=== PATIENT | female | born 1955 | race Caucasian/White ===

== ENCOUNTER 2016-04-14 10:06 | Inpatient (IN) ==
--- NOTE | 2016-04-14 10:33 | Emergency Department Note ---
Disposition Clinical Impression: Acute on chronic pancreatitis, Intractable pain Disposition: Admitted As Inpatient Condition: Good Abdominal Pain HPI - General Chief Complaint: ED Abdominal Pain Stated Complaint: ABD pain Time Seen by Provider: 04/14/16 10:29 Source: patient Nursing Notes Reviewed: Yes Vital Signs Reviewed: Yes - History of Present Illness HPI Narrative: 60-year-old female with history of type 2 diabetes, hypertension and chronic pancreatitis presents to the emergency department with the chief complaint of epigastric pain. She states this pain is exactly like her previous bouts of pancreatitis. She was seen yesterday at an outside hospital and had blood work and her lipase was apparently quite elevated. Her pain has worsened despite oral narcotics at home. She had one episode of vomiting yesterday. She has been having some thinner stools and normal as described as brown without any black or blood. She has had no fevers or chills. Denies any chest pain or shortness of breath. Denies any lower abdominal pain. Pain Severity: moderate Pain Scale: 8 Radiation: LUQ, RUQ, epigastric - Related Data Allergies Allergy/AdvReac Type Severity Reaction Status Date / Time Iodinated Contrast Media - Allergy Difficulty Verified 04/14/16 12:35 Oral and Breathing hydrocodone [From [place]] AdvReac Gastrointestinal Verified 04/14/16 10:17 Upset tramadol AdvReac Gastrointestinal Verified 04/14/16 10:17 Upset All systems ED: reviewed and negative except as stated. Constitutional: Denies: fever, chills Cardiovascular: Denies: chest pain, palpitations, dyspnea on exertion Respiratory: Denies: cough, dyspnea Gastrointestinal: Reports: abdominal pain, nausea, vomiting. Denies: melena, hematochezia Neurological: Denies: headache Abdominal Pain PMH - Past Medical History Medical history: Reports: diabetes, hypertension, other Female Surgical History: Reports: cholecystectomy Psychiatric history: Reports: depression - Social History Smoking status: Current every day smoker Alcohol use: Reports: none Drug use: Reports: none Physical Exam General: She appears to be in some pain, alert and oriented x 3 Cardiovascular: Regular rate and rhythm. S1, S2. No murmurs, rubs or gallops. Respiratory: Breath sounds clear bilaterally. No wheezing, rales or rhonchi. No resp distress Abdomen: Abdomen is soft throughout without any guarding, rebound or rigidity. Normal bowel sounds throughout. She has reproducible epigastric tenderness without any palpable organomegaly. No lower abdominal tenderness. Negative Maki's. No bruising across the abdomen. No Flank tenderness Eyes: No scleral icterus, conjunctiva clear HENT: No oral mucosal lesions. Moist mucous membranes Neuro: Alert and oriented 3, no motor or sensory deficits Musculoskeletal: No joint tenderness or swelling Skin: No lesions. No diaphoresis. Normal turgor. Normal color Psych: Appropriate - General Limitations: no limitations General appearance: alert - Abdominal Exam Abdominal exam: Present: tenderness Abdominal tenderness: Present: epigastrium Course Course Narrative: 60-year-old female with a history of chronic pancreatitis presents the emergency department with worsening epigastric pain that radiates to her back. This is exactly the same as her previous pain. She reports recently being seen at an outside hospital in [place], treated in the emergency department and discharged. The pain has worsened significantly which brought her here today. On exam she has epigastric tenderness. Her labs show an elevated lipase around 250. We requested a previous CT scan from [facility] but they reported no previous CT scan recently. After speaking with the patient we decided to do a repeat CT scan to look for any evidence of pseudocyst or anything significant. Her CT scan today shows acute on chronic pancreatitis. Later we did receive a CT scan report from [place] showing calcifications in the pancreas but nothing to suggest acute pancreatitis, suggesting her pancreatitis has worsened. We tried judiciously to treat her pain in the emergency department including IV Dilaudid, Ativan and even a sub-dissociative dose of ketamine and did not have relief. The patient does not think she can go home comfortably and we agree. Plan to admit for acute on chronic pancreatitis and intractable pain. I discussed with the on-call hospitalist, Dr. Webster who accepts for admission Vital Signs Temperature 98.4 F 04/14/16 10:15 Pulse Rate 101 04/14/16 10:15 Respiratory Rate 18 04/14/16 10:15 Blood Pressure 136/85 04/14/16 10:15 O2 Sat by Pulse Oximetry 98 04/14/16 10:15 Temperature 98.3 F 04/14/16 15:52 Pulse Rate 80 04/14/16 15:52 Respiratory Rate 16 04/14/16 15:52 Blood Pressure 130/75 04/14/16 15:52 O2 Sat by Pulse Oximetry 95 04/14/16 15:52 Oxygen Delivery Oxygen Delivery Room Air Abdominal Pain - Lab Data Result diagrams: 04/14/16 10:56 04/14/16 10:56 Lab Results 04/14/16 04/14/16 04/14/16 Range/Units 10:56 10:56 10:56 WBC 6.1 (4.3-11.1) K/mcL RBC 4.01 (3.82-4.97) M/mcL Hgb 11.5 (11.5-15.4) g/dL Hct 34.6 L (35.3-44.9) % MCV 86.3 (83.0-100.0) fL MCH 28.7 (28.0-33.3) pg MCHC 33.2 (31.6-35.5) g/dL RDW 12.6 (11.5-14.5) % Plt Count 198 (140-400) K/mcL MPV 10.0 (9.4-12.4) fL Immature Gran % 0.3 (0-4) % Seg Neutrophils % 75.9 % Lymphocytes % 17.9 % Monocytes % 5.1 % Eosinophils % 0.5 % Basophils % 0.3 % Neutrophils # 4.6 (1.6-8.9) K/mcL Lymphocytes # 1.1 (0.6-4.6) K/mcL Monocytes # 0.3 (0.0-1.3) K/mcL Eosinophils # 0.0 (0.0-0.6) K/mcL Basophils # 0.0 (0.0-0.2) K/mcL Sodium 138 (136-145) mEq/L Potassium 4.5 (3.5-4.5) mEq/L Chloride 104 (98-109) mEq/L Carbon Dioxide 24 (19-29) mEq/L BUN 8 (7-20) mg/dL Creatinine 0.79 (0.57-1.11) mg/dL Est GFR ( Amer) > 60 (> 60) Est GFR (Non-Af Amer) > 60 (> 60) BUN/Creatinine Ratio 10 (6-26) Glucose 211 H (70-99) mg/dL Calculated Osmolality 291 (280-300) Calcium 9.6 (8.6-10.8) mg/dL Total Bilirubin 0.2 (0.2-1.2) mg/dL Direct Bilirubin 0.1 (0.0-0.5) mg/dL Indirect Bilirubin 0.1 (0.0-1.2) mg/dL AST 26 (5-34) Units/L ALT 22 (0-55) Units/L Alkaline Phosphatase 108 (38-126) Units/L Serum Total Protein 6.6 (6.0-8.3) g/dL Albumin 3.4 L (3.5-5.0) g/dL Globulin 3.2 (2.4-3.5) g/dL Albumin/Globulin Ratio 1.1 (1.1-2.2) Amylase 138 H (25-125) Units/L Lipase 264 H (8-78) Units/L TSH 0.305 L (0.350-4.840) mcIU/mL Attestation Statement - Attestation Attestation: I examined this patient and my medical decision-making was reviewed with the TILE BURNER/PA/Advanced Practice Nurse/Resident Physician. I agree with the documented findings, disposition and treatment plan as described except to the extent set forth below. 60-year-old female presents ED because of abdominal pain. She has history of recurring pancreatitis for the past years. Recent admission to another facility for pancreatic tenderness. Today with recurrence of the same pain that she is unable to tolerate home. Complains of nausea without persistent vomiting. No fevers. No diarrhea. No chest pain or dyspnea. No dysuria, hematuria polyuria. Patient began to fall. She is afebrile. Oropharynx clear mucous membranes dry. Neck is supple. Chest clear to auscultation bilaterally. Cardiac exam regular. Abdomen soft nondistended but moderate tenderness in the epigastrium. Lower abdomen nontender. Flanks nontender. Extremities well perfused, warm and dry. She was given analgesics with transient improvement. Lipase is slightly elevated at 264. No leukocytosis. Ultimately pain was poorly controlled and she was admitted to the hospital for pain control.
[2016-04-14] MEDS ORDERED: Ondansetron 4 MG/2 ML VIAL IV ONE (10:35)
[2016-04-14] MEDS ORDERED: 0.9 % Sodium Chloride 1,000 ML IV ONE (10:35)
[2016-04-14] MEDS ORDERED: *HR* HYDROmorphone (PF) 1 MG/ML SYRINGE IVP ONE (10:35)
[2016-04-14 11:06] LABS: Basophils % 0.3 %; Eosinophils % 0.5 %; Hematocrit 34.6 % (35.3-44.9); Hemoglobin 11.5 g/dL (11.5-15.4); Immature Granulocytes % 0.3 % (0-4); Lymphocytes # 1.1 K/mcL (0.6-4.6); Lymphocytes % 17.9 %; Mean Corpuscular HGB Conc 33.2 g/dL (31.6-35.5); Mean Corpuscular Hemoglobin 28.7 pg (28.0-33.3); Mean Corpuscular Volume 86.3 fL (83.0-100.0); Monocytes # 0.3 K/mcL (0.0-1.3); Monocytes % 5.1 %; Neutrophils # 4.6 K/mcL (1.6-8.9); Platelet Count 198 K/mcL (140-400); Red Blood Count 4.01 M/mcL (3.82-4.97); Red Cell Distribution Width 12.6 % (11.5-14.5); Segmented Neutrophils % 75.9 %
[2016-04-14 11:21] LABS: Alanine Aminotransferase 22 Units/L (0-55); Albumin 3.4 g/dL (3.5-5.0); Albumin/Globulin Ratio 1.1 (1.1-2.2); Alkaline Phosphatase 108 Units/L (38-126); Amylase 138 Units/L (25-125); Aspartate Amino Transferase 26 Units/L (5-34); BUN/Creatinine Ratio 10 (6-26); Bilirubin,Direct 0.1 mg/dL (0.0-0.5); Bilirubin,Indirect 0.1 mg/dL (0.0-1.2); Bilirubin,Total 0.2 mg/dL (0.2-1.2); Blood Urea Nitrogen 8 mg/dL (7-20); Calcium 9.6 mg/dL (8.6-10.8); Carbon Dioxide 24 mEq/L (19-29); Chloride 104 mEq/L (98-109); Globulin 3.2 g/dL (2.4-3.5); Glucose 211 mg/dL (70-99); Lipase 264 Units/L (8-78); Osmolality,Calculated 291 (280-300); Potassium 4.5 mEq/L (3.5-4.5); Sodium 138 mEq/L (136-145); Total Protein 6.6 g/dL (6.0-8.3); eGFR For African Americans > 60 (> 60); eGFR For Non-African Americans > 60 (> 60)
[2016-04-14] MEDS ORDERED: Ketamine *HR* 500 MG/10 ML MDV IVP ONE (11:53)
[2016-04-14] MEDS: *HR* LORazepam 2 MG/ML VIAL IVP ONE ×2 (12:06→13:31)
[2016-04-14] MEDS ORDERED: Naloxone 0.4 MG/ML INJ IVP PRN (13:41)
[2016-04-14] MEDS ORDERED: *HR* HYDROmorphone (PF) 1 MG/ML SYRINGE IVP PRN (13:41)
[2016-04-14] MEDS ORDERED: Acetaminophen 325 MG TABLET PO PRN (13:41)
[2016-04-14] MEDS ORDERED: *HR* LORazepam 2 MG/ML VIAL IVP PRN (13:46)
[2016-04-14] MEDS: Pantoprazole 40 MG VIAL IVP SCH (14:06)
[2016-04-14] MEDS: D5% in 0.45% NACL 1,000 ML IVC SCH (14:07)
[2016-04-14] MEDS: Nicotine 14 MG PATCH.TD24 TD SCH (16:19)
[2016-04-14] MEDS: Ondansetron 4 MG/2 ML VIAL IVP PRN (16:19)
--- NOTE | 2016-04-14 18:02 | Internal Med History&Physical ---
<Luz Rodriguez - Last Filed: 04/14/16 22:14> Date of Encounter: 04/14/16 Time of Encounter: 16:45 Assessment and Plan (1) Acute on chronic pancreatitis Current visit: Yes Status: Acute Chronic pancreatits since last August, pain worse since last night. Pt was seen [facility] ED last night for same and was sent home. Presents today for increased pain. Amylase 138, Lipase 264. Pain control- Dilaudid 1mg q 4h prn Monitor labs NPO. (2) Intractable pain Current visit: Yes Status: Acute Pt was seen by pain management, was removed from the practice for taking rx narcotics from ER. I have discussed with her that we will not be increasing the amount or frequency of her pain medication and she verbalized understanding. Dilaudid 1mg IV q4h prn (3) Abnormal TSH Current visit: Yes Status: Acute TSH 0.305 today. Pt is a Will draw Free T4. Monitor labs. 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 Wright is a 60 year old female with history of chronic pancreatitis since last August, DM, HTN. She presents today with c/o acute on chronic pancreatitis. She was at [facility] last night for same and says she was sent home because "they are sick of dealing with me." She was kicked out of pain management due to accepting pain medication from the ER. She requests higher dose of dilaudid and more frequently during exam. Pt is tender to light palpation in epigastric area. Denies diarrhea or constipation, but reports n/v. Rates pain 8/10, sharp, constant, with radiation to mid back. Past Med Surg Social Fam HX - Past Medical History Medical history: diabetes, hypertension, other Psychiatric history: depression - Past Surgical History Surgical History: cholecystectomy - Social History Smoking Status: Current every day smoker Smokeless Tobacco Status: No Alcohol use: none Drug use: none Internal Medicine - H&P: Meds Allergies Iodinated Contrast Media - Oral and Allergy (Verified 04/14/16 12:35) Difficulty Breathing hydrocodone [From [place]] Adverse Reaction (Verified 04/14/16 10:17) Gastrointestinal Upset tramadol Adverse Reaction (Verified 04/14/16 10:17) Gastrointestinal Upset All Systems PM: A 10-system review of systems was performed and is negative for pertinent findings except as documented above in the HPI. - Constitutional Constitutional: no chills, no fatigue, no fever(s), no night sweats, no weakness - Cardiovascular Cardiovascular ROS IM: no chest pain, no dyspnea, no dyspnea on exertion, no edema, no lightheadedness - Respiratory Respiratory: no cough, no dyspnea - Gastrointestinal Gastrointestinal: abdominal pain, nausea, vomiting, no diarrhea, no loose stools , no melena - Genitourinary Genitourinary: no dysuria, no urinary frequency, no urinary hesitancy, no urinary incontinence, no urinary urgency - Constitutional Vitals: Temp Pulse Resp BP Pulse Ox 98.3 F 80 16 130/75 95 04/14/16 15:52 04/14/16 15:52 04/14/16 15:52 04/14/16 15:52 04/14/16 15:52 General appearance: Present: cooperative, A&O X 3, answers questions appropriately Exam: Pt appears to be in moderate distress, eyes closed when speaking - ENT ENT exam: Present: mucous membranes moist - Neck Neck exam general surgery: Present: normal inspection. Absent: lymphadenopathy , tenderness - Respiratory Respiratory exam: Present: wheezes. Absent: accessory muscle use, chest wall tenderness, decreased breath sounds, CTAB Additional comments: expiratory wheezing in R post lung [place], clear on L. - Cardiovascular Cardiovascular exam: Present: RRR, +S1, +S2 - GI/Abdominal GI/Abdominal exam: Present: hyperactive bowel sounds, tenderness. Absent: hepatomegaly, splenomegaly - Extremities Exam Extremities exam: Present: full ROM, normal capillary refill, normal inspection , warm, radial pulses palpable and symetrical. Absent: calf tenderness, pedal edema, tenderness - Neurological Exam Neurological exam: Present: alert, oriented X3, no focal deficits, strengths equal and symetr throughout Internal Med - H&P Results - Labs CBC & Chem 7: 04/14/16 10:56 04/14/16 10:56 <Ducu,Neal - Last Filed: 04/15/16 06:33> Date of Encounter: 04/15/16 Internal Medicine - H&P: HPI History of present illness: Ms. Wright is a 60 year old female All Systems PM: A 10-system review of systems was performed and is negative for pertinent findings except as documented above in the HPI. - Constitutional Vitals: Temp Pulse Resp BP Pulse Ox 98.2 F 72 16 154/93 95 04/15/16 03:57 04/15/16 03:57 04/15/16 03:57 04/15/16 03:57 04/15/16 03:57 Internal Med - H&P Results - Labs CBC & Chem 7: 04/15/16 03:53 04/15/16 03:53 Labs: Short CBC 04/15/16 Range/Units 03:53 WBC 5.6 (4.3-11.1) K/mcL Hgb 11.4 L (11.5-15.4) g/dL Hct 34.7 L (35.3-44.9) % Plt Count 175 (140-400) K/mcL Neutrophils # 2.9 (1.6-8.9) K/mcL BMP 04/15/16 03:53 Sodium 141 Potassium 3.9 Chloride 108 Carbon Dioxide 24 BUN 6 L Creatinine 0.75 Glucose 162 H Calcium 8.9 Liver Function 04/15/16 Range/Units 03:53 Total Bilirubin 0.3 (0.2-1.2) mg/dL Direct Bilirubin 0.1 (0.0-0.5) mg/dL AST 18 (5-34) Units/L ALT 17 (0-55) Units/L Alkaline Phosphatase 89 (38-126) Units/L Albumin 3.2 L (3.5-5.0) g/dL - Attending Attestation I examined this patient and my medical decision-making was reviewed with the Advanced Practice Provider. I agree with the documented findings, disposition and treatment plan as described except to the extent set forth below. The patient presented to the hospital with epigastric abdominal pain which was severe and sharp in nature, usually improves with oral pain medication however she ran out due to her being denied access pain management clinic. Pain was associated with decreased appetite no vomiting hematemesis or melena. On exam she is in distress and tearful. Abdomen is soft but exquisitely tender with voluntary guarding, no rebound tenderness. Plan: Will add IV acetaminophen for pain control. Continue with IV Dilaudid. Check lipase in the morning. Nothing by mouth. IV fluids and PPI.. She is at high risk for morbidity mortality and complications due to treatment with frequent doses of IV opiates for pain control
[2016-04-14] MEDS: *HR* HYDROmorphone (PF) 1 MG/ML SYRINGE IVP PRN ×2 (18:08→22:14)
[2016-04-14] MEDS ORDERED: *HR* Dextrose 50 % in Water (Syg) 50 ML SYRINGE IVP PRN (19:00)
[2016-04-14] MEDS ORDERED: Dextrose Gel 15 GM PO PRN ×2 (19:00)
[2016-04-14] MEDS ORDERED: D5% in Water 1,000 ML IV PRN (19:00)
[2016-04-14 19:26] LABS: Amphetamine Screen,Urine Negative ng/mL (Cutoff=1000); Barbiturate Screen,Urine Negative ng/mL (Cutoff=200); Benzodiazepines Screen,Urine Negative ng/mL (Cutoff=200); Cannabinoid Screen,Urine Negative ng/mL (Cutoff = 50); Cocaine Screen,Urine Negative ng/mL (Cutoff= 300); Opiate Screen,Urine Negative ng/mL (Cutoff=300); Phencyclidine Screen,Urine Negative ng/mL (Cutoff=25)
[2016-04-14 19:47] LABS: Hemoglobin A1C 7.1 %
[2016-04-14] MEDS: Insulin LISPRO 300 UNITS/3 ML VIAL SQ SCH (22:21)
[2016-04-15] MEDS: Acetaminophen IV 1,000 MG/100 ML INFUS..BTL IVPB SCH ×4 (00:05→18:26)
[2016-04-15] MEDS: Ondansetron 4 MG/2 ML VIAL IVP PRN ×3 (00:20→21:10)
[2016-04-15] MEDS: *HR* HYDROmorphone (PF) 1 MG/ML SYRINGE IVP PRN ×5 (02:24→21:09)
[2016-04-15 04:15] LABS: Basophils % 0.5 %; Eosinophils # 0.1 K/mcL (0.0-0.6); Eosinophils % 1.8 %; Hematocrit 34.7 % (35.3-44.9); Hemoglobin 11.4 g/dL (11.5-15.4); Immature Granulocytes % 0.2 % (0-4); Lymphocytes # 2.2 K/mcL (0.6-4.6); Lymphocytes % 38.5 %; Mean Corpuscular HGB Conc 32.9 g/dL (31.6-35.5); Mean Corpuscular Hemoglobin 28.8 pg (28.0-33.3); Mean Corpuscular Volume 87.6 fL (83.0-100.0); Mean Platelet Volume 10.1 fL (9.4-12.4); Monocytes # 0.4 K/mcL (0.0-1.3); Monocytes % 6.3 %; Neutrophils # 2.9 K/mcL (1.6-8.9); Platelet Count 175 K/mcL (140-400); Red Blood Count 3.96 M/mcL (3.82-4.97); Red Cell Distribution Width 12.8 % (11.5-14.5); Segmented Neutrophils % 52.7 %
[2016-04-15 04:45] LABS: Albumin 3.2 g/dL (3.5-5.0); Albumin/Globulin Ratio 1.1 (1.1-2.2); BUN/Creatinine Ratio 8 (6-26); Bilirubin,Direct 0.1 mg/dL (0.0-0.5); Bilirubin,Indirect 0.2 mg/dL (0.0-1.2); Bilirubin,Total 0.3 mg/dL (0.2-1.2); Blood Urea Nitrogen 6 mg/dL (7-20); Calcium 8.9 mg/dL (8.6-10.8); Carbon Dioxide 24 mEq/L (19-29); Chloride 108 mEq/L (98-109); Globulin 2.9 g/dL (2.4-3.5); Glucose 162 mg/dL (70-99); Magnesium 1.3 mg/dL (1.6-2.6); Osmolality,Calculated 293 (280-300); Potassium 3.9 mEq/L (3.5-4.5); Sodium 141 mEq/L (136-145); Total Protein 6.1 g/dL (6.0-8.3); eGFR For African Americans > 60 (> 60); eGFR For Non-African Americans > 60 (> 60)
[2016-04-15] MEDS: D5% in 0.45% NACL 1,000 ML IVC SCH (06:24)
[2016-04-15] MEDS ORDERED: Insulin LISPRO 300 UNITS/3 ML VIAL SQ SCH (07:30)
[2016-04-15] MEDS: Pantoprazole 40 MG VIAL IVP SCH (08:20)
[2016-04-15] MEDS: Insulin LISPRO 300 UNITS/3 ML VIAL SQ SCH ×3 (08:20→16:59)
[2016-04-15] MEDS: Nicotine 14 MG PATCH.TD24 TD SCH (08:21)
[2016-04-15] MEDS ORDERED: Magnesium Sulfate 2 GM in D5% in Water 100 ML IVPB ONE (13:10)
--- NOTE | 2016-04-15 13:23 | Internal Med Progress Note ---
Date of Encounter: 04/15/16 Time of Encounter: 13:21 - Assessment and plan (1) Acute on chronic pancreatitis Current Visit: Yes Status: Acute Assessment and plan: Intractable and difficult to control abdominal pain. Suspicious history regarding outpatient f/up. Continue IV hydration, keep NPO with plan to start clear liquid diet later today if pain is better controlled. Needs pancrelipase supplements with diet; Start PO Percocet along with IV Dilaudid and explained to the patient that current Dilaudid dose cannot be changed, and she verbalized understanding. Supportive care; serum lipase is only mildly elevated; CT abdomen shows acute on chronic calcified pancreatitis; (2) Essential hypertension Current Visit: Yes Status: Chronic Assessment and plan: noted to have elevated BP; restart home meds, use PRN IV meds for better control ; (3) COPD (chronic obstructive pulmonary disease) Current Visit: Yes Status: Chronic Qualifiers: COPD type: unspecified COPD Qualified Code(s): J44.9 - Chronic obstructive pulmonary disease, unspecified (4) Tobacco abuse Current Visit: Yes Status: Chronic Assessment and plan: continue Nicotine patch; (5) Anxiety Current Visit: Yes Status: Chronic (6) Depression Current Visit: Yes Status: Chronic Qualifiers: Depression Type: unspecified Qualified Code(s): F32.9 - Major depressive disorder, single episode, unspecified (7) Diabetes mellitus Current Visit: Yes Status: Chronic Assessment and plan: Accucheck blood glucose monitoring with sliding scale insulin as needed; consistent carbohydrate diet; Qualifiers: Diabetes mellitus type: type 2 Diabetes mellitus complication status: without complication 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 use Qualified Code(s): E11.9 - Type 2 diabetes mellitus without complications - Subjective Interval history: Reports severe abdominal pain, controlled with Dilaudid but short-lasting; noted to have anxiety and tremors; no nausea, vomiting, reports having BMs; not receiving pain meds from PCP as she got some pain meds from ER and broke pain contract; follows with GI at [facility] for chronic pancreatitis; - Constitutional Vitals: Temp Pulse Resp BP Pulse Ox 98.3 F 83 16 181/93 96 04/15/16 10:31 04/15/16 11:25 04/15/16 10:31 04/15/16 11:25 04/15/16 10:31 General appearance: Present: mild distress, A&O X 3, answers questions appropriately - Respiratory Respiratory exam: Present: CTAB. Absent: accessory muscle use, rales, rhonchi, wheezes - Cardiovascular Cardiovascular exam: Present: RRR, +S1, +S2. Absent: diastolic murmur, gallop, rubs, systolic murmur - GI/Abdominal GI/Abdominal exam: Present: normal bowel sounds, soft (tenderness in epigastrium and LUQ, no guarding/rigidity), no peritoneal signs. Absent: distended, tenderness Internal Medicine: Result - Labs CBC & Chem 7: 04/15/16 03:53 04/15/16 03:53 Labs: Short CBC 04/15/16 Range/Units 03:53 WBC 5.6 (4.3-11.1) K/mcL Hgb 11.4 L (11.5-15.4) g/dL Hct 34.7 L (35.3-44.9) % Plt Count 175 (140-400) K/mcL Neutrophils # 2.9 (1.6-8.9) K/mcL BMP 04/15/16 03:53 Sodium 141 Potassium 3.9 Chloride 108 Carbon Dioxide 24 BUN 6 L Creatinine 0.75 Glucose 162 H Calcium 8.9 Liver Function 04/15/16 Range/Units 03:53 Total Bilirubin 0.3 (0.2-1.2) mg/dL Direct Bilirubin 0.1 (0.0-0.5) mg/dL AST 18 (5-34) Units/L ALT 17 (0-55) Units/L Alkaline Phosphatase 89 (38-126) Units/L Albumin 3.2 L (3.5-5.0) g/dL Consult Discharge Plan - Plan Referrals: NO,PCP [Primary Care Provider] - Nomi Guillermo MD [Non-Partnered Physician] -
[2016-04-15] MEDS: Gabapentin 300 MG CAPSULE PO SCH ×2 (14:10→21:10)
[2016-04-15] MEDS: *HR* OxyCODONE Immed Rel 5 MG TABLET PO PRN (14:10)
[2016-04-15] MEDS: traZODone 50 MG TABLET PO SCH (21:10)
[2016-04-15] MEDS: clonazePAM 0.5 MG TABLET PO SCH (21:20)
[2016-04-16] MEDS: *HR* OxyCODONE Immed Rel 5 MG TABLET PO PRN ×3 (00:19→20:53)
[2016-04-16] MEDS: D5% in 0.45% NACL 1,000 ML IVC SCH ×2 (00:21→18:07)
[2016-04-16] MEDS: Insulin LISPRO 300 UNITS/3 ML VIAL SQ SCH ×5 (00:23→20:58)
[2016-04-16] MEDS: Acetaminophen IV 1,000 MG/100 ML INFUS..BTL IVPB SCH ×2 (00:45→06:33)
[2016-04-16] MEDS: *HR* HYDROmorphone (PF) 1 MG/ML SYRINGE IVP PRN ×5 (02:28→22:23)
[2016-04-16] MEDS: *HR* Heparin 5,000 UNIT/ML VIAL SQ SCH ×2 (06:36→18:06)
[2016-04-16] MEDS: Gabapentin 300 MG CAPSULE PO SCH ×3 (08:13→20:54)
[2016-04-16] MEDS: clonazePAM 0.5 MG TABLET PO SCH ×2 (08:13→20:54)
[2016-04-16] MEDS: Pantoprazole 40 MG VIAL IVP SCH (08:13)
[2016-04-16] MEDS: Nicotine 14 MG PATCH.TD24 TD SCH (08:14)
[2016-04-16] MEDS: (Aclidinium Bromide [Tudorza Pressair] 400 MCG) IH SCH (08:24)
[2016-04-16] MEDS ORDERED: Acetaminophen 325 MG TABLET PO PRN (10:21)
[2016-04-16] MEDS ORDERED: Magnesium Sulfate 2 GM in D5% in Water 100 ML IVPB ONE (10:21)
--- NOTE | 2016-04-16 10:38 | Internal Med Progress Note ---
Date of Encounter: 04/16/16 Time of Encounter: 10:34 - Assessment and plan (1) Acute on chronic pancreatitis Current Visit: Yes Status: Acute Assessment and plan: Intractable and difficult to control abdominal pain. Improving. Continue IV hydration, start low-fat/diabetic clear liquid diet today. Advance as tolerated. Start pancrelipase supplements with diet; continue PO Percocet along with IV Dilaudid. Supportive care; (2) Essential hypertension Current Visit: Yes Status: Chronic Assessment and plan: Elevated blood pressure yesterday likely due to severe abdominal pain. Blood pressure is noted to be better controlled today. Continue lisinopril. use PRN IV meds for better control; (3) COPD (chronic obstructive pulmonary disease) Current Visit: Yes Status: Chronic Qualifiers: COPD type: unspecified COPD Qualified Code(s): J44.9 - Chronic obstructive pulmonary disease, unspecified (4) Tobacco abuse Current Visit: Yes Status: Chronic Assessment and plan: continue Nicotine patch; (5) Anxiety Current Visit: Yes Status: Chronic (6) Depression Current Visit: Yes Status: Chronic Qualifiers: Depression Type: unspecified Qualified Code(s): F32.9 - Major depressive disorder, single episode, unspecified (7) Diabetes mellitus Current Visit: Yes Status: Chronic Assessment and plan: Accucheck blood glucose monitoring with sliding scale insulin as needed; consistent carbohydrate diet; Qualifiers: Diabetes mellitus type: type 2 Diabetes mellitus complication status: without complication Diabetes mellitus jail insulin use: without extermination inspector use Qualified Code(s): E11.9 - Type 2 diabetes mellitus without complications - Subjective Interval history: Reports improving abdominal pain. No nausea, vomiting or diarrhea. Wants to have clear liquids today. Reports that she has an appointment at [facility] tomorrow for abdominal ultrasound and MRI as part of GI workup. - Constitutional Vitals: Temp Pulse Resp BP Pulse Ox 97.9 F 83 14 151/88 93 L 04/16/16 06:48 04/16/16 06:48 04/16/16 06:48 04/16/16 06:48 04/16/16 06:48 General appearance: Present: A&O X 3, answers questions appropriately - Respiratory Respiratory exam: Present: CTAB. Absent: accessory muscle use, rales, rhonchi, wheezes - Cardiovascular Cardiovascular exam: Present: RRR, +S1, +S2. Absent: diastolic murmur, gallop, rubs, systolic murmur - GI/Abdominal GI/Abdominal exam: Present: normal bowel sounds, soft (Improving tenderness in epigastrium and left upper quadrant), no peritoneal signs. Absent: distended, tenderness - Extremities Exam Extremities exam: Present: full ROM, warm, radial pulses palpable and symetrical. Absent: calf tenderness, cyanotic, pedal edema Internal Medicine: Result - Labs CBC & Chem 7: 04/15/16 03:53 04/15/16 03:53 Consult Discharge Plan - Plan Referrals: NO,PCP [Primary Care Provider] - Nomi Guillermo MD [Non-Partnered Physician] -
[2016-04-16] MEDS: Ondansetron 4 MG/2 ML VIAL IVP PRN (18:49)
[2016-04-16] MEDS: traZODone 50 MG TABLET PO SCH (20:54)
[2016-04-17] MEDS: *HR* HYDROmorphone (PF) 1 MG/ML SYRINGE IVP PRN ×2 (03:03→07:01)
[2016-04-17] MEDS: Ondansetron 4 MG/2 ML VIAL IVP PRN (03:10)
[2016-04-17 03:27] LABS: BUN/Creatinine Ratio 7 (6-26); Blood Urea Nitrogen 6 mg/dL (7-20); Calcium 8.9 mg/dL (8.6-10.8); Carbon Dioxide 27 mEq/L (19-29); Chloride 106 mEq/L (98-109); Glucose 232 mg/dL (70-99); Magnesium 1.7 mg/dL (1.6-2.6); Osmolality,Calculated 297 (280-300); Sodium 141 mEq/L (136-145); eGFR For African Americans > 60 (> 60); eGFR For Non-African Americans > 60 (> 60)
[2016-04-17] MEDS: *HR* Heparin 5,000 UNIT/ML VIAL SQ SCH (07:02)
[2016-04-17 07:11] VITALS: BP 148/89
[2016-04-17] MEDS: Insulin LISPRO 300 UNITS/3 ML VIAL SQ SCH (07:57)
[2016-04-17] MEDS: Pantoprazole 40 MG VIAL IVP SCH (08:35)
[2016-04-17] MEDS: clonazePAM 0.5 MG TABLET PO SCH (08:35)
[2016-04-17] MEDS: Nicotine 14 MG PATCH.TD24 TD SCH (08:36)
[2016-04-17] MEDS: Gabapentin 300 MG CAPSULE PO SCH (08:36)
[2016-04-17] MEDS: (Aclidinium Bromide [Tudorza Pressair] 400 MCG) IH SCH (08:38)
--- NOTE | 2016-04-17 09:00 | Discharge Summary ---
Date of Encounter: 04/17/16 Time of Encounter: 08:58 - Discharge Diagnosis (1) Acute on chronic pancreatitis Priority: Primary Status: Acute (2) Essential hypertension Priority: Secondary Status: Chronic (3) COPD (chronic obstructive pulmonary disease) Priority: Secondary Status: Chronic Qualifiers: COPD type: unspecified COPD Qualified Code(s): J44.9 - Chronic obstructive pulmonary disease, unspecified (4) Tobacco abuse Priority: Secondary Status: Chronic (5) Anxiety Priority: Secondary Status: Chronic (6) Depression Priority: Secondary Status: Chronic Qualifiers: Depression Type: unspecified Qualified Code(s): F32.9 - Major depressive disorder, single episode, unspecified (7) Diabetes mellitus Priority: Secondary Status: Chronic Qualifiers: Diabetes mellitus type: type 2 Diabetes mellitus complication status: without complication Diabetes mellitus 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 insulin use: without 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 use Qualified Code(s): E11.9 - Type 2 diabetes mellitus without complications - Discharge Medications Home Medications: Aclidinium [place] [Tudorza Pressair] 400 mcg IH DAILY 04/15/16 [History] ClonazePAM [Clonazepam] 0.5 mg PO BID 04/15/16 [History] Gabapentin 600 mg PO TID 04/15/16 [History] Lisinopril [Zestril] 10 mg PO DAILY 04/15/16 [History] Metformin [Glucophage] 1,000 mg PO BID 04/15/16 [History] Omeprazole [PriLOSEC] 20 mg PO DAILY 04/15/16 [History] Ondansetron HCl [Zofran] 4 mg PO Q6H PRN 04/15/16 [History] Sertraline [Zoloft] 100 mg PO DAILY 04/15/16 [History] TraZODone 100 mg PO HS 04/15/16 [History] Oxycodone HCl 10 mg PO Q6H PRN #20 04/17/16 [Rx] Allergies/Adverse Reactions: Allergies Iodinated Contrast Media - Oral and Allergy (Verified 04/14/16 12:35) Difficulty Breathing hydrocodone [From [place]] Adverse Reaction (Verified 04/14/16 10:17) Gastrointestinal Upset tramadol Adverse Reaction (Verified 04/14/16 10:17) Gastrointestinal Upset Date of admission: 04/15/16 18:46 Primary care physician: PCP NO Discharging clinician: Alejandra Castle Anticipated date of discharge: 04/17/16 - Patient Status Disposition: Home, Self-Care Condition: Fair Functional capacity at discharge: independent ambulation Overall status at discharge: patient is progressing back to baseline - Discharge Instructions Follow Up With: Brea Pizarro CNP [Advanced Practice Nurse] - 04/24/16 9:30 am Additional Instructions: F/up with PCP in 1-2 weeks F/up with GI in [facility], [place] as scheduled - Diet and Activity Activity: resume usual activities as tolerated Diet: advance to your usual diet (soft diet, advance slowly to regular solids), diabetic diet, low fat, low cholesterol, low salt diet Hospital course: Ms. Wright is a 60 year old female with the above medical problems who was admitted with acute on chronic abdominal pain. CT abdomen/pelvis done in the emergency room showed evidence of acute on chronic calcified pancreatitis. Patient follows with gastroenterology at [facility] in [place] and is having ongoing workup for chronic pancreatitis. She is noted to have acute on chronic pancreatitis at this time and was started on aggressive IV hydration along with pain control with when necessary IV Dilaudid and oxycodone. She was kept nothing by mouth initially. Her symptoms gradually improved and she is currently able to tolerate full liquid to soft diet although she still continues to have abdominal pain. She reported that her primary care provider has not given her any more pain medications as she was noted to have broken her pain contract by obtaining pills through emergency room. She is being discharged on a limited supply of oxycodone and she does have an appointment with her primary care provider within a week. She is otherwise medically stable for discharge. - Time Spent with Patient Total time spent providing and/or coordinating discharge services: Greater than 30 minutes (45 min) - Constitutional Vitals: Temp Pulse Resp BP Pulse Ox 98.2 F 94 16 148/89 94 L 04/17/16 07:00 04/17/16 07:00 04/17/16 07:00 04/17/16 07:00 04/17/16 07:00 General appearance: Present: A&O X 3, answers questions appropriately - Respiratory Respiratory exam: Present: CTAB. Absent: accessory muscle use, rales, rhonchi, wheezes - GI/Abdominal GI/Abdominal exam: Present: normal bowel sounds, soft (mildly tender in epigastrium and LUQ, no guarding or rigidity), no peritoneal signs. Absent: distended, tenderness
[2016-04-17] MEDS: *HR* OxyCODONE Immed Rel 5 MG TABLET PO PRN (09:38)
== END 2016-04-17 10:15 | disposition home or self-care (01) | DRG 282 ==
LOC: EMEROO 10:06 → 3ANU 10:06
PROVIDERS: ADMIT Internal Medicine; ATTEND Internal Medicine

== ENCOUNTER 2016-04-22 09:42 | Inpatient (IN) ==
[2016-04-22] MEDS ORDERED: *HR* HYDROmorphone (PF) 1 MG/ML SYRINGE IVP ONE (10:02)
[2016-04-22] MEDS ORDERED: Ondansetron 4 MG/2 ML VIAL IVP ONE (10:02)
--- NOTE | 2016-04-22 10:19 | Emergency Department Note ---
Disposition Clinical Impression: Pancreatitis Disposition: Admitted As Inpatient Condition: Good Referrals: Brea Pizarro CNP [Primary Care Provider] - Time of Disposition: 11:06 General Adult HPI - General Stated complaint: ABD Pain Time Seen by Provider: 04/22/16 09:47 Source: patient Limitations: no limitations Nursing Notes Reviewed: Yes Vital Signs Reviewed: Yes - History of Present Illness HPI Narrative: Patient complaining of a two-day history of left upper quadrant pain. She did have a procedure done at [facility] yesterday. Does have history of chronic pancreatitis. Reporting nausea associated with this. She is comes pain is sharp and constant. Sitting with her knees bent does help with the pain but does not relieve it. There are no provoking factors. Pain Scale: 10 - Related Data Home Medications Medication Instructions Recorded Confirmed Aclidinium [place] [Tudorza 400 mcg IH DAILY 04/15/16 04/15/16 Pressair] ClonazePAM [Clonazepam] 0.5 mg PO BID 04/15/16 04/15/16 Gabapentin 600 mg PO TID 04/15/16 04/15/16 Lisinopril [Zestril] 10 mg PO DAILY 04/15/16 04/15/16 Metformin [Glucophage] 1,000 mg PO BID 04/15/16 04/15/16 Omeprazole [PriLOSEC] 20 mg PO DAILY 04/15/16 04/15/16 Ondansetron HCl [Zofran] 4 mg PO Q6H PRN 04/15/16 04/15/16 Sertraline [Zoloft] 100 mg PO DAILY 04/15/16 04/15/16 TraZODone 100 mg PO HS 04/15/16 04/15/16 Previous Rx's Medication Instructions Recorded Oxycodone HCl 10 mg PO Q6H PRN #20 04/17/16 Allergies Allergy/AdvReac Type Severity Reaction Status Date / Time Iodinated Contrast Media - Allergy Difficulty Verified 04/14/16 12:35 Oral and Breathing hydrocodone [From [place]] AdvReac Gastrointestinal Verified 04/14/16 10:17 Upset tramadol AdvReac Gastrointestinal Verified 04/14/16 10:17 Upset Review of Systems: Patient denies any fever but does report chills. She denies any vomiting but does report nausea. She denies any headaches or visual disturbances. She denies any shortness of breath or chest pain. She does report a left upper quadrant pain that she states feels like when she has had pancreatitis before. Patient had a procedure at [facility] yesterday. She states she an EGD and some nerves numbed. She denies any numbness or tingling in any erection MUSE. She denies any urinary symptoms. She states she has had a couple episodes of loose stools but denies any hematochezia or melena. All systems ED: reviewed and negative except as stated. Past Medical History - Past Medical History Medical history: Reports: diabetes, hypertension, other Surgical history: Reports: cholecystectomy Psychiatric history: Reports: depression - Social History Smoking Status: Current every day smoker Smokeless Tobacco Status: No Alcohol use: Reports: none Drug use: Reports: none Physical Exam - General Limitations: no limitations General appearance: alert, in no apparent distress - Head Head exam: atraumatic, normocephalic, normal inspection - Eye Eye exam: Present: normal appearance, PERRL, EOMI. Absent: scleral icterus - ENT ENT exam: normal exam, normal oropharynx, mucous membranes moist - Neck Neck exam: Present: normal inspection, full ROM, trachea midline - Chest Chest inspection: Present: normal inspection, symmetric chest wall rise - Respiratory Respiratory exam: Present: normal lung sounds bilaterally. Absent: respiratory distress, wheezes - Cardiovascular Cardiovascular exam: Present: regular rate, normal rhythm, normal heart sounds - Abdominal Exam Abdominal exam: Present: soft, tenderness (To palpation of left upper quadrant.) , other (No peritoneal signs.). Absent: distention, guarding, rebound, rigidity , normal bowel sounds, organomegaly - Extremities Exam Extremities exam: Present: normal inspection, full ROM, normal capillary refill. Absent: tenderness, pedal edema - Expanded Lower Extremity Exam Hip/Pelvis exam: Present: normal inspection, full ROM Upper leg exam: Present: normal inspection, full ROM Knee exam: Present: normal inspection, full ROM Lower leg exam: Present: normal inspection, full ROM Ankle exam: Present: normal inspection, full ROM Foot/toe exam: Present: normal inspection, full ROM Neurovascular/Tendon exam: Absent: motor deficit, sensory deficit, tendon deficit - Back Exam Back exam: Present: normal inspection, full ROM. Absent: tenderness - Neurological Exam Neurological exam: Present: alert, oriented X3 - Psychiatric Psychiatric exam: Present: normal affect, normal mood - Skin Skin exam: Present: warm, dry, intact, normal color. Absent: rash Course Course Narrative: Well-appearing female patient resting comfortably in bed complaining of left upper abdominal pain that started yesterday. She states that she does have a history of pancreatitis. She was seen at [facility] yesterday had an endoscopy along with what the patient describes as "numbing medication injected into nerves." She also states that she was told she had a "large stone in her pancreas," and that "the tail of her pancreas is ." Patient's abdomen is soft. She is tender in her left upper quadrant. I do not appreciate any organomegaly. She states she is defecating normally. She denies any urinary symptoms. She does not appear toxic. She denies any shortness of breath or chest pain. States she is eating and drinking but is nauseated. We will treat patient's pain. We will get basic labs. She states she has been admitted one week ago for pancreatitis. I will send to get a hold of [facility] to get further recommendations. - Reevaluation(s) Reevaluation #1: Spoke with patient stated that and needs to be admitted to the hospital. She expresses understanding. Time: 11:10 - Consultations Consultation #1: Dr Coppola accepted Pt in stable condition. Time: 11:21 Vital Signs Temperature 98.4 F 04/22/16 09:58 Pulse Rate 69 04/22/16 09:58 Respiratory Rate 18 04/22/16 09:58 Blood Pressure 180/107 04/22/16 09:58 O2 Sat by Pulse Oximetry 96 04/22/16 09:58 Temperature 98.4 F 04/22/16 09:58 Pulse Rate 69 04/22/16 09:58 Respiratory Rate 18 04/22/16 09:58 Blood Pressure 180/107 04/22/16 09:58 O2 Sat by Pulse Oximetry 96 04/22/16 09:58 Oxygen Delivery Oxygen Delivery Room Air Medical Decision Making - Lab Data Lab results reviewed: Yes I reviewed the patient's lab results. Result diagrams: 04/22/16 10:23 04/22/16 10:23 Lab Results 04/22/16 04/22/16 04/22/16 Range/Units 10:10 10:23 10:23 WBC 7.5 (4.3-11.1) K/mcL RBC 4.36 (3.82-4.97) M/mcL Hgb 12.4 (11.5-15.4) g/dL Hct 37.5 (35.3-44.9) % MCV 86.0 (83.0-100.0) fL MCH 28.4 (28.0-33.3) pg MCHC 33.1 (31.6-35.5) g/dL RDW 12.6 (11.5-14.5) % Plt Count 203 (140-400) K/mcL MPV 10.0 (9.4-12.4) fL Immature Gran % 0.3 (0-4) % Seg Neutrophils % 77.6 % Lymphocytes % 17.5 % Monocytes % 3.8 % Eosinophils % 0.4 % Basophils % 0.4 % Neutrophils # 5.9 (1.6-8.9) K/mcL Lymphocytes # 1.3 (0.6-4.6) K/mcL Monocytes # 0.3 (0.0-1.3) K/mcL Eosinophils # 0.0 (0.0-0.6) K/mcL Basophils # 0.0 (0.0-0.2) K/mcL Sodium 140 (136-145) mEq/L Potassium 4.1 (3.5-4.5) mEq/L Chloride 104 (98-109) mEq/L Carbon Dioxide 23 (19-29) mEq/L BUN 8 (7-20) mg/dL Creatinine 0.83 (0.57-1.11) mg/dL Est GFR ( Amer) > 60 (> 60) Est GFR (Non-Af Amer) > 60 (> 60) BUN/Creatinine Ratio 10 (6-26) Glucose 166 H (70-99) mg/dL Calculated Osmolality 292 (280-300) Calcium 9.6 (8.6-10.8) mg/dL Total Bilirubin 0.3 (0.2-1.2) mg/dL Direct Bilirubin 0.1 (0.0-0.5) mg/dL Indirect Bilirubin 0.2 (0.0-1.2) mg/dL AST 15 (5-34) Units/L ALT 15 (0-55) Units/L Alkaline Phosphatase 93 (38-126) Units/L Serum Total Protein 7.6 (6.0-8.3) g/dL Albumin 4.1 (3.5-5.0) g/dL Globulin 3.5 (2.4-3.5) g/dL Albumin/Globulin Ratio 1.2 (1.1-2.2) Lipase 326 H (8-78) Units/L Urine Color Yellow (Yellow) Urine Clarity Clear (Clear) Urine pH 7.5 (5.0-8.0) pH Units Ur Specific [place] 1.019 (1.010-1.025) Urine Protein 30 H (Neg-Trace) mg/dL Urine Glucose (UA) Normal (Normal) mg/dL Urine Ketones Negative (Negative) mg/dL Urine Blood Negative (Negative) Urine Nitrite Negative (Negative) Urine Bilirubin Negative (Negative) Urine Urobilinogen Normal (Normal) mg/dL Ur Leukocyte Esterase Negative (Negative) Urine Microscopic RBC 0-3 (0-3) per hpf Urine Microscopic WBC 0-3 (0-3) per hpf Ur Squamous Epith Cells Many H (None-Few) per lpf Urine Bacteria None Seen (None-Few) per hpf Hyaline Casts None Seen (None-Few) per lpf Ur Culture Indicated? NO (NO) - Radiology Data Radiology results reviewed: Yes I reviewed the patient's radiology results. I reviewed the images and radiology report. - EKG Data EKG #1 EKG attestation: Yes I reviewed and interpreted this EKG. EKG results narrative: Normal sinus rhythm at a rate of 68. TN interval is 160. QRS duration is 92. QT is 428. QTC is 445. No signs of acute ischemia.
[2016-04-22 10:26] LABS: Bilirubin,Urine Negative (Negative); Blood,Urine Negative (Negative); Clarity,Urine Clear (Clear); Color,Urine Yellow (Yellow); Glucose,Urine (UA) Normal (Normal); Ketones,Urine Negative (Negative); Leukocyte Esterase,Urine Negative (Negative); Nitrite,Urine Negative (Negative); PH,Urine 7.5 pH Units (5.0-8.0); Protein,Urine 30 mg/dL (Neg-Trace); Specific Gravity,Urine 1.019 (1.010-1.025); Urobilinogen,Urine Normal (Normal)
[2016-04-22 10:29] LABS: Bacteria,Urine None Seen per hpf (None-Few); Hyaline Casts,Urine None Seen per lpf (None-Few); RBC,Urine 0-3 per hpf (0-3); Squamous Epithelial Cell,Urine Many per lpf (None-Few); WBC,Urine 0-3 per hpf (0-3)
[2016-04-22 10:35] LABS: Basophils % 0.4 %; Eosinophils % 0.4 %; Hematocrit 37.5 % (35.3-44.9); Hemoglobin 12.4 g/dL (11.5-15.4); Immature Granulocytes % 0.3 % (0-4); Lymphocytes # 1.3 K/mcL (0.6-4.6); Lymphocytes % 17.5 %; Mean Corpuscular HGB Conc 33.1 g/dL (31.6-35.5); Mean Corpuscular Hemoglobin 28.4 pg (28.0-33.3); Monocytes # 0.3 K/mcL (0.0-1.3); Monocytes % 3.8 %; Neutrophils # 5.9 K/mcL (1.6-8.9); Platelet Count 203 K/mcL (140-400); Red Blood Count 4.36 M/mcL (3.82-4.97); Red Cell Distribution Width 12.6 % (11.5-14.5); Segmented Neutrophils % 77.6 %
[2016-04-22 10:48] LABS: Alanine Aminotransferase 15 Units/L (0-55); Albumin 4.1 g/dL (3.5-5.0); Albumin/Globulin Ratio 1.2 (1.1-2.2); Alkaline Phosphatase 93 Units/L (38-126); Aspartate Amino Transferase 15 Units/L (5-34); BUN/Creatinine Ratio 10 (6-26); Bilirubin,Direct 0.1 mg/dL (0.0-0.5); Bilirubin,Indirect 0.2 mg/dL (0.0-1.2); Bilirubin,Total 0.3 mg/dL (0.2-1.2); Blood Urea Nitrogen 8 mg/dL (7-20); Calcium 9.6 mg/dL (8.6-10.8); Carbon Dioxide 23 mEq/L (19-29); Chloride 104 mEq/L (98-109); Globulin 3.5 g/dL (2.4-3.5); Glucose 166 mg/dL (70-99); Lipase 326 Units/L (8-78); Osmolality,Calculated 292 (280-300); Potassium 4.1 mEq/L (3.5-4.5); Sodium 140 mEq/L (136-145); Total Protein 7.6 g/dL (6.0-8.3); eGFR For African Americans > 60 (> 60); eGFR For Non-African Americans > 60 (> 60)
[2016-04-22] MEDS ORDERED: 0.9 % Sodium Chloride 1,000 ML IVC ONE (10:59)
--- NOTE | 2016-04-22 11:00 | Emergency Department Note ---
START Narrative - START START: I examined this patient and my medical decision-making was reviewed with the LIMOUSINE AND HEARSE UPHOLSTERER/PA/Advanced Practice Nurse/Resident Physician. I agree with the documented findings, disposition and treatment plan as described except to the extent set forth below. Patient to emergency department complaining of epigastric abdominal pain. Patient is status post a procedure yesterday at [facility] where she states they did endoscopy and injected her pancreas. She has had pain since the procedure. On exam she is uncomfortable but in no distress. She is a moderate amount of upper abdominal tenderness. No guarding. Plan. Basic labs show an elevated lipase above baseline. We will discuss with her physicians at [facility]. Patient is status post celiac plexus block yesterday. Lipase is elevated. Will admit. Hospitalist requesting CT.
[2016-04-22] MEDS ORDERED: *HR* OxyCODONE Immed Rel 5 MG TABLET PO PRN (12:39)
[2016-04-22] MEDS ORDERED: Ondansetron 4 MG/2 ML VIAL IVP PRN (12:39)
[2016-04-22] MEDS ORDERED: *HR* HYDROmorphone (PF) 1 MG/ML SYRINGE IVP PRN (12:39)
[2016-04-22] MEDS ORDERED: Naloxone 0.4 MG/ML INJ IVP PRN (12:39)
[2016-04-22] MEDS ORDERED: Pantoprazole 40 MG VIAL IVP SCH (12:45)
[2016-04-22] MEDS ORDERED: 0.9 % Sodium Chloride 1,000 ML IVC SCH (12:45)
--- NOTE | 2016-04-22 12:50 | Internal Med History&Physical ---
<Brandi Dunbar M - Last Filed: 04/22/16 15:16> Date of Encounter: 04/22/16 Time of Encounter: 12:46 Assessment and Plan (1) Acute on chronic pancreatitis Current visit: No Status: Acute Patient with history of chronic pancreatitis, recent admission for pancreatitis last week. She reports she had an endoscopy yesterday at [facility] and was told the tail of her pancreas is and she has a stone. She was set up for a surgical consult on 05/02. She reports that she had LUQ pain prior to the procedure as well as immediately after the procedure, and reports it was worse after, and increasing. She reports she's had nausea and vomiting. Lipase was elevated to 326, she was tender to palpation on exam. NPO IV fluids 0.9NS at 125mL/hr IVP protonix daily PRN dilaudid for pain PRN zofran for nausea Narcan PRN for respiratory depression We will call [facility] for transfer as patient is having post-procedure pancreatitis and with her report of necrotic tail of pancreas already, she is at risk for further morbidity. (2) COPD (chronic obstructive pulmonary disease) Current visit: No Status: Chronic Patient with COPD. She denies any cough, difficulty breathing, or wheezing. She has mild bilateral epiratory wheezes on exam duoneb treatments QID PRN Qualifiers: COPD type: unspecified COPD Qualified Code(s): J44.9 - Chronic obstructive pulmonary disease, unspecified (3) Diabetes mellitus Current visit: No Status: Chronic Controlled as evidenced by Hgb A1c of 7.1 on 04/14 Hold metformin check blood sugars ACHS sliding scale correction dose ACHS hypoglycemic protocol Qualifiers: Diabetes mellitus type: type 2 Diabetes mellitus complication status: without complication Diabetes mellitus fitting room associate insulin use: without nursing home use Qualified Code(s): E11.9 - Type 2 diabetes mellitus without complications (4) Essential hypertension Current visit: No Status: Chronic Will give PRN hydralazine while patient NPO. Once tolerating PO, can transition to home dose of lisinopril (5) Tobacco abuse Current visit: No Status: Chronic Patient continues to smoke. She reports she has cut back. Encouraged smoking cessation. nicotine patch ordered. (6) DVT prophylaxis Current visit: Yes Status: Acute Encourage ambulation anti-embolic stockings Lovenox 40mg SQ Daily (7) Anxiety Current visit: No Status: Chronic Takes 0.5mg Clonazepam BID at home. While NPO, will give 1mg IVP of Ativan BID PRN. Once tolerating PO, resume home dose of Clonazepam. Internal Medicine - H&P: HPI Chief complaint: abdominal pain Admitted From: Emergency Dept Plans for Post Hospital Care: Home History of present illness: Ms. Wright is a 60 year old female with chronic pancreatitis, hypertension, type 2 diabetes, COPD who presented to the emergency department today with complaints of left-sided abdominal pain nausea and vomiting. Patient was recently admitted for pancreatitis flare. She reports she was at [facility] yesterday for an EGD and immediately after the procedure reported increase in her pain on the left side which has continued. She called [facility] and they instructed her to report to her local emergency department. She reports the pain radiates from left lateral side across her left upper quadrant to her epigastric area she describes the pain as achy and stabbing and severe. Pain is somewhat relieved by pain medication administered in the emergency department. She has had some nausea, unable to eat food. Able to tolerate liquids. She did vomit last night. Additionally she has had some hot and cold flashes. She denies any chest pain, palpitations, shortness of breath. She denies any numbness or tingling anywhere. Evaluation in the emergency department revealed elevated lipase of 326 up from previous value on April 14. White blood cell count was normal at 7.5, hemoglobin and hematocrit were normal. On exam, patient alert and oriented, in no acute distress. Heart is regular rate and rhythm, lungs have bilateral expiratory mild wheezes. Patient is tender to palpation over epigastric and left upper quadrant. Past Med Surg Social Fam HX - Past Medical History Medical history: COPD, diabetes, GERD, hyperlipidemia, hypertension, other ( chronic pancreatitis) Psychiatric history: depression - Past Surgical History Surgical History: cholecystectomy, hysterectomy, orthopedic, other (ankle surgery) - Social History Smoking Status: Current every day smoker (40 Pack year history) Packs per day: 0.5 Smokeless Tobacco Status: No Alcohol use: none Drug use: none - Family History Mother Living Status: Age at : 67 Cause of : [place] Father Living Status: Age at : 62 Cause of : [place] Internal Medicine - H&P: Meds Aclidinium [place] [Nicole Cheair] 400 mcg IH DAILY 04/15/16 [History] ClonazePAM [Clonazepam] 0.5 mg PO BID 04/15/16 [History] Gabapentin 600 mg PO TID 04/15/16 [History] Lisinopril [Zestril] 10 mg PO DAILY 04/15/16 [History] Metformin [Glucophage] 1,000 mg PO BID 04/15/16 [History] Omeprazole [PriLOSEC] 20 mg PO DAILY 04/15/16 [History] Ondansetron HCl [Zofran] 4 mg PO Q6H PRN 04/15/16 [History] Sertraline [Zoloft] 100 mg PO DAILY 04/15/16 [History] TraZODone 100 mg PO HS 04/15/16 [History] Ergocalciferol (VITAMIN D2) [Vitamin D2] 50,000 unit PO QWEEK 04/22/16 [History] Allergies Iodinated Contrast Media - Oral and Allergy (Verified 04/22/16 13:45) Difficulty Breathing AND HIVES hydrocodone [From [place]] Adverse Reaction (Verified 04/14/16 10:17) Gastrointestinal Upset tramadol Adverse Reaction (Verified 04/14/16 10:17) Gastrointestinal Upset All Systems PM: A 10-system review of systems was performed and is negative for pertinent findings except as documented above in the HPI. - Constitutional Constitutional: chills, no fever(s), no night sweats - EENT Eyes: no change in vision, no discharge, no pain, no photophobia Ears: no ear discharge, no ear pain, no tinnitus Nose, mouth and throat: no dysphagia, no nasal discharge, no neck pain, no sore throat - Cardiovascular Cardiovascular ROS IM: no chest pain, no diaphoresis, no dyspnea, no lightheadedness, no palpitations, no syncope - Respiratory Respiratory: no cough, no dyspnea, no wheezing, no excessive phlegm production - Gastrointestinal Gastrointestinal: abdominal pain, nausea, vomiting, no diarrhea, no hematemesis , no hematochezia, no melena - Genitourinary Genitourinary: no change in urinary stream, no dysuria, no flank pain, no hematuria - Musculoskeletal Musculoskeletal ROS IM: no numbness, no tingling - Integumentary Integumentary IM: no rash, no unusual bruising - Neurological Neurological ROS: no confusion, no convulsions, no focal weakness, no numbness, no tingling, no tremor(s) - Hematologic/Lymphatic Hematologic/Lymphatic: no easy bruising - Constitutional Vitals: Temp Pulse Resp BP Pulse Ox 98.0 F 75 16 168/84 98 04/22/16 12:05 04/22/16 12:05 04/22/16 12:05 04/22/16 12:05 04/22/16 12:05 General appearance: Present: A&O X 3, no acute distress - Head Head exam: Present: atraumatic, normocephalic - Eye Eye exam: Present: PERRL, conjuntiva pink, sclera anicteric Pupils: Present: PERRL - Neck Neck exam general surgery: Present: supple, trachea midline. Absent: lymphadenopathy - Respiratory Respiratory exam: Present: CTAB, wheezes (mild bilateral expiratory). Absent: accessory muscle use, rales, rhonchi - Cardiovascular Cardiovascular exam: Present: RRR, +S1, +S2. Absent: diastolic murmur, gallop, rubs, systolic murmur - GI/Abdominal GI/Abdominal exam: Present: normal bowel sounds, soft, tenderness (epigastric and left upper quadrant), no peritoneal signs. Absent: distended - Extremities Exam Extremities exam: Present: warm, radial pulses palpable and symetrical. Absent : calf tenderness, cyanotic, pedal edema - Neurological Exam Neurological exam: Present: CN II-XII intact, oriented X3, no focal deficits. Absent: facial droop, speech deficit - Skin Skin exam: Present: dry, intact Internal Med - H&P Results - Labs CBC & Chem 7: 04/22/16 10:23 04/22/16 10:23 Labs: Abnormal lab results Glucose 166 mg/dL (70-99) H 04/22/16 10:23 Lipase 326 Units/L (8-78) H 04/22/16 10:23 Urine Protein 30 mg/dL (Neg-Trace) H 04/22/16 10:10 Ur Squamous Epith Cells Many per lpf (None-Few) H 04/22/16 10:10 <Neal Coppola - Last Filed: 04/22/16 16:27> Date of Encounter: 04/22/16 Internal Medicine - H&P: HPI History of present illness: Ms. Wright is a 60 year old female All Systems PM: A 10-system review of systems was performed and is negative for pertinent findings except as documented above in the HPI. - Constitutional Vitals: Temp Pulse Resp BP Pulse Ox 97.9 F 66 16 173/94 95 04/22/16 14:58 04/22/16 14:58 04/22/16 14:58 04/22/16 14:58 04/22/16 14:58 Internal Med - H&P Results - Labs CBC & Chem 7: 04/22/16 10:23 04/22/16 10:23 - Attending Attestation I examined this patient and my medical decision-making was reviewed with the Advanced Practice Provider. I agree with the documented findings, disposition and treatment plan as described except to the extent set forth below. The patient presented to the hospital with severe epigastric abdominal pain. Lipase was elevated this morning checked in the emergency department. She has a history of endoscopy and possible ERCP done at [facility] yesterday. I am concerned that this could be a postprocedural complication. On exam she is exquisitely tender in the upper abdomen but soft with no guarding rigidity or rebound. Plan: IV fluids, pain control, consult [facility] for possible transfer as she would be better served in a tertiary care hospital. At this point with a GI available in our hospital for the next 48 hours.
[2016-04-22] MEDS ORDERED: *HR* Dextrose 50 % in Water (Syg) 50 ML SYRINGE IVP PRN (13:11)
[2016-04-22] MEDS ORDERED: Dextrose Gel 15 GM PO PRN ×2 (13:11)
[2016-04-22] MEDS ORDERED: D5% in Water 1,000 ML IV PRN (13:11)
[2016-04-22] MEDS ORDERED: Ipratropium/Albuterol Neb 3 ML IH PRN (13:13)
[2016-04-22] MEDS ORDERED: Nicotine 14 MG PATCH.TD24 TD SCH (13:45)
[2016-04-22] MEDS ORDERED: *HR* LORazepam 2 MG/ML VIAL IVP PRN (14:33)
[2016-04-22 14:59] VITALS: BP 173/94
--- NOTE | 2016-04-22 15:24 | Discharge Summary ---
<Brandi Dunbar - Last Filed: 04/22/16 15:19> Date of Encounter: 04/22/16 Time of Encounter: 15:19 - Discharge Diagnosis (1) Acute on chronic pancreatitis Status: Acute (2) COPD (chronic obstructive pulmonary disease) Status: Chronic Qualifiers: COPD type: unspecified COPD Qualified Code(s): J44.9 - Chronic obstructive pulmonary disease, unspecified (3) Diabetes mellitus Status: Chronic Qualifiers: Diabetes mellitus type: type 2 Diabetes mellitus complication status: without complication Diabetes mellitus custodial insulin use: without custodial use Qualified Code(s): E11.9 - Type 2 diabetes mellitus without complications (4) Essential hypertension Status: Chronic (5) Tobacco abuse Status: Chronic (6) DVT prophylaxis Status: Acute (7) Anxiety Status: Chronic - Discharge Medications Home Medications: Aclidinium [place] [Tudorza Pressair] 400 mcg IH DAILY 04/15/16 [History] ClonazePAM [Clonazepam] 0.5 mg PO BID 04/15/16 [History] Gabapentin 600 mg PO TID 04/15/16 [History] Lisinopril [Zestril] 10 mg PO DAILY 04/15/16 [History] Metformin [Glucophage] 1,000 mg PO BID 04/15/16 [History] Omeprazole [PriLOSEC] 20 mg PO DAILY 04/15/16 [History] Ondansetron HCl [Zofran] 4 mg PO Q6H PRN 04/15/16 [History] Sertraline [Zoloft] 100 mg PO DAILY 04/15/16 [History] TraZODone 100 mg PO HS 04/15/16 [History] Ergocalciferol (VITAMIN D2) [Vitamin D2] 50,000 unit PO QWEEK 04/22/16 [History] Allergies/Adverse Reactions: Allergies Iodinated Contrast Media - Oral and Allergy (Verified 04/22/16 13:45) Difficulty Breathing AND HIVES hydrocodone [From [place]] Adverse Reaction (Verified 04/14/16 10:17) Gastrointestinal Upset tramadol Adverse Reaction (Verified 04/14/16 10:17) Gastrointestinal Upset Date of admission: 04/22/16 11:34 Primary care physician: Brea Pizarro CNP Discharging clinician: Brandi Dunbar Anticipated date of discharge: 04/22/16 - Patient Status Disposition: Transfer Other Condition: Fair Functional capacity at discharge: independent ambulation Overall status at discharge: patient is not back to baseline - Discharge Instructions Follow Up With: Brea Pizarro CNP [Primary Care Provider] - Forms: ED Satisfaction Letter, Work/School Release Interval History: Patient reported her procedure at [facility] yesterday showed "stones" in her pancreas as well as showing the "tail of her pancreas is ". With concern for further progression of necrosis or obstructive stone and without GI services available presently, we decided to discuss with [facility] for transfer. Discussed with accepting General Medicine physician, who confirmed patient had EUS at [facility] yesterday which showed non-obstructive stones, and accepted patient for transfer to [facility]. Discussed plan with patient, and she is agreeable with transfer. Hospital course: Ms. Wright is a 60 year old female Time spent discussing smoking cessation with patient: 3 to 10 minutes - Time Spent with Patient Total time spent providing and/or coordinating discharge services: Less than 30 minutes - Constitutional Vitals: Temp Pulse Resp BP Pulse Ox 97.9 F 66 16 173/94 95 04/22/16 14:58 04/22/16 14:58 04/22/16 14:58 04/22/16 14:58 04/22/16 14:58 General appearance: Present: A&O X 3, no acute distress - Head Head exam: Present: atraumatic, normocephalic - Eye Eye exam: Present: PERRL, conjuntiva pink, sclera anicteric Pupils: Present: PERRL - Neck Neck exam general surgery: Present: supple, trachea midline. Absent: lymphadenopathy - Respiratory Respiratory exam: Present: CTAB. Absent: accessory muscle use, rales, rhonchi, wheezes - Cardiovascular Cardiovascular exam: Present: RRR, +S1, +S2. Absent: diastolic murmur, gallop, rubs, systolic murmur - GI/Abdominal GI/Abdominal exam: Present: normal bowel sounds, soft, tenderness (epigastric area and LUQ), no peritoneal signs. Absent: distended - Extremities Exam Extremities exam: Present: warm, radial pulses palpable and symetrical. Absent : calf tenderness, cyanotic, pedal edema - Neurological Exam Neurological exam: Present: CN II-XII intact, oriented X3, no focal deficits. Absent: facial droop, speech deficit - Skin Skin exam: Present: dry, intact <Neal Coppola - Last Filed: 04/22/16 22:01> Date of Encounter: 04/22/16 Date of admission: 04/22/16 15:14 Primary care physician: Brea Pizarro CNP Hospital course: Ms. Wright is a 60 year old female - Time Spent with Patient Total time spent providing and/or coordinating discharge services: - Constitutional Vitals: Temp Pulse Resp BP Pulse Ox 97.9 F 66 16 173/94 95 04/22/16 14:58 04/22/16 14:58 04/22/16 14:58 04/22/16 14:58 04/22/16 14:58 - Attending Attestation I examined this patient and my medical decision-making was reviewed with the Advanced Practice Nurse. I agree with the documented findings, disposition and treatment plan as described except to the extent set forth below. The patient had an endoscopy with EUS and celiac nerve block performed yesterday at [facility], she now has severe epigastric abdominal pain and elevated lipase. I am concerned of a postprocedural complication and suggested the patient to be transferred back to [facility] for further workup and treatment.
[2016-04-22] MEDS: *HR* HYDROmorphone (PF) 1 MG/ML SYRINGE IVP PRN ×2 (15:31→18:03)
[2016-04-22] MEDS ORDERED: Insulin LISPRO 300 UNITS/3 ML VIAL SQ SCH (18:00)
[2016-04-23] MEDS ORDERED: *HR* Enoxaparin 40 MG/0.4 ML SYRINGE SQ SCH (07:00)
--- NOTE | 2016-04-24 08:57 | Electrocardiograph Report ---
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
== END 2016-04-22 18:42 | disposition other institution (70) | DRG 282 ==
LOC: 3ANU 09:42 → EMEROO 09:42 → 3ANU 11:56
PROVIDERS: ADMIT Internal Medicine; ATTEND Internal Medicine Endocrinology, Diabetes & Metabolism

== ENCOUNTER 2016-05-05 15:36 | Inpatient (IN) ==
[2016-05-05] MEDS ORDERED: *HR* Morphine 2 MG/ML SYRINGE IVP ONE (15:46)
[2016-05-05] MEDS ORDERED: Ondansetron 4 MG/2 ML VIAL IVP ONE ×2 (15:46→17:55)
[2016-05-05] MEDS ORDERED: 0.9 % Sodium Chloride 1,000 ML IVC ONE (15:46)
[2016-05-05 16:20] LABS: Basophils % 0.3 %; Eosinophils % 0.5 %; Hematocrit 37.2 % (35.3-44.9); Hemoglobin 12.4 g/dL (11.5-15.4); Immature Granulocytes % 0.3 % (0-4); Lymphocytes # 2.3 K/mcL (0.6-4.6); Mean Corpuscular HGB Conc 33.3 g/dL (31.6-35.5); Mean Corpuscular Hemoglobin 28.1 pg (28.0-33.3); Mean Corpuscular Volume 84.4 fL (83.0-100.0); Mean Platelet Volume 9.7 fL (9.4-12.4); Monocytes # 0.5 K/mcL (0.0-1.3); Monocytes % 5.1 %; Neutrophils # 5.9 K/mcL (1.6-8.9); Platelet Count 251 K/mcL (140-400); Red Blood Count 4.41 M/mcL (3.82-4.97); Red Cell Distribution Width 12.8 % (11.5-14.5); Segmented Neutrophils % 67.8 %
--- NOTE | 2016-05-05 16:21 | Emergency Department Note ---
Disposition Clinical Impression: Acute on chronic pancreatitis, Intractable abdominal pain Disposition: Home, Self-Care Condition: Fair Time of Disposition: 18:56 Abdominal Pain HPI - General Chief Complaint: ED Abdominal Pain Stated Complaint: chronic pancreatits Time Seen by Provider: 05/05/16 15:45 Source: patient Mode of arrival: ambulatory Limitations: no limitations Nursing Notes Reviewed: Yes Vital Signs Reviewed: Yes - History of Present Illness HPI Narrative: 52-year-old female with abdominal pain, epigastric pain. Patient states 10/10 crampy pain, caused her or be doubled over. Patient states that she has a necrotic pancreatic tail, she recently had an EUS procedure done at [facility] on April 23. She was evaluated in the [place] emergency department and sent up there last week for repeat episode of pancreatitis with lipase in the 200s. She states she has had intractable nausea vomiting and abdominal pain. Pt Subjective Complaint: abdominal pain Onset (ago): day(s) Consistency: constant Location: epigastric Pain Severity: severe Pain Scale: 10 Quality: cramping, stabbing Radiation: epigastric Migration to: no migration Improves with: nothing Worsens with: nothing Associated symptoms: Reports: nausea, vomiting, fever. Denies: diarrhea Treatments prior to arrival: none - Related Data Home Medications Medication Instructions Recorded Confirmed Aclidinium [place] [Tudorza 400 mcg IH DAILY 04/15/16 05/05/16 Pressair] Gabapentin 600 mg PO TID 04/15/16 05/05/16 Lisinopril [Zestril] 10 mg PO DAILY 04/15/16 05/05/16 Metformin [Glucophage] 1,000 mg PO BID 04/15/16 05/05/16 Omeprazole [PriLOSEC] 20 mg PO DAILY 04/15/16 05/05/16 Sertraline [Zoloft] 100 mg PO DAILY 04/15/16 05/05/16 TraZODone 100 mg PO HS 04/15/16 05/05/16 Ergocalciferol (VITAMIN D2) 50,000 unit PO QWEEK 04/22/16 05/05/16 [Vitamin D2] Lipase/Protease/Amylase [Etienne [place]cos[place] 3 each PO TIDWM 05/05/16 05/05/16 12,000 Units Capsule] Nicotine Patch [Nicoderm] 21 mg TD DAILY 05/05/16 05/05/16 Allergies Allergy/AdvReac Type Severity Reaction Status Date / Time Iodinated Contrast Media - Allergy Difficulty Verified 04/22/16 13:45 Oral and Breathing All systems ED: reviewed and negative except as stated. Constitutional: Reports: fever. Denies: weakness Eyes: Denies: eye pain, eye discharge Cardiovascular: Denies: chest pain, palpitations Respiratory: Denies: cough, dyspnea Gastrointestinal: Reports: abdominal pain, nausea, vomiting. Denies: diarrhea, hematochezia Genitourinary: Denies: urgency, dysuria Musculoskeletal: Denies: back pain, neck pain Integumentary: Denies: rash, abrasion Neurological: Denies: headache, weakness Psychiatric: Denies: anxiety, depression Abdominal Pain PMH - Past Medical History Medical history: Reports: COPD, diabetes, GERD, hyperlipidemia, hypertension, other Female Surgical History: Reports: cholecystectomy, hysterectomy Psychiatric history: Reports: depression - Social History Smoking status: Current every day smoker Alcohol use: Reports: rarely Drug use: Reports: none Physical Exam Constitutional: 52-year-old female appears tearful on exam mildly tachycardic. Neck: normal inspection, neck is supple, trachea midline Resp: normal chest inspection, CTA bilaterally, no resp distress CV: RRR, no m/g/r GI: normal inspection, moderate to severe epigastric tenderness to palpation. Positive Maki's sign. Normoactive bowel sounds Back: normal inspection, no tenderness to palpation Neuro: A&O3, no gross motor or sensory deficits bilaterally MSK: normal inspection, bilateral UE and LE with normal ROM Psych: normal mood, normal affect Skin: No rashes, skin warm, dry, intact - General Limitations: no limitations General appearance: alert, in no apparent distress Course Course Narrative: 52-year-old female with history of chronic otitis we will check lipase abdominal labs, reassess. She recently had a CT scan a couple weeks ago, had similar complaints without repeat CT at this time. IV fluids and antiemetics pain control - Reevaluation(s) Reevaluation #1: Patient has a lipase of 510, the highest lipase that she has had during her previous bouts of pancreatitis will admit to the hospital service currently in stable condition at time of acceptance by Dr. Brandi LOPEZ Time: 18:56 Vital Signs Temperature 98.6 F 05/05/16 15:38 Pulse Rate 103 05/05/16 15:38 Respiratory Rate 20 05/05/16 15:38 Blood Pressure 171/83 05/05/16 15:38 O2 Sat by Pulse Oximetry 99 05/05/16 15:38 Temperature 98.6 F 05/05/16 15:38 Pulse Rate 67 05/05/16 18:05 Respiratory Rate 20 05/05/16 18:05 Blood Pressure 168/97 05/05/16 18:05 O2 Sat by Pulse Oximetry 100 05/05/16 18:05 Oxygen Delivery Oxygen Delivery Room Air Abdominal Pain - Differential Diagnosis Differential Diagnosis: Likely: abdominal pain non-specific, acute appendicitis , diverticulitis - Medical Records Medical records reviewed: Yes I reviewed the patient's medical records. - Lab Data Lab results reviewed: Yes I reviewed the patient's lab results. Result diagrams: 05/05/16 16:07 05/05/16 16:07 Lab Results 05/05/16 05/05/16 05/05/16 Range/Units 16:07 16:07 16:07 WBC 8.8 (4.3-11.1) K/mcL RBC 4.41 (3.82-4.97) M/mcL Hgb 12.4 (11.5-15.4) g/dL Hct 37.2 (35.3-44.9) % MCV 84.4 (83.0-100.0) fL MCH 28.1 (28.0-33.3) pg MCHC 33.3 (31.6-35.5) g/dL RDW 12.8 (11.5-14.5) % Plt Count 251 (140-400) K/mcL MPV 9.7 (9.4-12.4) fL Immature Gran % 0.3 (0-4) % Seg Neutrophils % 67.8 % Lymphocytes % 26.0 % Monocytes % 5.1 % Eosinophils % 0.5 % Basophils % 0.3 % Neutrophils # 5.9 (1.6-8.9) K/mcL Lymphocytes # 2.3 (0.6-4.6) K/mcL Monocytes # 0.5 (0.0-1.3) K/mcL Eosinophils # 0.0 (0.0-0.6) K/mcL Basophils # 0.0 (0.0-0.2) K/mcL Sodium 136 (136-145) mEq/L Potassium 4.5 (3.5-4.5) mEq/L Chloride 104 (98-109) mEq/L Carbon Dioxide 21 (19-29) mEq/L BUN 13 (7-20) mg/dL Creatinine 0.87 (0.57-1.11) mg/dL Est GFR ( Amer) > 60 (> 60) Est GFR (Non-Af Amer) > 60 (> 60) BUN/Creatinine Ratio 15 (6-26) Glucose 210 H (70-99) mg/dL Calculated Osmolality 288 (280-300) Calcium 9.5 (8.6-10.8) mg/dL Total Bilirubin 0.2 (0.2-1.2) mg/dL Direct Bilirubin < 0.1 (0.0-0.5) mg/dL Indirect Bilirubin 0.1 (0.0-1.2) mg/dL AST 18 (5-34) Units/L ALT 17 (0-55) Units/L Alkaline Phosphatase 84 (38-126) Units/L Troponin I 0.00 (0-0.03) ng/mL Serum Total Protein 7.6 (6.0-8.3) g/dL Albumin 3.9 (3.5-5.0) g/dL Globulin 3.7 H (2.4-3.5) g/dL Albumin/Globulin Ratio 1.1 (1.1-2.2) Lipase 510 H (8-78) Units/L Urine Color (Yellow) Urine Clarity (Clear) Urine pH (5.0-8.0) pH Units Ur Specific [place] (1.010-1.025) Urine Protein (Neg-Trace) mg/dL Urine Glucose (UA) (Normal) mg/dL Urine Ketones (Negative) mg/dL Urine Blood (Negative) Urine Nitrite (Negative) Urine Bilirubin (Negative) Urine Urobilinogen (Normal) mg/dL Ur Leukocyte Esterase (Negative) Ur Culture Indicated? (NO) 05/05/16 Range/Units 18:40 WBC (4.3-11.1) K/mcL RBC (3.82-4.97) M/mcL Hgb (11.5-15.4) g/dL Hct (35.3-44.9) % MCV (83.0-100.0) fL MCH (28.0-33.3) pg MCHC (31.6-35.5) g/dL RDW (11.5-14.5) % Plt Count (140-400) K/mcL MPV (9.4-12.4) fL Immature Gran % (0-4) % Seg Neutrophils % % Lymphocytes % % Monocytes % % Eosinophils % % Basophils % % Neutrophils # (1.6-8.9) K/mcL Lymphocytes # (0.6-4.6) K/mcL Monocytes # (0.0-1.3) K/mcL Eosinophils # (0.0-0.6) K/mcL Basophils # (0.0-0.2) K/mcL Sodium (136-145) mEq/L Potassium (3.5-4.5) mEq/L Chloride (98-109) mEq/L Carbon Dioxide (19-29) mEq/L BUN (7-20) mg/dL Creatinine (0.57-1.11) mg/dL Est GFR ( Amer) (> 60) Est GFR (Non-Af Amer) (> 60) BUN/Creatinine Ratio (6-26) Glucose (70-99) mg/dL Calculated Osmolality (280-300) Calcium (8.6-10.8) mg/dL Total Bilirubin (0.2-1.2) mg/dL Direct Bilirubin (0.0-0.5) mg/dL Indirect Bilirubin (0.0-1.2) mg/dL AST (5-34) Units/L ALT (0-55) Units/L Alkaline Phosphatase (38-126) Units/L Troponin I (0-0.03) ng/mL Serum Total Protein (6.0-8.3) g/dL Albumin (3.5-5.0) g/dL Globulin (2.4-3.5) g/dL Albumin/Globulin Ratio (1.1-2.2) Lipase (8-78) Units/L Urine Color Yellow (Yellow) Urine Clarity Clear (Clear) Urine pH 6.5 (5.0-8.0) pH Units Ur Specific [place] 1.010 (1.010-1.025) Urine Protein Negative (Neg-Trace) mg/dL Urine Glucose (UA) Normal (Normal) mg/dL Urine Ketones Negative (Negative) mg/dL Urine Blood Negative (Negative) Urine Nitrite Negative (Negative) Urine Bilirubin Negative (Negative) Urine Urobilinogen Normal (Normal) mg/dL Ur Leukocyte Esterase Negative (Negative) Ur Culture Indicated? NO (NO) - Radiology Data Radiology results reviewed: Yes I reviewed the patient's radiology results. - EKG Data EKG attestation: Yes I reviewed and interpreted this EKG. EKG shows normal: sinus rhythm Rate: normal Rhythm: NSR Graham/QRS: normal Interpretation: no acute changes - Core Measures AMI Core Measures Followed: No
[2016-05-05 16:37] LABS: Alanine Aminotransferase 17 Units/L (0-55); Albumin 3.9 g/dL (3.5-5.0); Albumin/Globulin Ratio 1.1 (1.1-2.2); Alkaline Phosphatase 84 Units/L (38-126); Aspartate Amino Transferase 18 Units/L (5-34); BUN/Creatinine Ratio 15 (6-26); Bilirubin,Direct < 0.1 mg/dL (0.0-0.5); Bilirubin,Indirect 0.1 mg/dL (0.0-1.2); Bilirubin,Total 0.2 mg/dL (0.2-1.2); Blood Urea Nitrogen 13 mg/dL (7-20); Calcium 9.5 mg/dL (8.6-10.8); Carbon Dioxide 21 mEq/L (19-29); Chloride 104 mEq/L (98-109); Globulin 3.7 g/dL (2.4-3.5); Glucose 210 mg/dL (70-99); Lipase 510 Units/L (8-78); Osmolality,Calculated 288 (280-300); Potassium 4.5 mEq/L (3.5-4.5); Total Protein 7.6 g/dL (6.0-8.3); eGFR For African Americans > 60 (> 60); eGFR For Non-African Americans > 60 (> 60)
[2016-05-05 16:38] LABS: Sodium 136 mEq/L (136-145)
--- NOTE | 2016-05-05 16:38 | Emergency Department Note ---
Disposition Clinical Impression: Acute on chronic pancreatitis, Intractable abdominal pain Disposition: Home, Self-Care Condition: Fair General Adult HPI - General Chief complaint: ED Abdominal Pain Stated complaint: chronic pancreatitis Time Seen by Provider: 05/05/16 15:45 Source: patient Limitations: no limitations - History of Present Illness Pain Scale: 10 - Related Data Home Medications Medication Instructions Recorded Confirmed Aclidinium [place] [Tudorza 400 mcg IH DAILY 04/15/16 05/05/16 Pressair] Gabapentin 600 mg PO TID 04/15/16 05/05/16 Lisinopril [Zestril] 10 mg PO DAILY 04/15/16 05/05/16 Metformin [Glucophage] 1,000 mg PO BID 04/15/16 05/05/16 Omeprazole [PriLOSEC] 20 mg PO DAILY 04/15/16 05/05/16 Sertraline [Zoloft] 100 mg PO DAILY 04/15/16 05/05/16 TraZODone 100 mg PO HS 04/15/16 05/05/16 Ergocalciferol (VITAMIN D2) 50,000 unit PO QWEEK 04/22/16 05/05/16 [Vitamin D2] Lipase/Protease/Amylase [Creon Dr 3 each PO TIDWM 05/05/16 05/05/16 12,000 Units Capsule] Nicotine Patch [Nicoderm] 21 mg TD DAILY 05/05/16 05/05/16 Previous Rx's Medication Instructions Recorded Amlodipine [Norvasc] 10 mg PO DAILY #30 tablet 05/08/16 OxyCODONE/APAP 10/325 [Percocet 1 each PO Q4HR PRN #30 tablet 05/08/16 10/325 MG] Allergies Allergy/AdvReac Type Severity Reaction Status Date / Time Iodinated Contrast Media - Allergy Difficulty Verified 04/22/16 13:45 Oral and Breathing Past Medical History - Past Medical History Medical history: Reports: COPD, diabetes, GERD, hyperlipidemia, hypertension, other Surgical history: Reports: cholecystectomy, hysterectomy, orthopedic, other ( ankle surgery) Psychiatric history: Reports: depression - Social History Smoking Status: Current every day smoker Smokeless Tobacco Status: No Alcohol use: Reports: rarely Drug use: Reports: none Physical Exam - General Limitations: no limitations General appearance: alert, in no apparent distress Course - Reevaluation(s) Reevaluation #1: I saw the patient with the resident, Dr. Floyd. Patient presents with epigastric and left upper quadrant abdominal pain. She has a history of chronic and recurrent pancreatitis. Past several days she has had pain. No fevers. On physical exam she is tender to the upper abdomen on the left side. Good bowel sounds and the rest of the exam is unremarkable. We will get her pain controlled and get a belly pain workup going. Disposition will be based on diagnostic results and reevaluation. Time: 16:38 Vital Signs Temperature 98.6 F 05/05/16 15:38 Pulse Rate 103 05/05/16 15:38 Respiratory Rate 20 05/05/16 15:38 Blood Pressure 171/83 05/05/16 15:38 O2 Sat by Pulse Oximetry 99 05/05/16 15:38 Temperature 98.2 F 05/08/16 14:24 Pulse Rate 77 05/08/16 14:24 Respiratory Rate 14 05/08/16 14:24 Blood Pressure 103/69 05/08/16 14:24 O2 Sat by Pulse Oximetry 92 L 05/08/16 14:24 Oxygen Delivery Oxygen Delivery Room Air Medical Decision Making - Lab Data Result diagrams: 05/08/16 08:04 05/08/16 08:04 Lab Results 05/05/16 05/05/16 05/05/16 Range/Units 16:07 16:07 16:07 WBC 8.8 (4.3-11.1) K/mcL RBC 4.41 (3.82-4.97) M/mcL Hgb 12.4 (11.5-15.4) g/dL Hct 37.2 (35.3-44.9) % MCV 84.4 (83.0-100.0) fL MCH 28.1 (28.0-33.3) pg MCHC 33.3 (31.6-35.5) g/dL RDW 12.8 (11.5-14.5) % Plt Count 251 (140-400) K/mcL MPV 9.7 (9.4-12.4) fL Immature Gran % 0.3 (0-4) % Seg Neutrophils % 67.8 % Lymphocytes % 26.0 % Monocytes % 5.1 % Eosinophils % 0.5 % Basophils % 0.3 % Neutrophils # 5.9 (1.6-8.9) K/mcL Lymphocytes # 2.3 (0.6-4.6) K/mcL Monocytes # 0.5 (0.0-1.3) K/mcL Eosinophils # 0.0 (0.0-0.6) K/mcL Basophils # 0.0 (0.0-0.2) K/mcL Sodium 136 (136-145) mEq/L Potassium 4.5 (3.5-4.5) mEq/L Chloride 104 (98-109) mEq/L Carbon Dioxide 21 (19-29) mEq/L BUN 13 (7-20) mg/dL Creatinine 0.87 (0.57-1.11) mg/dL Est GFR ( Amer) > 60 (> 60) Est GFR (Non-Af Amer) > 60 (> 60) BUN/Creatinine Ratio 15 (6-26) Glucose 210 H (70-99) mg/dL Calculated Osmolality 288 (280-300) Calcium 9.5 (8.6-10.8) mg/dL Total Bilirubin 0.2 (0.2-1.2) mg/dL Direct Bilirubin < 0.1 (0.0-0.5) mg/dL Indirect Bilirubin 0.1 (0.0-1.2) mg/dL AST 18 (5-34) Units/L ALT 17 (0-55) Units/L Alkaline Phosphatase 84 (38-126) Units/L Troponin I 0.00 (0-0.03) ng/mL Serum Total Protein 7.6 (6.0-8.3) g/dL Albumin 3.9 (3.5-5.0) g/dL Globulin 3.7 H (2.4-3.5) g/dL Albumin/Globulin Ratio 1.1 (1.1-2.2) Lipase 510 H (8-78) Units/L Urine Color (Yellow) Urine Clarity (Clear) Urine pH (5.0-8.0) pH Units Ur Specific [place] (1.010-1.025) Urine Protein (Neg-Trace) mg/dL Urine Glucose (UA) (Normal) mg/dL Urine Ketones (Negative) mg/dL Urine Blood (Negative) Urine Nitrite (Negative) Urine Bilirubin (Negative) Urine Urobilinogen (Normal) mg/dL Ur Leukocyte Esterase (Negative) Ur Culture Indicated? (NO) 05/05/16 Range/Units 18:40 WBC (4.3-11.1) K/mcL RBC (3.82-4.97) M/mcL Hgb (11.5-15.4) g/dL Hct (35.3-44.9) % MCV (83.0-100.0) fL MCH (28.0-33.3) pg MCHC (31.6-35.5) g/dL RDW (11.5-14.5) % Plt Count (140-400) K/mcL MPV (9.4-12.4) fL Immature Gran % (0-4) % Seg Neutrophils % % Lymphocytes % % Monocytes % % Eosinophils % % Basophils % % Neutrophils # (1.6-8.9) K/mcL Lymphocytes # (0.6-4.6) K/mcL Monocytes # (0.0-1.3) K/mcL Eosinophils # (0.0-0.6) K/mcL Basophils # (0.0-0.2) K/mcL Sodium (136-145) mEq/L Potassium (3.5-4.5) mEq/L Chloride (98-109) mEq/L Carbon Dioxide (19-29) mEq/L BUN (7-20) mg/dL Creatinine (0.57-1.11) mg/dL Est GFR ( Amer) (> 60) Est GFR (Non-Af Amer) (> 60) BUN/Creatinine Ratio (6-26) Glucose (70-99) mg/dL Calculated Osmolality (280-300) Calcium (8.6-10.8) mg/dL Total Bilirubin (0.2-1.2) mg/dL Direct Bilirubin (0.0-0.5) mg/dL Indirect Bilirubin (0.0-1.2) mg/dL AST (5-34) Units/L ALT (0-55) Units/L Alkaline Phosphatase (38-126) Units/L Troponin I (0-0.03) ng/mL Serum Total Protein (6.0-8.3) g/dL Albumin (3.5-5.0) g/dL Globulin (2.4-3.5) g/dL Albumin/Globulin Ratio (1.1-2.2) Lipase (8-78) Units/L Urine Color Yellow (Yellow) Urine Clarity Clear (Clear) Urine pH 6.5 (5.0-8.0) pH Units Ur Specific [place] 1.010 (1.010-1.025) Urine Protein Negative (Neg-Trace) mg/dL Urine Glucose (UA) Normal (Normal) mg/dL Urine Ketones Negative (Negative) mg/dL Urine Blood Negative (Negative) Urine Nitrite Negative (Negative) Urine Bilirubin Negative (Negative) Urine Urobilinogen Normal (Normal) mg/dL Ur Leukocyte Esterase Negative (Negative) Ur Culture Indicated? NO (NO) Attestation Statement - Attestation Attestation: I, Dr. Escudero, examined this patient [id number] and my medical decision- making was reviewed with Dr. Floyd, Resident Physician. I agree with the documented findings, disposition and treatment plan as described except to the extent set forth below. Please see my progress note for details.
[2016-05-05] MEDS ORDERED: *HR* HYDROmorphone (PF) 1 MG/ML SYRINGE IVP ONE ×3 (17:54→22:18)
[2016-05-05 18:52] LABS: Bilirubin,Urine Negative (Negative); Blood,Urine Negative (Negative); Clarity,Urine Clear (Clear); Color,Urine Yellow (Yellow); Glucose,Urine (UA) Normal (Normal); Ketones,Urine Negative (Negative); Leukocyte Esterase,Urine Negative (Negative); Nitrite,Urine Negative (Negative); PH,Urine 6.5 pH Units (5.0-8.0); Protein,Urine Negative (Neg-Trace); Urobilinogen,Urine Normal (Normal)
[2016-05-05] MEDS ORDERED: Naloxone 0.4 MG/ML INJ IVP PRN (20:03)
[2016-05-05] MEDS ORDERED: 0.9 % Sodium Chloride 1,000 ML IVC SCH ×2 (20:15→20:56)
[2016-05-05] MEDS ORDERED: Dextrose Gel 15 GM PO PRN ×2 (20:20)
[2016-05-05] MEDS ORDERED: *HR* Dextrose 50 % in Water (Syg) 50 ML SYRINGE IVP PRN (20:20)
[2016-05-05] MEDS ORDERED: D5% in Water 1,000 ML IV PRN (20:20)
[2016-05-05] MEDS ORDERED: *HR* LORazepam 2 MG/ML VIAL IVP ONE (20:55)
[2016-05-05] MEDS ORDERED: traZODone 50 MG TABLET PO SCH (21:00)
--- NOTE | 2016-05-05 21:11 | Internal Med History&Physical ---
<DunbarBrandi M - Last Filed: 05/06/16 00:57> Date of Encounter: 05/05/16 Time of Encounter: 21:08 Assessment and Plan (1) Acute on chronic pancreatitis Current visit: Yes Status: Acute Patient with increasing abdominal pain and nausea. Lipase of 510. NPO 0.9NS at 125mL/hr PRN dilaudid for pain PRN zofran for nausea Narcan PRN for respiratory depression Advance diet to clear liquids as symptoms improve. Patient has chronic pancreatitis and frequent episodes of acute pancreatitis. She follows with GI at [facility] and has been evaluated by a surgeon at [facility] for partial pancreatectomy. She was informed she needs to quit smoking and lower her triglycerides in order to proceed with surgery and she has a follow up appointment in 3 months. (2) Type 2 diabetes mellitus Current visit: Yes Status: Acute Hold home metformin check blood sugars Q6h sliding scale correction dose 6hr hypoglycemic protocol Qualifiers: Diabetes mellitus complication status: without complication Diabetes mellitus terminal supervisor insulin use: without terminal supervisor use Qualified Code(s): E11.9 - Type 2 diabetes mellitus without complications (3) Smoker Current visit: Yes Status: Acute Patient was told she would need to quit smoking prior to proceeding with partial pancreatectomy by [facility] Surgeon. She is motivated to quit smoking and has cut back to 5 cigarettes daily. Offered encouragement. Nicotine patch daily (4) Hypertension Current visit: Yes Status: Acute Hold PO lisinopril while NPO Hydralazine 10mg Q6hr PRN for SBP > 160 or DBP > 100. Resume home dose of lisinopril once tolerating PO. Qualifiers: Hypertension type: essential hypertension Qualified Code(s): I10 - Essential (primary) hypertension (5) Intractable abdominal pain Current visit: Yes Status: Acute due to acute episode of pancreatitis NPO PRN dilaudid for pain (6) DVT prophylaxis Current visit: No Status: Acute Ambulate TID anti-embolic stockings lovenox 40mg SQ daily Internal Medicine - H&P: HPI Chief complaint: Nausea and abdominal pain Admitted From: Emergency Dept Plans for Post Hospital Care: Home History of present illness: Ms. Wright is a 60 year old female , type 2 diabetes, COPD, and chronic pancreatitis who presented to the emergency department today with increasing abdominal pain and nausea. She reports the abdominal pain started about 3 days ago and has been increasing in severity. In accompanied by nausea, she reports she has not been vomiting but has a poor appetite has not been eating solid food. Eating makes her abdominal pain worse, resting and pain medicine makes it better. She describes the pain as sharp, stabbing and constant. She denies any lightheadedness or dizziness, chest pain, palpitations, cough, or shortness of breath. She denies any fever, chills. She reports some sweats. She reports loose stools 2-3 times a day. Evaluation in the emergency department included labs that showed a lipase of 510 up from her previous episode of pancreatitis in the 300s. On exam, patient is alert and oriented, in no acute distress. Lungs are clear bilaterally to auscultation, heart has regular rate and rhythm. Abdomen is tender in the left upper quadrant and epigastric area. Past Med Surg Social Fam HX - Past Medical History Medical history: COPD, diabetes, GERD, hyperlipidemia, hypertension, other Psychiatric history: depression - Past Surgical History Surgical History: cholecystectomy, hysterectomy, orthopedic, other - Social History Smoking Status: Current every day smoker Packs per day: 1/2 Smokeless Tobacco Status: No Alcohol use: none Drug use: none - Family History Mother Living Status: Father Living Status: Cause of : [place] Hx Family Cardiac Disorders: Yes Hx Family Respiratory Disorders: No Hx Family Cancer: No Hx Family GI Disorders: Yes Hx Family Genitourinary Disorders: No Hx Family Endocrine Disorder: Yes Hx Family Musculoskeletal Disorders: No Hx Family Neuromuscular Disorders: No Hx Family Neurologic Disorders: No Hx Family HEENT Disorders: No Hx Family Autoimmune Disorders: No Hx Family Reproductive Disorders: No Hx Family Psychosocial Disorders: No Hx Family Medical Disorders: No Internal Medicine - H&P: Meds Aclidinium Hulett [Tudorza Pressair] 400 mcg IH DAILY 04/15/16 [History] Gabapentin 600 mg PO TID 04/15/16 [History] Lisinopril [Zestril] 10 mg PO DAILY 04/15/16 [History] Metformin [Glucophage] 1,000 mg PO BID 04/15/16 [History] Omeprazole [PriLOSEC] 20 mg PO DAILY 04/15/16 [History] Sertraline [Zoloft] 100 mg PO DAILY 04/15/16 [History] TraZODone 100 mg PO HS 04/15/16 [History] Ergocalciferol (VITAMIN D2) [Vitamin D2] 50,000 unit PO QWEEK 04/22/16 [History] Lipase/Protease/Amylase [Creon Dr 12,000 Units Capsule] 3 each PO TIDWM [History] Nicotine Patch [Nicoderm] 21 mg TD DAILY 05/05/16 [History] Allergies Iodinated Contrast Media - Oral and Allergy (Verified 04/22/16 13:45) Difficulty Breathing AND HIVES All Systems PM: A 10-system review of systems was performed and is negative for pertinent findings except as documented above in the HPI. - Constitutional Constitutional: night sweats, no chills, no fever(s) - EENT Eyes: no change in vision, no discharge, no pain, no photophobia Ears: no ear discharge, no ear pain, no tinnitus Nose, mouth and throat: no dysphagia, no nasal discharge, no neck pain, no sore throat - Cardiovascular Cardiovascular ROS IM: no chest pain, no diaphoresis, no dyspnea, no lightheadedness, no palpitations, no syncope - Respiratory Respiratory: no cough, no dyspnea, no wheezing, no excessive phlegm production - Gastrointestinal Gastrointestinal: abdominal pain, diarrhea, nausea, no hematemesis, no hematochezia, no melena, no vomiting - Genitourinary Genitourinary: no change in urinary stream, no dysuria, no flank pain, no hematuria - Musculoskeletal Musculoskeletal ROS IM: no numbness, no tingling - Integumentary Integumentary IM: no rash, no unusual bruising - Neurological Neurological ROS: no confusion, no convulsions, no focal weakness, no numbness, no tingling, no tremor(s) - Hematologic/Lymphatic Hematologic/Lymphatic: no easy bruising - Constitutional Vitals: Temp Pulse Resp BP Pulse Ox 98.1 F 69 17 180/82 98 05/05/16 20:13 05/05/16 20:13 05/05/16 20:13 05/05/16 20:13 05/05/16 20:13 General appearance: Present: A&O X 3, pleasant, no acute distress - Head Head exam: Present: atraumatic, normocephalic - Eye Eye exam: Present: PERRL, conjuntiva pink, sclera anicteric Pupils: Present: PERRL - Neck Neck exam general surgery: Present: supple, trachea midline. Absent: lymphadenopathy - Respiratory Respiratory exam: Present: CTAB. Absent: accessory muscle use, rales, rhonchi, wheezes - Cardiovascular Cardiovascular exam: Present: RRR, +S1, +S2. Absent: diastolic murmur, gallop, rubs, systolic murmur - GI/Abdominal GI/Abdominal exam: Present: normal bowel sounds, soft, tenderness (over epigastric and left upper quadrant), no peritoneal signs. Absent: distended - Extremities Exam Extremities exam: Present: warm, radial pulses palpable and symetrical. Absent : calf tenderness, cyanotic, pedal edema - Neurological Exam Neurological exam: Present: CN II-XII intact, oriented X3, no focal deficits. Absent: facial droop, speech deficit - Skin Skin exam: Present: dry, intact Internal Med - H&P Results - Labs CBC & Chem 7: 05/05/16 16:07 05/05/16 16:07 Labs: All Lab Results (24 Hours) 05/05/16 05/05/16 05/05/16 Range/Units 16:07 16:07 16:07 WBC 8.8 (4.3-11.1) K/mcL RBC 4.41 (3.82-4.97) M/mcL Hgb 12.4 (11.5-15.4) g/dL Hct 37.2 (35.3-44.9) % MCV 84.4 (83.0-100.0) fL MCH 28.1 (28.0-33.3) pg MCHC 33.3 (31.6-35.5) g/dL RDW 12.8 (11.5-14.5) % Plt Count 251 (140-400) K/mcL MPV 9.7 (9.4-12.4) fL Immature Gran % 0.3 (0-4) % Seg Neutrophils % 67.8 % Lymphocytes % 26.0 % Monocytes % 5.1 % Eosinophils % 0.5 % Basophils % 0.3 % Neutrophils # 5.9 (1.6-8.9) K/mcL Lymphocytes # 2.3 (0.6-4.6) K/mcL Monocytes # 0.5 (0.0-1.3) K/mcL Eosinophils # 0.0 (0.0-0.6) K/mcL Basophils # 0.0 (0.0-0.2) K/mcL Sodium 136 (136-145) mEq/L Potassium 4.5 (3.5-4.5) mEq/L Chloride 104 (98-109) mEq/L Carbon Dioxide 21 (19-29) mEq/L BUN 13 (7-20) mg/dL Creatinine 0.87 (0.57-1.11) mg/dL Est GFR ( Amer) > 60 (> 60) Est GFR (Non-Af Amer) > 60 (> 60) BUN/Creatinine Ratio 15 (6-26) Glucose 210 H (70-99) mg/dL Calculated Osmolality 288 (280-300) Calcium 9.5 (8.6-10.8) mg/dL Total Bilirubin 0.2 (0.2-1.2) mg/dL Direct Bilirubin < 0.1 (0.0-0.5) mg/dL Indirect Bilirubin 0.1 (0.0-1.2) mg/dL AST 18 (5-34) Units/L ALT 17 (0-55) Units/L Alkaline Phosphatase 84 (38-126) Units/L Troponin I 0.00 (0-0.03) ng/mL Serum Total Protein 7.6 (6.0-8.3) g/dL Albumin 3.9 (3.5-5.0) g/dL Globulin 3.7 H (2.4-3.5) g/dL Albumin/Globulin Ratio 1.1 (1.1-2.2) Lipase 510 H (8-78) Units/L Urine Color (Yellow) Urine Clarity (Clear) Urine pH (5.0-8.0) pH Units Ur Specific [place] (1.010-1.025) Urine Protein (Neg-Trace) mg/dL Urine Glucose (UA) (Normal) mg/dL Urine Ketones (Negative) mg/dL Urine Blood (Negative) Urine Nitrite (Negative) Urine Bilirubin (Negative) Urine Urobilinogen (Normal) mg/dL Ur Leukocyte Esterase (Negative) Ur Culture Indicated? (NO) 05/05/16 Range/Units 18:40 WBC (4.3-11.1) K/mcL RBC (3.82-4.97) M/mcL Hgb (11.5-15.4) g/dL Hct (35.3-44.9) % MCV (83.0-100.0) fL MCH (28.0-33.3) pg MCHC (31.6-35.5) g/dL RDW (11.5-14.5) % Plt Count (140-400) K/mcL MPV (9.4-12.4) fL Immature Gran % (0-4) % Seg Neutrophils % % Lymphocytes % % Monocytes % % Eosinophils % % Basophils % % Neutrophils # (1.6-8.9) K/mcL Lymphocytes # (0.6-4.6) K/mcL Monocytes # (0.0-1.3) K/mcL Eosinophils # (0.0-0.6) K/mcL Basophils # (0.0-0.2) K/mcL Sodium (136-145) mEq/L Potassium (3.5-4.5) mEq/L Chloride (98-109) mEq/L Carbon Dioxide (19-29) mEq/L BUN (7-20) mg/dL Creatinine (0.57-1.11) mg/dL Est GFR ( Amer) (> 60) Est GFR (Non-Af Amer) (> 60) BUN/Creatinine Ratio (6-26) Glucose (70-99) mg/dL Calculated Osmolality (280-300) Calcium (8.6-10.8) mg/dL Total Bilirubin (0.2-1.2) mg/dL Direct Bilirubin (0.0-0.5) mg/dL Indirect Bilirubin (0.0-1.2) mg/dL AST (5-34) Units/L ALT (0-55) Units/L Alkaline Phosphatase (38-126) Units/L Troponin I (0-0.03) ng/mL Serum Total Protein (6.0-8.3) g/dL Albumin (3.5-5.0) g/dL Globulin (2.4-3.5) g/dL Albumin/Globulin Ratio (1.1-2.2) Lipase (8-78) Units/L Urine Color Yellow (Yellow) Urine Clarity Clear (Clear) Urine pH 6.5 (5.0-8.0) pH Units Ur Specific [place] 1.010 (1.010-1.025) Urine Protein Negative (Neg-Trace) mg/dL Urine Glucose (UA) Normal (Normal) mg/dL Urine Ketones Negative (Negative) mg/dL Urine Blood Negative (Negative) Urine Nitrite Negative (Negative) Urine Bilirubin Negative (Negative) Urine Urobilinogen Normal (Normal) mg/dL Ur Leukocyte Esterase Negative (Negative) Ur Culture Indicated? NO (NO) <Bethany Koenig R - Last Filed: 05/06/16 04:39> Internal Medicine - H&P: HPI History of present illness: Ms. Wright is a 60 year old female All Systems PM: A 10-system review of systems was performed and is negative for pertinent findings except as documented above in the HPI. - Constitutional Vitals: Temp Pulse Resp BP Pulse Ox 97.6 F 70 18 164/85 98 05/05/16 22:40 05/05/16 22:40 05/05/16 22:40 05/05/16 22:40 05/05/16 22:40 Internal Med - H&P Results - Labs CBC & Chem 7: 05/05/16 16:07 05/05/16 16:07 - Attending Attestation I evaluated the patient and my medical decision-making was reviewed with the INTELLIGENCE CONSULTANT/ Advanced Practice Nurse. I agree with the documented findings, disposition and treatment plan as described except to the extent set forth below. 60 year old female with h/o type 2 diabetes, COPD, and chronic calcific pancreatitis, who presented to the emergency department today with increasing abdominal pain and nausea. She apparently was investigated in [facility] and seen by surgeon, planned to have surgery in 3 months. She denies ETOH use. Pt is s/p cholecystectomy. O/E: tenderness in the epigastric / LUQ area. Serum lipase: 510 A/P: Acute on chronic pancreatitis: Treat with IV fluids, pain relief. Check lipid panel. Will obtain records from [facility]. If not improving, will consider GI consult.
[2016-05-05] MEDS: Pantoprazole 40 MG VIAL IVP SCH (21:26)
[2016-05-05] MEDS: Nicotine 21 MG PATCH.TD24 TD SCH (21:26)
[2016-05-05] MEDS: Insulin LISPRO 300 UNITS/3 ML VIAL SQ SCH (23:59)
[2016-05-06] MEDS: *HR* HYDROmorphone (PF) 1 MG/ML SYRINGE IVP PRN ×5 (01:03→17:23)
[2016-05-06] MEDS: traZODone 50 MG TABLET PO SCH ×2 (03:20→20:12)
[2016-05-06] MEDS: *HR* Enoxaparin 40 MG/0.4 ML SYRINGE SQ SCH (04:44)
[2016-05-06] MEDS: Ondansetron 4 MG/2 ML VIAL IVP PRN ×2 (04:44→13:24)
[2016-05-06 05:19] LABS: Basophils % 0.6 %; Eosinophils # 0.1 K/mcL (0.0-0.6); Hematocrit 35.6 % (35.3-44.9); Hemoglobin 11.4 g/dL (11.5-15.4); Immature Granulocytes % 0.3 % (0-4); Lymphocytes # 2.5 K/mcL (0.6-4.6); Lymphocytes % 35.3 %; Mean Corpuscular Hemoglobin 27.7 pg (28.0-33.3); Mean Corpuscular Volume 86.6 fL (83.0-100.0); Mean Platelet Volume 9.6 fL (9.4-12.4); Monocytes # 0.5 K/mcL (0.0-1.3); Monocytes % 6.6 %; Neutrophils # 3.9 K/mcL (1.6-8.9); Platelet Count 215 K/mcL (140-400); Red Blood Count 4.11 M/mcL (3.82-4.97); Red Cell Distribution Width 12.6 % (11.5-14.5); Segmented Neutrophils % 56.2 %
[2016-05-06 05:36] LABS: BUN/Creatinine Ratio 11 (6-26); Blood Urea Nitrogen 9 mg/dL (7-20); Calcium 8.5 mg/dL (8.6-10.8); Carbon Dioxide 22 mEq/L (19-29); Chloride 110 mEq/L (98-109); Chol/HDL Ratio 5.7 (0-4.9); Cholesterol 205 mg/dL (< 200); Glucose 126 mg/dL (70-99); HDL Cholesterol 36 mg/dL (40-59); LDL Cholesterol,Calculated 109 mg/dL (0-99); Osmolality,Calculated 292 (280-300); Sodium 141 mEq/L (136-145); Triglycerides 301 mg/dL (< 150); eGFR For African Americans > 60 (> 60); eGFR For Non-African Americans > 60 (> 60)
[2016-05-06] MEDS: Insulin LISPRO 300 UNITS/3 ML VIAL SQ SCH ×3 (06:11→17:22)
[2016-05-06] MEDS: Nicotine 21 MG PATCH.TD24 TD SCH (08:02)
[2016-05-06] MEDS: Pantoprazole 40 MG VIAL IVP SCH (08:02)
[2016-05-06] MEDS: 0.9 % Sodium Chloride 1,000 ML IVC SCH ×3 (08:02→18:48)
[2016-05-06] MEDS: amLODIPine 5 MG TABLET PO SCH (11:56)
[2016-05-06] MEDS: Gabapentin 300 MG CAPSULE PO SCH ×2 (15:02→20:12)
[2016-05-06] MEDS: Ondansetron 4 MG/2 ML VIAL IV PRN (17:22)
--- NOTE | 2016-05-06 18:14 | Internal Med Progress Note ---
Date of Encounter: 05/06/16 Time of Encounter: 18:11 - Assessment and plan (1) Acute on chronic pancreatitis Current Visit: Yes Status: Acute Assessment and plan: Patient with abdominal pain and nausea. Lipase of 510. NPO, will give ice chips 0.9NS at 200mL/hr PRN dilaudid for pain PRN zofran for nausea, will increase the frequency. Narcan PRN for respiratory depression Advance diet to clear liquids as symptoms improve. Patient has chronic pancreatitis and frequent episodes of acute pancreatitis. She follows with GI at [facility] and has been evaluated by a surgeon at [facility] for partial pancreatectomy. She was informed she needs to quit smoking and lower her triglycerides in order to proceed with surgery and she has a follow up appointment in 3 months. 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 was told at [facility] taht she will need surgery after 3 months after she quit smoking and the TG levels are controlled. - Constitutional Vitals: Temp Pulse Resp BP Pulse Ox 97.9 F 87 18 145/80 97 05/06/16 16:00 05/06/16 16:00 05/06/16 16:00 05/06/16 16:00 05/06/16 16:00 General appearance: Present: A&O X 3, pleasant, no acute distress Exam: - Head Head exam: Present: atraumatic, normocephalic - Eye Eye exam: Present: PERRL, conjuntiva pink, sclera anicteric Pupils: Present: PERRL - Neck Neck exam general surgery: Present: supple, trachea midline. Absent: lymphadenopathy - Respiratory Respiratory exam: Present: CTAB. Absent: accessory muscle use, rales, rhonchi, wheezes - Cardiovascular Cardiovascular exam: Present: RRR, +S1, +S2. Absent: diastolic murmur, gallop, rubs, systolic murmur - GI/Abdominal GI/Abdominal exam: Present: normal bowel sounds, soft, tenderness (over epigastric and left upper quadrant), no peritoneal signs. Absent: distended - Extremities Exam Extremities exam: Present: warm, radial pulses palpable and symetrical. Absent : calf tenderness, cyanotic, pedal edema - Neurological Exam Neurological exam: Present: CN II-XII intact, oriented X3, no focal deficits. Absent: facial droop, speech deficit - Skin Skin exam: Present: dry, intact Internal Medicine: Result - Labs CBC & Chem 7: 05/06/16 04:58 05/06/16 04:58 Labs: Short CBC 05/06/16 Range/Units 04:58 WBC 7.0 (4.3-11.1) K/mcL Hgb 11.4 L (11.5-15.4) g/dL Hct 35.6 (35.3-44.9) % Plt Count 215 (140-400) K/mcL Neutrophils # 3.9 (1.6-8.9) K/mcL BMP 05/06/16 04:58 Sodium 141 Potassium 4.0 Chloride 110 H Carbon Dioxide 22 BUN 9 Creatinine 0.79 Glucose 126 H Calcium 8.5 L - VTE Documentation of Mechanical Device: Graduated compression elastic hosiery Consult Discharge Plan - Plan Referrals: Claire Snider, [facility] [employer]TER [Primary Care Provider] -
[2016-05-06] MEDS: *HR* OxyCODONE/APAP 10/325 TABLET PO PRN (20:11)
[2016-05-06] MEDS: *HR* Morphine 2 MG/ML SYRINGE IV PRN (21:23)
[2016-05-07] MEDS: 0.9 % Sodium Chloride 1,000 ML IVC SCH ×4 (00:29→22:25)
[2016-05-07] MEDS: *HR* Morphine 2 MG/ML SYRINGE IV PRN ×7 (00:30→22:06)
[2016-05-07] MEDS: *HR* OxyCODONE/APAP 10/325 TABLET PO PRN ×5 (03:59→20:21)
[2016-05-07] MEDS: *HR* Enoxaparin 40 MG/0.4 ML SYRINGE SQ SCH (05:46)
[2016-05-07] MEDS: Insulin LISPRO 300 UNITS/3 ML VIAL SQ SCH ×4 (05:46→18:49)
[2016-05-07] MEDS: Pantoprazole 40 MG VIAL IVP SCH (08:08)
[2016-05-07] MEDS: Gabapentin 300 MG CAPSULE PO SCH ×4 (08:08→20:22)
[2016-05-07] MEDS: amLODIPine 5 MG TABLET PO SCH (08:09)
[2016-05-07] MEDS: Nicotine 21 MG PATCH.TD24 TD SCH (08:10)
[2016-05-07] MEDS: Ondansetron 4 MG/2 ML VIAL IV PRN (08:23)
[2016-05-07 08:32] LABS: Basophils % 0.3 %; Eosinophils # 0.1 K/mcL (0.0-0.6); Hemoglobin 11.2 g/dL (11.5-15.4); Immature Granulocytes % 0.3 % (0-4); Lymphocytes # 2.2 K/mcL (0.6-4.6); Lymphocytes % 36.9 %; Mean Corpuscular Hemoglobin 27.6 pg (28.0-33.3); Mean Corpuscular Volume 86.2 fL (83.0-100.0); Mean Platelet Volume 9.8 fL (9.4-12.4); Monocytes # 0.4 K/mcL (0.0-1.3); Monocytes % 6.4 %; Neutrophils # 3.3 K/mcL (1.6-8.9); Platelet Count 214 K/mcL (140-400); Red Blood Count 4.06 M/mcL (3.82-4.97); Segmented Neutrophils % 55.1 %
[2016-05-07 08:48] LABS: BUN/Creatinine Ratio 8 (6-26); Blood Urea Nitrogen 6 mg/dL (7-20); Calcium 8.4 mg/dL (8.6-10.8); Carbon Dioxide 24 mEq/L (19-29); Chloride 111 mEq/L (98-109); Glucose 109 mg/dL (70-99); Osmolality,Calculated 294 (280-300); Sodium 143 mEq/L (136-145); eGFR For African Americans > 60 (> 60); eGFR For Non-African Americans > 60 (> 60)
--- NOTE | 2016-05-07 10:01 | Internal Med Progress Note ---
Date of Encounter: 05/07/16 Time of Encounter: 09:58 - Assessment and plan (1) Acute on chronic pancreatitis Current Visit: Yes Status: Acute Assessment and plan: Patient with abdominal pain and nausea. Lipase of 510. diet was advanced to clears yesterday after she felt better,however she says the pain is back. Patient has chronic pancreatitis and frequent episodes of acute pancreatitis. She follows with GI at [facility] and has been evaluated by a surgeon at [facility] for partial pancreatectomy. She was informed she needs to quit smoking and lower her triglycerides in order to proceed with surgery and she has a follow up appointment in [address] abdomen done on 04/14 did show acute on chronic pancreatitis with no abscess or necrosis. will keep her NPO fo rnow have increased the morphine to 2 mg q3hr, will continue percocet q4hr. 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 denies any vomiting reports that she has had multiple episodes of pancreatitis since august. was told at [facility] taht she will need surgery after 3 months after she quit smoking and the TG levels are controlled. - Constitutional Vitals: Temp Pulse Resp BP Pulse Ox 98.1 F 75 18 171/91 96 05/07/16 08:08 05/07/16 08:08 05/07/16 08:08 05/07/16 08:08 05/07/16 08:08 General appearance: Present: A&O X 3, pleasant, no acute distress Exam: - Head Head exam: Present: atraumatic, normocephalic - Eye Eye exam: Present: PERRL, conjuntiva pink, sclera anicteric Pupils: Present: PERRL - Neck Neck exam general surgery: Present: supple, trachea midline. Absent: lymphadenopathy - Respiratory Respiratory exam: Present: CTAB. Absent: accessory muscle use, rales, rhonchi, wheezes - Cardiovascular Cardiovascular exam: Present: RRR, +S1, +S2. Absent: diastolic murmur, gallop, rubs, systolic murmur - GI/Abdominal GI/Abdominal exam: Present: normal bowel sounds, soft, tenderness (over epigastric and left upper quadrant), no peritoneal signs. Absent: distended - Extremities Exam Extremities exam: Present: warm, radial pulses palpable and symetrical. Absent : calf tenderness, cyanotic, pedal edema - Neurological Exam Neurological exam: Present: CN II-XII intact, oriented X3, no focal deficits. Absent: facial droop, speech deficit - Skin Skin exam: Present: dry, intact Internal Medicine: Result - Labs CBC & Chem 7: 05/07/16 08:01 05/07/16 08:01 Labs: Short CBC 05/07/16 Range/Units 08:01 WBC 5.9 (4.3-11.1) K/mcL Hgb 11.2 L (11.5-15.4) g/dL Hct 35.0 L (35.3-44.9) % Plt Count 214 (140-400) K/mcL Neutrophils # 3.3 (1.6-8.9) K/mcL BMP 05/07/16 08:01 Sodium 143 Potassium 4.0 Chloride 111 H Carbon Dioxide 24 BUN 6 L Creatinine 0.73 Glucose 109 H Calcium 8.4 L - VTE Documentation of Mechanical Device: Graduated compression elastic hosiery Consult Discharge Plan - Plan Referrals: Claire Snider CNP [Primary Care Provider] -
[2016-05-07] MEDS: traZODone 50 MG TABLET PO SCH (20:22)
[2016-05-08] MEDS: Insulin LISPRO 300 UNITS/3 ML VIAL SQ SCH ×3 (01:14→11:47)
[2016-05-08] MEDS: *HR* OxyCODONE/APAP 10/325 TABLET PO PRN ×4 (01:38→13:39)
[2016-05-08] MEDS: *HR* Morphine 2 MG/ML SYRINGE IV PRN ×2 (02:44→08:12)
[2016-05-08] MEDS: 0.9 % Sodium Chloride 1,000 ML IVC SCH (04:25)
[2016-05-08] MEDS: *HR* Enoxaparin 40 MG/0.4 ML SYRINGE SQ SCH (05:43)
[2016-05-08] MEDS ORDERED: 0.9 % Sodium Chloride 1,000 ML IVC SCH (07:59)
[2016-05-08] MEDS: amLODIPine 5 MG TABLET PO SCH (08:10)
[2016-05-08] MEDS: Pantoprazole 40 MG VIAL IVP SCH (08:10)
[2016-05-08] MEDS: Gabapentin 300 MG CAPSULE PO SCH ×2 (08:11→14:18)
[2016-05-08] MEDS: Nicotine 21 MG PATCH.TD24 TD SCH (08:12)
[2016-05-08 08:36] LABS: Basophils % 0.5 %; Eosinophils # 0.1 K/mcL (0.0-0.6); Eosinophils % 1.5 %; Hematocrit 36.8 % (35.3-44.9); Hemoglobin 11.8 g/dL (11.5-15.4); Immature Granulocytes % 0.2 % (0-4); Lymphocytes # 2.6 K/mcL (0.6-4.6); Mean Corpuscular HGB Conc 32.1 g/dL (31.6-35.5); Mean Corpuscular Hemoglobin 27.9 pg (28.0-33.3); Mean Platelet Volume 9.8 fL (9.4-12.4); Monocytes # 0.4 K/mcL (0.0-1.3); Monocytes % 7.2 %; Neutrophils # 2.8 K/mcL (1.6-8.9); Platelet Count 207 K/mcL (140-400); Red Blood Count 4.23 M/mcL (3.82-4.97); Red Cell Distribution Width 13.1 % (11.5-14.5); Segmented Neutrophils % 47.6 %
[2016-05-08 08:48] LABS: BUN/Creatinine Ratio 7 (6-26); Blood Urea Nitrogen 5 mg/dL (7-20); Calcium 8.8 mg/dL (8.6-10.8); Carbon Dioxide 29 mEq/L (19-29); Chloride 110 mEq/L (98-109); Glucose 94 mg/dL (70-99); Osmolality,Calculated 297 (280-300); Potassium 3.5 mEq/L (3.5-4.5); Sodium 145 mEq/L (136-145); eGFR For African Americans > 60 (> 60); eGFR For Non-African Americans > 60 (> 60)
[2016-05-08] MEDS ORDERED: *HR* Morphine 2 MG/ML SYRINGE IV PRN (11:41)
--- NOTE | 2016-05-08 13:56 | Electrocardiograph Report ---
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
[2016-05-08 14:26] VITALS: BP 103/69
--- NOTE | 2016-05-08 15:09 | Discharge Summary ---
Date of Encounter: 05/08/16 Time of Encounter: 15:07 - Discharge Diagnosis (1) Acute on chronic pancreatitis Priority: Primary Status: Acute (2) Hypertension Priority: Secondary Status: Acute Qualifiers: Hypertension type: essential hypertension Qualified Code(s): I10 - Essential (primary) hypertension (3) Smoker Priority: Secondary Status: Acute (4) Type 2 diabetes mellitus Priority: Secondary Status: Acute Qualifiers: Diabetes mellitus complication status: without complication Diabetes mellitus shelter insulin use: without shelter use Qualified Code(s): E11.9 - Type 2 diabetes mellitus without complications - Discharge Medications Prescriptions: OxyCODONE/APAP 10/325 [Percocet 10/325 MG] 1 each PO Q4HR PRN #30 tablet PRN Reason: Pain Amlodipine [Norvasc] 10 mg PO DAILY #30 tablet Home Medications: Aclidinium [place] [Tudorza Pressair] 400 mcg IH DAILY 04/15/16 [History] Gabapentin 600 mg PO TID 04/15/16 [History] Lisinopril [Zestril] 10 mg PO DAILY 04/15/16 [History] Metformin [Glucophage] 1,000 mg PO BID 04/15/16 [History] Omeprazole [PriLOSEC] 20 mg PO DAILY 04/15/16 [History] Sertraline [Zoloft] 100 mg PO DAILY 04/15/16 [History] TraZODone 100 mg PO HS 04/15/16 [History] Ergocalciferol (VITAMIN D2) [Vitamin D2] 50,000 unit PO QWEEK 04/22/16 [History] Lipase/Protease/Amylase [Creon Dr 12,000 Units Capsule] 3 each PO TIDWM [History] Nicotine Patch [Nicoderm] 21 mg TD DAILY 05/05/16 [History] Amlodipine [Norvasc] 10 mg PO DAILY #30 tablet 05/08/16 [Rx] OxyCODONE/APAP 10/325 [Percocet 10/325 MG] 1 each PO Q4HR PRN #30 tablet [Rx] Allergies/Adverse Reactions: Allergies Iodinated Contrast Media - Oral and Allergy (Verified 04/22/16 13:45) Difficulty Breathing AND HIVES Date of admission: 05/05/16 21:03 Primary care physician: Claire Snider CNP Discharging clinician: Elizabeth Mckeon Anticipated date of discharge: 05/08/16 - Patient Status Disposition: Home, Self-Care Condition: Fair Functional capacity at discharge: independent ambulation Overall status at discharge: patient is back to baseline - Discharge Instructions Instructions: Pancreatitis (DC) Follow Up With: Claire Snider CNP [Primary Care Provider] - 05/15/16 10:40 am - Diet and Activity Activity: resume usual activities as tolerated Diet: other (soft diet) Interval History: Ms. Wright is a 60 year old female , type 2 diabetes, COPD, and chronic pancreatitis who presented to the emergency department today with increasing abdominal pain and nausea. She reports the abdominal pain started about 3 days ago and has been increasing in severity. In accompanied by nausea, she reports she has not been vomiting but has a poor appetite has not been eating solid food. Evaluation in the emergency department included labs that showed a lipase of 510 up from her previous episode of pancreatitis in the 300s. Patient has chronic pancreatitis and frequent episodes of acute pancreatitis. She follows with GI at [facility] and has been evaluated by a surgeon at [facility] for partial pancreatectomy. She was informed she needs to quit smoking and lower her triglycerides in order to proceed with surgery and she has a follow up appointment in 3 months. she says she is trying to quit smoking however she has not completely quit doing so. She was treated with supportive management with IV fluids, nothing by mouth and on chest x-ray. Diet was gradually advanced, who did improve clinically. At this time she is able to tolerate soft diet without any abdominal pain, nausea or vomiting. He was advised that she follow-up with GI at at [facility] for recommended pancreatectomy. she verbalized understanding and agreed to follow. Hospital course: Ms. Wright is a 60 year old female Time spent discussing smoking cessation with patient: more than 10 minutes - Time Spent with Patient Total time spent providing and/or coordinating discharge services: Greater than 30 minutes - Constitutional Vitals: Temp Pulse Resp BP Pulse Ox 98.2 F 77 14 103/69 92 L 05/08/16 14:24 05/08/16 14:24 05/08/16 14:24 05/08/16 14:24 05/08/16 14:24 General appearance: Present: A&O X 3, pleasant, no acute distress Exam: - Head Head exam: Present: atraumatic, normocephalic - Eye Eye exam: Present: PERRL, conjuntiva pink, sclera anicteric Pupils: Present: PERRL - Neck Neck exam general surgery: Present: supple, trachea midline. Absent: lymphadenopathy - Respiratory Respiratory exam: Present: CTAB. Absent: accessory muscle use, rales, rhonchi, wheezes - Cardiovascular Cardiovascular exam: Present: RRR, +S1, +S2. Absent: diastolic murmur, gallop, rubs, systolic murmur - GI/Abdominal GI/Abdominal exam: Present: normal bowel sounds, soft, tenderness (over epigastric and left upper quadrant), no peritoneal signs. Absent: distended - Extremities Exam Extremities exam: Present: warm, radial pulses palpable and symetrical. Absent : calf tenderness, cyanotic, pedal edema - Neurological Exam Neurological exam: Present: CN II-XII intact, oriented X3, no focal deficits. Absent: facial droop, speech deficit - Skin Skin exam: Present: dry, intact - VTE Documentation of Mechanical Device: Graduated compression elastic hosiery
== END 2016-05-08 15:50 | disposition home or self-care (01) | DRG 282 ==
LOC: 3ANU 15:36 → EMEROO 15:36 → 3ANU 19:50 → SUATTDRO 21:03
PROVIDERS: ADMIT Nurse Practitioner Family; ATTEND Internal Medicine Endocrinology, Diabetes & Metabolism

== ENCOUNTER 2016-05-27 10:09 | Inpatient (IN) ==
[2016-05-27] MEDS ORDERED: *HR* HYDROmorphone (PF) 1 MG/ML SYRINGE IVP ONE ×2 (10:52→12:16)
[2016-05-27] MEDS ORDERED: Ondansetron 4 MG/2 ML VIAL IVP ONE (10:52)
[2016-05-27] MEDS ORDERED: 0.9 % Sodium Chloride 1,000 ML IVC ONE (10:52)
--- NOTE | 2016-05-27 10:54 | Emergency Department Note ---
Disposition Clinical Impression: Acute on chronic pancreatitis Disposition: Admitted As Inpatient Condition: Fair Time of Disposition: 12:10 Abdominal Pain HPI - General Chief Complaint: ED Abdominal Pain Stated Complaint: "chronic pancreatits" Time Seen by Provider: 05/27/16 10:26 Source: patient Nursing Notes Reviewed: Yes Vital Signs Reviewed: Yes - History of Present Illness HPI Narrative: 60-year-old female with history of chronic pancreatitis, status post cholecystectomy, states that she has a pancreatic tail necrotic and she has been evaluated for surgery in the past but is not a surgical candidate due to hypertriglyceridemia and smoking, she does have a surgeon at [facility] has previously come to [place] and refused to be transferred to [facility] for medical admissions for pancreatitis. She was last evaluated on May 14, since that time she has got narcotics from her dentist for tooth pain and tends have chronic abdominal pain. She states that this last episode of abdominal pain she is having 10 out of 10 epigastric pain for the last 3 days, associated with nausea vomiting diarrhea, fever or chills. denies hematemesis or hematuria, or melena. Denies any chest pain. Pt Subjective Complaint: abdominal pain Onset (ago): day(s) (3) Consistency: constant Location: epigastric Pain Severity: severe Pain Scale: 8 Quality: stabbing, aching Radiation: epigastric, back Migration to: no migration Improves with: nothing Worsens with: eating Associated symptoms: Reports: nausea, vomiting, diarrhea, fever, chills. Denies : dysuria, hematemesis, hematochezia, melena - Related Data Home Medications Medication Instructions Recorded Confirmed Aclidinium [place] [Tudorza 400 mcg IH BID 04/15/16 05/27/16 Pressair] Gabapentin 600 mg PO TID 04/15/16 05/27/16 Lisinopril [Zestril] 10 mg PO DAILY 04/15/16 05/27/16 Metformin [Glucophage] 1,000 mg PO BID 04/15/16 05/27/16 Omeprazole [PriLOSEC] 20 mg PO DAILY 04/15/16 05/27/16 Sertraline [Zoloft] 100 mg PO DAILY 04/15/16 05/27/16 TraZODone 100 mg PO HS 04/15/16 05/27/16 Ergocalciferol (VITAMIN D2) 50,000 unit PO QWEEK 04/22/16 05/27/16 [Vitamin D2] Nicotine Patch [Nicoderm] 21 mg TD DAILY 05/05/16 05/27/16 Acetaminophen w/Cod 300-30 mg 2 tab PO QID PRN 05/27/16 05/27/16 [Tylenol w/Codeine #3] Amitriptyline [Elavil] 10 mg PO HS 05/27/16 05/27/16 Ondansetron ODT [Zofran ODT] 4 mg SL Q6H PRN 05/27/16 05/27/16 Allergies Allergy/AdvReac Type Severity Reaction Status Date / Time Iodinated Contrast Media - Allergy Difficulty Verified 04/22/16 13:45 Oral and Breathing All systems ED: reviewed and negative except as stated. Constitutional: Denies: fever, chills, weakness Cardiovascular: Denies: chest pain, palpitations Respiratory: Denies: cough, dyspnea Gastrointestinal: Reports: as per HPI Genitourinary: Denies: urgency, dysuria Musculoskeletal: Denies: back pain, neck pain Integumentary: Denies: rash, lesions Neurological: Denies: headache, weakness Abdominal Pain PMH - Past Medical History Medical history: Reports: COPD, diabetes, GERD, hyperlipidemia, hypertension, other Female Surgical History: Reports: cholecystectomy, hysterectomy Psychiatric history: Reports: depression - Social History Smoking status: Current every day smoker Alcohol use: Reports: none Drug use: Reports: none Physical Exam Constitutional: She is very tearful and appears in mild distress, mild tachycardia Neck: normal inspection, neck is supple, trachea midline Resp: normal chest inspection, CTA bilaterally, no resp distress CV: tachyCardiac no m/g/r GI: Moderate tenderness to palpation epigastrium with no rebound or guarding or rigidity. Back: normal inspection, no tenderness to palpation Neuro: A&O3, no gross motor or sensory deficits bilaterally MSK: normal inspection, bilateral UE and LE with normal ROM Psych: Tearful Skin: poor skin turgor - General Limitations: no limitations General appearance: alert Course Course Narrative: 52-year-old female with acute pancreatitis signs and symptoms, history of chronic pancreatitis, will get IV fluids anti-emetics and analgesics, check basic lab work and reassess. - Reevaluation(s) Reevaluation #1: Found of a moderately elevated lipase of 560 with leukopenia, appears dehydrated will admit to hospital service for IV fluids, pain control, and management of acute on chronic pancreatitis Juan accepting Vital Signs Temperature 99.4 F 05/27/16 10:21 Pulse Rate 104 05/27/16 10:21 Respiratory Rate 18 05/27/16 10:21 Blood Pressure 127/77 05/27/16 10:21 O2 Sat by Pulse Oximetry 98 05/27/16 10:21 Temperature 99.4 F 05/27/16 19:27 Pulse Rate 81 05/27/16 19:27 Respiratory Rate 14 05/27/16 19:27 Blood Pressure 158/82 05/27/16 19:27 O2 Sat by Pulse Oximetry 94 05/27/16 19:27 Oxygen Delivery Oxygen Delivery Room Air Abdominal Pain - MDM Narrative Medical decision making narrative: 60-year-old female with acute on chronic pancreatitis admitted to medicine service for IV fluids and pain control - Differential Diagnosis Differential Diagnosis: Likely: abdominal pain non-specific, colonic obstruction , diverticulitis, diverticulosis, gastroenteritis, pancreatitis - Medical Records Medical records reviewed: Yes I reviewed the patient's medical records. - Lab Data Result diagrams: 05/27/16 10:37 05/27/16 10:37 Lab Results 05/27/16 05/27/16 05/27/16 Range/Units 10:37 10:37 10:37 WBC 2.8 L (4.3-11.1) K/mcL RBC 4.43 (3.82-4.97) M/mcL Hgb 12.3 (11.5-15.4) g/dL Hct 37.6 (35.3-44.9) % MCV 84.9 (83.0-100.0) fL MCH 27.8 L (28.0-33.3) pg MCHC 32.7 (31.6-35.5) g/dL RDW 13.7 (11.5-14.5) % Plt Count 168 (140-400) K/mcL MPV 9.5 (9.4-12.4) fL Immature Gran % 0.4 (0-4) % Seg Neutrophils % 73.3 % Lymphocytes % 18.1 % Monocytes % 7.4 % Eosinophils % 0.4 % Basophils % 0.4 % Neutrophils # 2.1 (1.6-8.9) K/mcL Lymphocytes # 0.5 L (0.6-4.6) K/mcL Monocytes # 0.2 (0.0-1.3) K/mcL Eosinophils # 0.0 (0.0-0.6) K/mcL Basophils # 0.0 (0.0-0.2) K/mcL Sodium 138 (136-145) mEq/L Potassium 4.1 (3.5-4.5) mEq/L Chloride 107 (98-109) mEq/L Carbon Dioxide 19 (19-29) mEq/L BUN 8 (7-20) mg/dL Creatinine 0.92 (0.57-1.11) mg/dL Est GFR ( Amer) > 60 (> 60) Est GFR (Non-Af Amer) > 60 (> 60) BUN/Creatinine Ratio 9 (6-26) Glucose 126 H (70-99) mg/dL Calculated Osmolality 286 (280-300) Calcium 9.3 (8.6-10.8) mg/dL Total Bilirubin 0.2 (0.2-1.2) mg/dL Direct Bilirubin 0.1 (0.0-0.5) mg/dL Indirect Bilirubin 0.1 (0.0-1.2) mg/dL AST 25 (5-34) Units/L ALT 21 (0-55) Units/L Alkaline Phosphatase 84 (38-126) Units/L Troponin I 0.01 (0-0.03) ng/mL Serum Total Protein 7.2 (6.0-8.3) g/dL Albumin 3.9 (3.5-5.0) g/dL Globulin 3.3 (2.4-3.5) g/dL Albumin/Globulin Ratio 1.2 (1.1-2.2) Lipase 580 H (8-78) Units/L - Radiology Data Radiology results reviewed: Yes I reviewed the patient's radiology results. - EKG Data EKG attestation: Yes I reviewed and interpreted this EKG. EKG shows normal: sinus rhythm Rate: normal Rhythm: NSR [place]/QRS: normal Attestation Statement - Attestation Attestation: I examined this patient and my medical decision-making was reviewed with the [facility]/PA/Advanced Practice Nurse/Resident Physician. I agree with the documented findings, disposition and treatment plan as described except to the extent set forth below. 60 yo female presents with epigastric pain similar to her previous pancreatitis. Pt seen recently for similar pain. Pt followed by surgery at [facility] for her pancreatitis with possible surgery scheduled for July. +ttp of the epigastrum and RUQ. Pt has elevation of lipase consistent with acute pancreatitis. Pt will be admitted to the hospital for continuation of care
[2016-05-27 10:59] LABS: Basophils % 0.4 %; Eosinophils % 0.4 %; Hematocrit 37.6 % (35.3-44.9); Hemoglobin 12.3 g/dL (11.5-15.4); Immature Granulocytes % 0.4 % (0-4); Lymphocytes # 0.5 K/mcL (0.6-4.6); Lymphocytes % 18.1 %; Mean Corpuscular HGB Conc 32.7 g/dL (31.6-35.5); Mean Corpuscular Hemoglobin 27.8 pg (28.0-33.3); Mean Corpuscular Volume 84.9 fL (83.0-100.0); Mean Platelet Volume 9.5 fL (9.4-12.4); Monocytes # 0.2 K/mcL (0.0-1.3); Monocytes % 7.4 %; Neutrophils # 2.1 K/mcL (1.6-8.9); Platelet Count 168 K/mcL (140-400); Red Blood Count 4.43 M/mcL (3.82-4.97); Red Cell Distribution Width 13.7 % (11.5-14.5); Segmented Neutrophils % 73.3 %
[2016-05-27 11:09] LABS: Alanine Aminotransferase 21 Units/L (0-55); Albumin 3.9 g/dL (3.5-5.0); Albumin/Globulin Ratio 1.2 (1.1-2.2); Alkaline Phosphatase 84 Units/L (38-126); Aspartate Amino Transferase 25 Units/L (5-34); BUN/Creatinine Ratio 9 (6-26); Bilirubin,Direct 0.1 mg/dL (0.0-0.5); Bilirubin,Indirect 0.1 mg/dL (0.0-1.2); Bilirubin,Total 0.2 mg/dL (0.2-1.2); Blood Urea Nitrogen 8 mg/dL (7-20); Calcium 9.3 mg/dL (8.6-10.8); Carbon Dioxide 19 mEq/L (19-29); Chloride 107 mEq/L (98-109); Globulin 3.3 g/dL (2.4-3.5); Glucose 126 mg/dL (70-99); Lipase 580 Units/L (8-78); Osmolality,Calculated 286 (280-300); Potassium 4.1 mEq/L (3.5-4.5); Sodium 138 mEq/L (136-145); Total Protein 7.2 g/dL (6.0-8.3); eGFR For African Americans > 60 (> 60); eGFR For Non-African Americans > 60 (> 60)
[2016-05-27] MEDS: 0.9 % Sodium Chloride 1,000 ML IVC SCH ×2 (12:49→21:00)
[2016-05-27] MEDS ORDERED: *HR* HYDROmorphone (PF) 1 MG/ML SYRINGE IVP PRN (12:57)
--- NOTE | 2016-05-27 13:04 | Internal Med History&Physical ---
Date of Encounter: 05/27/16 Time of Encounter: 13:02 Assessment and Plan (1) Acute on chronic pancreatitis Current visit: No Status: Acute Keep patient NPO hydrates symptomatic management. Her transaminase are normal she has a prior cholecystectomy. Check triglyceride level. She is planned to have surgery to remove tail of the pancreas at [facility]. Patient mentioned she had a fever of 103 at home. Temperature in the ER 99.4. Patient is allergic contrast. She mentioned that she had never had necrotizing pancreatitis before. If She continues to Art fever CT scan with IV contrast of the abdomen will be ordered after premedication of the patient (2) Diabetes mellitus Current visit: No Status: Chronic Sliding scale insulin Qualifiers: Diabetes mellitus type: type 2 Diabetes mellitus complication status: without complication Diabetes mellitus senior living insulin use: without senior living use Qualified Code(s): E11.9 - Type 2 diabetes mellitus without complications Internal Medicine - H&P: HPI Chief complaint: abdominal pain History of present illness: Ms. Wright is a 60 year old female with history of chronic pancreatitis presents to the emergency room today with the main complain of left upper quadrant abdominal pain. For the past 2 days patient has been having severe left upper quadrant pain radiating across her upper abdomen and back associated with nausea vomiting and diarrhea. She mentioned that she has been having fever up to 103 at home however temperature on our arrival to the emergency room was 99.4. She was unable to tolerate food, symptoms have been worsening social presented to the emergency room for further management. This is The 12th admission for the patient in the past year for acute pancreatitis according to her. When asked about the etiology ov recurrent pancreatitis I could not get the clear explanation. Past Med Surg Social Fam HX - Past Medical History Medical history: COPD, diabetes, GERD, hyperlipidemia, hypertension, other Psychiatric history: depression - Past Surgical History Surgical History: cholecystectomy, hysterectomy, orthopedic, other (ankle surgery) - Social History Smoking Status: Current every day smoker Smokeless Tobacco Status: No Alcohol use: none Drug use: none - Family History Mother Living Status: Father Living Status: Hx Family Cardiac Disorders: Yes Hx Family Respiratory Disorders: No Hx Family Cancer: No Hx Family GI Disorders: Yes Hx Family Endocrine Disorder: Yes Hx Family Neuromuscular Disorders: No Hx Family Neurologic Disorders: No Hx Family HEENT Disorders: No Hx Family Autoimmune Disorders: No Internal Medicine - H&P: Meds Aclidinium [place] [Tudorza Pressair] 400 mcg IH BID 04/15/16 [History] Gabapentin 600 mg PO TID 04/15/16 [History] Lisinopril [Zestril] 10 mg PO DAILY 04/15/16 [History] Metformin [Glucophage] 1,000 mg PO BID 04/15/16 [History] Omeprazole [PriLOSEC] 20 mg PO DAILY 04/15/16 [History] Sertraline [Zoloft] 100 mg PO DAILY 04/15/16 [History] TraZODone 100 mg PO HS 04/15/16 [History] Ergocalciferol (VITAMIN D2) [Vitamin D2] 50,000 unit PO QWEEK 04/22/16 [History] Nicotine Patch [Nicoderm] 21 mg TD DAILY 05/05/16 [History] Acetaminophen w/Cod 300-30 mg [Tylenol w/Codeine #3] 2 tab PO QID PRN 05/27/16 [ History] Amitriptyline [Elavil] 10 mg PO HS 05/27/16 [History] Ondansetron ODT [Zofran ODT] 4 mg SL Q6H PRN 05/27/16 [History] Allergies Iodinated Contrast Media - Oral and Allergy (Verified 04/22/16 13:45) Difficulty Breathing AND HIVES All Systems PM: A 10-system review of systems was performed and is negative for pertinent findings except as documented above in the HPI. Review of systems: 10 point review of systems is negative except for HPI - Constitutional Vitals: Temp Pulse Resp BP Pulse Ox 99.8 F H 79 18 129/57 97 05/27/16 12:37 05/27/16 12:37 05/27/16 12:37 05/27/16 12:37 05/27/16 12:37 Exam: Gen.: patient is alert and oriented times 3 and often distressed. Cardiac: normal S1 S2 no additional sounds or murmur chest clear to auscultation abdomen: tenderness in the upper abdomen no rebound tenderness guarding or rigidity lower extremity swelling Internal Med - H&P Results - Labs CBC & Chem 7: 05/27/16 10:37 05/27/16 10:37
[2016-05-27] MEDS ORDERED: Dextrose Gel 15 GM PO PRN ×2 (13:14)
[2016-05-27] MEDS ORDERED: D5% in Water 1,000 ML IVC PRN (13:14)
[2016-05-27] MEDS ORDERED: *HR* Dextrose 50 % in Water (Syg) 50 ML SYRINGE IVP PRN (13:14)
[2016-05-27] MEDS: Ondansetron 4 MG/2 ML VIAL IVP PRN ×2 (15:50→21:43)
[2016-05-27] MEDS: *HR* HYDROmorphone (PF) 1 MG/ML SYRINGE IVP PRN ×3 (16:34→22:39)
[2016-05-27] MEDS: *HR* Heparin 5,000 UNIT/ML VIAL SQ SCH (17:47)
[2016-05-27] MEDS: Insulin LISPRO 300 UNITS/3 ML VIAL SQ SCH (17:48)
[2016-05-28] MEDS: Insulin LISPRO 300 UNITS/3 ML VIAL SQ SCH ×4 (00:32→19:00)
[2016-05-28] MEDS: *HR* HYDROmorphone (PF) 1 MG/ML SYRINGE IVP PRN ×8 (01:38→22:39)
[2016-05-28 03:05] LABS: Basophils % 0.4 %; Eosinophils % 0.8 %; Hematocrit 33.2 % (35.3-44.9); Hemoglobin 10.8 g/dL (11.5-15.4); Lymphocytes # 1.1 K/mcL (0.6-4.6); Lymphocytes % 47.1 %; Mean Corpuscular HGB Conc 32.5 g/dL (31.6-35.5); Mean Corpuscular Hemoglobin 28.3 pg (28.0-33.3); Mean Corpuscular Volume 87.1 fL (83.0-100.0); Mean Platelet Volume 9.8 fL (9.4-12.4); Monocytes # 0.2 K/mcL (0.0-1.3); Monocytes % 7.9 %; Neutrophils # 1.1 K/mcL (1.6-8.9); Platelet Count 134 K/mcL (140-400); Red Blood Count 3.81 M/mcL (3.82-4.97); Segmented Neutrophils % 43.8 %
[2016-05-28 03:21] LABS: Alanine Aminotransferase 16 Units/L (0-55); Alkaline Phosphatase 67 Units/L (38-126); Aspartate Amino Transferase 22 Units/L (5-34); BUN/Creatinine Ratio 11 (6-26); Bilirubin,Direct 0.1 mg/dL (0.0-0.5); Bilirubin,Total 0.1 mg/dL (0.2-1.2); Blood Urea Nitrogen 8 mg/dL (7-20); Calcium 8.3 mg/dL (8.6-10.8); Carbon Dioxide 21 mEq/L (19-29); Chloride 109 mEq/L (98-109); Globulin 2.9 g/dL (2.4-3.5); Glucose 86 mg/dL (70-99); Lipase 287 Units/L (8-78); Magnesium 1.3 mg/dL (1.6-2.6); Osmolality,Calculated 286 (280-300); Potassium 4.1 mEq/L (3.5-4.5); Sodium 139 mEq/L (136-145); Total Protein 5.9 g/dL (6.0-8.3); eGFR For African Americans > 60 (> 60); eGFR For Non-African Americans > 60 (> 60)
[2016-05-28 03:36] LABS: C-Reactive Protein 3 mg/L (Less than 5)
[2016-05-28] MEDS: *HR* Heparin 5,000 UNIT/ML VIAL SQ SCH ×3 (05:06→19:02)
[2016-05-28] MEDS: 0.9 % Sodium Chloride 1,000 ML IVC SCH ×3 (05:32→21:01)
[2016-05-28] MEDS: Pantoprazole 40 MG VIAL IVP SCH (07:22)
[2016-05-28] MEDS ORDERED: Promethazine 12.5 MG in 0.9 % Sodium Chloride 50 ML IVPB PRN (09:00)
[2016-05-28] MEDS: Ondansetron 4 MG/2 ML VIAL IVP PRN ×3 (09:04→21:34)
[2016-05-28] MEDS: *HR* OxyCODONE/APAP 5/325 TABLET PO PRN ×3 (09:05→21:35)
[2016-05-28 10:14] LABS: Bilirubin,Urine Negative (Negative); Blood,Urine Negative (Negative); Clarity,Urine Clear (Clear); Color,Urine Yellow (Yellow); Glucose,Urine (UA) Normal (Normal); Ketones,Urine Negative (Negative); Leukocyte Esterase,Urine Negative (Negative); Nitrite,Urine Negative (Negative); Protein,Urine Negative (Neg-Trace); Specific Gravity,Urine 1.012 (1.010-1.025); Urobilinogen,Urine Normal (Normal)
--- NOTE | 2016-05-28 11:00 | Internal Med Progress Note ---
Date of Encounter: 05/28/16 Time of Encounter: 09:35 - Assessment and plan (1) Acute on chronic pancreatitis Current Visit: Yes Status: Acute Assessment and plan: Continue conservative care with supportive care. IV narcotic medications. Keep nothing by mouth. IV antibiotics. The patient's symptoms improved during the day, we will advance her to clear liquid diet. High risk for complications due to use of intravenous narcotic medications. (2) Diabetes mellitus Current Visit: Yes Status: Chronic Assessment and plan: Well controlled blood sugars. Patient is nothing by mouth at this time. Will monitor blood sugars closely. Qualifiers: Diabetes mellitus type: type 2 Diabetes mellitus complication status: without complication Diabetes mellitus retirement insulin use: without skull splitter use Qualified Code(s): E11.9 - Type 2 diabetes mellitus without complications (3) Essential hypertension Current Visit: Yes Status: Chronic Assessment and plan: Blood pressure is elevated. We will resume lisinopril (4) Anxiety Current Visit: Yes Status: Chronic Assessment and plan: Resume home medications including trazodone and sertraline - Subjective Interval history: Ration continues to Have significant abdominal pain requiring intravenous medications. She has not had any fever overnight in the hospital. No new episodes of emesis but patient continues to feel nauseated. - Constitutional Vitals: Temp Pulse Resp BP Pulse Ox 98.5 F 89 16 141/82 91 05/28/16 07:27 05/28/16 07:27 05/28/16 07:27 05/28/16 07:27 05/28/16 07:27 General appearance: Present: cooperative, A&O X 3, answers questions appropriately Exam: moderate distress - Neck Neck exam general surgery: Present: supple, trachea midline. Absent: lymphadenopathy - Respiratory Respiratory exam: Present: CTAB. Absent: accessory muscle use, rales, rhonchi, wheezes - Cardiovascular Cardiovascular exam: Present: RRR, +S1, +S2. Absent: diastolic murmur, gallop, rubs, systolic murmur - GI/Abdominal GI/Abdominal exam: Present: normal bowel sounds, soft, tenderness (Epigastric tenderness), no peritoneal signs. Absent: distended - Neurological Exam Neurological exam: Present: alert, oriented X3, no focal deficits. Absent: facial droop, speech deficit - Skin Skin exam: Present: dry, intact Internal Medicine: Result - Labs CBC & Chem 7: 05/28/16 02:06 05/28/16 02:06 Labs: Short CBC 05/28/16 Range/Units 02:06 WBC 2.4 L (4.3-11.1) K/mcL Hgb 10.8 L D (11.5-15.4) g/dL Hct 33.2 L (35.3-44.9) % Plt Count 134 L (140-400) K/mcL Neutrophils # 1.1 L (1.6-8.9) K/mcL BMP 05/28/16 02:06 Sodium 139 Potassium 4.1 Chloride 109 Carbon Dioxide 21 BUN 8 Creatinine 0.75 Glucose 86 Calcium 8.3 L Liver Function 05/28/16 Range/Units 02:06 Total Bilirubin 0.1 L (0.2-1.2) mg/dL Direct Bilirubin 0.1 (0.0-0.5) mg/dL AST 22 (5-34) Units/L ALT 16 (0-55) Units/L Alkaline Phosphatase 67 (38-126) Units/L Albumin 3.0 L D (3.5-5.0) g/dL Urine 05/28/16 Range/Units 10:02 Urine Color Yellow (Yellow) Urine Clarity Clear (Clear) Urine pH 6.0 (5.0-8.0) pH Units Ur Specific [place] 1.012 (1.010-1.025) Urine Protein Negative (Neg-Trace) mg/dL Urine Glucose (UA) Normal (Normal) mg/dL Consult Discharge Plan - Plan Referrals: Claire Snider, [employer]ION EN[employer]ELOPE MAKER [Primary Care Provider] - - Attending Attestation This document has been at least partially created by [employer] recognition technology by Dr. Colmenares. Errors in grammar, wording or other phrases may exist. If errors are found after the documentation is signed, they will be addressed individually in the addendum section of this document when appropriate.
[2016-05-28] MEDS ORDERED: Ipratropium/Albuterol Neb 3 ML IH PRN (11:04)
--- NOTE | 2016-05-28 13:59 | Electrocardiograph Report ---
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
[2016-05-28] MEDS: Gabapentin 300 MG CAPSULE PO SCH ×2 (15:26→21:00)
[2016-05-28] MEDS: traZODone 50 MG TABLET PO SCH (21:01)
[2016-05-29] MEDS: Insulin LISPRO 300 UNITS/3 ML VIAL SQ SCH ×4 (00:40→17:33)
[2016-05-29] MEDS: Ondansetron 4 MG/2 ML VIAL IVP PRN ×2 (03:35→21:38)
[2016-05-29] MEDS: *HR* HYDROmorphone (PF) 1 MG/ML SYRINGE IVP PRN ×7 (03:36→21:38)
[2016-05-29] MEDS: *HR* Heparin 5,000 UNIT/ML VIAL SQ SCH ×2 (05:14→17:41)
[2016-05-29] MEDS: *HR* OxyCODONE/APAP 5/325 TABLET PO PRN ×3 (05:20→17:42)
[2016-05-29] MEDS: 0.9 % Sodium Chloride 1,000 ML IVC SCH ×3 (05:21→20:16)
[2016-05-29] MEDS: Gabapentin 300 MG CAPSULE PO SCH ×3 (07:54→20:14)
[2016-05-29] MEDS: Nicotine 21 MG PATCH.TD24 TD SCH (07:55)
[2016-05-29] MEDS: Pantoprazole 40 MG VIAL IVP SCH (07:55)
--- NOTE | 2016-05-29 11:42 | Internal Med Progress Note ---
Date of Encounter: 05/29/16 Time of Encounter: 11:42 - Assessment and plan (1) Acute on chronic pancreatitis Current Visit: Yes Status: Acute Assessment and plan: Overall improving pain. Will start patient on clear liquid diet. Continue IV hydration. At high risk for complications due to use of intravenous narcotic medications. If pain does not improve much by tomorrow, she will need a repeat CT scan of the abdomen to look for any signs of pancreatic necrosis. DVT prophylaxis with heparin (2) Diabetes mellitus Current Visit: Yes Status: Chronic Assessment and plan: Blood sugars are well controlled. Qualifiers: Diabetes mellitus type: type 2 Diabetes mellitus complication status: without complication Diabetes mellitus patient financial counselor insulin use: without patient financial counselor use Qualified Code(s): E11.9 - Type 2 diabetes mellitus without complications (3) Essential hypertension Current Visit: Yes Status: Chronic Assessment and plan: Blood pressure is well controlled. Continue current medications. (4) Anxiety Current Visit: Yes Status: Chronic Assessment and plan: Improving anxiety. Continue current medications. - Subjective Interval history: Continues to have abdominal pain 8 out of 10 in severity although improved compared to yesterday. Nausea is also improving. No fever or chills or night sweats overnight. No hematemesis or melena. No diarrhea reported - Constitutional Vitals: Temp Pulse Resp BP Pulse Ox 97.6 F 78 16 133/77 95 05/29/16 10:53 05/29/16 10:53 05/29/16 10:53 05/29/16 10:53 05/29/16 10:53 General appearance: Present: cooperative, mild distress, A&O X 3, answers questions appropriately - Respiratory Respiratory exam: Present: CTAB. Absent: accessory muscle use, rales, rhonchi, wheezes - Cardiovascular Cardiovascular exam: Present: RRR, +S1, +S2. Absent: diastolic murmur, gallop, rubs, systolic murmur - GI/Abdominal GI/Abdominal exam: Present: normal bowel sounds, soft, tenderness (Epigastric), no peritoneal signs. Absent: distended - Extremities Exam Extremities exam: Present: warm, radial pulses palpable and symetrical. Absent : calf tenderness, cyanotic, pedal edema - Neurological Exam Neurological exam: Present: alert, oriented X3, no focal deficits. Absent: facial droop, speech deficit - Skin Skin exam: Present: dry, intact Internal Medicine: Result - Labs CBC & Chem 7: 05/28/16 02:06 05/28/16 02:06 Consult Discharge Plan - Plan Referrals: Claire Snider, SILICATOR [Primary Care Provider] -
[2016-05-29] MEDS: traZODone 50 MG TABLET PO SCH (20:14)
[2016-05-30] MEDS: Insulin LISPRO 300 UNITS/3 ML VIAL SQ SCH ×4 (01:19→18:04)
[2016-05-30] MEDS: *HR* HYDROmorphone (PF) 1 MG/ML SYRINGE IVP PRN ×6 (01:21→22:03)
[2016-05-30] MEDS: 0.9 % Sodium Chloride 1,000 ML IVC SCH ×3 (04:27→20:27)
[2016-05-30] MEDS: *HR* Heparin 5,000 UNIT/ML VIAL SQ SCH ×2 (05:59→17:59)
[2016-05-30] MEDS: Nicotine 21 MG PATCH.TD24 TD SCH (07:38)
[2016-05-30] MEDS: Gabapentin 300 MG CAPSULE PO SCH ×3 (07:38→20:18)
[2016-05-30] MEDS: Pantoprazole 40 MG VIAL IVP SCH (07:38)
--- NOTE | 2016-05-30 11:00 | Internal Med Progress Note ---
Date of Encounter: 05/30/16 Time of Encounter: 10:59 - Assessment and plan (1) Acute on chronic pancreatitis Current Visit: Yes Status: Acute Assessment and plan: Overall her pain is not making any significant improvement. Will continue clear liquid diet. Continue IV hydration. Check lipase in the morning. At high risk for complications due to use of intravenous narcotic medications. We will check a repeat CT scan of the abdomen to look for any signs of pancreatic necrosis. DVT prophylaxis with heparin (2) Intractable pain Current Visit: No Status: Acute Assessment and plan: IV morphine. (3) Essential hypertension Current Visit: Yes Status: Chronic Assessment and plan: Blood pressure is well controlled. Continue current medications. (4) COPD (chronic obstructive pulmonary disease) Current Visit: No Status: Chronic Assessment and plan: We will provide inhaled albuterol and Atrovent for shortness of breath or wheezing. Qualifiers: COPD type: unspecified COPD Qualified Code(s): J44.9 - Chronic obstructive pulmonary disease, unspecified (5) Tobacco abuse Current Visit: No Status: Chronic Assessment and plan: I have counseled the patient about the benefits of smoking cessation and the risk of continuing to smoke including worsening pancreatitis. (6) DVT prophylaxis Current Visit: No Status: Acute Assessment and plan: Subcutaneous heparin. (7) Type 2 diabetes mellitus Current Visit: No Status: Acute Qualifiers: Diabetes mellitus complication status: without complication Diabetes mellitus longterm insulin use: without longterm use Qualified Code(s): E11.9 - Type 2 diabetes mellitus without complications - Subjective Interval history: She reports severe epigastric abdominal pain, sharp, improved with IV Dilaudid. Associated with nausea and vomiting. She reports no improvement over the last 2 days. Her pain is exacerbated by drinking fluids. She was started on clear liquid diet yesterday. - Constitutional Vitals: Temp Pulse Resp BP Pulse Ox 99.0 F 67 18 115/69 94 05/30/16 07:00 05/30/16 07:00 05/30/16 07:00 05/30/16 07:00 05/30/16 07:00 General appearance: Present: cooperative, mild distress, A&O X 3, answers questions appropriately - Respiratory Respiratory exam: Present: CTAB. Absent: accessory muscle use, rales, rhonchi, wheezes - Cardiovascular Cardiovascular exam: Present: RRR, +S1, +S2. Absent: diastolic murmur, gallop, rubs, systolic murmur - GI/Abdominal GI/Abdominal exam: Present: normal bowel sounds, soft, tenderness (voluntary guarding), no peritoneal signs. Absent: distended - Extremities Exam Extremities exam: Present: warm, radial pulses palpable and symetrical. Absent : calf tenderness, cyanotic, pedal edema - Skin Skin exam: Present: dry, intact Internal Medicine: Result - Labs CBC & Chem 7: 05/30/16 11:23 05/30/16 11:23 Consult Discharge Plan - Plan Referrals: Claire Snider, SACK CLEANER [Primary Care Provider] -
[2016-05-30 11:46] LABS: Eosinophils % 0.9 %; Hemoglobin 9.6 g/dL (11.5-15.4); Red Cell Distribution Width 13.8 % (11.5-14.5)
[2016-05-30 11:47] LABS: Hematocrit 29.7 % (35.3-44.9); Immature Platelets 2.1 % (1.1-6.1); Lymphocytes # 1.2 K/mcL (0.6-4.6); Lymphocytes % 51.1 %; Mean Corpuscular HGB Conc 32.3 g/dL (31.6-35.5); Mean Corpuscular Hemoglobin 27.7 pg (28.0-33.3); Mean Corpuscular Volume 85.8 fL (83.0-100.0); Mean Platelet Volume 9.7 fL (9.4-12.4); Monocytes # 0.1 K/mcL (0.0-1.3); Monocytes % 4.3 %; Red Blood Count 3.46 M/mcL (3.82-4.97); Segmented Neutrophils % 43.7 %
[2016-05-30 12:00] LABS: BUN/Creatinine Ratio 6 (6-26); Calcium 7.6 mg/dL (8.6-10.8); Carbon Dioxide 25 mEq/L (19-29); Chloride 111 mEq/L (98-109); Glucose 139 mg/dL (70-99); Lipase 144 Units/L (8-78); Osmolality,Calculated 291 (280-300); Potassium 3.6 mEq/L (3.5-4.5); Sodium 141 mEq/L (136-145); eGFR For African Americans > 60 (> 60); eGFR For Non-African Americans > 60 (> 60)
[2016-05-30 12:01] LABS: Blood Urea Nitrogen 4 mg/dL (7-20)
[2016-05-30 12:11] LABS: Neutrophils # 1.1 K/mcL (1.6-8.9)
[2016-05-30 12:12] LABS: Platelet Count 93 K/mcL (140-400)
[2016-05-30 12:13] LABS: Platelet Estimate Slight Decrease (Normal)
[2016-05-30] MEDS: *HR* OxyCODONE/APAP 5/325 TABLET PO PRN ×2 (12:22→18:00)
[2016-05-30] MEDS: *HR* Morphine Immed Rel 30 MG TABLET PO PRN ×2 (13:26→19:43)
[2016-05-30] MEDS: Ondansetron 4 MG/2 ML VIAL IVP PRN (13:28)
[2016-05-30] MEDS ORDERED: predniSONE 20 MG TABLET PO ONE (13:39)
[2016-05-30] MEDS: traZODone 50 MG TABLET PO SCH (20:17)
[2016-05-30] MEDS: predniSONE 20 MG TABLET PO PRN (20:19)
[2016-05-31] MEDS: Insulin LISPRO 300 UNITS/3 ML VIAL SQ SCH ×4 (00:03→18:00)
[2016-05-31] MEDS: *HR* Morphine Immed Rel 30 MG TABLET PO PRN ×3 (02:00→21:11)
[2016-05-31] MEDS: predniSONE 20 MG TABLET PO PRN (02:00)
[2016-05-31 04:20] LABS: Hemoglobin 10.4 g/dL (11.5-15.4)
[2016-05-31 04:22] LABS: Lymphocytes # 0.6 K/mcL (0.6-4.6); Mean Corpuscular HGB Conc 31.5 g/dL (31.6-35.5); Mean Corpuscular Hemoglobin 27.2 pg (28.0-33.3); Mean Corpuscular Volume 86.4 fL (83.0-100.0); Monocytes # 0.1 K/mcL (0.0-1.3); Red Blood Count 3.82 M/mcL (3.82-4.97); Red Cell Distribution Width 13.8 % (11.5-14.5)
[2016-05-31 04:26] LABS: Platelet Count 97 K/mcL (140-400)
[2016-05-31 04:36] LABS: BUN/Creatinine Ratio 8 (6-26); Calcium 8.5 mg/dL (8.6-10.8); Carbon Dioxide 27 mEq/L (19-29); Chloride 113 mEq/L (98-109); Glucose 174 mg/dL (70-99); Lipase 33 Units/L (8-78); Osmolality,Calculated 301 (280-300); Potassium 3.5 mEq/L (3.5-4.5); Sodium 145 mEq/L (136-145); eGFR For African Americans > 60 (> 60); eGFR For Non-African Americans > 60 (> 60)
[2016-05-31 04:38] LABS: Blood Urea Nitrogen 5 mg/dL (7-20)
[2016-05-31 05:10] LABS: Neutrophils # 0.9 K/mcL (1.6-8.9); Platelet Estimate Decreased (Normal)
[2016-05-31] MEDS: *HR* HYDROmorphone (PF) 1 MG/ML SYRINGE IVP PRN ×3 (05:16→18:00)
[2016-05-31] MEDS: 0.9 % Sodium Chloride 1,000 ML IVC SCH (05:16)
[2016-05-31] MEDS: *HR* Heparin 5,000 UNIT/ML VIAL SQ SCH ×2 (05:39→17:52)
[2016-05-31] MEDS: *HR* OxyCODONE/APAP 5/325 TABLET PO PRN ×2 (07:45→16:35)
[2016-05-31] MEDS: Gabapentin 300 MG CAPSULE PO SCH ×3 (07:46→20:12)
[2016-05-31] MEDS: Nicotine 21 MG PATCH.TD24 TD SCH (07:47)
[2016-05-31] MEDS: Pantoprazole 40 MG VIAL IVP SCH (07:47)
[2016-05-31] MEDS: Ondansetron 4 MG/2 ML VIAL IVP PRN ×2 (09:17→18:00)
--- NOTE | 2016-05-31 11:20 | Internal Med Progress Note ---
Date of Encounter: 05/31/16 Time of Encounter: 11:19 - Assessment and plan (1) Acute on chronic pancreatitis Current Visit: Yes Status: Acute Assessment and plan: Lipase was within normal range today. She is tolerating clear liquid diet but Overall her pain is not making any significant improvement. Will continue clear liquid diet. Continue IV hydration. Check lipase in the morning. We will start introducing oral pain medication and titrating her off the IV Dilaudid. At high risk for complications due to use of intravenous narcotic medications. We will check a repeat CT scan of the abdomen to look for any signs of pancreatic necrosis. DVT prophylaxis with heparin (2) Intractable pain Current Visit: No Status: Acute Assessment and plan: IV morphine. (3) Essential hypertension Current Visit: Yes Status: Chronic Assessment and plan: Blood pressure is well controlled. Continue current medications. (4) COPD (chronic obstructive pulmonary disease) Current Visit: No Status: Chronic Assessment and plan: We will provide inhaled albuterol and Atrovent for shortness of breath or wheezing. Qualifiers: COPD type: unspecified COPD Qualified Code(s): J44.9 - Chronic obstructive pulmonary disease, unspecified (5) Tobacco abuse Current Visit: No Status: Chronic Assessment and plan: I have counseled the patient about the benefits of smoking cessation and the risk of continuing to smoke including worsening pancreatitis. Again advised complete smoking cessation. (6) DVT prophylaxis Current Visit: No Status: Acute Assessment and plan: Subcutaneous heparin. (7) Type 2 diabetes mellitus Current Visit: No Status: Acute Qualifiers: Diabetes mellitus complication status: without complication Diabetes mellitus custodial insulin use: without custodial use Qualified Code(s): E11.9 - Type 2 diabetes mellitus without complications (8) Pancytopenia associated with pancreatitis Current Visit: Yes Status: Acute Assessment and plan: This is a worsening today, involving all 3 cell lines. I do not have evidence of sepsis or any medication that could have caused pancytopenia. This could directly be related to pancreatitis however she has had multiple bouts of pancreatitis and this is a new problem, she has not had pancytopenia with her prior bouts. We will consult hematology. - Subjective Interval history: 05/31/2016: She reports severe epigastric abdominal pain, sharp, improved with IV Dilaudid. Associated with nausea and vomiting. She reports no improvement over the last 2 days. Her pain is exacerbated by drinking fluids. She was started on clear liquid diet yesterday. - Constitutional Vitals: Temp Pulse Resp BP Pulse Ox 98.3 F 61 16 148/69 97 05/31/16 10:46 05/31/16 10:46 05/31/16 10:46 05/31/16 10:46 05/31/16 10:46 General appearance: Present: cooperative, mild distress, A&O X 3, answers questions appropriately - Respiratory Respiratory exam: Present: CTAB. Absent: accessory muscle use, rales, rhonchi, wheezes - Cardiovascular Cardiovascular exam: Present: RRR, +S1, +S2. Absent: diastolic murmur, gallop, rubs, systolic murmur - GI/Abdominal GI/Abdominal exam: Present: normal bowel sounds, soft, tenderness, no peritoneal signs. Absent: distended Internal Medicine: Result - Labs CBC & Chem 7: 05/31/16 11:27 05/31/16 04:04 Labs: Short CBC 05/30/16 05/31/16 Range/Units 11:23 04:04 WBC 2.4 L 1.5 L (4.3-11.1) K/mcL Hgb 9.6 L 10.4 L (11.5-15.4) g/dL Hct 29.7 L 33.0 L (35.3-44.9) % Plt Count 93 L 97 L (140-400) K/mcL Neutrophils # 1.1 L 0.9 L (1.6-8.9) K/mcL BMP 05/30/16 05/31/16 11:23 04:04 Sodium 141 145 Potassium 3.6 3.5 Chloride 111 H 113 H Carbon Dioxide 25 27 BUN 4 L 5 L Creatinine 0.66 0.65 Glucose 139 H 174 H Calcium 7.6 L 8.5 L - Impressions Impressions Abdomen/Pelvis CT 05/31/16 03:00 IMPRESSION: 1. Findings are suggestive for mild early acute on chronic pancreatitis. Correlate with lipase. There is a small pseudocyst within the tail of the pancreas measuring 8 mm. This was not seen on the prior exam. 2. Minimal ascites is seen within the abdomen and pelvis. 3. Minimal prominent peripancreatic lymph nodes. Follow-up CT in 3 months is recommended to document resolution of the lymph nodes. D/ / Annette Love MD / Annette Love MD Interpreting Provider: Annette Love MD Consult Discharge Plan - Plan Referrals: Claire Snider, FIRE MANAGEMENT TECHNICIAN [Primary Care Provider] - 06/07/16 10:40 am
[2016-05-31 11:35] LABS: Hematocrit 32.1 % (35.3-44.9); Hemoglobin 10.6 g/dL (11.5-15.4); Immature Granulocytes % 0.4 % (0-4); Lymphocytes # 0.7 K/mcL (0.6-4.6); Lymphocytes % 26.4 %; Mean Corpuscular Volume 84.7 fL (83.0-100.0); Mean Platelet Volume 9.9 fL (9.4-12.4); Monocytes # 0.1 K/mcL (0.0-1.3); Monocytes % 2.8 %; Platelet Count 103 K/mcL (140-400); Red Blood Count 3.79 M/mcL (3.82-4.97); Red Cell Distribution Width 13.8 % (11.5-14.5); Segmented Neutrophils % 70.4 %
[2016-05-31 11:56] LABS: Platelet Estimate Slight Decrease (Normal)
--- NOTE | 2016-05-31 17:55 | Oncology Inp Consult Note ---
<Elier Stratton Jr - Last Filed: 05/31/16 17:48> Date of Encounter: 05/31/16 Time of Encounter: 16:20 Assessment and Plan (1) Pancytopenia associated with pancreatitis Status: Acute Assessment and plan: She is very pleasant 60 year female admitted to the hospital for acute on chronic pancreatitis. The Hospitalist consulted us in concern for decreasing white blood cell count, hemoglobin, and platelets in the inpatient setting, despite the patient feeling better from her pancreatitis. Denies any previous history of cytopenias, including iron deficiency anemia, or any bone marrow disorders. We will begin workup with iron studies panel, ferritin, vitamin B12 level, folate, smear to be reviewed by pathology, MAGALI, rheumatoid factor, and protein electrophoresis to look at SPEP and possible MDS / myeloma. Prior to evaluation, myself and Dr. Sharpe looked at the patient's CT scan of her abdomen pelvis. We did notice problems with a large cyst at the tail of her pancreas, and calcifications. She does state she was referred to [facility] for evaluation of these calcifications and pancreatitis problems. She was referred by Dr. Hunt from [facility]. Upper endoscopy one month ago, she states that as far she know, she did not receive a biopsy of pancreas. She was told by [facility] that the tail of her pancreas "had ". He was given no further recommendations for follow-up her future treatment at their facility. Pancytopenia may be related to her pancreatitis, this chronic inflammatory process. Recommendations: Get medical records from [facility] regarding this upper endoscopy and any pathology one month ago. Consult GI here at [facility] for a review of her current CT scan at any concerns. We feel the patient may need a biopsy of the tail cystic lesion after reviewing the pancreas on CT. We will await results of blood work that was collected today to assess her pancytopenia. She will need to be established with Dr. Sharpe [facility] as an outpatient to monitor her blood counts. We will follow along. Dr. Sharpe will assess the patient as well, and agrees with above plan. (2) Acute on chronic pancreatitis Status: Acute - Data of Consult Patient: new to practice Consult date: 05/31/16 Requesting Physician: Neal Coppola MD Primary Care Provider: Claire Snider CNP - Consult Narrative Reason for consult: pancytopenia History of present illness: Ms. Wright is a 60 year old female admitted to hospital for acute on chronic pancreatitis. The patient has decreasing WBCs, HGB, and PLT while inpatient. She is without a known personal history of cancer, or iron deficiency anemia, or any cytopenias. She denies any history of bone marrow disorders, or family history. She states that she was seen Dr. Hunt (GI) at [facility], and he referred her to [facility] for further evaluation of calcifications in pancreas and pancreatic cysts. She states that she had an upper endoscopy at [facility] about one month ago. They told her "my tail of the pancreas was ", and had calcifications that may be contributing cause. She states that her knowledge she did not get a biopsy of the pancreas. No further follow up or treatment recommendation were given to the patient. She has significant pain of the epigastric and left upper quadrant region of the abdomen, and is very tearful. She also complains of a one-month onset of severe hip and bilateral upper leg pain. Her pancreatic enzymes are mildy elevated. She denies any chest pain, shortness of breath, productive cough, hematochezia, melena, unusual bleeding or bruising events. Hematology consulted for evaluation and recommendations for pancytopenia. Past Med Surg Social Fam HX - Past Medical History Medical history: COPD, diabetes, GERD, hyperlipidemia, hypertension, other Psychiatric history: depression - Past Surgical History Surgical History: cholecystectomy, hysterectomy, other - Social History Smoking Status: Current every day smoker Packs per day: 3 cigarettes per day Smokeless Tobacco Status: No Alcohol use: none Drug use: none - Family History Mother Living Status: Father Living Status: Hx Family Cardiac Disorders: Yes Hx Family Respiratory Disorders: No Hx Family Cancer: No Hx Family GI Disorders: Yes Hx Family Endocrine Disorder: Yes Hx Family Neuromuscular Disorders: No Hx Family Neurologic Disorders: No Hx Family HEENT Disorders: No Hx Family Autoimmune Disorders: No Medications and Allergies Aclidinium [place] [Tudorza Pressair] 400 mcg IH BID 04/15/16 [History] Gabapentin 600 mg PO TID 04/15/16 [History] Lisinopril [Zestril] 10 mg PO DAILY 04/15/16 [History] Metformin [Glucophage] 1,000 mg PO BID 04/15/16 [History] Omeprazole [PriLOSEC] 20 mg PO DAILY 04/15/16 [History] Sertraline [Zoloft] 100 mg PO DAILY 04/15/16 [History] TraZODone 100 mg PO HS 04/15/16 [History] Ergocalciferol (VITAMIN D2) [Vitamin D2] 50,000 unit PO QWEEK 04/22/16 [History] Nicotine Patch [Nicoderm] 21 mg TD DAILY 05/05/16 [History] Amitriptyline [Elavil] 10 mg PO HS 05/27/16 [History] Ondansetron ODT [Zofran ODT] 4 mg SL Q6H PRN 05/27/16 [History] Lipase/Protease/Amylase [Etienne Dr 6,000 Units Capsule] 1 each PO TIDAC #90 capsule. 06/01/16 [Rx] OxyCODONE/APAP 10/325 [Percocet 10/325 MG] 1 each PO Q6HR PRN #60 tablet [Rx] Allergies Iodinated Contrast Media - Oral and Allergy (Verified 04/22/16 13:45) Difficulty Breathing AND HIVES Gastrointestinal: Present: abdominal pain, belching, bloating, cramping, dyspepsia Musculoskeletal: Present: arthralgias (hips), muscle weakness (upper legs with pain) Psychiatric: Present: depression Oncology - Exam - Constitutional Vitals: Temp Pulse Resp BP Pulse Ox 98.7 F 72 16 152/75 95 05/31/16 15:35 05/31/16 15:35 05/31/16 15:35 05/31/16 15:35 05/31/16 15:35 General appearance: cooperative, mild distress - Head Head exam: Present: atraumatic, normal inspection - Eye Eye exam: Present: normal appearance, PERRL - ENT ENT exam: Present: mucous membranes moist - Neck Neck exam: Present: full ROM, normal inspection - Respiratory Respiratory exam: Present: CTAB - Cardiovascular Cardiovascular exam: Present: RRR, +S1, +S2 - GI/Abdominal GI/Abdominal exam: Present: guarding, normal bowel sounds, rebound, soft, tenderness - Extremities Exam Extremities exam: Present: full ROM, normal inspection - Neurological Exam Neurological exam: Present: alert, oriented X3, no focal deficits - Psychiatric Psychiatric exam: Present: depressed - Skin Skin exam: Present: dry, intact, warm Oncology - Results - Labs Labs: Short CBC 05/31/16 05/31/16 Range/Units 04:04 11:27 WBC 1.5 L 2.8 L D (4.3-11.1) K/mcL Hgb 10.4 L 10.6 L (11.5-15.4) g/dL Hct 33.0 L 32.1 L (35.3-44.9) % Plt Count 97 L 103 L (140-400) K/mcL Neutrophils # 0.9 L 2.0 (1.6-8.9) K/mcL BMP 05/31/16 04:04 Sodium 145 Potassium 3.5 Chloride 113 H Carbon Dioxide 27 BUN 5 L Creatinine 0.65 Glucose 174 H Calcium 8.5 L Consult Discharge Plan - Plan Instructions: Pancreatitis (DC), Anemia (GEN) Additional Instructions: Please refrain from smoking. Follow-up with her mems device scientist at [facility]. Avoid alcohol. No driving or operating heavy machinery while taking the prescribed dose of Percocet. Referrals: Claire Snider CNP [Primary Care Provider] - 06/07/16 10:40 am Prescriptions: OxyCODONE/APAP 10/325 [Percocet 10/325 MG] 1 each PO Q6HR PRN #60 tablet PRN Reason: moderate to severe Pain Lipase/Protease/Amylase [Etienne Moscoso 6,000 Units Capsule] 1 each PO TIDAC #90 capsule. <Letty Sahrpe S - Last Filed: 06/01/16 19:17> Date of Encounter: 06/01/16 - Data of Consult Requesting Physician: Neal Coppola MD Primary Care Provider: Claire Snider CNP - Consult Narrative History of present illness: Ms. Wright is a 60 year old female Oncology - Exam - Constitutional Vitals: Temp Pulse Resp BP Pulse Ox 98.4 F 75 18 125/64 94 06/01/16 15:50 06/01/16 15:50 06/01/16 15:50 06/01/16 15:50 06/01/16 15:50 Oncology - Results - Labs Labs: Short CBC 06/01/16 Range/Units 04:49 WBC 6.0 D (4.3-11.1) K/mcL Hgb 9.4 L (11.5-15.4) g/dL Hct 28.8 L (35.3-44.9) % Plt Count 116 L (140-400) K/mcL Neutrophils # 4.2 (1.6-8.9) K/mcL BMP 06/01/16 04:49 Sodium 149 H Potassium 3.0 L Chloride 111 H Carbon Dioxide 29 BUN 4 L Creatinine 0.72 Glucose 84 Calcium 8.7 Liver Function 06/01/16 Range/Units 04:49 Total Bilirubin 0.2 (0.2-1.2) mg/dL AST 11 (5-34) Units/L ALT 11 (0-55) Units/L Alkaline Phosphatase 62 (38-126) Units/L Albumin 2.9 L (3.5-5.0) g/dL - Attending Attestation I examined the patient independently 1. Pancytopenia and this is more recent. B12 folate normal TSH mildly suppressed at 0.2. Rheumatoid factor Less than 15. Ferritin 28 Pending complete pancytopenia workup If necessary proceed with bone marrow biopsy. Most likely there is some transient bone marrow suppression from inflammation/ infection 2. Chronic pancreatitis with pancreatic head calcification. On admission her amylase is only mildly elevated and lipase normal Etiology for pancreatitis not clear. She claims it could be high triglycerides. No history of alcohol abuse and no history of gallstones She was evaluated at [facility] last month and had EUS and celiac plexus block She had an episode of acute pancreatitis in 2009 and since then she was asymptomatic until the last 6 months or so she has been getting frequent attacks 3. Cystic lesion in the tail of the pancreas. This is concerning and would consult gastroenterology for possible EUS biopsy Follow-up as an outpatient
[2016-05-31] MEDS: traZODone 50 MG TABLET PO SCH (20:12)
[2016-06-01] MEDS: *HR* OxyCODONE/APAP 5/325 TABLET PO PRN ×2 (00:11→08:02)
[2016-06-01] MEDS: Insulin LISPRO 300 UNITS/3 ML VIAL SQ SCH ×3 (00:12→12:54)
[2016-06-01] MEDS: *HR* HYDROmorphone (PF) 1 MG/ML SYRINGE IVP PRN ×2 (02:44→08:47)
[2016-06-01 05:08] LABS: Hematocrit 28.8 % (35.3-44.9); Hemoglobin 9.4 g/dL (11.5-15.4); Mean Corpuscular HGB Conc 32.6 g/dL (31.6-35.5); Mean Corpuscular Hemoglobin 28.3 pg (28.0-33.3); Mean Corpuscular Volume 86.7 fL (83.0-100.0); Mean Platelet Volume 10.4 fL (9.4-12.4); Platelet Count 116 K/mcL (140-400); Red Blood Count 3.32 M/mcL (3.82-4.97); Red Cell Distribution Width 14.1 % (11.5-14.5)
[2016-06-01 05:29] LABS: Alanine Aminotransferase 11 Units/L (0-55); Albumin 2.9 g/dL (3.5-5.0); Albumin/Globulin Ratio 1.1 (1.1-2.2); Alkaline Phosphatase 62 Units/L (38-126); Aspartate Amino Transferase 11 Units/L (5-34); BUN/Creatinine Ratio 6 (6-26); Bilirubin,Total 0.2 mg/dL (0.2-1.2); Blood Urea Nitrogen 4 mg/dL (7-20); Calcium 8.7 mg/dL (8.6-10.8); Carbon Dioxide 29 mEq/L (19-29); Chloride 111 mEq/L (98-109); Globulin 2.7 g/dL (2.4-3.5); Glucose 84 mg/dL (70-99); Lipase 42 Units/L (8-78); Osmolality,Calculated 304 (280-300); Sodium 149 mEq/L (136-145); Total Protein 5.6 g/dL (6.0-8.3); eGFR For African Americans > 60 (> 60); eGFR For Non-African Americans > 60 (> 60)
[2016-06-01] MEDS: *HR* Heparin 5,000 UNIT/ML VIAL SQ SCH (05:45)
[2016-06-01 05:51] LABS: Lymphocytes # 1.7 K/mcL (0.6-4.6); Monocytes # 0.1 K/mcL (0.0-1.3); Neutrophils # 4.2 K/mcL (1.6-8.9); Platelet Estimate Slight Decrease (Normal)
[2016-06-01] MEDS: *HR* Morphine Immed Rel 30 MG TABLET PO PRN (06:16)
[2016-06-01] MEDS: Gabapentin 300 MG CAPSULE PO SCH (08:01)
[2016-06-01] MEDS: Nicotine 21 MG PATCH.TD24 TD SCH (08:02)
[2016-06-01] MEDS: Pantoprazole 40 MG VIAL IVP SCH (08:02)
[2016-06-01] MEDS ORDERED: *HR* OxyCODONE/APAP 10/325 TABLET PO PRN (12:28)
--- NOTE | 2016-06-01 15:49 | Discharge Summary ---
Date of Encounter: 06/01/16 Time of Encounter: 13:00 - Discharge Diagnosis (1) Acute on chronic pancreatitis Priority: Primary Status: Acute (2) Intractable pain Priority: Secondary Status: Acute (3) Essential hypertension Priority: Secondary Status: Chronic (4) COPD (chronic obstructive pulmonary disease) Priority: Secondary Status: Chronic Qualifiers: COPD type: unspecified COPD Qualified Code(s): J44.9 - Chronic obstructive pulmonary disease, unspecified (5) Tobacco abuse Priority: Secondary Status: Chronic (6) DVT prophylaxis Priority: Secondary Status: Acute (7) Type 2 diabetes mellitus Priority: Secondary Status: Acute Qualifiers: Diabetes mellitus complication status: without complication Diabetes mellitus terminal operator insulin use: without terminal operator use Qualified Code(s): E11.9 - Type 2 diabetes mellitus without complications (8) Pancytopenia associated with pancreatitis Priority: Secondary Status: Acute - Discharge Medications Prescriptions: OxyCODONE/APAP 10/325 [Percocet 10/325 MG] 1 each PO Q6HR PRN #60 tablet PRN Reason: moderate to severe Pain Lipase/Protease/Amylase [Etienne Moscoso 6,000 Units Capsule] 1 each PO TIDAC #90 capsule. [place] Medications: Aclidinium [place] [Tudorza Pressair] 400 mcg IH BID 04/15/16 [History] Gabapentin 600 mg PO TID 04/15/16 [History] Lisinopril [Zestril] 10 mg PO DAILY 04/15/16 [History] Metformin [Glucophage] 1,000 mg PO BID 04/15/16 [History] Omeprazole [PriLOSEC] 20 mg PO DAILY 04/15/16 [History] Sertraline [Zoloft] 100 mg PO DAILY 04/15/16 [History] TraZODone 100 mg PO HS 04/15/16 [History] Ergocalciferol (VITAMIN D2) [Vitamin D2] 50,000 unit PO QWEEK 04/22/16 [History] Nicotine Patch [Nicoderm] 21 mg TD DAILY 05/05/16 [History] Amitriptyline [Elavil] 10 mg PO HS 05/27/16 [History] Ondansetron ODT [Zofran ODT] 4 mg SL Q6H PRN 05/27/16 [History] Lipase/Protease/Amylase [Etienne Moscoso 6,000 Units Capsule] 1 each PO TIDAC #90 capsule. 06/01/16 [Rx] OxyCODONE/APAP 10/325 [Percocet 10/325 MG] 1 each PO Q6HR PRN #60 tablet [Rx] Allergies/Adverse Reactions: Allergies Iodinated Contrast Media - Oral and Allergy (Verified 04/22/16 13:45) Difficulty Breathing AND HIVES Procedures/tests Complete & Pending: Procedures Performed prior 72 hours Category Date Time Status CT abd pelvis w iv no oral [CT] Stat Cat Scan 05/31/16 03:00 Completed Date of admission: 05/27/16 12:55 Primary care physician: Claire Snider CNP Consults: 05/31/16 11:18 Consult to Oncology Hematology [CONS] Routine Consulting Provider: Anjelica Morin Reason for Consult: pancytopenia Call Completed: Yes - Patient Status Disposition: Home, Self-Care Condition: Fair Overall status at discharge: patient is progressing back to baseline - Discharge Instructions Instructions: Pancreatitis (DC), Anemia (GEN) Follow Up With: Claire Snider CNP [Primary Care Provider] - 06/07/16 10:40 am Additional Instructions: Please refrain from smoking. Follow-up with her land surveying party chief at [facility]. Avoid alcohol. No driving or operating heavy machinery while taking the prescribed dose of Percocet. - Diet and Activity Activity: increase activity as tolerated Diet: other (Soft diet advanced to a diabetic and cardiac diet) Hospital course: Ms. Wright is a 60 year old female with history of chronic pancreatitis presents to the emergency room today with the main complain of left upper quadrant abdominal pain. For the past 2 days patient has been having severe left upper quadrant pain radiating across her upper abdomen and back associated with nausea vomiting and diarrhea. She mentioned that she has been having fever up to 103 at home however temperature on our arrival to the emergency room was 99.4. She was unable to tolerate food, symptoms have been worsening social presented to the emergency room for further management. This is The 12th admission for the patient in the past year for acute pancreatitis according to her. She was admitted to the medical service for acute pancreatitis. She was treated with IV fluids, IV Dilaudid and Protonix. She made a slow clinical improvement. She had a repeat CT scan of the abdomen and pelvis with IV contrast which showed an 8 mm cyst. She has a follow-up with a GI surgeon at [facility]. She was advised to follow-up closely. She was advised to completely quit smoking. She was transitioned to oral liquid diet and this was advanced to a regular diet. Her lipase trended down and today was 42. Her pain has improved his is not controlled with oral medication. During this hospitalization and was also noted that she started developing worsening pancytopenia oncology was consulted. They recommended follow-up with GI which can be arranged outpatient either here in [facility] or at [facility]. The recommended follow-up visit with the cancer Center at [place]. She is currently medically stable for discharge home. She will be prescribed Percocet 10 325 mg tablets. - Time Spent with Patient Total time spent providing and/or coordinating discharge services: Greater than 30 minutes - Constitutional Vitals: Temp Pulse Resp BP Pulse Ox 97.8 F 69 16 128/73 98 06/01/16 11:38 06/01/16 11:38 06/01/16 11:38 06/01/16 11:38 06/01/16 11:38 General appearance: Present: cooperative, mild distress, A&O X 3, answers questions appropriately - Respiratory Respiratory exam: Present: CTAB. Absent: accessory muscle use, rales, rhonchi, wheezes - Cardiovascular Cardiovascular exam: Present: RRR, +S1, +S2. Absent: diastolic murmur, gallop, rubs, systolic murmur - GI/Abdominal GI/Abdominal exam: Present: normal bowel sounds, soft, no peritoneal signs. Absent: distended, tenderness - Extremities Exam Extremities exam: Present: warm, radial pulses palpable and symetrical. Absent : calf tenderness, cyanotic, pedal edema
[2016-06-01 15:55] VITALS: BP 125/64
[2016-06-04 04:01] LABS: Alpha 2 Globulin (PEP) 0.86 g/dL (0.48-1.05); Beta Globulin (PEP) 0.84 g/dL (0.48-1.10)
[2016-06-05 07:36] LABS: ANA IgG by ELISA NONE DETECTED (None Detected)
[2016-06-05 08:13] LABS: IFE Reflexed IFE Done; Immunoglobulin G 544 mg/dL (768-1632)
[2016-06-05 08:14] LABS: Immunoglobulin A 273 mg/dL (68-408); Immunoglobulin M 28 mg/dL (35-263)
== END 2016-06-01 17:00 | disposition home or self-care (01) | DRG 439 ==
LOC: 3ANU 10:09 → EMEROO 10:09 → 3ANU 12:18 → SUATTDRO 12:55 → 3ANU 05-30 07:42
PROVIDERS: ADMIT Hospitalist; ATTEND Internal Medicine

== ENCOUNTER 2016-06-27 23:08 | Inpatient (IN) ==
[2016-06-27] MEDS ORDERED: *HR* Morphine 2 MG/ML SYRINGE IVP ONE (23:32)
[2016-06-27] MEDS ORDERED: Ondansetron 4 MG/2 ML VIAL IVP ONE (23:32)
[2016-06-27 23:54] LABS: Basophils % 0.4 %; Eosinophils # 0.1 K/mcL (0.0-0.6); Hematocrit 34.5 % (35.3-44.9); Hemoglobin 11.3 g/dL (11.5-15.4); Immature Granulocytes % 0.3 % (0-4); Lymphocytes # 2.9 K/mcL (0.6-4.6); Lymphocytes % 39.3 %; Mean Corpuscular HGB Conc 32.8 g/dL (31.6-35.5); Mean Corpuscular Hemoglobin 27.8 pg (28.0-33.3); Mean Platelet Volume 9.4 fL (9.4-12.4); Monocytes # 0.5 K/mcL (0.0-1.3); Monocytes % 6.3 %; Neutrophils # 3.8 K/mcL (1.6-8.9); Platelet Count 207 K/mcL (140-400); Red Blood Count 4.06 M/mcL (3.82-4.97); Red Cell Distribution Width 14.1 % (11.5-14.5); Segmented Neutrophils % 52.7 %
[2016-06-28 00:08] LABS: Alanine Aminotransferase 18 Units/L (0-55); Albumin 3.8 g/dL (3.5-5.0); Albumin/Globulin Ratio 1.1 (1.1-2.2); Alkaline Phosphatase 83 Units/L (38-126); Amylase 243 Units/L (25-125); Aspartate Amino Transferase 17 Units/L (5-34); BUN/Creatinine Ratio 17 (6-26); Bilirubin,Indirect 0.1 mg/dL (0.0-1.2); Bilirubin,Total 0.2 mg/dL (0.2-1.2); Blood Urea Nitrogen 14 mg/dL (7-20); Calcium 9.3 mg/dL (8.6-10.8); Carbon Dioxide 23 mEq/L (19-29); Chloride 104 mEq/L (98-109); Globulin 3.5 g/dL (2.4-3.5); Glucose 120 mg/dL (70-99); Lipase 435 Units/L (8-78); Osmolality,Calculated 284 (280-300); Potassium 4.6 mEq/L (3.5-4.5); Sodium 136 mEq/L (136-145); Total Protein 7.3 g/dL (6.0-8.3); eGFR For African Americans > 60 (> 60); eGFR For Non-African Americans > 60 (> 60)
[2016-06-28 00:10] LABS: Bilirubin,Direct < 0.1 mg/dL (0.0-0.5)
[2016-06-28 00:12] LABS: Bilirubin,Urine Negative (Negative); Blood,Urine Negative (Negative); Clarity,Urine Clear (Clear); Color,Urine Yellow (Yellow); Glucose,Urine (UA) Normal (Normal); Ketones,Urine Negative (Negative); Leukocyte Esterase,Urine Negative (Negative); Nitrite,Urine Negative (Negative); Protein,Urine Negative (Neg-Trace); Urobilinogen,Urine Normal (Normal)
[2016-06-28] MEDS ORDERED: *HR* HYDROmorphone (PF) 1 MG/ML SYRINGE IVP ONE (00:32)
--- NOTE | 2016-06-28 00:35 | Emergency Department Note ---
Disposition Clinical Impression: Pancreatitis Qualifiers: Chronicity: chronic Pancreatitis type: other Qualified Code(s): K86.1 - Other chronic pancreatitis Disposition: Admitted As Inpatient Condition: Good Time of Disposition: 00:34 General Adult HPI - General Chief complaint: ED Abdominal Pain Stated complaint: Belly Pain Time Seen by Provider: 06/27/16 23:12 Source: EMS Limitations: no limitations Nursing Notes Reviewed: Yes Vital Signs Reviewed: Yes - History of Present Illness HPI Narrative: Patient presenting to the emergency room with a history of left upper quadrant pain. She states this pain has been present for greater than 5 days. She was discharged from [facility] on Sunday with a recent diagnosis of pancreatitis. She has had several diagnoses of pancreatitis. She states she is nauseated and in extreme pain. She does appear to be in pain and is holding her left upper quadrant on exam. Pain Scale: 10 - Related Data Home Medications Medication Instructions Recorded Confirmed Aclidinium [place] [Tudorza 400 mcg IH BID 04/15/16 06/28/16 Pressair] Gabapentin 600 mg PO TID 04/15/16 06/28/16 Lisinopril [Zestril] 10 mg PO DAILY 04/15/16 06/28/16 Metformin [Glucophage] 1,000 mg PO BID 04/15/16 06/28/16 Omeprazole [PriLOSEC] 20 mg PO DAILY 04/15/16 06/28/16 Sertraline [Zoloft] 100 mg PO DAILY 04/15/16 06/28/16 TraZODone 100 mg PO HS 04/15/16 06/28/16 Amitriptyline [Elavil] 10 mg PO HS 05/27/16 06/28/16 Ondansetron ODT [Zofran ODT] 4 mg SL Q6H PRN 05/27/16 06/28/16 [place]-3 Fatty Acids [Fish Oil] 600 mg PO DAILY 06/28/16 06/28/16 Previous Rx's Medication Instructions Recorded Potassium Chloride [K-Tab ER] 20 meq PO DAILY #30 tablet.er 06/08/16 Allergies Allergy/AdvReac Type Severity Reaction Status Date / Time Iodinated Contrast Media - Allergy Difficulty Verified 06/27/16 23:10 Oral and Breathing All systems ED: reviewed and negative except as stated. Constitutional: Denies: fever, chills Cardiovascular: Denies: chest pain, palpitations, syncope Respiratory: Denies: cough, dyspnea Gastrointestinal: Reports: abdominal pain, nausea. Denies: vomiting, diarrhea Genitourinary: Denies: urgency, dysuria, frequency, hematuria Musculoskeletal: Denies: back pain, neck pain Integumentary: Denies: rash, abrasion Neurological: Denies: headache, weakness Past Medical History - Past Medical History Medical history: Reports: COPD, diabetes, GERD, hyperlipidemia, hypertension, other Surgical history: Reports: cholecystectomy, hysterectomy, other Psychiatric history: Reports: depression - Social History Smoking Status: Current every day smoker Smokeless Tobacco Status: No Alcohol use: Reports: none Drug use: Reports: none Physical Exam - General Limitations: no limitations General appearance: alert, in no apparent distress - Head Head exam: atraumatic, normocephalic, normal inspection - Eye Eye exam: Present: normal appearance, PERRL, EOMI. Absent: scleral icterus - ENT ENT exam: normal exam, normal oropharynx, mucous membranes moist - Neck Neck exam: Present: normal inspection, full ROM, trachea midline - Chest Chest inspection: Present: normal inspection, symmetric chest wall rise - Respiratory Respiratory exam: Present: normal lung sounds bilaterally. Absent: respiratory distress - Cardiovascular Cardiovascular exam: Present: regular rate, normal rhythm, normal heart sounds - Abdominal Exam Abdominal exam: Present: soft, tenderness (Left upper quadrant tenderness.), normal bowel sounds. Absent: Maki's sign, Rovsing's sign - Extremities Exam Extremities exam: Present: normal inspection, full ROM, normal capillary refill. Absent: tenderness, pedal edema - Neurological Exam Neurological exam: Present: alert, oriented X3 - Psychiatric Psychiatric exam: Present: normal affect, normal mood - Skin Skin exam: Present: warm, dry, intact, normal color. Absent: rash, cyanosis, diaphoresis Course Course Narrative: Female patient complaining of a four-day history of left upper quadrant pain also nausea associated with this. She is laying in bed holding her left upper quadrant. She does appear to be in pain. Does have a history of pancreatitis. Has been worked up several times for this. 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 She is being seen by our cancer center for pancytopenia. Was discharged on Sunday from [facility] for pancreatitis states she has gotten worse ever since then. She states that she was having the pain and was nauseated when she was discharged. We will get basic lab workup on patient. She does appear in pain at this time. We will give her pain medication and antinausea medication. Her lung sounds are clear heart tones are normal she does have pain in her left upper quadrant on palpation all other quadrants are soft and nontender. She denies any urinary symptoms. She denies the actual vomiting. She denies any diarrhea. She denies any fevers or recent chills. She denies any recent illnesses. - Reevaluation(s) Reevaluation #1: Patient is laying in bed still holding her left upper quadrant. Requesting her pain medication. We have ordered this. Her lipase is increased at 435. We will admit patient for pancreatitis. Patient is agreeable to this plan. Time: 00:34 - Consultations Consultation #1: Dr Luis Carlos jacintopted Pt in stable condition Time: 00:43 Vital Signs Temperature 97.9 F 06/27/16 23:11 Pulse Rate 77 06/27/16 23:11 Respiratory Rate 20 06/27/16 23:11 Blood Pressure 143/85 06/27/16 23:11 O2 Sat by Pulse Oximetry 100 06/27/16 23:11 Temperature 98.1 F 06/28/16 01:23 Pulse Rate 64 06/28/16 01:23 Respiratory Rate 20 06/28/16 01:23 Blood Pressure 153/83 06/28/16 01:23 O2 Sat by Pulse Oximetry 94 06/28/16 01:23 Oxygen Delivery Oxygen Delivery Room Air Medical Decision Making - Medical Records Medical records reviewed: Yes I reviewed the patient's medical records. - Lab Data Lab results reviewed: Yes I reviewed the patient's lab results. Result diagrams: 06/27/16 23:48 06/27/16 23:48 Lab Results 06/27/16 06/27/16 06/27/16 Range/Units 23:46 23:48 23:48 WBC 7.3 (4.3-11.1) K/mcL RBC 4.06 (3.82-4.97) M/mcL Hgb 11.3 L (11.5-15.4) g/dL Hct 34.5 L (35.3-44.9) % MCV 85.0 (83.0-100.0) fL MCH 27.8 L (28.0-33.3) pg MCHC 32.8 (31.6-35.5) g/dL RDW 14.1 (11.5-14.5) % Plt Count 207 (140-400) K/mcL MPV 9.4 (9.4-12.4) fL Immature Gran % 0.3 (0-4) % Seg Neutrophils % 52.7 % Lymphocytes % 39.3 % Monocytes % 6.3 % Eosinophils % 1.0 % Basophils % 0.4 % Neutrophils # 3.8 (1.6-8.9) K/mcL Lymphocytes # 2.9 (0.6-4.6) K/mcL Monocytes # 0.5 (0.0-1.3) K/mcL Eosinophils # 0.1 (0.0-0.6) K/mcL Basophils # 0.0 (0.0-0.2) K/mcL Sodium 136 (136-145) mEq/L Potassium 4.6 H (3.5-4.5) mEq/L Chloride 104 (98-109) mEq/L Carbon Dioxide 23 (19-29) mEq/L BUN 14 (7-20) mg/dL Creatinine 0.81 (0.57-1.11) mg/dL Est GFR ( Amer) > 60 (> 60) Est GFR (Non-Af Amer) > 60 (> 60) BUN/Creatinine Ratio 17 (6-26) Glucose 120 H (70-99) mg/dL Calculated Osmolality 284 (280-300) Calcium 9.3 (8.6-10.8) mg/dL Total Bilirubin 0.2 (0.2-1.2) mg/dL Direct Bilirubin < 0.1 (0.0-0.5) mg/dL Indirect Bilirubin 0.1 (0.0-1.2) mg/dL AST 17 (5-34) Units/L ALT 18 (0-55) Units/L Alkaline Phosphatase 83 (38-126) Units/L Serum Total Protein 7.3 (6.0-8.3) g/dL Albumin 3.8 (3.5-5.0) g/dL Globulin 3.5 (2.4-3.5) g/dL Albumin/Globulin Ratio 1.1 (1.1-2.2) Amylase 243 H (25-125) Units/L Lipase 435 H (8-78) Units/L Urine Color Yellow (Yellow) Urine Clarity Clear (Clear) Urine pH 8.0 (5.0-8.0) pH Units Ur Specific [place] 1.010 (1.010-1.025) Urine Protein Negative (Neg-Trace) mg/dL Urine Glucose (UA) Normal (Normal) mg/dL Urine Ketones Negative (Negative) mg/dL Urine Blood Negative (Negative) Urine Nitrite Negative (Negative) Urine Bilirubin Negative (Negative) Urine Urobilinogen Normal (Normal) mg/dL Ur Leukocyte Esterase Negative (Negative) Ur Culture Indicated? NO (NO)
[2016-06-28] MEDS ORDERED: Acetaminophen 325 MG TABLET PO PRN (01:52)
[2016-06-28] MEDS ORDERED: Naloxone 0.4 MG/ML INJ IVP PRN (01:52)
[2016-06-28] MEDS ORDERED: *HR* Dextrose 50 % in Water (Syg) 50 ML SYRINGE IVP PRN (01:57)
[2016-06-28] MEDS ORDERED: Dextrose Gel 15 GM PO PRN ×2 (01:57)
[2016-06-28] MEDS ORDERED: D5% in Water 1,000 ML IVC PRN (01:57)
[2016-06-28] MEDS ORDERED: 0.9 % Sodium Chloride 1,000 ML IVC SCH (02:00)
[2016-06-28] MEDS: *HR* HYDROmorphone (PF) 1 MG/ML SYRINGE IVP PRN ×4 (02:07→08:48)
--- NOTE | 2016-06-28 02:08 | Internal Med History&Physical ---
Date of Encounter: 06/28/16 Time of Encounter: 01:00 Assessment and Plan (1) Acute on chronic pancreatitis Current visit: No Status: Acute Patient has a known history of chronic pancreatitis. Admitted for acute worsening of symptoms. - We will keep patient on nothing by mouth. - IV fluid for hydration. - Pain management. - Symptomatic treatment for nausea. Patient is at high risk because she is on IV opioid, need close monitoring. (2) DVT prophylaxis Current visit: No Status: Acute Heparin subcutaneous. (3) Hypertension Current visit: No Status: Acute BP is acceptable. Continue pain management. Hold home medication because of nothing by mouth. Hydralazine IV as needed. Qualifiers: Hypertension type: essential hypertension Qualified Code(s): I10 - Essential (primary) hypertension (4) Type 2 diabetes mellitus Current visit: No Status: Acute Pt was placed on sliding scale coverage Qualifiers: Diabetes mellitus complication status: without complication Diabetes mellitus usp insulin use: without usp use Qualified Code(s): E11.9 - Type 2 diabetes mellitus without complications (5) COPD (chronic obstructive pulmonary disease) Current visit: No Status: Chronic Stable. Bronchodilator when necessary. Qualifiers: COPD type: unspecified COPD Qualified Code(s): J44.9 - Chronic obstructive pulmonary disease, unspecified Internal Medicine - H&P: HPI Chief complaint: Abd pain Admitted From: Home Plans for Post Hospital Care: Home History of present illness: Ms. Wright is a 60 year old female with known history of chronic pancreatitis resident to ER for abdominal pain, nausea for 4 days. Patient said she went to [facility] ER and was treated there since the Sunday, her lipase level gets down and she was discharged. However, she feels abdominal pain gets worse again, with nausea, no vomiting. She also feels chills. She came to our emergency room and was found lipase elevated again. Patient denies diarrhea or constipation. She had a bowel movement 7 PM and can pass gas. She denies chest pain or shortness of breath. Patient had complicated examining and workup in [facility] for her chronic pancreatitis. Next time follow-up is scheduled in July. She was admitted for further management. Past Med Surg Social Fam HX - Past Medical History Medical history: COPD, diabetes, GERD, hyperlipidemia, hypertension, other Psychiatric history: depression - Past Surgical History Surgical History: cholecystectomy, hysterectomy, other - Social History Smoking Status: Current every day smoker Packs per day: 0.25 Smokeless Tobacco Status: No Alcohol use: none Drug use: none - Family History Mother Living Status: Hx Family Cardiac Disorders: Yes (Open heart surgery) Father Living Status: Cause of : [place] Hx Family Cardiac Disorders: Yes ([place]) Hx Family Respiratory Disorders: No Hx Family Cancer: No Hx Family GI Disorders: Yes (Ulcers) Hx Family Endocrine Disorder: Yes (DM) Hx Family Neuromuscular Disorders: No Hx Family Neurologic Disorders: No Hx Family HEENT Disorders: No Hx Family Autoimmune Disorders: No Internal Medicine - H&P: Meds Aclidinium [place] [Tudorza Pressair] 400 mcg IH BID 04/15/16 [History] Gabapentin 600 mg PO TID 04/15/16 [History] Lisinopril [Zestril] 10 mg PO DAILY 04/15/16 [History] Metformin [Glucophage] 1,000 mg PO BID 04/15/16 [History] Omeprazole [PriLOSEC] 20 mg PO DAILY 04/15/16 [History] Sertraline [Zoloft] 100 mg PO DAILY 04/15/16 [History] TraZODone 100 mg PO HS 04/15/16 [History] Amitriptyline [Elavil] 10 mg PO HS 05/27/16 [History] Ondansetron ODT [Zofran ODT] 4 mg SL Q6H PRN 05/27/16 [History] Potassium Chloride [K-Tab ER] 20 meq PO DAILY #30 tablet.er 06/08/16 [Rx] [place]-3 Fatty Acids [Fish Oil] 600 mg PO DAILY 06/28/16 [History] Allergies Iodinated Contrast Media - Oral and Allergy (Verified 06/27/16 23:10) Difficulty Breathing AND HIVES All Systems PM: A 10-system review of systems was performed and is negative for pertinent findings except as documented above in the HPI. - Constitutional Vitals: Temp Pulse Resp BP Pulse Ox 98.1 F 64 20 153/83 94 06/28/16 01:23 06/28/16 01:23 06/28/16 01:23 06/28/16 01:23 06/28/16 01:23 General appearance: Present: mild distress, A&O X 3, answers questions appropriately - Head Head exam: Present: atraumatic, normocephalic - Eye Eye exam: Present: PERRL, conjuntiva pink, sclera anicteric Pupils: Present: PERRL - Neck Neck exam general surgery: Present: supple, trachea midline. Absent: lymphadenopathy - Respiratory Respiratory exam: Present: CTAB. Absent: accessory muscle use, rales, rhonchi, wheezes - Cardiovascular Cardiovascular exam: Present: RRR, +S1, +S2. Absent: diastolic murmur, gallop, rubs, systolic murmur - GI/Abdominal GI/Abdominal exam: Present: normal bowel sounds, soft, tenderness (LUQ and epigastric tenderness with rebound, no guarding), no peritoneal signs. Absent: distended - Extremities Exam Extremities exam: Present: warm, radial pulses palpable and symetrical. Absent : calf tenderness, cyanotic, pedal edema - Neurological Exam Neurological exam: Present: CN II-XII intact, oriented X3, no focal deficits. Absent: pronater drift, facial droop, speech deficit - Skin Skin exam: Present: dry, intact Internal Med - H&P Results - Labs CBC & Chem 7: 06/27/16 23:48 06/27/16 23:48
[2016-06-28] MEDS ORDERED: Ipratropium/Albuterol Neb 3 ML IH PRN (02:14)
--- NOTE | 2016-06-28 02:37 | Emergency Department Note ---
START Narrative - START START: I, Michael Ritchie, examined this patient and my medical decision-making was reviewed with the MILITARY COMMUNICATIONS SPECIALIST/PA/Advanced Practice Nurse/Resident Physician. I agree with the documented findings, disposition and treatment plan as described except to the extent set forth below. 60-year-old female presents with abdominal pain. Patient has had similar pain multiple times in the past. Chronic history of pancreatitis and was recently admitted to outside hospital for similar pain. Patient has had nausea without vomiting and has difficulty keeping down medications. Patient has elevation of her lipase in the emergency department today. Patient will be admitted for further care and evaluation of acute on chronic pancreatitis.
[2016-06-28 05:38] LABS: Basophils % 0.6 %; Eosinophils # 0.1 K/mcL (0.0-0.6); Hematocrit 34.4 % (35.3-44.9); Hemoglobin 10.8 g/dL (11.5-15.4); Immature Granulocytes % 0.2 % (0-4); Lymphocytes % 45.7 %; Mean Corpuscular HGB Conc 31.4 g/dL (31.6-35.5); Mean Corpuscular Hemoglobin 27.1 pg (28.0-33.3); Mean Corpuscular Volume 86.2 fL (83.0-100.0); Mean Platelet Volume 9.7 fL (9.4-12.4); Monocytes # 0.4 K/mcL (0.0-1.3); Monocytes % 5.9 %; Platelet Count 212 K/mcL (140-400); Red Blood Count 3.99 M/mcL (3.82-4.97); Segmented Neutrophils % 45.6 %
[2016-06-28 05:57] LABS: Amylase 163 Units/L (25-125); BUN/Creatinine Ratio 16 (6-26); Blood Urea Nitrogen 13 mg/dL (7-20); Calcium 9.2 mg/dL (8.6-10.8); Carbon Dioxide 28 mEq/L (19-29); Chloride 105 mEq/L (98-109); Cholesterol 199 mg/dL (< 200); Glucose 125 mg/dL (70-99); HDL Cholesterol 33 mg/dL (40-59); LDL Cholesterol,Calculated 107 mg/dL (0-99); Lipase 173 Units/L (8-78); Magnesium 1.8 mg/dL (1.6-2.6); Osmolality,Calculated 290 (280-300); Potassium 4.8 mEq/L (3.5-4.5); Sodium 139 mEq/L (136-145); Triglycerides 297 mg/dL (< 150); eGFR For African Americans > 60 (> 60); eGFR For Non-African Americans > 60 (> 60)
[2016-06-28] MEDS: Insulin LISPRO 300 UNITS/3 ML VIAL SQ SCH ×4 (06:11→20:36)
[2016-06-28] MEDS: *HR* Heparin 5,000 UNIT/ML VIAL SQ SCH ×2 (06:29→16:21)
[2016-06-28] MEDS: Ondansetron 4 MG/2 ML VIAL IVP PRN ×2 (08:48→23:53)
[2016-06-28] MEDS ORDERED: *HR* OxyCODONE/APAP 5/325 TABLET PO PRN (09:20)
[2016-06-28 14:11] LABS: Amylase 152 Units/L (25-125); Lipase 230 Units/L (8-78)
[2016-06-28] MEDS ORDERED: *HR* HYDROmorphone 4 MG TABLET PO PRN (14:11)
[2016-06-28] MEDS ORDERED: *HR* Morphine 2 MG/ML SYRINGE IVP PRN (14:16)
--- NOTE | 2016-06-28 14:21 | Internal Med Progress Note ---
<Pan Kumar - Last Filed: 06/28/16 14:19> Date of Encounter: 06/28/16 Time of Encounter: 14:19 - Assessment and plan (1) Acute on chronic pancreatitis Current Visit: No Status: Acute Assessment and plan: Patient is a history of acute on chronic pancreatitis with known pancreatic cyst. CT of the abdomen from previous admission was reviewed demonstrating pancreatic calcifications and cyst. Patient complains of epigastric pain with elevated lipase and amylase. - Patient try clear liquid diet. Plan: - Nothing by mouth. - Protonix daily - Continue IV fluids - Monitor electrolytes every 6 hours - CT of the abdomen to evaluate pancreas. - Percocets for pain control with morphine when necessary. (2) Hypertension Current Visit: No Status: Acute Assessment and plan: Patient is a history of hypertension current blood pressure is stable. Hold by mouth medications Plan: -Hydralazine 10 mg IV push every 6 hours when necessary for systolic blood pressure greater than 160 Qualifiers: Hypertension type: essential hypertension Qualified Code(s): I10 - Essential (primary) hypertension (3) Smoker Current Visit: No Status: Acute Assessment and plan: Smoking cessation has been discussed in length with Mrs. Wright. She demonstrates understanding. (4) Type 2 diabetes mellitus Current Visit: No Status: Acute Assessment and plan: Known type II diabetic. Her glucoses are appropriate. Plan: - Continue every 6 hours glucose checks - Continue sliding scale insulin. 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 Taylor has been seen and evaluated today at patient's bedside. She complains of abdominal discomfort similar to her previous pancreatitis episodes. She complains of epigastric and left lower quadrant discomfort. She has not even any food since admission but denies vomiting but has had nausea. She has any fevers, chills, sweating, yellowing of the skin in the eyes, diarrhea or constipation. She feels that IV pain medications are the only effective treatment for her pain. - Constitutional Vitals: Temp Pulse Resp BP Pulse Ox 97.5 F L 76 14 118/67 95 06/28/16 10:25 06/28/16 10:25 06/28/16 10:25 06/28/16 10:25 06/28/16 10:25 General appearance: Present: mild distress, A&O X 3, answers questions appropriately - Head Head exam: Present: normal inspection - Eye Eye exam: Present: PERRL, conjuntiva pink, sclera anicteric Pupils: Present: PERRL - ENT ENT exam: Present: mucous membranes moist - Neck Neck exam general surgery: Present: supple, trachea midline. Absent: lymphadenopathy - Respiratory Respiratory exam: Present: CTAB. Absent: accessory muscle use, rales, rhonchi, wheezes - Cardiovascular Cardiovascular exam: Present: RRR, +S1, +S2. Absent: diastolic murmur, gallop, rubs, systolic murmur - GI/Abdominal GI/Abdominal exam: Present: normal bowel sounds, soft, tenderness. Absent: distended, guarding - Extremities Exam Extremities exam: Present: warm, radial pulses palpable and symetrical. Absent : calf tenderness, cyanotic, pedal edema - Neurological Exam Neurological exam: Present: alert, oriented X3, no focal deficits. Absent: pronater drift, facial droop, speech deficit - Psychiatric Psychiatric exam: Present: normal affect, normal mood Internal Medicine: Result - Labs CBC & Chem 7: 06/28/16 05:17 06/28/16 05:17 Labs: Short CBC 06/28/16 Range/Units 05:17 WBC 6.5 (4.3-11.1) K/mcL Hgb 10.8 L (11.5-15.4) g/dL Hct 34.4 L (35.3-44.9) % Plt Count 212 (140-400) K/mcL Neutrophils # 3.0 (1.6-8.9) K/mcL BMP 06/28/16 05:17 Sodium 139 Potassium 4.8 H Chloride 105 Carbon Dioxide 28 BUN 13 Creatinine 0.83 Glucose 125 H Calcium 9.2 Consult Discharge Plan - Plan Referrals: NO,PCP [Non-Partnered Physician] - <Neal Coppola - Last Filed: 06/28/16 18:59> Date of Encounter: 06/28/16 - Constitutional Vitals: Temp Pulse Resp BP Pulse Ox 97.9 F 75 17 104/68 95 06/28/16 14:34 06/28/16 14:34 06/28/16 14:34 06/28/16 14:34 06/28/16 14:34 Internal Medicine: Result - Labs CBC & Chem 7: 06/28/16 05:17 06/28/16 05:17 Labs: Short CBC 06/28/16 Range/Units 05:17 WBC 6.5 (4.3-11.1) K/mcL Hgb 10.8 L (11.5-15.4) g/dL Hct 34.4 L (35.3-44.9) % Plt Count 212 (140-400) K/mcL Neutrophils # 3.0 (1.6-8.9) K/mcL BMP 06/28/16 05:17 Sodium 139 Potassium 4.8 H Chloride 105 Carbon Dioxide 28 BUN 13 Creatinine 0.83 Glucose 125 H Calcium 9.2 - Impressions Impressions Abdomen/Pelvis CT 06/28/16 15:00 IMPRESSION: 1. Status post cholecystectomy. 2. Stable small, subcentimeter pancreatic pseudocyst in the pancreatic body to tail region. 3. No evidence for acute appendicitis. 4. No acute abnormalities are identified in the abdomen or pelvis. D/ / 06/28/2016 15:33:52 Collins Bryant MD / brisa Interpreting Provider: Collins Bryant MD - Attending Attestation I examined this patient and my medical decision-making was reviewed with the Resident Physician, Dr Kumar. I agree with the documented findings, disposition and treatment plan as described except to the extent set forth below. The patient reports 7/10 epigastric abdominal pain. On exam she is in no acute distress. Heart is regular with normal S1 and S2. Abdomen is soft mildly tender to palpation in the epigastric area with no guarding or rebound. Plan: Patient had a clear liquid diet this afternoon and her lipase increased slightly. We will make her nothing by mouth again restart IV fluids and IV opiates for pain. She is at high risk for morbidity mortality and complications due to treatment with IV controlled substances for pain.
[2016-06-28] MEDS: Pantoprazole 40 MG VIAL IVP SCH (14:35)
[2016-06-28] MEDS: 0.9 % Sodium Chloride 1,000 ML IVC SCH (16:16)
[2016-06-28] MEDS: *HR* OxyCODONE/APAP 5/325 TABLET PO PRN ×2 (16:17→20:58)
[2016-06-28] MEDS ORDERED: Pantoprazole 40 MG VIAL IVP SCH (18:00)
[2016-06-28] MEDS: *HR* Morphine 2 MG/ML SYRINGE IVP PRN ×2 (18:49→23:03)
[2016-06-29] MEDS: *HR* Morphine 2 MG/ML SYRINGE IVP PRN ×5 (02:34→21:33)
[2016-06-29] MEDS: 0.9 % Sodium Chloride 1,000 ML IVC SCH ×2 (02:50→14:56)
[2016-06-29] MEDS: *HR* Heparin 5,000 UNIT/ML VIAL SQ SCH ×2 (04:54→17:12)
[2016-06-29 04:57] LABS: Basophils % 0.7 %; Eosinophils # 0.1 K/mcL (0.0-0.6); Hematocrit 34.8 % (35.3-44.9); Hemoglobin 11.3 g/dL (11.5-15.4); Immature Granulocytes % 0.4 % (0-4); Lymphocytes # 2.3 K/mcL (0.6-4.6); Mean Corpuscular HGB Conc 32.5 g/dL (31.6-35.5); Mean Corpuscular Hemoglobin 28.2 pg (28.0-33.3); Mean Corpuscular Volume 86.8 fL (83.0-100.0); Monocytes # 0.4 K/mcL (0.0-1.3); Monocytes % 6.7 %; Neutrophils # 2.5 K/mcL (1.6-8.9); Platelet Count 198 K/mcL (140-400); Red Blood Count 4.01 M/mcL (3.82-4.97); Red Cell Distribution Width 14.4 % (11.5-14.5); Segmented Neutrophils % 47.2 %
[2016-06-29] MEDS: *HR* OxyCODONE/APAP 5/325 TABLET PO PRN ×2 (05:00→09:17)
[2016-06-29 05:27] LABS: Alanine Aminotransferase 15 Units/L (0-55); Albumin 3.3 g/dL (3.5-5.0); Alkaline Phosphatase 70 Units/L (38-126); Aspartate Amino Transferase 23 Units/L (5-34); BUN/Creatinine Ratio 11 (6-26); Bilirubin,Total 0.2 mg/dL (0.2-1.2); Blood Urea Nitrogen 9 mg/dL (7-20); Calcium 8.8 mg/dL (8.6-10.8); Carbon Dioxide 23 mEq/L (19-29); Chloride 109 mEq/L (98-109); Globulin 3.2 g/dL (2.4-3.5); Glucose 89 mg/dL (70-99); Osmolality,Calculated 288 (280-300); Potassium 4.4 mEq/L (3.5-4.5); Sodium 140 mEq/L (136-145); Total Protein 6.5 g/dL (6.0-8.3); eGFR For African Americans > 60 (> 60); eGFR For Non-African Americans > 60 (> 60)
[2016-06-29] MEDS: Insulin LISPRO 300 UNITS/3 ML VIAL SQ SCH ×4 (07:33→20:46)
[2016-06-29] MEDS: Pantoprazole 40 MG VIAL IVP SCH (07:55)
[2016-06-29] MEDS: Ondansetron 4 MG/2 ML VIAL IVP PRN ×2 (07:55→16:09)
[2016-06-29 09:14] LABS: Amylase 176 Units/L (25-125); Lipase 259 Units/L (8-78)
[2016-06-29] MEDS: *HR* OxyCODONE/APAP 10/325 TABLET PO PRN ×2 (13:20→19:30)
--- NOTE | 2016-06-29 15:41 | Discharge Summary ---
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 insulin use: without terminal makeup operator use Qualified Code(s): E11.9 - Type 2 diabetes mellitus without complications - Discharge Medications Home Medications: Aclidinium [place] [Tudorza Pressair] 400 mcg IH BID 04/15/16 [History] Gabapentin 600 mg PO TID 04/15/16 [History] Lisinopril [Zestril] 10 mg PO DAILY 04/15/16 [History] Metformin [Glucophage] 1,000 mg PO BID 04/15/16 [History] Omeprazole [PriLOSEC] 20 mg PO DAILY 04/15/16 [History] Sertraline [Zoloft] 100 mg PO DAILY 04/15/16 [History] TraZODone 100 mg PO HS 04/15/16 [History] Amitriptyline [Elavil] 10 mg PO HS 05/27/16 [History] Ondansetron ODT [Zofran ODT] 4 mg SL Q6H PRN 05/27/16 [History] Potassium Chloride [K-Tab ER] 20 meq PO DAILY #30 tablet.er 06/08/16 [Rx] Amlodipine [place] 10 mg PO DAILY 06/28/16 [History] Ergocalciferol (VITAMIN D2) [Vitamin D2] 50,000 unit PO QWEEK 06/28/16 [History] [place]-3 Fatty Acids [Fish Oil] 600 mg PO DAILY 06/28/16 [History] Oxycodone HCl/Acetaminophen [Percocet 5-325 mg Tablet] 1 tab PO Q4H PRN [History] Allergies/Adverse Reactions: Allergies Iodinated Contrast Media - Oral and Allergy (Verified 06/27/16 23:10) Difficulty Breathing AND HIVES Procedures/tests Complete & Pending: Procedures Performed prior 72 hours Category Date Time Status CT abd pelvis wo no iv no oral [CT] Stat Cat Scan 06/28/16 15:00 Completed Date of admission: 06/28/16 00:54 Primary care physician: Claire Snider CNP Discharging clinician: Pan Kumar Anticipated date of discharge: 06/29/16 - Patient Status Disposition: Home, Self-Care Condition: Good Functional capacity at discharge: independent ambulation Overall status at discharge: patient is progressing back to baseline - Discharge Instructions Follow Up With: Claire Snider CNP [Primary Care Provider] - Additional Instructions: Follow up with your PCP in the next 3-5 days - Diet and Activity Activity: as per physical therapy Diet: advance to your usual diet Hospital course: Ms. Wright is a 60 year old female - Time Spent with Patient Total time spent providing and/or coordinating discharge services: - Constitutional Vitals: Temp Pulse Resp BP Pulse Ox 99.2 F 88 18 153/95 96 06/29/16 14:35 06/29/16 14:35 06/29/16 14:35 06/29/16 14:35 06/29/16 14:35 General appearance: Present: mild distress, A&O X 3, answers questions appropriately - Head Head exam: Present: atraumatic, normocephalic - Eye Eye exam: Present: PERRL, conjuntiva pink, sclera anicteric Pupils: Present: PERRL - ENT ENT exam: Present: mucous membranes moist - Neck Neck exam general surgery: Present: supple, trachea midline. Absent: lymphadenopathy - Respiratory Respiratory exam: Present: CTAB. Absent: accessory muscle use, rales, rhonchi, wheezes - Cardiovascular Cardiovascular exam: Present: RRR, +S1, +S2. Absent: diastolic murmur, gallop, rubs, systolic murmur - GI/Abdominal GI/Abdominal exam: Present: normal bowel sounds, soft, no peritoneal signs. Absent: distended, tenderness - Extremities Exam Extremities exam: Present: warm, radial pulses palpable and symetrical. Absent : calf tenderness, cyanotic, pedal edema - Neurological Exam Neurological exam: Present: alert, oriented X3, no focal deficits. Absent: pronater drift, facial droop, speech deficit - Psychiatric Psychiatric exam: Present: normal affect, normal mood
[2016-06-29 17:12] LABS: Amylase 130 Units/L (25-125); Lipase 128 Units/L (8-78)
--- NOTE | 2016-06-29 17:15 | Internal Med Progress Note ---
<Pan Kumar - Last Filed: 06/29/16 17:10> Date of Encounter: 06/29/16 Time of Encounter: 11:00 - Assessment and plan (1) Acute on chronic pancreatitis Current Visit: No Status: Acute Assessment and plan: Patient is a history of acute on chronic pancreatitis with known pancreatic cyst. CT of the abdomen from previous admission was reviewed demonstrating pancreatic calcifications and cyst. Patient complains of epigastric pain with elevated lipase and amylase. - Patient try clear liquid diet. - CT of the abdomen did not demonstrate any acute changes. Subcentimeter cyst of the pancreas still present. Plan: - Continue clear liquid diet - Protonix daily - Continue IV fluids - Percocets for pain control with morphine when necessary. - Recheck electrolytes in a.m. (2) Hypertension Current Visit: No Status: Acute Assessment and plan: Patient is a history of hypertension current blood pressure is stable. Hold by mouth medications Plan: -Hydralazine 10 mg IV push every 6 hours when necessary for systolic blood pressure greater than 160 Qualifiers: Hypertension type: essential hypertension Qualified Code(s): I10 - Essential (primary) hypertension (3) Smoker Current Visit: No Status: Acute Assessment and plan: Smoking cessation has been discussed in length with Mrs. Wright. She demonstrates understanding. (4) Type 2 diabetes mellitus Current Visit: No Status: Acute Assessment and plan: Known type II diabetic. Her glucoses are appropriate. Plan: - Continue every 6 hours glucose checks - Continue sliding scale insulin. Qualifiers: Diabetes mellitus complication status: without complication Diabetes mellitus local company intermodal truck driver insulin use: without local company intermodal truck driver use Qualified Code(s): E11.9 - Type 2 diabetes mellitus without complications - Subjective Interval history: Ms. Taylor has been seen and evaluated today at patient's bedside. She complains of abdominal discomfort similar to her previous pancreatitis episodes. She said there has been no change or abdominal pain compared to yesterday. She has been tolerating clear liquid diets. She does not feel the morphine has been effective for her pain. She has not had a bowel movement and has been passing gas. She did mention she is looking forward to discharge. - Constitutional Vitals: Temp Pulse Resp BP Pulse Ox 99.2 F 88 18 153/95 96 06/29/16 14:35 06/29/16 14:35 06/29/16 14:35 06/29/16 14:35 06/29/16 14:35 General appearance: Present: mild distress, A&O X 3, answers questions appropriately - Head Head exam: Present: atraumatic, normocephalic - Eye Eye exam: Present: PERRL, conjuntiva pink, sclera anicteric Pupils: Present: PERRL - ENT ENT exam: Present: mucous membranes moist - Neck Neck exam general surgery: Present: supple, trachea midline. Absent: lymphadenopathy - Respiratory Respiratory exam: Present: CTAB. Absent: accessory muscle use, rales, rhonchi, wheezes - Cardiovascular Cardiovascular exam: Present: RRR, +S1, +S2. Absent: diastolic murmur, gallop, rubs, systolic murmur - GI/Abdominal GI/Abdominal exam: Present: normal bowel sounds, soft, no peritoneal signs. Absent: distended, tenderness - Extremities Exam Extremities exam: Present: warm, radial pulses palpable and symetrical. Absent : calf tenderness, cyanotic, pedal edema - Neurological Exam Neurological exam: Present: alert, oriented X3, no focal deficits. Absent: pronater drift, facial droop, speech deficit - Psychiatric Psychiatric exam: Present: normal affect, normal mood Internal Medicine: Result - Labs CBC & Chem 7: 06/29/16 04:24 06/29/16 04:24 Labs: Short CBC 06/29/16 Range/Units 04:24 WBC 5.4 (4.3-11.1) K/mcL Hgb 11.3 L (11.5-15.4) g/dL Hct 34.8 L (35.3-44.9) % Plt Count 198 (140-400) K/mcL Neutrophils # 2.5 (1.6-8.9) K/mcL BMP 06/29/16 04:24 Sodium 140 Potassium 4.4 Chloride 109 Carbon Dioxide 23 BUN 9 Creatinine 0.79 Glucose 89 Calcium 8.8 Liver Function 06/29/16 Range/Units 04:24 Total Bilirubin 0.2 (0.2-1.2) mg/dL AST 23 (5-34) Units/L ALT 15 (0-55) Units/L Alkaline Phosphatase 70 (38-126) Units/L Albumin 3.3 L (3.5-5.0) g/dL - Impressions Impressions Abdomen/Pelvis CT 06/28/16 15:00 IMPRESSION: 1. Status post cholecystectomy. 2. Stable small, subcentimeter pancreatic pseudocyst in the pancreatic body to tail region. 3. No evidence for acute appendicitis. 4. No acute abnormalities are identified in the abdomen or pelvis. D/ / 06/28/2016 15:33:52 Collins Bryant MD / brisa Interpreting Provider: Collins Bryant MD Consult Discharge Plan - Plan Additional Instructions: Follow up with your PCP in the next 3-5 days Referrals: Claire Snider FINAL OPERATIONS TECHNICIAN [Primary Care Provider] - <Neal Coppola - Last Filed: 06/29/16 19:12> Date of Encounter: 06/29/16 - Constitutional Vitals: Temp Pulse Resp BP Pulse Ox 99.2 F 88 18 153/95 96 06/29/16 14:35 06/29/16 14:35 06/29/16 14:35 06/29/16 14:35 06/29/16 14:35 Internal Medicine: Result - Labs CBC & Chem 7: 06/29/16 04:24 06/29/16 04:24 Labs: Short CBC 06/29/16 Range/Units 04:24 WBC 5.4 (4.3-11.1) K/mcL Hgb 11.3 L (11.5-15.4) g/dL Hct 34.8 L (35.3-44.9) % Plt Count 198 (140-400) K/mcL Neutrophils # 2.5 (1.6-8.9) K/mcL BMP 06/29/16 04:24 Sodium 140 Potassium 4.4 Chloride 109 Carbon Dioxide 23 BUN 9 Creatinine 0.79 Glucose 89 Calcium 8.8 Liver Function 06/29/16 Range/Units 04:24 Total Bilirubin 0.2 (0.2-1.2) mg/dL AST 23 (5-34) Units/L ALT 15 (0-55) Units/L Alkaline Phosphatase 70 (38-126) Units/L Albumin 3.3 L (3.5-5.0) g/dL - Attending Attestation I examined this patient and my medical decision-making was reviewed with the Resident Physician, Dr. Kumar. I agree with the documented findings, disposition and treatment plan as described except to the extent set forth below. She continues reports severe epigastric abdominal pain. She was started on clear liquid diet and her lipase is trending down. I will continue with IV morphine. Continue with IV fluids. Increase oxycodone to 10 mg every 6 hours. I would like to limit IV opiates due to high potential for addiction, misuse, tolerance in this patient with multiple recurrent admissions for acute pancreatitis and adverse effects. She remains at high risk for morbidity, mortality and complications due to treatment with IV opiates for pain.
[2016-06-30] MEDS: 0.9 % Sodium Chloride 1,000 ML IVC SCH ×2 (01:09→11:37)
[2016-06-30] MEDS: *HR* Morphine 2 MG/ML SYRINGE IVP PRN ×4 (01:09→15:25)
[2016-06-30] MEDS: Ondansetron 4 MG/2 ML VIAL IVP PRN ×3 (01:12→19:36)
[2016-06-30] MEDS: *HR* OxyCODONE/APAP 10/325 TABLET PO PRN ×4 (02:30→19:32)
[2016-06-30 04:43] LABS: Basophils % 0.6 %; Eosinophils # 0.1 K/mcL (0.0-0.6); Eosinophils % 0.9 %; Hematocrit 36.4 % (35.3-44.9); Hemoglobin 11.7 g/dL (11.5-15.4); Immature Granulocytes % 0.2 % (0-4); Lymphocytes # 1.9 K/mcL (0.6-4.6); Lymphocytes % 35.1 %; Mean Corpuscular HGB Conc 32.1 g/dL (31.6-35.5); Mean Corpuscular Hemoglobin 27.3 pg (28.0-33.3); Mean Platelet Volume 9.6 fL (9.4-12.4); Monocytes # 0.4 K/mcL (0.0-1.3); Monocytes % 8.2 %; Platelet Count 212 K/mcL (140-400); Red Blood Count 4.28 M/mcL (3.82-4.97)
[2016-06-30 05:01] LABS: Alanine Aminotransferase 17 Units/L (0-55); Albumin 3.6 g/dL (3.5-5.0); Albumin/Globulin Ratio 1.1 (1.1-2.2); Alkaline Phosphatase 77 Units/L (38-126); Amylase 146 Units/L (25-125); Aspartate Amino Transferase 23 Units/L (5-34); BUN/Creatinine Ratio 8 (6-26); Bilirubin,Total 0.2 mg/dL (0.2-1.2); Blood Urea Nitrogen 6 mg/dL (7-20); Calcium 9.1 mg/dL (8.6-10.8); Carbon Dioxide 26 mEq/L (19-29); Chloride 107 mEq/L (98-109); Globulin 3.4 g/dL (2.4-3.5); Glucose 139 mg/dL (70-99); Lipase 164 Units/L (8-78); Osmolality,Calculated 294 (280-300); Potassium 3.4 mEq/L (3.5-4.5); Sodium 142 mEq/L (136-145); eGFR For African Americans > 60 (> 60); eGFR For Non-African Americans > 60 (> 60)
[2016-06-30] MEDS: *HR* Heparin 5,000 UNIT/ML VIAL SQ SCH ×2 (06:08→17:40)
[2016-06-30] MEDS: Pantoprazole 40 MG VIAL IVP SCH (08:34)
[2016-06-30] MEDS: Insulin LISPRO 300 UNITS/3 ML VIAL SQ SCH ×4 (08:36→20:30)
[2016-06-30] MEDS ORDERED: *HR* Morphine 2 MG/ML SYRINGE IVP SCH (11:45)
[2016-06-30] MEDS ORDERED: *HR* LORazepam 2 MG/ML VIAL IVP ONE ×2 (13:10→13:18)
--- NOTE | 2016-06-30 14:30 | Internal Med Progress Note ---
<BrianjoséPan velázquez - Last Filed: 06/30/16 14:23> Date of Encounter: 06/30/16 Time of Encounter: 09:00 - Assessment and plan (1) Acute on chronic pancreatitis Current Visit: No Status: Acute Assessment and plan: Patient is a history of acute on chronic pancreatitis with known pancreatic cyst. CT of the abdomen from previous admission was reviewed demonstrating pancreatic calcifications and cyst. Patient complains of epigastric pain with elevated lipase and amylase. - Patient try clear liquid diet. - CT of the abdomen did not demonstrate any acute changes. Subcentimeter cyst of the pancreas still present. 06/30/2016: Patient continue to have abdominal discomfort with palpation, complains of abdominal pain. lipase continues to be elevated. Plan: - Continue clear liquid diet - Protonix daily - Continue IV fluids - Percocets for pain control with morphine when necessary. - Continue IV morphine for break through pain. - Recheck electrolytes in a.m. (2) Hypertension Current Visit: No Status: Acute Assessment and plan: Patient is a history of hypertension current blood pressure is stable. Hold by mouth medications Plan: -Hydralazine 10 mg IV push every 6 hours when necessary for systolic blood pressure greater than 160 Qualifiers: Hypertension type: essential hypertension Qualified Code(s): I10 - Essential (primary) hypertension (3) Smoker Current Visit: No Status: Acute Assessment and plan: Smoking cessation has been discussed in length with Mrs. Wright. She demonstrates understanding. (4) Type 2 diabetes mellitus Current Visit: No Status: Acute Assessment and plan: Known type II diabetic. Her glucoses are appropriate. Plan: - Continue every 6 hours glucose checks - Continue sliding scale insulin. Qualifiers: Diabetes mellitus complication status: without complication Diabetes mellitus jail insulin use: without jail use Qualified Code(s): E11.9 - Type 2 diabetes mellitus without complications - Subjective Interval history: Ms. Wright has been seen and evaluated today at patient's bedside. She continues to have abdominal discomfort same as compared to yesterday and admission. She has tolerated clear liquid po intake. She has been tearful and depressed regarding her current condition. - Constitutional Vitals: Temp Pulse Resp BP Pulse Ox 98.5 F 99 16 170/106 98 06/30/16 11:09 06/30/16 11:09 06/30/16 11:09 06/30/16 11:09 06/30/16 11:09 General appearance: Present: mild distress, A&O X 3, answers questions appropriately - Head Head exam: Present: atraumatic, normocephalic - Eye Eye exam: Present: PERRL, conjuntiva pink, sclera anicteric Pupils: Present: PERRL - ENT ENT exam: Present: mucous membranes moist - Neck Neck exam general surgery: Present: supple, trachea midline. Absent: lymphadenopathy - Respiratory Respiratory exam: Present: CTAB. Absent: accessory muscle use, rales, rhonchi, wheezes - Cardiovascular Cardiovascular exam: Present: RRR, +S1, +S2. Absent: diastolic murmur, gallop, rubs, systolic murmur - GI/Abdominal GI/Abdominal exam: Present: normal bowel sounds, soft, tenderness, no peritoneal signs. Absent: distended - Extremities Exam Extremities exam: Present: warm, radial pulses palpable and symetrical. Absent : calf tenderness, cyanotic, pedal edema - Neurological Exam Neurological exam: Present: alert, oriented X3, no focal deficits. Absent: pronater drift, facial droop, speech deficit - Psychiatric Psychiatric exam: Present: normal affect, normal mood Internal Medicine: Result - Labs CBC & Chem 7: 06/30/16 04:07 06/30/16 04:07 Labs: Short CBC 06/30/16 Range/Units 04:07 WBC 5.4 (4.3-11.1) K/mcL Hgb 11.7 (11.5-15.4) g/dL Hct 36.4 (35.3-44.9) % Plt Count 212 (140-400) K/mcL Neutrophils # 3.0 (1.6-8.9) K/mcL BMP 06/30/16 04:07 Sodium 142 Potassium 3.4 L D Chloride 107 Carbon Dioxide 26 BUN 6 L Creatinine 0.80 Glucose 139 H Calcium 9.1 Liver Function 06/30/16 Range/Units 04:07 Total Bilirubin 0.2 (0.2-1.2) mg/dL AST 23 (5-34) Units/L ALT 17 (0-55) Units/L Alkaline Phosphatase 77 (38-126) Units/L Albumin 3.6 (3.5-5.0) g/dL Consult Discharge Plan - Plan Additional Instructions: Follow up with your PCP in the next 3-5 days Referrals: Claire Snider CNP [Primary Care Provider] - 07/06/16 10:40 am <Neal Coppola - Last Filed: 06/30/16 18:15> Date of Encounter: 06/30/16 - Constitutional Vitals: Temp Pulse Resp BP Pulse Ox 98.2 F 98 16 182/94 96 06/30/16 16:56 06/30/16 16:56 06/30/16 16:56 06/30/16 16:56 06/30/16 16:56 Internal Medicine: Result - Labs CBC & Chem 7: 06/30/16 04:07 06/30/16 04:07 Labs: Short CBC 06/30/16 Range/Units 04:07 WBC 5.4 (4.3-11.1) K/mcL Hgb 11.7 (11.5-15.4) g/dL Hct 36.4 (35.3-44.9) % Plt Count 212 (140-400) K/mcL Neutrophils # 3.0 (1.6-8.9) K/mcL BMP 06/30/16 04:07 Sodium 142 Potassium 3.4 L D Chloride 107 Carbon Dioxide 26 BUN 6 L Creatinine 0.80 Glucose 139 H Calcium 9.1 Liver Function 06/30/16 Range/Units 04:07 Total Bilirubin 0.2 (0.2-1.2) mg/dL AST 23 (5-34) Units/L ALT 17 (0-55) Units/L Alkaline Phosphatase 77 (38-126) Units/L Albumin 3.6 (3.5-5.0) g/dL - Attending Attestation I examined this patient and my medical decision-making was reviewed with the Resident Physician, Dr. Kumar. I agree with the documented findings, disposition and treatment plan as described except to the extent set forth below. Patient reports uncontrolled pain. She currently reports 8/tenths sharp epigastric abdominal pain, states the pain improves with morphine but a pain medication does not loss long enough. She reports severe associated anxiety. On exam she appears anxious and tearful. Abdomen is soft, tender to palpation in the epigastric area. Extremities with no edema. Plan: I am concerned of potential for misuse dependency and abuse of opiates from this patient and therefore I would limit these medications as much as possible. However she does appear to be in severe pain and therefore I will temporarily increase the timing of morphine to every 3 hours. I will add Ativan for anxiety. Repeat lipase is trending down and therefore I will slowly advance diet. I will provide nutrition consult for supplemental nutrition given her 35 pound weight loss in the last 3 months due to recurrent bouts of pancreatitis. She is at high risk for morbidity mortality and complications due to treatment with IV opiates. I will switch the IV fluids from normal saline to lactated Ringer's since studies have shown benefit of LR over normal saline in acute pancreatitis.
[2016-06-30] MEDS: Ringers Solution, Lactated 1,000 ML IVC SCH (20:26)
[2016-06-30] MEDS: *HR* LORazepam 2 MG/ML VIAL IVP PRN (20:31)
[2016-07-01] MEDS: *HR* Morphine 2 MG/ML SYRINGE IVP PRN ×4 (00:46→19:48)
[2016-07-01] MEDS: *HR* OxyCODONE/APAP 10/325 TABLET PO PRN ×4 (04:52→22:46)
[2016-07-01 05:28] LABS: Basophils % 0.6 %; Eosinophils # 0.1 K/mcL (0.0-0.6); Eosinophils % 1.5 %; Hematocrit 35.6 % (35.3-44.9); Hemoglobin 11.7 g/dL (11.5-15.4); Immature Granulocytes % 0.2 % (0-4); Lymphocytes # 2.9 K/mcL (0.6-4.6); Lymphocytes % 43.7 %; Mean Corpuscular HGB Conc 32.9 g/dL (31.6-35.5); Mean Corpuscular Hemoglobin 28.3 pg (28.0-33.3); Mean Platelet Volume 10.3 fL (9.4-12.4); Monocytes # 0.5 K/mcL (0.0-1.3); Monocytes % 8.1 %; Platelet Count 219 K/mcL (140-400); Red Blood Count 4.14 M/mcL (3.82-4.97); Red Cell Distribution Width 14.4 % (11.5-14.5); Segmented Neutrophils % 45.9 %
[2016-07-01 05:55] LABS: Alanine Aminotransferase 18 Units/L (0-55); Albumin 3.7 g/dL (3.5-5.0); Albumin/Globulin Ratio 1.1 (1.1-2.2); Alkaline Phosphatase 79 Units/L (38-126); Aspartate Amino Transferase 22 Units/L (5-34); BUN/Creatinine Ratio 5 (6-26); Bilirubin,Total 0.3 mg/dL (0.2-1.2); Calcium 9.7 mg/dL (8.6-10.8); Carbon Dioxide 25 mEq/L (19-29); Chloride 107 mEq/L (98-109); Globulin 3.5 g/dL (2.4-3.5); Glucose 139 mg/dL (70-99); Osmolality,Calculated 293 (280-300); Potassium 4.2 mEq/L (3.5-4.5); Sodium 142 mEq/L (136-145); Total Protein 7.2 g/dL (6.0-8.3); eGFR For African Americans > 60 (> 60); eGFR For Non-African Americans > 60 (> 60)
[2016-07-01 05:56] LABS: Blood Urea Nitrogen 4 mg/dL (7-20)
[2016-07-01] MEDS: *HR* Heparin 5,000 UNIT/ML VIAL SQ SCH ×2 (06:40→18:18)
[2016-07-01] MEDS: 0.9 % Sodium Chloride 1,000 ML IVC SCH (08:02)
[2016-07-01] MEDS: Pantoprazole 40 MG VIAL IVP SCH (08:07)
[2016-07-01] MEDS: Insulin LISPRO 300 UNITS/3 ML VIAL SQ SCH ×4 (08:16→20:48)
[2016-07-01] MEDS: Ringers Solution, Lactated 1,000 ML IVC SCH ×2 (09:22→22:48)
--- NOTE | 2016-07-01 16:39 | Internal Med Progress Note ---
<Pan Kumar Daniel - Last Filed: 07/01/16 16:36> Date of Encounter: 07/01/16 Time of Encounter: 08:00 - Assessment and plan (1) Acute on chronic pancreatitis Current Visit: No Status: Acute Assessment and plan: Patient is a history of acute on chronic pancreatitis with known pancreatic cyst. CT of the abdomen from previous admission was reviewed demonstrating pancreatic calcifications and cyst. Patient complains of epigastric pain with elevated lipase and amylase. - Patient try clear liquid diet. - CT of the abdomen did not demonstrate any acute changes. Subcentimeter cyst of the pancreas still present. 06/30/2016: Patient continue to have abdominal discomfort with palpation, complains of abdominal pain. lipase continues to be elevated. 07/01/2016: Lipase is trending up, patient's pain is not significantly improved. Tolerating clear liquids. Plan: - Continue clear liquid diet - Protonix daily - Continue IV fluids - Percocets for pain control with morphine when necessary. - Continue IV morphine for break through pain. - Recheck electrolytes in a.m. (2) Hypertension Current Visit: No Status: Acute Assessment and plan: Patient is a history of hypertension current blood pressure is stable. Hold by mouth medications Plan: -Hydralazine 10 mg IV push every 6 hours when necessary for systolic blood pressure greater than 160 Qualifiers: Hypertension type: essential hypertension Qualified Code(s): I10 - Essential (primary) hypertension (3) Smoker Current Visit: No Status: Acute Assessment and plan: Smoking cessation has been discussed in length with Mrs. Wright. She demonstrates understanding. (4) Type 2 diabetes mellitus Current Visit: No Status: Acute Assessment and plan: Known type II diabetic. Her glucoses are appropriate. Plan: - Continue every 6 hours glucose checks - Continue sliding scale insulin. Qualifiers: Diabetes mellitus complication status: without complication Diabetes mellitus custodial insulin use: without termite helper use Qualified Code(s): E11.9 - Type 2 diabetes mellitus without complications - Subjective Interval history: Ms. Wright has been seen and evaluated today at patient's bedside. She continues to have abdominal discomfort rated at a 5 out of 10 today. She has been tolerating her clear liquids and would really like to be discharged. She has had bowel movements and urinating appropriately. Denies any nausea vomiting fevers chills sweating. - Constitutional Vitals: Temp Pulse Resp BP Pulse Ox 98.3 F 94 12 147/75 97 07/01/16 15:24 07/01/16 15:24 07/01/16 15:24 07/01/16 15:24 07/01/16 15:24 General appearance: Present: mild distress, A&O X 3, answers questions appropriately - Head Head exam: Present: atraumatic, normocephalic - Eye Eye exam: Present: PERRL, conjuntiva pink, sclera anicteric Pupils: Present: PERRL - Neck Neck exam general surgery: Present: supple, trachea midline. Absent: lymphadenopathy - Respiratory Respiratory exam: Present: CTAB. Absent: accessory muscle use, rales, rhonchi, wheezes - Cardiovascular Cardiovascular exam: Present: RRR, +S1, +S2. Absent: diastolic murmur, gallop, rubs, systolic murmur - GI/Abdominal GI/Abdominal exam: Present: normal bowel sounds, soft, tenderness (Tenderness to epigastric palpation), no peritoneal signs. Absent: distended - Extremities Exam Extremities exam: Present: warm, radial pulses palpable and symetrical. Absent : calf tenderness, cyanotic, pedal edema Internal Medicine: Result - Labs CBC & Chem 7: 07/01/16 04:25 07/01/16 04:25 Labs: Short CBC 07/01/16 Range/Units 04:25 WBC 6.6 (4.3-11.1) K/mcL Hgb 11.7 (11.5-15.4) g/dL Hct 35.6 (35.3-44.9) % Plt Count 219 (140-400) K/mcL Neutrophils # 3.0 (1.6-8.9) K/mcL BMP 07/01/16 04:25 Sodium 142 Potassium 4.2 Chloride 107 Carbon Dioxide 25 BUN 4 L Creatinine 0.79 Glucose 139 H Calcium 9.7 Liver Function 07/01/16 Range/Units 04:25 Total Bilirubin 0.3 (0.2-1.2) mg/dL AST 22 (5-34) Units/L ALT 18 (0-55) Units/L Alkaline Phosphatase 79 (38-126) Units/L Albumin 3.7 (3.5-5.0) g/dL Consult Discharge Plan - Plan Additional Instructions: Follow up with your PCP in the next 3-5 days Referrals: Claire Snider CNP [Primary Care Provider] - 07/06/16 10:40 am <Neal Coppola - Last Filed: 07/01/16 18:16> Date of Encounter: 07/01/16 - Constitutional Vitals: Temp Pulse Resp BP Pulse Ox 98.3 F 94 12 147/75 97 07/01/16 15:24 07/01/16 15:24 07/01/16 15:24 07/01/16 15:24 07/01/16 15:24 Internal Medicine: Result - Labs CBC & Chem 7: 07/01/16 04:25 07/01/16 04:25 Labs: Short CBC 07/01/16 Range/Units 04:25 WBC 6.6 (4.3-11.1) K/mcL Hgb 11.7 (11.5-15.4) g/dL Hct 35.6 (35.3-44.9) % Plt Count 219 (140-400) K/mcL Neutrophils # 3.0 (1.6-8.9) K/mcL BMP 07/01/16 04:25 Sodium 142 Potassium 4.2 Chloride 107 Carbon Dioxide 25 BUN 4 L Creatinine 0.79 Glucose 139 H Calcium 9.7 Liver Function 07/01/16 Range/Units 04:25 Total Bilirubin 0.3 (0.2-1.2) mg/dL AST 22 (5-34) Units/L ALT 18 (0-55) Units/L Alkaline Phosphatase 79 (38-126) Units/L Albumin 3.7 (3.5-5.0) g/dL - Attending Attestation I examined this patient and my medical decision-making was reviewed with the Resident Physician, Dr Kumar. I agree with the documented findings, disposition and treatment plan as described except to the extent set forth below. patient reports 5/10 abdominal paain today, improved from yesterday. Denies associated nausea and vomiting. On exam she is tender to palpation in the epigastric area with no guarding or rebound. Lab work shows lipase slightly elevated and on the rise from 200-212. Plan: Continue full liquid diet. IV fluids. IV morphine for pain and IV Ativan for anxiety. Check lipase in the morning. Continue inpatient care. Given that her lipase is trending up she is not stable for discharge home. She is at high risk for morbidity, mortality and complications due to treatment with IV opiates for pain.
[2016-07-01] MEDS ORDERED: Water for inj. (sterile) 10 ML IV ONE (18:39)
[2016-07-01] MEDS: *HR* LORazepam 2 MG/ML VIAL IVP PRN (18:44)
[2016-07-02] MEDS: *HR* Morphine 2 MG/ML SYRINGE IVP PRN (01:33)
[2016-07-02] MEDS: *HR* OxyCODONE/APAP 10/325 TABLET PO PRN ×2 (05:09→11:13)
[2016-07-02] MEDS: *HR* Heparin 5,000 UNIT/ML VIAL SQ SCH (05:11)
[2016-07-02] MEDS: Insulin LISPRO 300 UNITS/3 ML VIAL SQ SCH ×2 (07:34→12:23)
[2016-07-02] MEDS ORDERED: Water for inj. (sterile) 10 ML IV ONE (07:42)
[2016-07-02] MEDS: *HR* LORazepam 2 MG/ML VIAL IVP PRN (07:46)
--- NOTE | 2016-07-02 11:28 | Discharge Summary ---
Date of Encounter: 07/02/16 Time of Encounter: 11:26 - Discharge Diagnosis (1) Acute on chronic pancreatitis Priority: Primary Status: Acute (2) Essential hypertension Priority: Secondary Status: Chronic (3) COPD (chronic obstructive pulmonary disease) Priority: Secondary Status: Chronic Qualifiers: COPD type: unspecified COPD Qualified Code(s): J44.9 - Chronic obstructive pulmonary disease, unspecified (4) Tobacco abuse Priority: Secondary Status: Chronic (5) Anxiety Priority: Secondary Status: Chronic (6) Diabetes mellitus Priority: Secondary Status: Chronic Qualifiers: Diabetes mellitus type: type 2 Diabetes mellitus complication status: without complication Diabetes mellitus longterm insulin use: without watermelon inspector use Qualified Code(s): E11.9 - Type 2 diabetes mellitus without complications - Discharge Medications Prescriptions: OxyCODONE/APAP 10/325 [Percocet 10/325 MG] 1 each PO Q6HR PRN #30 tablet PRN Reason: Pain Home Medications: Aclidinium [place] [Tudorza Pressair] 400 mcg IH BID 04/15/16 [History] Gabapentin 600 mg PO TID 04/15/16 [History] Lisinopril [Zestril] 10 mg PO DAILY 04/15/16 [History] Metformin [Glucophage] 1,000 mg PO BID 04/15/16 [History] Omeprazole [PriLOSEC] 20 mg PO DAILY 04/15/16 [History] Sertraline [Zoloft] 100 mg PO DAILY 04/15/16 [History] TraZODone 100 mg PO HS 04/15/16 [History] Amitriptyline [Elavil] 10 mg PO HS 05/27/16 [History] Ondansetron ODT [Zofran ODT] 4 mg SL Q6H PRN 05/27/16 [History] Potassium Chloride [K-Tab ER] 20 meq PO DAILY #30 tablet.er 06/08/16 [Rx] Amlodipine Besylate 10 mg PO DAILY 06/28/16 [History] Ergocalciferol (VITAMIN D2) [Vitamin D2] 50,000 unit PO QWEEK 06/28/16 [History] [place]-3 Fatty Acids [Fish Oil] 600 mg PO DAILY 06/28/16 [History] OxyCODONE/APAP 10/325 [Percocet 10/325 MG] 1 each PO Q6HR PRN #30 tablet [Rx] Allergies/Adverse Reactions: Allergies Iodinated Contrast Media - Oral and Allergy (Verified 06/27/16 23:10) Difficulty Breathing AND HIVES Date of admission: 06/30/16 20:07 Primary care physician: Claire Snider CNP - Patient Status Disposition: Home, Self-Care Condition: Good Functional capacity at discharge: independent ambulation Overall status at discharge: patient is progressing back to baseline - Discharge Instructions Follow Up With: Claire Snider CNP [Primary Care Provider] - 07/06/16 10:40 am Additional Instructions: Follow up with your PCP in the next 3-5 days. Refraining from smoking. Avoid all alcohol intake. - Diet and Activity Activity: increase activity as tolerated Diet: other (Diabetic, soft diet.) Interval History: The patient reports mild pain in her epigastric area today. She has tolerated a full liquid diet. Her lipase is trending down. Hospital course: Ms. Wright is a 60 year old female with past medical history significant for chronic recurrent pancreatitis and pancreatic cyst, hypertension diabetes and tobacco abuse who presented to the hospital for sudden onset severe epigastric pain and tenderness. Her lipase and amylase were elevated and she was diagnosed with acute pancreatitis. She was admitted to the medical service and treated with IV fluids, IV opiates for pain and antiemetics. She was kept nothing by mouth. Her lipase and amylase improved and she was started on a clear liquid liquid diet. The next day her enzymes got worse and her pain became more intense. She was continued on treatment with IV fluids and IV pain medication. She had a slowly improving course and yesterday her pain had gotten better and her diet was advanced to a full liquid diet. She was given nutritional supplements per dietary recommendations. Today her pain has improved from yesterday her lipase is trending down and is 160 today. I have counseled her extensively about the benefits of smoking cessation. She is medically stable for discharge home and was instructed to follow-up closely with her primary care physician. - Time Spent with Patient Total time spent providing and/or coordinating discharge services: Greater than 30 minutes (I have spent 40 minutes coordinating this discharge.) - Constitutional Vitals: Temp Pulse Resp BP Pulse Ox 98.8 F 93 15 162/93 95 07/02/16 07:26 07/02/16 07:26 07/02/16 07:26 07/02/16 07:26 07/02/16 07:26 General appearance: Present: mild distress, A&O X 3, answers questions appropriately - Respiratory Respiratory exam: Present: CTAB. Absent: accessory muscle use, rales, rhonchi, wheezes - Cardiovascular Cardiovascular exam: Present: RRR, +S1, +S2. Absent: diastolic murmur, gallop, rubs, systolic murmur - GI/Abdominal GI/Abdominal exam: Present: normal bowel sounds, soft, no peritoneal signs. Absent: distended, tenderness - Extremities Exam Extremities exam: Present: warm, radial pulses palpable and symetrical. Absent : calf tenderness, cyanotic, pedal edema
[2016-07-02 11:29] VITALS: BP 151/87
== END 2016-07-02 13:00 | disposition home or self-care (01) | DRG 439 ==
LOC: EMEROO 23:08 → 3ANU 23:08
PROVIDERS: ADMIT Internal Medicine; ATTEND Internal Medicine

== ENCOUNTER 2016-07-30 16:35 | Inpatient (IN) ==
[2016-07-30] MEDS ORDERED: *HR* HYDROmorphone (PF) 1 MG/ML SYRINGE IVP ONE ×2 (17:06→18:11)
[2016-07-30] MEDS ORDERED: 0.9 % Sodium Chloride 1,000 ML IVC ONE (17:06)
[2016-07-30] MEDS ORDERED: Ketorolac 30 MG/ML VIAL IVP ONE (17:06)
[2016-07-30] MEDS ORDERED: Ondansetron 4 MG/2 ML VIAL IVP ONE (17:06)
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
[2016-07-30 17:46] LABS: Basophils % 0.4 %; Eosinophils # 0.1 K/mcL (0.0-0.6); Eosinophils % 1.4 %; Hemoglobin 11.3 g/dL (11.5-15.4); Immature Granulocytes % 0.3 % (0-4); Lymphocytes # 2.8 K/mcL (0.6-4.6); Lymphocytes % 38.5 %; Mean Corpuscular HGB Conc 32.3 g/dL (31.6-35.5); Mean Corpuscular Hemoglobin 27.6 pg (28.0-33.3); Mean Corpuscular Volume 85.6 fL (83.0-100.0); Mean Platelet Volume 9.5 fL (9.4-12.4); Monocytes # 0.4 K/mcL (0.0-1.3); Platelet Count 208 K/mcL (140-400); Red Blood Count 4.09 M/mcL (3.82-4.97); Red Cell Distribution Width 14.1 % (11.5-14.5); Segmented Neutrophils % 54.4 %
[2016-07-30 18:00] LABS: Alanine Aminotransferase 15 Units/L (0-55); Albumin 3.8 g/dL (3.5-5.0); Albumin/Globulin Ratio 1.1 (1.1-2.2); Alkaline Phosphatase 79 Units/L (38-126); Amylase 279 Units/L (25-125); Aspartate Amino Transferase 17 Units/L (5-34); BUN/Creatinine Ratio 12 (6-26); Bilirubin,Total 0.3 mg/dL (0.2-1.2); Blood Urea Nitrogen 12 mg/dL (7-20); Calcium 9.3 mg/dL (8.6-10.8); Carbon Dioxide 25 mEq/L (19-29); Chloride 105 mEq/L (98-109); Globulin 3.6 g/dL (2.4-3.5); Glucose 160 mg/dL (70-99); Lipase 440 Units/L (8-78); Osmolality,Calculated 293 (280-300); Potassium 3.8 mEq/L (3.5-4.5); Sodium 140 mEq/L (136-145); Total Protein 7.4 g/dL (6.0-8.3); eGFR For African Americans > 60 (> 60); eGFR For Non-African Americans 59 (> 60)
[2016-07-30] MEDS ORDERED: Naloxone 0.4 MG/ML INJ IVP PRN (19:36)
[2016-07-30] MEDS ORDERED: *HR* Dextrose 50 % in Water (Syg) 50 ML SYRINGE IVP PRN (19:41)
[2016-07-30] MEDS ORDERED: Dextrose Gel 15 GM PO PRN ×2 (19:41)
[2016-07-30] MEDS ORDERED: D5% in Water 1,000 ML IVC PRN (19:41)
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
[2016-07-30] MEDS ORDERED: Ipratropium/Albuterol Neb 3 ML IH PRN (19:56)
[2016-07-30] MEDS: 0.9 % Sodium Chloride 1,000 ML IVC SCH (20:02)
[2016-07-30] MEDS: *HR* HYDROmorphone (PF) 1 MG/ML SYRINGE IVP PRN ×2 (20:02→22:16)
[2016-07-31] MEDS: *HR* HYDROmorphone (PF) 1 MG/ML SYRINGE IVP PRN ×9 (00:13→19:43)
[2016-07-31] MEDS: Ondansetron 4 MG/2 ML VIAL IVP PRN ×3 (00:13→16:24)
[2016-07-31] MEDS: Insulin LISPRO 300 UNITS/3 ML VIAL SQ SCH ×4 (00:13→18:06)
[2016-07-31 06:01] LABS: Basophils % 0.6 %; Eosinophils # 0.1 K/mcL (0.0-0.6); Eosinophils % 1.3 %; Hematocrit 31.1 % (35.3-44.9); Hemoglobin 10.1 g/dL (11.5-15.4); Immature Granulocytes % 0.2 % (0-4); Lymphocytes # 2.8 K/mcL (0.6-4.6); Lymphocytes % 44.3 %; Mean Corpuscular HGB Conc 32.5 g/dL (31.6-35.5); Mean Corpuscular Hemoglobin 28.5 pg (28.0-33.3); Mean Corpuscular Volume 87.9 fL (83.0-100.0); Mean Platelet Volume 10.3 fL (9.4-12.4); Monocytes # 0.3 K/mcL (0.0-1.3); Monocytes % 4.5 %; Neutrophils # 3.1 K/mcL (1.6-8.9); Platelet Count 181 K/mcL (140-400); Red Blood Count 3.54 M/mcL (3.82-4.97); Red Cell Distribution Width 14.2 % (11.5-14.5); Segmented Neutrophils % 49.1 %
[2016-07-31] MEDS: *HR* Heparin 5,000 UNIT/ML VIAL SQ SCH ×3 (06:13→18:05)
[2016-07-31] MEDS: 0.9 % Sodium Chloride 1,000 ML IVC SCH ×2 (06:13→16:25)
[2016-07-31 06:14] LABS: Alanine Aminotransferase 12 Units/L (0-55); Albumin 3.1 g/dL (3.5-5.0); Alkaline Phosphatase 80 Units/L (38-126); Amylase 228 Units/L (25-125); Aspartate Amino Transferase 14 Units/L (5-34); BUN/Creatinine Ratio 18 (6-26); Bilirubin,Total 0.2 mg/dL (0.2-1.2); Blood Urea Nitrogen 15 mg/dL (7-20); Calcium 8.2 mg/dL (8.6-10.8); Carbon Dioxide 22 mEq/L (19-29); Chloride 111 mEq/L (98-109); Globulin 3.2 g/dL (2.4-3.5); Glucose 125 mg/dL (70-99); Lipase 377 Units/L (8-78); Magnesium 1.9 mg/dL (1.6-2.6); Osmolality,Calculated 294 (280-300); Phosphorous 3.4 mg/dL (2.3-4.7); Potassium 4.1 mEq/L (3.5-4.5); Sodium 141 mEq/L (136-145); Total Protein 6.3 g/dL (6.0-8.3); eGFR For African Americans > 60 (> 60); eGFR For Non-African Americans > 60 (> 60)
[2016-07-31] MEDS: Pantoprazole 40 MG VIAL IVP SCH (08:20)
[2016-07-31] MEDS ORDERED: *HR* HYDROmorphone (PF) 1 MG/ML SYRINGE IVP PRN (12:16)
[2016-07-31] MEDS: *HR* OxyCODONE/APAP 10/325 TABLET PO PRN ×2 (12:44→21:46)
--- NOTE | 2016-07-31 13:44 | Internal Med Progress Note ---
Date of Encounter: 07/31/16 Time of Encounter: 13:41 - Assessment and plan (1) Acute on chronic pancreatitis Current Visit: No Status: Acute Assessment and plan: Patient has a history of chronic pancreatitis. Recurrent abdominal pain, worsening with eating. Elevated lipase support acute on chronic pancreatitis. - Keep patient nothing by mouth, IV fluid - Pain medication for pain. - Patient has seen surgeon in [facility] and the plan to have surgery for her chronic pancreatitis. Next appointment in 3 month. she is supposed to f/u at [facility] and has been told to quit smoking before they can proceed with any surgery, which she has not been able to do. Patient is at high risk because she is on IV opioid, need close monitoring (2) Diabetes mellitus Current Visit: No Status: Chronic Assessment and plan: Sliding scale coverage Qualifiers: Diabetes mellitus type: type 2 Diabetes mellitus complication status: without complication Diabetes mellitus group home insulin use: without group home use Qualified Code(s): E11.9 - Type 2 diabetes mellitus without complications (3) Essential hypertension Current Visit: No Status: Chronic Assessment and plan: Monitor blood pressure, continue home medication (4) COPD (chronic obstructive pulmonary disease) Current Visit: No Status: Chronic Assessment and plan: Not in exacerbation, when necessary nebulization. Qualifiers: COPD type: unspecified COPD Qualified Code(s): J44.9 - Chronic obstructive pulmonary disease, unspecified - Subjective Interval history: Patient admitted for left-sided upper abdominal pain, acute on chronic pancreatitis. At the bedside this morning, still complaining of abdominal pain, denies any vomiting. Currently nothing by mouth, IV fluids. - Constitutional Vitals: Temp Pulse Resp BP Pulse Ox 97.8 F 76 18 161/78 93 07/31/16 10:38 07/31/16 10:38 07/31/16 10:38 07/31/16 10:38 07/31/16 10:38 General appearance: Present: mild distress, A&O X 3, answers questions appropriately Exam: - Head Head exam: Present: atraumatic, normocephalic - Eye Eye exam: Present: PERRL, conjuntiva pink, sclera anicteric Pupils: Present: PERRL - Neck Neck exam general surgery: Present: supple, trachea midline. Absent: lymphadenopathy - Respiratory Respiratory exam: Present: CTAB. Absent: accessory muscle use, rales, rhonchi, wheezes - Cardiovascular Cardiovascular exam: Present: RRR, +S1, +S2. Absent: diastolic murmur, gallop, rubs, systolic murmur - GI/Abdominal GI/Abdominal exam: Present: normal bowel sounds, soft, tenderness (Tenderness in LUQ with mild guarding, no rebound), no peritoneal signs. Absent: distended - Extremities Exam Extremities exam: Present: warm, radial pulses palpable and symetrical. Absent : calf tenderness, cyanotic, pedal edema - Neurological Exam Neurological exam: Present: CN II-XII intact, oriented X3, no focal deficits. Absent: pronater drift, facial droop, speech deficit - Skin Skin exam: Present: dry, intact Internal Medicine: Result - Labs CBC & Chem 7: 07/31/16 04:26 07/31/16 04:26 Labs: Short CBC 07/31/16 Range/Units 04:26 WBC 6.3 (4.3-11.1) K/mcL Hgb 10.1 L (11.5-15.4) g/dL Hct 31.1 L (35.3-44.9) % Plt Count 181 (140-400) K/mcL Neutrophils # 3.1 (1.6-8.9) K/mcL BMP 07/31/16 04:26 Sodium 141 Potassium 4.1 Chloride 111 H Carbon Dioxide 22 BUN 15 Creatinine 0.83 Glucose 125 H Calcium 8.2 L Liver Function 07/31/16 Range/Units 04:26 Total Bilirubin 0.2 (0.2-1.2) mg/dL AST 14 (5-34) Units/L ALT 12 (0-55) Units/L Alkaline Phosphatase 80 (38-126) Units/L Albumin 3.1 L (3.5-5.0) g/dL Consult Discharge Plan - Plan Referrals: Claire Snider, FARM EQUIPMENT SERVICE TECHNICIAN [Primary Care Provider] -
[2016-07-31] MEDS ORDERED: Water for inj. (sterile) 10 ML IV ONE (18:00)
[2016-07-31] MEDS: *HR* LORazepam 2 MG/ML VIAL IVP PRN (18:03)
[2016-08-01] MEDS: Insulin LISPRO 300 UNITS/3 ML VIAL SQ SCH ×4 (00:27→17:51)
[2016-08-01] MEDS: *HR* HYDROmorphone (PF) 1 MG/ML SYRINGE IVP PRN ×7 (00:28→22:23)
[2016-08-01] MEDS: *HR* LORazepam 2 MG/ML VIAL IVP PRN (00:29)
[2016-08-01] MEDS: 0.9 % Sodium Chloride 1,000 ML IVC SCH ×2 (03:58→13:37)
[2016-08-01] MEDS: *HR* Heparin 5,000 UNIT/ML VIAL SQ SCH ×2 (06:16→17:53)
[2016-08-01] MEDS: *HR* OxyCODONE/APAP 10/325 TABLET PO PRN ×3 (07:39→20:16)
[2016-08-01 08:07] LABS: Basophils % 0.6 %; Eosinophils # 0.1 K/mcL (0.0-0.6); Eosinophils % 1.3 %; Hematocrit 35.1 % (35.3-44.9); Hemoglobin 11.3 g/dL (11.5-15.4); Immature Granulocytes % 0.4 % (0-4); Lymphocytes # 1.5 K/mcL (0.6-4.6); Lymphocytes % 20.9 %; Mean Corpuscular HGB Conc 32.2 g/dL (31.6-35.5); Mean Corpuscular Hemoglobin 26.8 pg (28.0-33.3); Mean Corpuscular Volume 83.4 fL (83.0-100.0); Mean Platelet Volume 9.7 fL (9.4-12.4); Monocytes # 0.4 K/mcL (0.0-1.3); Neutrophils # 5.2 K/mcL (1.6-8.9); Platelet Count 214 K/mcL (140-400); Red Blood Count 4.21 M/mcL (3.82-4.97); Red Cell Distribution Width 13.9 % (11.5-14.5); Segmented Neutrophils % 71.8 %
[2016-08-01] MEDS ORDERED: Haloperidol Lactate 5 MG/ML VIAL IVP STA (08:08)
[2016-08-01 08:12] LABS: BUN/Creatinine Ratio 11 (6-26); Blood Urea Nitrogen 8 mg/dL (7-20); Carbon Dioxide 23 mEq/L (19-29); Chloride 107 mEq/L (98-109); Glucose 140 mg/dL (70-99); Osmolality,Calculated 291 (280-300); Potassium 3.8 mEq/L (3.5-4.5); Sodium 140 mEq/L (136-145); eGFR For African Americans > 60 (> 60); eGFR For Non-African Americans > 60 (> 60)
[2016-08-01 08:13] LABS: Calcium 9.6 mg/dL (8.6-10.8)
[2016-08-01] MEDS: Pantoprazole 40 MG VIAL IVP SCH (10:06)
[2016-08-01] MEDS ORDERED: Haloperidol Lactate 5 MG/ML VIAL IVP PRN (12:51)
--- NOTE | 2016-08-01 13:03 | Internal Med Progress Note ---
Date of Encounter: 08/01/16 Time of Encounter: 12:59 - Assessment and plan (1) Acute on chronic pancreatitis Current Visit: No Status: Acute Assessment and plan: Patient has a history of chronic pancreatitis. Recurrent abdominal pain, worsening with eating. Elevated lipase support acute on chronic pancreatitis. - Pain medication for pain. - Patient has seen surgeon in [facility] and the plan to have surgery for her chronic pancreatitis. Next appointment in 3 month. she is supposed to f/u at [facility] and has been told to quit smoking before they can proceed with any surgery, which she has not been able to do. will start clear liquid diet and see if she can tolerate ithat today Patient is at high risk because she is on IV opioid, need close monitoring (2) Diabetes mellitus Current Visit: No Status: Chronic Assessment and plan: Sliding scale coverage Qualifiers: Diabetes mellitus type: type 2 Diabetes mellitus complication status: without complication Diabetes mellitus intermediate insulin use: without intermediate use Qualified Code(s): E11.9 - Type 2 diabetes mellitus without complications (3) Essential hypertension Current Visit: No Status: Chronic Assessment and plan: Monitor blood pressure, continue home medication (4) COPD (chronic obstructive pulmonary disease) Current Visit: No Status: Chronic Assessment and plan: Not in exacerbation, when necessary nebulization. Qualifiers: COPD type: unspecified COPD Qualified Code(s): J44.9 - Chronic obstructive pulmonary disease, unspecified (5) Delirium Current Visit: Yes Status: Acute Assessment and plan: unknown etiology, electrolytes seem to be normal no fever or leucocytosis ativan made her worse, dc ativan, gave one dose of haldol this morning will restart her home dose of gabapentin, will put haldol prn for now. - Subjective Interval history: Patient admitted for left-sided upper abdominal pain, acute on chronic pancreatitis. At the bedside this morning, still complaining of abdominal pain, denies any vomiting. Also reported by the nurse that last night she was delirious. Status post 2 doses of Ativan which made her worse. IV fluids, started on clears today - Constitutional Vitals: Temp Pulse Resp BP Pulse Ox 98.2 F 108 12 187/97 99 08/01/16 11:12 08/01/16 11:12 08/01/16 11:12 08/01/16 11:12 08/01/16 11:12 General appearance: Present: mild distress, A&O X 3, answers questions appropriately Exam: - Head Head exam: Present: atraumatic, normocephalic - Eye Eye exam: Present: PERRL, conjuntiva pink, sclera anicteric Pupils: Present: PERRL - Neck Neck exam general surgery: Present: supple, trachea midline. Absent: lymphadenopathy - Respiratory Respiratory exam: Present: CTAB. Absent: accessory muscle use, rales, rhonchi, wheezes - Cardiovascular Cardiovascular exam: Present: RRR, +S1, +S2. Absent: diastolic murmur, gallop, rubs, systolic murmur - GI/Abdominal GI/Abdominal exam: Present: normal bowel sounds, soft, tenderness (Tenderness in LUQ with mild guarding, no rebound), no peritoneal signs. Absent: distended - Extremities Exam Extremities exam: Present: warm, radial pulses palpable and symetrical. Absent : calf tenderness, cyanotic, pedal edema - Neurological Exam Neurological exam: Present: CN II-XII intact, oriented X3, no focal deficits. Absent: pronater drift, facial droop, speech deficit - Skin Skin exam: Present: dry, intact Internal Medicine: Result - Labs CBC & Chem 7: 08/01/16 07:50 08/01/16 07:50 Labs: Short CBC 08/01/16 Range/Units 07:50 WBC 7.2 (4.3-11.1) K/mcL Hgb 11.3 L (11.5-15.4) g/dL Hct 35.1 L (35.3-44.9) % Plt Count 214 (140-400) K/mcL Neutrophils # 5.2 (1.6-8.9) K/mcL BMP 08/01/16 07:50 Sodium 140 Potassium 3.8 Chloride 107 Carbon Dioxide 23 BUN 8 Creatinine 0.75 Glucose 140 H Calcium 9.6 D Consult Discharge Plan - Plan Referrals: Claire Snider UNIVERSITY PROFESSOR [Primary Care Provider] -
[2016-08-01] MEDS: Ondansetron 4 MG/2 ML VIAL IVP PRN (13:36)
[2016-08-01] MEDS: Gabapentin 300 MG CAPSULE PO SCH ×2 (14:49→20:14)
[2016-08-01] MEDS: traZODone 50 MG TABLET PO SCH (20:14)
[2016-08-02] MEDS: Insulin LISPRO 300 UNITS/3 ML VIAL SQ SCH ×4 (01:06→16:14)
[2016-08-02] MEDS: 0.9 % Sodium Chloride 1,000 ML IVC SCH (01:07)
[2016-08-02] MEDS: *HR* Heparin 5,000 UNIT/ML VIAL SQ SCH ×2 (06:09→15:30)
[2016-08-02] MEDS: *HR* HYDROmorphone (PF) 1 MG/ML SYRINGE IVP PRN ×4 (06:11→23:03)
[2016-08-02] MEDS: Gabapentin 300 MG CAPSULE PO SCH ×3 (09:30→20:53)
[2016-08-02] MEDS: *HR* OxyCODONE/APAP 10/325 TABLET PO PRN ×3 (09:31→20:53)
[2016-08-02] MEDS: Pantoprazole 40 MG VIAL IVP SCH (09:31)
--- NOTE | 2016-08-02 13:21 | Internal Med Progress Note ---
Date of Encounter: 08/02/16 Time of Encounter: 13:19 - Assessment and plan (1) Acute on chronic pancreatitis Current Visit: No Status: Acute Assessment and plan: Patient has a history of chronic pancreatitis. Recurrent abdominal pain, worsening with eating. Elevated lipase support acute on chronic pancreatitis. - Patient has seen surgeon in [facility] and the plan to have surgery for her chronic pancreatitis. Next appointment in 3 month. she is supposed to f/u at [facility] and has been told to quit smoking before they can proceed with any surgery, which she has not been able to do. clinically looks better today, will start on soft diet. Patient is at high risk because she is on IV opioid, need close monitoring (2) Diabetes mellitus Current Visit: No Status: Chronic Assessment and plan: Sliding scale coverage Qualifiers: Diabetes mellitus type: type 2 Diabetes mellitus complication status: without complication Diabetes mellitus senior product integrity engineer insulin use: without fpc use Qualified Code(s): E11.9 - Type 2 diabetes mellitus without complications (3) Essential hypertension Current Visit: No Status: Chronic Assessment and plan: Monitor blood pressure, continue home medication (4) COPD (chronic obstructive pulmonary disease) Current Visit: No Status: Chronic Assessment and plan: Not in exacerbation, when necessary nebulization. Qualifiers: COPD type: unspecified COPD Qualified Code(s): J44.9 - Chronic obstructive pulmonary disease, unspecified (5) Delirium Current Visit: Yes Status: Acute Assessment and plan: unknown etiology, electrolytes seem to be normal no fever or leucocytosis ativan made her worse, dc ativan, on haldol prn restarted her home dose of gabapentin, doing better - Subjective Interval history: Patient admitted for left-sided upper abdominal pain, acute on chronic pancreatitis. At the bedside this morning, appears clinically better than yesterday. She reports that the pain is better but still asking for pain meds. Denies any nausea or vomiting. We will advance the diet to soft today. - Constitutional Vitals: Temp Pulse Resp BP Pulse Ox 97.9 F 61 18 145/83 98 08/02/16 10:31 08/02/16 10:31 08/02/16 10:31 08/02/16 10:31 08/02/16 10:31 General appearance: Present: A&O X 3, answers questions appropriately Exam: - Head Head exam: Present: atraumatic, normocephalic - Eye Eye exam: Present: PERRL, conjuntiva pink, sclera anicteric Pupils: Present: PERRL - Neck Neck exam general surgery: Present: supple, trachea midline. Absent: lymphadenopathy - Respiratory Respiratory exam: Present: CTAB. Absent: accessory muscle use, rales, rhonchi, wheezes - Cardiovascular Cardiovascular exam: Present: RRR, +S1, +S2. Absent: diastolic murmur, gallop, rubs, systolic murmur - GI/Abdominal GI/Abdominal exam: Present: normal bowel sounds, soft, non tender, no peritoneal signs. Absent: distended - Extremities Exam Extremities exam: Present: warm, radial pulses palpable and symetrical. Absent : calf tenderness, cyanotic, pedal edema - Neurological Exam Neurological exam: Present: CN II-XII intact, oriented X3, no focal deficits. Absent: pronater drift, facial droop, speech deficit - Skin Skin exam: Present: dry, intact Internal Medicine: Result - Labs CBC & Chem 7: 08/01/16 07:50 08/01/16 07:50 Consult Discharge Plan - Plan Referrals: Claire Snider CNP [Primary Care Provider] - 08/10/16 10:40 am
[2016-08-02] MEDS: Ondansetron 4 MG/2 ML VIAL IVP PRN (20:03)
[2016-08-02] MEDS: traZODone 50 MG TABLET PO SCH (20:53)
[2016-08-02] MEDS ORDERED: Insulin LISPRO 300 UNITS/3 ML VIAL SQ SCH (21:00)
[2016-08-03] MEDS: *HR* OxyCODONE/APAP 10/325 TABLET PO PRN ×2 (03:57→11:24)
[2016-08-03] MEDS: *HR* Heparin 5,000 UNIT/ML VIAL SQ SCH (05:49)
[2016-08-03] MEDS: *HR* HYDROmorphone (PF) 1 MG/ML SYRINGE IVP PRN ×2 (05:58→10:12)
[2016-08-03] MEDS: Insulin LISPRO 300 UNITS/3 ML VIAL SQ SCH ×2 (09:44→13:23)
[2016-08-03] MEDS: Gabapentin 300 MG CAPSULE PO SCH (09:44)
[2016-08-03 10:57] VITALS: BP 136/86
--- NOTE | 2016-08-03 11:37 | Discharge Summary ---
Date of Encounter: 08/03/16 Time of Encounter: 11:35 - Discharge Diagnosis (1) Acute on chronic pancreatitis Priority: Primary Status: Acute (2) Diabetes mellitus Priority: Secondary Status: Chronic Qualifiers: Diabetes mellitus type: type 2 Diabetes mellitus complication status: without complication Diabetes mellitus jail insulin use: without intermediate card tender use Qualified Code(s): E11.9 - Type 2 diabetes mellitus without complications (3) Essential hypertension Priority: Secondary Status: Chronic (4) COPD (chronic obstructive pulmonary disease) Priority: Secondary Status: Chronic Qualifiers: COPD type: unspecified COPD Qualified Code(s): J44.9 - Chronic obstructive pulmonary disease, unspecified (5) Delirium Priority: Primary Status: Acute - Discharge Medications Home Medications: Aclidinium [place] [Tudorza Pressair] 400 mcg IH BID 04/15/16 [History] Gabapentin 600 mg PO TID 04/15/16 [History] Lisinopril [Zestril] 10 mg PO DAILY 04/15/16 [History] Omeprazole [PriLOSEC] 20 mg PO DAILY 04/15/16 [History] Sertraline [Zoloft] 100 mg PO HS 04/15/16 [History] metFORMIN [Glucophage] 1,000 mg PO BID 04/15/16 [History] traZODone [TraZODone] 100 mg PO HS 04/15/16 [History] Ondansetron ODT [Zofran ODT] 4 mg SL Q6H PRN 05/27/16 [History] Potassium Chloride [K-Tab ER] 20 meq PO DAILY #30 tablet.er 06/08/16 [Rx] OxyCODONE/APAP 10/325 [Percocet 10/325 MG] 1 each PO Q6HR PRN #30 tablet [Rx] Fish Oil/Dha/Epa [Fish Oil 1,200 mg Fish Oil] 2 cap PO DAILY 07/31/16 [History] Allergies/Adverse Reactions: Allergies Iodinated Contrast- Oral and IV Dye [Iodinated Contrast Media - Oral and] Allergy (Verified 07/25/16 10:21) Difficulty Breathing AND HIVES Date of admission: 08/02/16 09:25 Primary care physician: Claire Snider CNP Discharging clinician: Elizabeth Mckeon Anticipated date of discharge: 08/03/16 - Patient Status Disposition: Home, Self-Care Condition: Fair Functional capacity at discharge: independent ambulation Overall status at discharge: patient is back to baseline - Discharge Instructions Instructions: Pancreatitis (DC) Follow Up With: Claire Snider CNP [Primary Care Provider] - 08/10/16 10:40 am - Diet and Activity Activity: resume usual activities as tolerated Diet: advance to your usual diet Interval History: Ms. Wright is a 60 year old female with past medical history significant for chronic recurrent pancreatitis and pancreatic cyst, hypertension diabetes and tobacco abuse who presented to the hospital for sudden onset severe epigastric pain and tenderness. Her lipase and amylase were elevated and she was diagnosed with acute on chronic pancreatitis. She was admitted to the medical service and treated with IV fluids, IV opiates for pain and antiemetics. She was kept nothing by mouth. Her lipase and amylase improved and she was started on a clear liquid liquid diet. She had a slowly improving course and yesterday her pain had gotten better and her diet was advanced to a full liquid diet. She was given nutritional supplements per dietary recommendations. She has been to the hospital multiple times for pain and currently has a pain management contract with which she gets her pain medication supplies. She was encouraged to keep her appointment at [facility] to undergo further definitive medical/surgical treatment for her chronic pancreatitis . She was earlier told to quit smoking before they could do any kind of procedures. I have counseled her extensively about the benefits of smoking cessation. She is medically stable for discharge home and was instructed to follow-up closely with her primary care physician. She is not being discharged on any pain medications given the pain management contract with her PCP. It is noted that she will follow up with her PCP within the next few days. Hospital course: Ms. Wright is a 61 year old female - Time Spent with Patient Total time spent providing and/or coordinating discharge services: - Constitutional Vitals: Temp Pulse Resp BP Pulse Ox 99.1 F 92 16 136/86 96 08/03/16 10:53 08/03/16 10:53 08/03/16 10:53 08/03/16 10:53 08/03/16 10:53 General appearance: Present: A&O X 3, answers questions appropriately Exam: - Respiratory Respiratory exam: Present: CTAB. Absent: accessory muscle use, rales, rhonchi, wheezes - Cardiovascular Cardiovascular exam: Present: RRR, +S1, +S2. Absent: diastolic murmur, gallop, rubs, systolic murmur - GI/Abdominal GI/Abdominal exam: Present: normal bowel sounds, soft, no peritoneal signs. Absent: distended, tenderness - Extremities Exam Extremities exam: Present: warm, radial pulses palpable and symetrical. Absent : calf tenderness, cyanotic, pedal edema
== END 2016-08-03 13:35 | disposition home or self-care (01) | DRG 440 ==
LOC: EMEROO 16:35 → 3ANU 16:35
PROVIDERS: ADMIT Hospitalist; ATTEND Internal Medicine Endocrinology, Diabetes & Metabolism

== ENCOUNTER 2016-08-14 14:26 | Inpatient (IN) ==
[2016-08-14] MEDS ORDERED: *HR* HYDROmorphone (PF) 1 MG/ML SYRINGE IVP ONE ×4 (15:41→19:19)
[2016-08-14] MEDS ORDERED: 0.9 % Sodium Chloride 1,000 ML IVC ONE (15:41)
[2016-08-14] MEDS ORDERED: Ondansetron 4 MG/2 ML VIAL IVP ONE (15:41)
--- NOTE | 2016-08-14 15:43 | Emergency Department Note ---
Disposition Clinical Impression: Acute on chronic pancreatitis Disposition: Admitted As Inpatient Condition: Good Time of Disposition: 18:07 Abdominal Pain HPI - General Chief Complaint: ED Abdominal Pain Stated Complaint: pancreatitis Time Seen by Provider: 08/14/16 15:36 Source: patient Mode of arrival: ambulatory Limitations: no limitations Nursing Notes Reviewed: Yes Vital Signs Reviewed: Yes - History of Present Illness HPI Narrative: 61-year-old female history of chronic pancreatitis, diabetes, hypertension, chronic smoker presents with epigastric pain. Reports last night while going to bed she experienced cramping sensation the epigastric region that radiates to her back. She reports nausea and vomiting when she eats. This morning she attempted to eat cereal but was nauseated and had food emesis. She denies any recent illness, fever, cough, shortness of breath or chest pain. She does have chronic diarrhea but denies any blood or black tarry stools. Denies any urinary symptoms. History of cholecystectomy and hysterectomy. Denies any alcohol use. Denies any recent travel. She specify follow up with a surgeon at [facility] but has not been able to. Recently admitted for chronic pancreatitis and discharged 08/03/2016. Pain Scale: 8 - Related Data Home Medications Medication Instructions Recorded Confirmed Aclidinium [place] [Tudorza 400 mcg IH BID 04/15/16 07/31/16 Pressair] Gabapentin 600 mg PO TID 04/15/16 07/31/16 Lisinopril [Zestril] 10 mg PO DAILY 04/15/16 07/31/16 Omeprazole [PriLOSEC] 20 mg PO DAILY 04/15/16 07/31/16 Sertraline [Zoloft] 100 mg PO HS 04/15/16 07/31/16 metFORMIN [Glucophage] 1,000 mg PO BID 04/15/16 07/31/16 traZODone [TraZODone] 100 mg PO HS 04/15/16 07/31/16 Ondansetron ODT [Zofran ODT] 4 mg SL Q6H PRN 05/27/16 07/30/16 Fish Oil/Dha/Epa [Fish Oil 1,200 2 cap PO DAILY 07/31/16 07/31/16 mg Fish Oil] Previous Rx's Medication Instructions Recorded Potassium Chloride [K-Tab ER] 20 meq PO DAILY #30 tablet.er 06/08/16 Allergies Allergy/AdvReac Type Severity Reaction Status Date / Time Iodinated Contrast- Oral and Allergy Difficulty Verified 07/25/16 10:21 IV Dye Breathing [Iodinated Contrast Media - Oral and] All systems ED: reviewed and negative except as stated. 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 Absent: scleral icterus - ENT ENT exam: normal exam, normal oropharynx, mucous membranes dry - Neck Neck exam: Present: normal inspection, full ROM, trachea midline - Chest Chest inspection: Present: normal inspection, symmetric chest wall rise. Absent : tenderness - Respiratory Respiratory exam: Present: normal lung sounds bilaterally. Absent: respiratory distress, wheezes, stridor - Cardiovascular Cardiovascular exam: Present: regular rate, normal rhythm, tachycardia, normal heart sounds - Abdominal Exam Abdominal exam: Present: soft, tenderness, normal bowel sounds. Absent: distention, guarding, rebound, rigidity Abdominal tenderness: Present: LUQ, epigastrium, diffuse - Extremities Exam Extremities exam: Present: normal inspection, full ROM, normal capillary refill. Absent: tenderness, pedal edema, calf tenderness - Neurological Exam Neurological exam: Present: alert, oriented X3 - Psychiatric Psychiatric exam: Present: normal affect, normal mood - Skin Skin exam: Present: warm, dry, intact, normal color Course Course Narrative: 61-year-old female presents with epigastric abdominal pain. She is afebrile. She is mildly tachycardic. She appears in mild distress and uncomfortable holding her epigastrium. She has a history of chronic pancreatitis. Recently discharged for similar symptoms. Will try to control her pain here. Order CBC, electrolytes and a lipase. Give her fluid hydration. Disposition pending response. Patient is in agreement with this plan. - Reevaluation(s) Reevaluation #1: Lipases elevated 516. She continues to have pain in the epigastric region. She has required multiple doses of Dilaudid without much improvement. Review of recent CT of the abdomen and pelvis may revealed a pseudo-cyst. Will not reimage her. I believe this is another acute exacerbation of her chronic pancreatitis. Will plan to admit. Time: 17:04 - Consultations Consultation #1: Spoke with on-call hospitalist mitchell Nettles to admit for acute on chronic pancreatitis. No further orders at this time Time: 18:07 Vital Signs Temperature 98.0 F 08/14/16 14:29 Pulse Rate 105 08/14/16 14:29 Respiratory Rate 16 08/14/16 14:29 Blood Pressure 155/90 08/14/16 14:29 O2 Sat by Pulse Oximetry 98 08/14/16 14:29 Temperature 98.0 F 08/14/16 14:29 Pulse Rate 73 08/14/16 17:41 Respiratory Rate 18 08/14/16 19:15 Blood Pressure 146/76 08/14/16 19:15 O2 Sat by Pulse Oximetry 98 08/14/16 17:41 Oxygen Delivery Oxygen Delivery Room Air Abdominal Pain - Medical Records Medical records reviewed: Yes I reviewed the patient's medical records. - Lab Data Lab results reviewed: Yes I reviewed the patient's lab results. Result diagrams: 08/14/16 15:30 08/14/16 15:30 Lab Results 08/14/16 08/14/16 Range/Units 15:30 15:30 WBC 6.8 (4.3-11.1) K/mcL RBC 4.03 (3.82-4.97) M/mcL Hgb 11.0 L (11.5-15.4) g/dL Hct 33.4 L (35.3-44.9) % MCV 82.9 L (83.0-100.0) fL MCH 27.3 L (28.0-33.3) pg MCHC 32.9 (31.6-35.5) g/dL RDW 13.6 (11.5-14.5) % Plt Count 240 (140-400) K/mcL MPV 9.8 (9.4-12.4) fL Immature Gran % 0.1 (0-4) % Seg Neutrophils % 62.2 % Lymphocytes % 31.7 % Monocytes % 4.7 % Eosinophils % 0.9 % Basophils % 0.4 % Neutrophils # 4.2 (1.6-8.9) K/mcL Lymphocytes # 2.2 (0.6-4.6) K/mcL Monocytes # 0.3 (0.0-1.3) K/mcL Eosinophils # 0.1 (0.0-0.6) K/mcL Basophils # 0.0 (0.0-0.2) K/mcL Sodium 139 (136-145) mEq/L Potassium 4.2 (3.5-4.5) mEq/L Chloride 107 (98-109) mEq/L Carbon Dioxide 23 (19-29) mEq/L BUN 15 (7-20) mg/dL Creatinine 0.80 (0.57-1.11) mg/dL Est GFR ( Amer) > 60 (> 60) Est GFR (Non-Af Amer) > 60 (> 60) BUN/Creatinine Ratio 19 (6-26) Glucose 154 H (70-99) mg/dL Calculated Osmolality 292 (280-300) Calcium 9.5 (8.6-10.8) mg/dL Total Bilirubin 0.1 L (0.2-1.2) mg/dL Direct Bilirubin 0.1 (0.0-0.5) mg/dL Indirect Bilirubin 0.0 (0.0-1.2) mg/dL AST 14 (5-34) Units/L ALT 17 (0-55) Units/L Alkaline Phosphatase 84 (38-126) Units/L Serum Total Protein 7.2 (6.0-8.3) g/dL Albumin 3.7 (3.5-5.0) g/dL Globulin 3.5 (2.4-3.5) g/dL Albumin/Globulin Ratio 1.1 (1.1-2.2) Lipase 516 H (8-78) Units/L Attestation Statement - Attestation Attestation: I examined this patient and my medical decision-making was reviewed with the Resident Physician. I agree with the documented findings, disposition and treatment plan as described except to the extent set forth below. Long h/o chronic pancreatitis, sx exactly replicate prior episodes, nothing different. Epigastric pain, N/V, no sx of GIB, no fever or other sx. VSS, abdomen soft with epigastric tenderness, no guarding. Agree w analgesics, hydration; will re-evaluate.
[2016-08-14 16:00] LABS: Basophils % 0.4 %; Eosinophils # 0.1 K/mcL (0.0-0.6); Eosinophils % 0.9 %; Hematocrit 33.4 % (35.3-44.9); Immature Granulocytes % 0.1 % (0-4); Lymphocytes # 2.2 K/mcL (0.6-4.6); Lymphocytes % 31.7 %; Mean Corpuscular HGB Conc 32.9 g/dL (31.6-35.5); Mean Corpuscular Hemoglobin 27.3 pg (28.0-33.3); Mean Corpuscular Volume 82.9 fL (83.0-100.0); Mean Platelet Volume 9.8 fL (9.4-12.4); Monocytes # 0.3 K/mcL (0.0-1.3); Monocytes % 4.7 %; Neutrophils # 4.2 K/mcL (1.6-8.9); Platelet Count 240 K/mcL (140-400); Red Blood Count 4.03 M/mcL (3.82-4.97); Red Cell Distribution Width 13.6 % (11.5-14.5); Segmented Neutrophils % 62.2 %
[2016-08-14 16:12] LABS: Alanine Aminotransferase 17 Units/L (0-55); Albumin 3.7 g/dL (3.5-5.0); Albumin/Globulin Ratio 1.1 (1.1-2.2); Alkaline Phosphatase 84 Units/L (38-126); Aspartate Amino Transferase 14 Units/L (5-34); BUN/Creatinine Ratio 19 (6-26); Bilirubin,Direct 0.1 mg/dL (0.0-0.5); Bilirubin,Total 0.1 mg/dL (0.2-1.2); Blood Urea Nitrogen 15 mg/dL (7-20); Calcium 9.5 mg/dL (8.6-10.8); Carbon Dioxide 23 mEq/L (19-29); Chloride 107 mEq/L (98-109); Glucose 154 mg/dL (70-99); Osmolality,Calculated 292 (280-300); Potassium 4.2 mEq/L (3.5-4.5); Sodium 139 mEq/L (136-145); Total Protein 7.2 g/dL (6.0-8.3); eGFR For African Americans > 60 (> 60); eGFR For Non-African Americans > 60 (> 60)
[2016-08-14 16:13] LABS: Globulin 3.5 g/dL (2.4-3.5); Lipase 516 Units/L (8-78)
[2016-08-14] MEDS ORDERED: Naloxone 0.4 MG/ML INJ IVP PRN (20:26)
[2016-08-14] MEDS ORDERED: 0.9 % Sodium Chloride 1,000 ML IVC SCH (20:30)
[2016-08-14] MEDS ORDERED: *HR* Dextrose 50 % in Water (Syg) 50 ML SYRINGE IVP PRN (21:42)
[2016-08-14] MEDS ORDERED: Dextrose Gel 15 GM PO PRN ×2 (21:42)
[2016-08-14] MEDS ORDERED: D5% in Water 1,000 ML IVC PRN (21:42)
--- NOTE | 2016-08-14 21:48 | Internal Med History&Physical ---
Date of Encounter: 08/14/16 Time of Encounter: 21:48 Assessment and Plan (1) Acute on chronic pancreatitis Current visit: No Status: Acute Patient has a history of chronic hepatitis. Recurrent abdominal pain worsening with eating elevated lipase of 4 acute on chronic pancreatitis. Patient to surgeon at [facility] laser surgery for chronic pancreatitis. We will have her follow- up as an outpatient 2. After midnight patient will have MRCP in a.m. 3 encouraged patient to stop smoking-Nicotine patch 4 IV fluids continue with pain medication IV opioid monitor closely 5 Zofran for nausea (2) Diabetes mellitus Current visit: No Status: Chronic 1 patient is presently nothing by mouth Accu-Cheks every 6 hours with sliding scale insulin Qualifiers: Diabetes mellitus type: type 2 Diabetes mellitus complication status: without complication Diabetes mellitus long-term insulin use: without long-term use Qualified Code(s): E11.9 - Type 2 diabetes mellitus without complications (3) Essential hypertension Current visit: No Status: Chronic 1 presently controlled we will continue home medications (4) COPD (chronic obstructive pulmonary disease) Current visit: No Status: Chronic 1 no exacerbation at this time continue with bronchodilators and oxygen as needed Qualifiers: COPD type: unspecified COPD Qualified Code(s): J44.9 - Chronic obstructive pulmonary disease, unspecified (5) Tobacco abuse Current visit: No Status: Chronic 1 encouraged patient to stop smoking-nicotine patch (6) DVT prophylaxis Current visit: No Status: Acute 1 JAZ messer Internal Medicine - H&P: HPI Chief complaint: abd pain Admitted From: Emergency Dept Plans for Post Hospital Care: Home History of present illness: Ms. Wright is a 61 year old female past medical history of diabetes hypertension chronic smoker chronic pancreatitis. Patient has a history of chronic pancreatitis recurrent abdominal pain. She was recently admitted to this facility on 08/02/16 for acute on chronic pancreatitis. She has had multiple hospital admissions including at [facility]. She does have a surgeon at [facility] in consultation to have a cyst from tail of pancreas removed however she has not made that appointment yet and was advised to quit smoking before they can proceed with any surgery which she has not been able to do. Last night while going to bed she experienced cramping sensation epigastric region that radiated to her back. This morning she attempted to eat and was nauseated and began to vomit. She has not been able to eat or drink and continues to have nausea and abdominal pain. She denies any recent illness fevers chills, shortness of breath or chest pain. She does have chronic diarrhea but denies any blood or black tarry stools. She denies any alcohol use she is half a pack a day smoker. She was seen in the emergency department where lab work did reveal elevated lipase, rest of the lab work was unremarkable she was admitted for further workup and evaluation presently the patient complains of epigastric pain she does not appear to be any respiratory distress she denies any chest pain her lung sounds are clear heart sounds are regular S1 and S2 with no rubs Radha murmurs noted her abdomen is soft tender to palpation with guarding to epigastric area. Presently she is hemodynamically stable I reviewed this case with who agrees with plan. Past Med Surg Social Fam HX - Past Medical History Medical history: COPD, diabetes, GERD, hyperlipidemia, hypertension, other Psychiatric history: depression - Past Surgical History Surgical History: cholecystectomy, hysterectomy, other - Social History Smoking Status: Current every day smoker Smokeless Tobacco Status: No Alcohol use: none Drug use: none - Family History Mother Living Status: Age at : 65 Cause of : unknown Hx Family Cardiac Disorders: Yes (Open heart surgery) Father Living Status: Age at : 62 Cause of : [place] Hx Family Cardiac Disorders: Yes ([place]) Hx Family Respiratory Disorders: No Hx Family Cancer: No Hx Family GI Disorders: Yes (Ulcers) Hx Family Endocrine Disorder: Yes (DM) Hx Family Neuromuscular Disorders: No Hx Family Neurologic Disorders: No Hx Family HEENT Disorders: No Hx Family Autoimmune Disorders: No Internal Medicine - H&P: Meds Aclidinium [place] [Tudorza Pressair] 400 mcg IH BID 04/15/16 [History] Gabapentin 600 mg PO TID 04/15/16 [History] Lisinopril [Zestril] 10 mg PO DAILY 04/15/16 [History] Omeprazole [PriLOSEC] 20 mg PO DAILY 04/15/16 [History] Sertraline [Zoloft] 100 mg PO HS 04/15/16 [History] metFORMIN [Glucophage] 1,000 mg PO BID 04/15/16 [History] traZODone [TraZODone] 100 mg PO HS 04/15/16 [History] Ondansetron ODT [Zofran ODT] 4 mg SL Q6H PRN 05/27/16 [History] Potassium Chloride [K-Tab ER] 20 meq PO DAILY #30 tablet.er 06/08/16 [Rx] Fish Oil/Dha/Epa [Fish Oil 1,200 mg Fish Oil] 2 cap PO DAILY 07/31/16 [History] Allergies Iodinated Contrast- Oral and IV Dye [Iodinated Contrast Media - Oral and] Allergy (Verified 07/25/16 10:21) Difficulty Breathing AND HIVES All Systems PM: A 10-system review of systems was performed and is negative for pertinent findings except as documented above in the HPI. - Constitutional Constitutional: no chills, no fever(s), no night sweats - EENT Eyes: no change in vision, no discharge, no pain, no photophobia Nose, mouth and throat: no dysphagia, no nasal discharge, no neck pain, no sore throat - Cardiovascular Cardiovascular ROS IM: no chest pain, no diaphoresis, no dyspnea, no lightheadedness, no palpitations, no syncope - Respiratory Respiratory: no cough, no dyspnea, no wheezing, no excessive phlegm production - Gastrointestinal Gastrointestinal: abdominal pain, nausea, vomiting - Genitourinary Genitourinary: no change in urinary stream, no dysuria, no flank pain, no hematuria - Musculoskeletal Musculoskeletal ROS IM: no numbness, no tingling - Integumentary Integumentary IM: no rash, no unusual bruising - Neurological Neurological ROS: no confusion, no convulsions, no focal weakness, no numbness, no tingling, no tremor(s) - Hematologic/Lymphatic Hematologic/Lymphatic: no easy bruising - Constitutional Vitals: Temp Pulse Resp BP Pulse Ox 98.1 F 71 14 139/83 96 08/14/16 21:04 08/14/16 21:04 08/14/16 21:04 08/14/16 21:04 08/14/16 21:04 General appearance: Present: A&O X 3, answers questions appropriately - Head Head exam: Present: atraumatic, normocephalic - Eye Eye exam: Present: PERRL, conjuntiva pink, sclera anicteric Pupils: Present: PERRL - Neck Neck exam general surgery: Present: supple, trachea midline. Absent: lymphadenopathy - Respiratory Respiratory exam: Present: CTAB. Absent: accessory muscle use, rales, rhonchi, wheezes - Cardiovascular Cardiovascular exam: Present: RRR, +S1, +S2. Absent: diastolic murmur, gallop, rubs, systolic murmur - GI/Abdominal GI/Abdominal exam: Present: guarding, normal bowel sounds, soft, tenderness, no peritoneal signs. Absent: distended - Extremities Exam Extremities exam: Present: warm, radial pulses palpable and symetrical. Absent : calf tenderness, cyanotic, pedal edema - Neurological Exam Neurological exam: Present: CN II-XII intact, oriented X3, no focal deficits. Absent: pronater drift, facial droop, speech deficit - Skin Skin exam: Present: dry, intact Internal Med - H&P Results - Labs CBC & Chem 7: 08/14/16 15:30 08/14/16 15:30
[2016-08-14] MEDS: *HR* HYDROmorphone (PF) 1 MG/ML SYRINGE IVP PRN (23:21)
[2016-08-15] MEDS: 0.9 % Sodium Chloride 1,000 ML IVC SCH ×5 (00:39→23:38)
[2016-08-15] MEDS ORDERED: *HR* HYDROmorphone (PF) 1 MG/ML SYRINGE IVP ONE (00:57)
[2016-08-15] MEDS: *HR* HYDROmorphone (PF) 1 MG/ML SYRINGE IVP PRN ×8 (03:59→23:40)
[2016-08-15] MEDS: Ondansetron 4 MG/2 ML VIAL IVP PRN ×2 (04:07→15:20)
[2016-08-15] MEDS: Insulin LISPRO 300 UNITS/3 ML VIAL SQ SCH ×4 (04:11→17:26)
[2016-08-15] MEDS: Nicotine 14 MG PATCH.TD24 TD SCH ×2 (04:12→08:13)
[2016-08-15 07:47] LABS: Basophils % 0.7 %; Eosinophils # 0.1 K/mcL (0.0-0.6); Eosinophils % 1.3 %; Hematocrit 32.5 % (35.3-44.9); Immature Granulocytes % 0.2 % (0-4); Lymphocytes # 2.3 K/mcL (0.6-4.6); Lymphocytes % 38.4 %; Mean Corpuscular HGB Conc 30.8 g/dL (31.6-35.5); Mean Corpuscular Hemoglobin 26.5 pg (28.0-33.3); Mean Corpuscular Volume 86.2 fL (83.0-100.0); Mean Platelet Volume 10.1 fL (9.4-12.4); Monocytes # 0.4 K/mcL (0.0-1.3); Monocytes % 5.9 %; Neutrophils # 3.2 K/mcL (1.6-8.9); Platelet Count 221 K/mcL (140-400); Red Blood Count 3.77 M/mcL (3.82-4.97); Red Cell Distribution Width 13.7 % (11.5-14.5); Segmented Neutrophils % 53.5 %
[2016-08-15 08:07] LABS: BUN/Creatinine Ratio 15 (6-26); Blood Urea Nitrogen 11 mg/dL (7-20); Calcium 8.5 mg/dL (8.6-10.8); Carbon Dioxide 26 mEq/L (19-29); Chloride 110 mEq/L (98-109); Glucose 109 mg/dL (70-99); Osmolality,Calculated 290 (280-300); Potassium 4.4 mEq/L (3.5-4.5); Sodium 140 mEq/L (136-145); eGFR For African Americans > 60 (> 60); eGFR For Non-African Americans > 60 (> 60)
[2016-08-15] MEDS: (Aclidinium Bromide [Tudorza Pressair] 400 MCG) IH SCH ×2 (08:13→23:27)
[2016-08-15] MEDS: Gabapentin 300 MG CAPSULE PO SCH ×3 (08:13→20:03)
--- NOTE | 2016-08-15 10:40 | Internal Med Progress Note ---
Date of Encounter: 08/15/16 Time of Encounter: 10:37 - Assessment and plan (1) Acute on chronic pancreatitis Current Visit: No Status: Acute Assessment and plan: unknown etiology with history of pseudocyst according to the patient NPO, IVF dilaudid IV MRCP today discontinue lisinopril (2) HTN (hypertension) Current Visit: Yes Status: Acute Assessment and plan: discontinue lisinopril as it can cause pancreatitis start hydralazine IV Qualifiers: Hypertension type: essential hypertension Qualified Code(s): I10 - Essential (primary) hypertension (3) Diabetes mellitus Current Visit: No Status: Chronic Assessment and plan: sliding scale hold metformin Qualifiers: Diabetes mellitus type: type 2 Diabetes mellitus complication status: without complication Diabetes mellitus fci insulin use: without fci use Qualified Code(s): E11.9 - Type 2 diabetes mellitus without complications (4) Anxiety Current Visit: No Status: Chronic Assessment and plan: continue Zoloft - Time Spent With Patient Greater than 35 minutes - Subjective Interval history: the patient is complaining of constant pain on her epigastric area, 10/10, nausea, no vomiting, no fever, no CP or SOB, no dysuria - Constitutional Vitals: Temp Pulse Resp BP Pulse Ox 98.2 F 82 15 149/78 97 08/15/16 07:22 08/15/16 07:22 08/15/16 07:22 08/15/16 07:22 08/15/16 07:22 General appearance: Present: A&O X 3, answers questions appropriately - Head Head exam: Present: atraumatic, normocephalic - Eye Eye exam: Present: PERRL, conjuntiva pink, sclera anicteric Pupils: Present: PERRL - Neck Neck exam general surgery: Present: supple, trachea midline. Absent: lymphadenopathy - Respiratory Respiratory exam: Present: CTAB. Absent: accessory muscle use, rales, rhonchi, wheezes - Cardiovascular Cardiovascular exam: Present: RRR, +S1, +S2. Absent: diastolic murmur, gallop, rubs, systolic murmur - GI/Abdominal GI/Abdominal exam: Present: normal bowel sounds, soft, tenderness (epigatric tenderness), no peritoneal signs. Absent: distended - Extremities Exam Extremities exam: Present: warm, radial pulses palpable and symetrical. Absent : calf tenderness, cyanotic, pedal edema - Neurological Exam Neurological exam: Present: CN II-XII intact, oriented X3, no focal deficits. Absent: pronater drift, facial droop, speech deficit - Skin Skin exam: Present: dry, intact Internal Medicine: Result - Labs CBC & Chem 7: 08/15/16 06:06 08/15/16 06:06 Labs: Short CBC 08/15/16 Range/Units 06:06 WBC 5.9 (4.3-11.1) K/mcL Hgb 10.0 L (11.5-15.4) g/dL Hct 32.5 L (35.3-44.9) % Plt Count 221 (140-400) K/mcL Neutrophils # 3.2 (1.6-8.9) K/mcL BMP 08/15/16 06:06 Sodium 140 Potassium 4.4 Chloride 110 H Carbon Dioxide 26 BUN 11 Creatinine 0.72 Glucose 109 H Calcium 8.5 L Consult Discharge Plan - Plan Referrals: NO,PCP [Primary Care Provider] -
[2016-08-15] MEDS ORDERED: 0.9 % Sodium Chloride 1,000 ML ONE (11:14)
[2016-08-15] MEDS: traZODone 50 MG TABLET PO SCH (20:04)
[2016-08-16] MEDS: Insulin LISPRO 300 UNITS/3 ML VIAL SQ SCH ×5 (00:41→23:56)
[2016-08-16] MEDS: Ondansetron 4 MG/2 ML VIAL IVP PRN ×3 (00:43→17:56)
[2016-08-16] MEDS: *HR* HYDROmorphone (PF) 1 MG/ML SYRINGE IVP PRN ×10 (02:52→23:55)
[2016-08-16] MEDS: 0.9 % Sodium Chloride 1,000 ML IVC SCH ×3 (05:26→19:54)
[2016-08-16] MEDS: Gabapentin 300 MG CAPSULE PO SCH ×3 (08:43→19:55)
[2016-08-16] MEDS: Nicotine 14 MG PATCH.TD24 TD SCH (08:43)
[2016-08-16] MEDS: (Aclidinium Bromide [Tudorza Pressair] 400 MCG) IH SCH ×2 (08:50→23:04)
--- NOTE | 2016-08-16 14:09 | Internal Med Progress Note ---
Date of Encounter: 08/16/16 Time of Encounter: 14:08 - Assessment and plan (1) Acute on chronic pancreatitis Current Visit: No Status: Acute Assessment and plan: unknown etiology with history of pseudocyst according to the patient NPO, IVF can start clear liquids after having MRCP or if she is not having it today. Also , if clear lquids are started, decrease IVF down to 100 cc/h dilaudid IV discontinued lisinopril (2) HTN (hypertension) Current Visit: Yes Status: Acute Assessment and plan: discontinue lisinopril as it can cause pancreatitis started hydralazine IV Qualifiers: Hypertension type: essential hypertension Qualified Code(s): I10 - Essential (primary) hypertension (3) Diabetes mellitus Current Visit: No Status: Chronic Assessment and plan: sliding scale hold metformin Qualifiers: Diabetes mellitus type: type 2 Diabetes mellitus complication status: without complication Diabetes mellitus alf insulin use: without intermodal customer service use Qualified Code(s): E11.9 - Type 2 diabetes mellitus without complications (4) Anxiety Current Visit: No Status: Chronic Assessment and plan: continue Zoloft - Subjective Interval history: bdominal pain has improved slightly, the patient is complaining of constant pain on her epigastric area, 8/10, nausea, no vomiting, no fever, no CP or SOB, no dysuria - Constitutional Vitals: Temp Pulse Resp BP Pulse Ox 98.7 F 86 17 113/65 97 08/16/16 10:57 08/16/16 10:57 08/16/16 10:57 08/16/16 10:57 08/16/16 13:21 General appearance: Present: A&O X 3, answers questions appropriately - Head Head exam: Present: atraumatic, normocephalic - Eye Eye exam: Present: PERRL, conjuntiva pink, sclera anicteric Pupils: Present: PERRL - Neck Neck exam general surgery: Present: supple, trachea midline. Absent: lymphadenopathy - Respiratory Respiratory exam: Present: CTAB. Absent: accessory muscle use, rales, rhonchi, wheezes - Cardiovascular Cardiovascular exam: Present: RRR, +S1, +S2. Absent: diastolic murmur, gallop, rubs, systolic murmur - GI/Abdominal GI/Abdominal exam: Present: diminished bowel sounds, normal bowel sounds, soft, tenderness (mild epigastric tenderness, no rebound), no peritoneal signs. Absent: distended - Extremities Exam Extremities exam: Present: warm, radial pulses palpable and symetrical. Absent : calf tenderness, cyanotic, pedal edema - Neurological Exam Neurological exam: Present: CN II-XII intact, oriented X3, no focal deficits. Absent: pronater drift, facial droop, speech deficit - Skin Skin exam: Present: dry, intact Internal Medicine: Result - Labs CBC & Chem 7: 08/15/16 06:06 08/15/16 06:06 - VTE Documentation of Mechanical Device: Graduated compression elastic hosiery Consult Discharge Plan - Plan Referrals: NO,PCP [Primary Care Provider] -
[2016-08-16] MEDS: traZODone 50 MG TABLET PO SCH (19:55)
[2016-08-17] MEDS: 0.9 % Sodium Chloride 1,000 ML IVC SCH ×4 (02:21→17:18)
[2016-08-17] MEDS: *HR* HYDROmorphone (PF) 1 MG/ML SYRINGE IVP PRN ×10 (02:22→23:52)
[2016-08-17] MEDS: Gabapentin 300 MG CAPSULE PO SCH ×3 (08:14→20:54)
[2016-08-17] MEDS: Nicotine 14 MG PATCH.TD24 TD SCH (08:14)
[2016-08-17] MEDS: Insulin LISPRO 300 UNITS/3 ML VIAL SQ SCH ×4 (08:29→20:54)
[2016-08-17] MEDS: (Aclidinium Bromide [Tudorza Pressair] 400 MCG) IH SCH (08:30)
--- NOTE | 2016-08-17 09:06 | Internal Med Progress Note ---
Date of Encounter: 08/17/16 Time of Encounter: 08:51 - Assessment and plan (1) Acute on chronic pancreatitis Current Visit: No Status: Acute Assessment and plan: unknown etiology with history of pseudocyst according to the patient started clear liquids, IVF MRCP showed pancreas divisum, smaller cystic lesions likely related to chronic pancreatitis, postsurgical changes from cholecystectomy with mild intrahepatic biliary dilatation decreased IVF down to 100 cc/h dilaudid IV discontinued lisinopril (2) HTN (hypertension) Current Visit: Yes Status: Acute Assessment and plan: discontinue lisinopril as it can cause pancreatitis started hydralazine IV Qualifiers: Hypertension type: essential hypertension Qualified Code(s): I10 - Essential (primary) hypertension (3) Diabetes mellitus Current Visit: No Status: Chronic Assessment and plan: sliding scale hold metformin Qualifiers: Diabetes mellitus type: type 2 Diabetes mellitus complication status: without complication Diabetes mellitus 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 insulin use: without mcc use Qualified Code(s): E11.9 - Type 2 diabetes mellitus without complications (4) Anxiety Current Visit: No Status: Chronic Assessment and plan: continue Zoloft - Subjective Interval history: Her abdominal pain has improved slightly, the patient is complaining of constant pain on her epigastric area, 7/10, nausea, no vomiting, no fever, no CP or SOB, no dysuria - Constitutional Vitals: Temp Pulse Resp BP Pulse Ox 98.6 F 79 14 131/64 97 08/17/16 07:18 08/17/16 07:18 08/17/16 07:18 08/17/16 07:18 08/17/16 07:18 General appearance: Present: A&O X 3, answers questions appropriately - Head Head exam: Present: atraumatic, normocephalic - Eye Eye exam: Present: PERRL, conjuntiva pink, sclera anicteric Pupils: Present: PERRL - Neck Neck exam general surgery: Present: supple, trachea midline. Absent: lymphadenopathy - Respiratory Respiratory exam: Present: CTAB. Absent: accessory muscle use, rales, rhonchi, wheezes - Cardiovascular Cardiovascular exam: Present: RRR, +S1, +S2. Absent: diastolic murmur, gallop, rubs, systolic murmur - GI/Abdominal GI/Abdominal exam: Present: normal bowel sounds, soft, tenderness (epigastric), no peritoneal signs. Absent: distended - Extremities Exam Extremities exam: Present: warm, radial pulses palpable and symetrical. Absent : calf tenderness, cyanotic, pedal edema - Neurological Exam Neurological exam: Present: CN II-XII intact, oriented X3, no focal deficits. Absent: pronater drift, facial droop, speech deficit - Skin Skin exam: Present: dry, intact Internal Medicine: Result - Labs CBC & Chem 7: 08/15/16 06:06 08/15/16 06:06 - Impressions Impressions Abdomen MRI 08/16/16 21:44 IMPRESSION: Pancreas divisum. No findings to suggest acute pancreatitis. Slight irregularity of the pancreatic duct in the tail with prominence of side branches in tiny 3 mm or less cystic lesions. Findings likely related to sequela of chronic pancreatitis or represent tiny side-branch IPMNs. Postsurgical changes from cholecystectomy. Mild intrahepatic biliary dilatation, likely related to previous cholecystectomy. No choledocholithiasis. D/ / Lidia Hernandez MD / Lidia Hernandez MD Interpreting Provider: Lidia Hernandez MD - VTE Documentation of Mechanical Device: Graduated compression elastic hosiery Consult Discharge Plan - Plan Referrals: NO,PCP [Primary Care Provider] -
[2016-08-17] MEDS: Ondansetron 4 MG/2 ML VIAL IVP PRN ×2 (12:26→21:24)
[2016-08-17] MEDS: traZODone 50 MG TABLET PO SCH (20:53)
[2016-08-18] MEDS: 0.9 % Sodium Chloride 1,000 ML IVC SCH ×3 (03:29→23:02)
[2016-08-18] MEDS: *HR* HYDROmorphone (PF) 1 MG/ML SYRINGE IVP PRN ×10 (03:30→22:59)
[2016-08-18 05:54] LABS: Hematocrit 30.2 % (35.3-44.9); Hemoglobin 9.7 g/dL (11.5-15.4); Mean Corpuscular HGB Conc 32.1 g/dL (31.6-35.5); Mean Corpuscular Hemoglobin 27.4 pg (28.0-33.3); Mean Corpuscular Volume 85.3 fL (83.0-100.0); Mean Platelet Volume 9.8 fL (9.4-12.4); Platelet Count 188 K/mcL (140-400); Red Blood Count 3.54 M/mcL (3.82-4.97); Red Cell Distribution Width 13.6 % (11.5-14.5)
[2016-08-18 06:07] LABS: BUN/Creatinine Ratio 5 (6-26); Calcium 8.5 mg/dL (8.6-10.8); Carbon Dioxide 26 mEq/L (19-29); Chloride 109 mEq/L (98-109); Glucose 134 mg/dL (70-99); Osmolality,Calculated 291 (280-300); Potassium 3.5 mEq/L (3.5-4.5); Sodium 141 mEq/L (136-145); eGFR For African Americans > 60 (> 60); eGFR For Non-African Americans > 60 (> 60)
[2016-08-18 06:08] LABS: Blood Urea Nitrogen 4 mg/dL (7-20)
[2016-08-18] MEDS: Insulin LISPRO 300 UNITS/3 ML VIAL SQ SCH ×4 (08:12→21:46)
[2016-08-18] MEDS: Nicotine 14 MG PATCH.TD24 TD SCH (08:48)
[2016-08-18] MEDS: Gabapentin 300 MG CAPSULE PO SCH ×3 (08:48→20:51)
[2016-08-18] MEDS: Ondansetron 4 MG/2 ML VIAL IVP PRN ×2 (09:33→18:52)
--- NOTE | 2016-08-18 13:02 | Internal Med Progress Note ---
Date of Encounter: 08/18/16 Time of Encounter: 13:02 - Assessment and plan (1) Acute on chronic pancreatitis Current Visit: No Status: Acute Assessment and plan: unknown etiology with history of pseudocyst according to the patient Advance to full liquids, IVF MRCP showed pancreas divisum, smaller cystic lesions likely related to chronic pancreatitis, postsurgical changes from cholecystectomy with mild intrahepatic biliary dilatation decreased IVF down to 100 cc/h dilaudid IV discontinued lisinopril (2) HTN (hypertension) Current Visit: Yes Status: Acute Assessment and plan: discontinue lisinopril as it can cause pancreatitis started hydralazine IV Qualifiers: Hypertension type: essential hypertension Qualified Code(s): I10 - Essential (primary) hypertension (3) Diabetes mellitus Current Visit: No Status: Chronic Assessment and plan: sliding scale hold metformin Qualifiers: Diabetes mellitus type: type 2 Diabetes mellitus complication status: without complication Diabetes mellitus snf insulin use: without manager terminal use Qualified Code(s): E11.9 - Type 2 diabetes mellitus without complications (4) Anxiety Current Visit: No Status: Chronic Assessment and plan: continue Zoloft (5) Fever Current Visit: Yes Status: Acute Assessment and plan: Unclear etiology Send a UA Qualifiers: Fever type: unspecified Qualified Code(s): R50.9 - Fever, unspecified - Subjective Interval history: Her abdominal pain remains, the patient is complaining of constant pain on her epigastric area, 7/10, nausea, no vomiting, no CP or SOB, no dysuria. Had a fever of 100.2 earlier this morning at 5 AM - Constitutional Vitals: Temp Pulse Resp BP Pulse Ox 98 F 79 16 108/65 96 08/18/16 11:01 08/18/16 11:01 08/18/16 11:01 08/18/16 11:01 08/18/16 11:01 General appearance: Present: A&O X 3, answers questions appropriately - Head Head exam: Present: atraumatic, normocephalic - Eye Eye exam: Present: PERRL, conjuntiva pink, sclera anicteric Pupils: Present: PERRL - Neck Neck exam general surgery: Present: supple, trachea midline. Absent: lymphadenopathy - Respiratory Respiratory exam: Present: CTAB. Absent: accessory muscle use, rales, rhonchi, wheezes - Cardiovascular Cardiovascular exam: Present: RRR, +S1, +S2. Absent: diastolic murmur, gallop, rubs, systolic murmur - GI/Abdominal GI/Abdominal exam: Present: distended (Bloated), normal bowel sounds, soft, tenderness (Epigastric tenderness), no peritoneal signs - Extremities Exam Extremities exam: Present: warm, radial pulses palpable and symetrical. Absent : calf tenderness, cyanotic, pedal edema - Neurological Exam Neurological exam: Present: CN II-XII intact, oriented X3, no focal deficits. Absent: pronater drift, facial droop, speech deficit - Skin Skin exam: Present: dry, intact Internal Medicine: Result - Labs CBC & Chem 7: 08/18/16 05:14 08/18/16 05:14 Labs: Short CBC 08/18/16 Range/Units 05:14 WBC 5.4 (4.3-11.1) K/mcL Hgb 9.7 L (11.5-15.4) g/dL Hct 30.2 L (35.3-44.9) % Plt Count 188 (140-400) K/mcL [facility] 08/18/16 05:14 Sodium 141 Potassium 3.5 Chloride 109 Carbon Dioxide 26 BUN 4 L Creatinine 0.76 Glucose 134 H Calcium 8.5 L - VTE Documentation of Mechanical Device: Graduated compression elastic hosiery Consult Discharge Plan - Plan Referrals: NO,PCP [Primary Care Provider] -
[2016-08-18] MEDS: traZODone 50 MG TABLET PO SCH (20:50)
[2016-08-19] MEDS: *HR* HYDROmorphone (PF) 1 MG/ML SYRINGE IVP PRN ×5 (01:18→12:24)
[2016-08-19] MEDS ORDERED: *HR* OxyCODONE/APAP 7.5/325 TABLET PO PRN (05:31)
[2016-08-19] MEDS: Ondansetron 4 MG/2 ML VIAL IVP PRN (07:54)
[2016-08-19] MEDS: Insulin LISPRO 300 UNITS/3 ML VIAL SQ SCH ×2 (07:58→11:30)
--- NOTE | 2016-08-19 08:31 | Discharge Summary ---
Date of Encounter: 08/19/16 Time of Encounter: 08:30 - Discharge Diagnosis (1) Acute on chronic pancreatitis Priority: Primary Status: Acute Comments: unknown etiology with history of pseudocyst according to the patient discontinued lisinopril as it can cause pancreatitis MRCP showed pancreas divisum, smaller cystic lesions likely related to chronic pancreatitis, postsurgical changes from cholecystectomy with mild intrahepatic biliary dilatation (2) HTN (hypertension) Priority: Secondary Status: Acute Comments: Discontinue lisinopril, started amlodipine 5 mg daily Qualifiers: Hypertension type: essential hypertension Qualified Code(s): I10 - Essential (primary) hypertension (3) Diabetes mellitus Priority: Secondary Status: Chronic Qualifiers: Diabetes mellitus type: type 2 Diabetes mellitus complication status: without complication Diabetes mellitus terminal worker insulin use: without terminal worker use Qualified Code(s): E11.9 - Type 2 diabetes mellitus without complications (4) Anxiety Priority: Secondary Status: Chronic (5) Fever Priority: Secondary Status: Acute Comments: One episode of fever 100.2, probably related to pancreatitis, no signs of infection Qualifiers: Fever type: unspecified Qualified Code(s): R50.9 - Fever, unspecified - Discharge Medications Prescriptions: OxyCODONE/APAP 7.5/325 [Percocet 7.5/325 MG] 1 each PO Q6HR PRN #25 tablet PRN Reason: Pain amLODIPine [Norvasc] 5 mg PO DAILY #30 tablet Home Medications: Aclidinium Bim [Tudorza Pressair] 400 mcg IH BID 04/15/16 [History] Gabapentin 600 mg PO TID 04/15/16 [History] Omeprazole [PriLOSEC] 20 mg PO DAILY 04/15/16 [History] Sertraline [Zoloft] 100 mg PO HS 04/15/16 [History] metFORMIN [Glucophage] 1,000 mg PO BID 04/15/16 [History] traZODone [TraZODone] 100 mg PO HS 04/15/16 [History] Ondansetron ODT [Zofran ODT] 4 mg SL Q6H PRN 05/27/16 [History] Potassium Chloride [K-Tab ER] 20 meq PO DAILY #30 tablet.er 06/08/16 [Rx] Fish Oil/Dha/Epa [Fish Oil 1,200 mg Fish Oil] 2 cap PO DAILY 07/31/16 [History] OxyCODONE/APAP 7.5/325 [Percocet 7.5/325 MG] 1 each PO Q6HR PRN #25 tablet 08/19 [Rx] amLODIPine [Norvasc] 5 mg PO DAILY #30 tablet 08/19/16 [Rx] Allergies/Adverse Reactions: Allergies Iodinated Contrast- Oral and IV Dye [Iodinated Contrast Media - Oral and] Allergy (Verified 07/25/16 10:21) Difficulty Breathing AND HIVES Date of admission: 08/15/16 02:21 Primary care physician: PCP NO - Patient Status Disposition: Home, Self-Care Condition: Good Overall status at discharge: patient is progressing back to baseline - Discharge Instructions Follow Up With: NO,PCP [Primary Care Provider] - Additional Instructions: Follow with primary care physician within the next 7 days. Stop lisinopril, start amlodipine for blood pressure. Continue with low-fat low lactose diet. Quit smoking. - Diet and Activity Activity: increase activity as tolerated Diet: low fat, low cholesterol Hospital course: Ms. Wright is a 61 year old female with a past medical history of diabetes not insulin-dependent, hypertension, chronic smoker, chronic pancreatitis. Patient has a history of chronic pancreatitis with recurrent abdominal pain. She was recently admitted to this facility on 08/02/16 for acute on chronic pancreatitis. She has had multiple hospital admissions including at [facility]. She does have a surgeon at [facility] in consultation to have a cyst from tail of pancreas removed however she has not made that appointment yet and was advised to quit smoking before they can proceed with any surgery which she has not been able to do. She was not been able to eat or drink and continued to have nausea and abdominal pain. She denied any recent illness fevers chills, shortness of breath or chest pain. She does have chronic diarrhea but denied any blood or black tarry stools. She denied any alcohol use she is half a pack a day smoker. She was seen in the emergency department where lab work did reveal elevated lipase more than 500, rest of the lab work was unremarkable . Was diagnosed with acute on chronic pancreatitis of unknown etiology with history of pseudocyst according to the patient discontinued lisinopril as it can cause pancreatitis MRCP showed pancreas divisum, smaller cystic lesions likely related to chronic pancreatitis, postsurgical changes from cholecystectomy with mild intrahepatic biliary dilatation The patient started feeling better, although she complains still of some abdominal pain, it has improved and is now tolerating her diet. She was given the option to stay another day but prefers to be discharged later today. Time spent discussing smoking cessation with patient: 3 to 10 minutes - Time Spent with Patient Total time spent providing and/or coordinating discharge services: Greater than 30 minutes (40 min) - Constitutional Vitals: Temp Pulse Resp BP Pulse Ox 98.8 F 84 18 150/75 95 08/19/16 07:10 08/19/16 07:10 08/19/16 07:10 08/19/16 07:10 08/19/16 07:10 General appearance: Present: A&O X 3, answers questions appropriately - Head Head exam: Present: atraumatic, normocephalic - Eye Eye exam: Present: PERRL, conjuntiva pink, sclera anicteric Pupils: Present: PERRL - Neck Neck exam general surgery: Present: supple, trachea midline. Absent: lymphadenopathy - Respiratory Respiratory exam: Present: CTAB. Absent: accessory muscle use, rales, rhonchi, wheezes - Cardiovascular Cardiovascular exam: Present: RRR, +S1, +S2. Absent: diastolic murmur, gallop, rubs, systolic murmur - GI/Abdominal GI/Abdominal exam: Present: normal bowel sounds, soft, tenderness (Mild epigastric tenderness, no rebound), no peritoneal signs. Absent: distended - Extremities Exam Extremities exam: Present: warm, radial pulses palpable and symetrical. Absent : calf tenderness, cyanotic, pedal edema - Neurological Exam Neurological exam: Present: CN II-XII intact, oriented X3, no focal deficits. Absent: pronater drift, facial droop, speech deficit - Skin Skin exam: Present: dry, intact - VTE Documentation of Mechanical Device: Graduated compression elastic hosiery
[2016-08-19] MEDS ORDERED: amLODIPine 5 MG TABLET PO SCH (09:00)
[2016-08-19] MEDS: Gabapentin 300 MG CAPSULE PO SCH (09:03)
[2016-08-19] MEDS: Nicotine 14 MG PATCH.TD24 TD SCH (09:05)
[2016-08-19] MEDS: 0.9 % Sodium Chloride 1,000 ML IVC SCH (10:23)
[2016-08-19 11:20] VITALS: BP 116/94
== END 2016-08-19 15:00 | disposition home or self-care (01) | DRG 439 ==
LOC: EMEROO 14:26 → 3ANU 14:26 → SUATTDRO 08-15 02:21
PROVIDERS: ADMIT Nurse Practitioner Family; ATTEND Internal Medicine

== ENCOUNTER 2016-09-01 17:20 | Observation (INO) ==
[2016-09-01 19:39] LABS: Basophils % 0.5 %; Eosinophils # 0.1 K/mcL (0.0-0.6); Eosinophils % 1.2 %; Hemoglobin 11.7 g/dL (11.5-15.4); Immature Granulocytes % 0.3 % (0-4); Lymphocytes # 3.1 K/mcL (0.6-4.6); Lymphocytes % 41.7 %; Mean Corpuscular HGB Conc 31.6 g/dL (31.6-35.5); Mean Corpuscular Hemoglobin 26.6 pg (28.0-33.3); Mean Corpuscular Volume 84.1 fL (83.0-100.0); Mean Platelet Volume 9.5 fL (9.4-12.4); Monocytes # 0.3 K/mcL (0.0-1.3); Monocytes % 4.3 %; Neutrophils # 3.8 K/mcL (1.6-8.9); Platelet Count 268 K/mcL (140-400); Red Cell Distribution Width 13.5 % (11.5-14.5)
[2016-09-01 19:53] LABS: Alanine Aminotransferase 16 Units/L (0-55); Albumin 4.3 g/dL (3.5-5.0); Albumin/Globulin Ratio 1.1 (1.1-2.2); Alkaline Phosphatase 98 Units/L (38-126); Aspartate Amino Transferase 18 Units/L (5-34); BUN/Creatinine Ratio 13 (6-26); Bilirubin,Direct 0.1 mg/dL (0.0-0.5); Bilirubin,Indirect 0.1 mg/dL (0.0-1.2); Bilirubin,Total 0.2 mg/dL (0.2-1.2); Blood Urea Nitrogen 11 mg/dL (7-20); Carbon Dioxide 28 mEq/L (19-29); Chloride 101 mEq/L (98-109); Globulin 3.9 g/dL (2.4-3.5); Glucose 97 mg/dL (70-99); Lipase 114 Units/L (8-78); Osmolality,Calculated 285 (280-300); Potassium 4.5 mEq/L (3.5-4.5); Sodium 138 mEq/L (136-145); Total Protein 8.2 g/dL (6.0-8.3); eGFR For African Americans > 60 (> 60); eGFR For Non-African Americans > 60 (> 60)
[2016-09-01] MEDS ORDERED: Ketorolac 15 MG/ML VIAL IVP ONE (20:40)
[2016-09-01] MEDS ORDERED: Ondansetron 4 MG/2 ML VIAL IVP ONE (20:40)
[2016-09-01] MEDS ORDERED: 0.9 % Sodium Chloride 1,000 ML IVC ONE (20:40)
[2016-09-01] MEDS ORDERED: Hyoscyamine 0.5 MG/ML MLS IVP ONE (21:34)
--- NOTE | 2016-09-01 23:06 | Emergency Department Note ---
Disposition Clinical Impression: Abdominal pain Qualifiers: Abdominal location: unspecified location Qualified Code(s): R10.9 - Unspecified abdominal pain Pancreatitis, chronic Qualifiers: Pancreatitis type: unspecified pancreatitis type Qualified Code(s): K86.1 - Other chronic pancreatitis Disposition: Admitted As Inpatient Condition: Good Referrals: Rebecca Licea CNP [Primary Care Provider] - Forms: Work/School Release, ED Satisfaction Letter Time of Disposition: 23:28 Abdominal Pain HPI - General Chief Complaint: ED Abdominal Pain Stated Complaint: Pancretitis (chronic) Time Seen by Provider: 09/01/16 20:31 Source: patient Mode of arrival: ambulatory Limitations: no limitations Nursing Notes Reviewed: Yes Vital Signs Reviewed: Yes - History of Present Illness HPI Narrative: Patient presents emergency room with complaint of acute on chronic pancreatitis. She has a symptoms every week. She has known pancreatitis according to her. She has been seen multiple times for status post to be evaluated at [facility] patient denies any fevers chills nausea vomiting diarrhea and chest pain shortness of breath headache or vision change. No other new symptoms at this time. She has not been able to eat anything today and came in for evaluation Pt Subjective Complaint: abdominal pain Onset (ago): day(s) Consistency: constant Location: epigastric Pain Severity: severe Pain Scale: 9 Quality: cramping, stabbing Radiation: none Migration to: no migration Improves with: nothing Worsens with: nothing Associated symptoms: Reports: denies other symptoms Treatments prior to arrival: none - Related Data Home Medications Medication Instructions Recorded Confirmed Aclidinium [place] [Tudorza 400 mcg IH BID PRN 04/15/16 09/01/16 Pressair] Gabapentin 600 mg PO TID 04/15/16 09/01/16 Omeprazole [PriLOSEC] 20 mg PO DAILY 04/15/16 09/01/16 metFORMIN [Glucophage] 1,000 mg PO BID 04/15/16 09/01/16 Ondansetron ODT [Zofran ODT] 4 mg SL Q6H PRN 05/27/16 09/01/16 Amlodipine Besylate 10 mg PO DAILY 09/01/16 09/01/16 Trazodone HCl 100 mg PO HS 09/01/16 09/01/16 Venlafaxine HCl [Effexor Xr] 75 mg PO DAILY 09/01/16 09/01/16 Allergies Allergy/AdvReac Type Severity Reaction Status Date / Time Iodinated Contrast- Oral and Allergy Difficulty Verified 09/01/16 18:05 IV Dye Breathing [Iodinated Contrast Media - Oral and] All systems ED: reviewed and negative except as stated. Constitutional: Denies: fever, chills, weakness Cardiovascular: Denies: chest pain, palpitations, dyspnea on exertion, orthopnea Respiratory: Denies: cough, dyspnea, wheezes Gastrointestinal: Reports: abdominal pain. Denies: nausea, vomiting, diarrhea Genitourinary: Denies: urgency, dysuria, frequency Musculoskeletal: Denies: back pain, neck pain Neurological: Denies: headache Psychiatric: Denies: anxiety Abdominal Pain PMH - Past Medical History Medical history: Reports: COPD, diabetes, GERD, hyperlipidemia, hypertension, other Female Surgical History: Reports: cholecystectomy, hysterectomy PARKING GARAGE MANAGER history: Reports: no PARKING GARAGE MANAGER history Psychiatric history: Reports: depression - Social History Smoking status: Current every day smoker Alcohol use: Reports: none Drug use: Reports: none Physical Exam - General Limitations: no limitations General appearance: alert - Head Head exam: atraumatic - Neck Neck exam: Present: normal inspection, full ROM, trachea midline - Chest Chest inspection: Present: normal inspection, symmetric chest wall rise - Respiratory Respiratory exam: Present: normal lung sounds bilaterally - Cardiovascular Cardiovascular exam: Present: regular rate, normal rhythm, normal heart sounds - Abdominal Exam Abdominal exam: Present: soft, tenderness, normal bowel sounds. Absent: distention, guarding, rebound, rigidity, Maki's sign, Rovsing's sign, tenderness at McBurney's Point - Extremities Exam Extremities exam: Present: normal inspection, full ROM, normal capillary refill. Absent: tenderness - Back Exam Back exam: Present: normal inspection - Neurological Exam Neurological exam: Present: alert, oriented X3, CN II-XII intact, normal gait - Skin Skin exam: Present: warm, dry, intact, normal color Course Course Narrative: Patient seen and examined the time of arrival. See history of present illness. 61-year-old female who is very well-known to this facility for pancreatitis presents here today for abdominal pain similar presentation. Patient is describing nausea vomiting that has been intermittent. She is here today for severe pain. She denies eating or drinking anything that they were not. She denies any trauma or injuries or new medications. Vital signs reviewed and are stable patient is afebrile and not tachycardic. Physical exam is benign lungs are clear heart is regular patient has epigastric pain that radiates across entire abdomen. There is no guarding no rigidity no peritoneal-like symptoms. Repeat laboratory workup as well as lipase ordered. Patient to be given fluids nausea medication and anti-inflammatory pain medication. I reviewed the patient 's previous admissions charts and she has had multiple scans with indeterminate findings. She has been scheduled and recommended the follow-up at [facility] to have intervention performed and she continues to not do so. Patient is concerning for possible abuse of the system at this time. I pulled an automated [place] prescription report at this time. She has a morphine equivalent of over 180. She has had multiple prescriptions from multiple different providers over the last several months. [place] 3 [place]. At this time I determine that I would not provide the patient with narcotics here but we will continue to use nonnarcotic pain medication fluids and keep her nothing by mouth. Patient was informed of this and she needs pain medication and help with the symptoms. I will provide her with fluids and repeat evaluation. Imaging is not warranted at this time. We will continue to monitor as lab work and evaluation are completed. - Reevaluation(s) Reevaluation #1: Lipase is 114. His fluctuated from normal up to 500 according to chart review. Otherwise her labs are all within normal limits and there is no signs of acute obstructive pathology. I discussed the findings with the patient and offered her to go home with anti-inflammatory medication and nausea medication. Patient says that she cannot go home she cannot drink or eat anything secondary to the pain. I offered her provider with Levsin as well as fluids and nausea medication to help with the symptoms at this time as well as admit her to the hospital for evaluation. Patient refused to have this medication because she knows it was a little work is some type of pain medication. I advised and discussed with her the long and lengthy narcotic prescription history that she has as well as multiple providers in multiple areas at the coming from. I discussed with her that my concern is is that she show signs of narcotic abuse or that we are not managing her condition appropriately. I advised that we need to try to do something different at this time we will continue with fluids anti-inflammatory medication and nausea medication and admit her for nothing by mouth status and hydration. She became upset and said that she was going to leave the emergency room. I discussed with her at length at the bedside while this probably would not be an effective way of managing this as she truly does have pancreatitis. She then refrained and understood and decided to be admitted without narcotic medication this time. Patient is clinically stable hospital since. Gen. detailed review the presentation symptoms was discussed with the on-call hospitalist Dr. drew. She understood the presentation and symptoms as well as the recommendation to not provide narcotics. He will complete the course of care here in the emergency room in the hospital setting. No other recommendations from them at this time. Patient is stable with normal vital signs at the time of admission. Time: 23:21 Vital Signs Temperature 98.6 F 09/01/16 18:04 Pulse Rate 108 09/01/16 18:04 Respiratory Rate 18 09/01/16 18:04 Blood Pressure 114/70 09/01/16 18:04 O2 Sat by Pulse Oximetry 97 09/01/16 18:04 Temperature 98.6 F 09/01/16 18:04 Pulse Rate 89 09/01/16 22:10 Respiratory Rate 16 09/01/16 22:42 Blood Pressure 133/76 09/01/16 22:42 O2 Sat by Pulse Oximetry 96 09/01/16 22:10 Oxygen Delivery Oxygen Delivery Room Air Abdominal Pain - MDM Narrative Medical decision making narrative: Abdominal pain, chronic pancreatitis, nausea - Medical Records Medical records reviewed: Yes I reviewed the patient's medical records. - Lab Data Lab results reviewed: Yes I reviewed the patient's lab results. Result diagrams: 09/01/16 19:30 09/01/16 19:30 Lab Results 09/01/16 09/01/16 Range/Units 19:30 19:30 WBC 7.4 (4.3-11.1) K/mcL RBC 4.40 (3.82-4.97) M/mcL Hgb 11.7 (11.5-15.4) g/dL Hct 37.0 (35.3-44.9) % MCV 84.1 (83.0-100.0) fL MCH 26.6 L (28.0-33.3) pg MCHC 31.6 (31.6-35.5) g/dL RDW 13.5 (11.5-14.5) % Plt Count 268 (140-400) K/mcL MPV 9.5 (9.4-12.4) fL Immature Gran % 0.3 (0-4) % Seg Neutrophils % 52.0 % Lymphocytes % 41.7 % Monocytes % 4.3 % Eosinophils % 1.2 % Basophils % 0.5 % Neutrophils # 3.8 (1.6-8.9) K/mcL Lymphocytes # 3.1 (0.6-4.6) K/mcL Monocytes # 0.3 (0.0-1.3) K/mcL Eosinophils # 0.1 (0.0-0.6) K/mcL Basophils # 0.0 (0.0-0.2) K/mcL Sodium 138 (136-145) mEq/L Potassium 4.5 (3.5-4.5) mEq/L Chloride 101 (98-109) mEq/L Carbon Dioxide 28 (19-29) mEq/L BUN 11 (7-20) mg/dL Creatinine 0.82 (0.57-1.11) mg/dL Est GFR ( Amer) > 60 (> 60) Est GFR (Non-Af Amer) > 60 (> 60) BUN/Creatinine Ratio 13 (6-26) Glucose 97 (70-99) mg/dL Calculated Osmolality 285 (280-300) Calcium 10.0 (8.6-10.8) mg/dL Total Bilirubin 0.2 (0.2-1.2) mg/dL Direct Bilirubin 0.1 (0.0-0.5) mg/dL Indirect Bilirubin 0.1 (0.0-1.2) mg/dL AST 18 (5-34) Units/L ALT 16 (0-55) Units/L Alkaline Phosphatase 98 (38-126) Units/L Serum Total Protein 8.2 (6.0-8.3) g/dL Albumin 4.3 (3.5-5.0) g/dL Globulin 3.9 H (2.4-3.5) g/dL Albumin/Globulin Ratio 1.1 (1.1-2.2) Lipase 114 H (8-78) Units/L - Radiology Data Radiology results reviewed: Yes I reviewed the patient's radiology results. Previous CT imaging and MRI reviewed.
--- NOTE | 2016-09-02 00:49 | Internal Med History&Physical ---
Date of Encounter: 09/02/16 Time of Encounter: 00:36 Assessment and Plan (1) Acute on chronic pancreatitis Current visit: No Status: Acute abdominal pain and elevated lipase recently had abdominal MRI that showed no evidence of acute pancreatitis will treat conservatively, NPO and IVF fo r now, will limit opioids given h/o narcotic abuse. (2) Diabetes mellitus Current visit: No Status: Chronic will do sliding scale low dose, she will be NPO for now. Qualifiers: Diabetes mellitus type: type 2 Diabetes mellitus complication status: without complication Diabetes mellitus nursing home insulin use: without terminal makeup operator use Qualified Code(s): E11.9 - Type 2 diabetes mellitus without complications (3) Essential hypertension Current visit: No Status: Chronic monitor BP. will continue home meds (4) COPD (chronic obstructive pulmonary disease) Current visit: No Status: Chronic not in exacerbation continue home dose inhaleers Qualifiers: COPD type: unspecified COPD Qualified Code(s): J44.9 - Chronic obstructive pulmonary disease, unspecified (5) Tobacco abuse Current visit: No Status: Chronic Internal Medicine - H&P: HPI Chief complaint: abdominal pain Admitted From: Home Plans for Post Hospital Care: Home History of present illness: Ms. Wright is a 61 year old female with PMH of acute on chronic pancreatitis, presents with abdominal pain. She reports feeling very weak and tired. She has known pancreatitis according to her and has been admitted multiple times due to acute on chronic pancreatitis and recurrent abdominal pain. She was advised to follow-up at [facility] for evaluation of possible surgical treatment however she has not done so. patient denies any fevers chills nausea vomiting diarrhea and chest pain shortness of breath headache or vision change. No other new symptoms at this time. She has not been able to eat anything today and came in for evaluation. at the time of my evaluation, she is sleeping at the bedside. Past Med Surg Social Fam HX - Past Medical History Medical history: COPD, diabetes, GERD, hyperlipidemia, hypertension, other Psychiatric history: depression - Past Surgical History Surgical History: cholecystectomy, hysterectomy, other - Social History Smoking Status: Current every day smoker Packs per day: 1 Smokeless Tobacco Status: No Alcohol use: none Drug use: none - Family History Mother Living Status: Hx Family Cardiac Disorders: Yes (Open heart surgery) Father Living Status: Hx Family Cardiac Disorders: Yes ([place]) Hx Family Respiratory Disorders: No Hx Family Cancer: No Hx Family GI Disorders: Yes (Ulcers) Hx Family Endocrine Disorder: Yes (DM) Hx Family Neuromuscular Disorders: No Hx Family Neurologic Disorders: No Hx Family HEENT Disorders: No Hx Family Autoimmune Disorders: No Internal Medicine - H&P: Meds Aclidinium [place] [Tudorza Pressair] 400 mcg IH BID PRN 04/15/16 [History] Gabapentin 600 mg PO TID 04/15/16 [History] Omeprazole [PriLOSEC] 20 mg PO DAILY 04/15/16 [History] metFORMIN [Glucophage] 1,000 mg PO BID 04/15/16 [History] Ondansetron ODT [Zofran ODT] 4 mg SL Q6H PRN 05/27/16 [History] Amlodipine Besylate 10 mg PO DAILY 09/01/16 [History] Trazodone HCl 100 mg PO HS 09/01/16 [History] Venlafaxine HCl [Effexor Xr] 75 mg PO DAILY 09/01/16 [History] Allergies Iodinated Contrast- Oral and IV Dye [Iodinated Contrast Media - Oral and] Allergy (Verified 09/01/16 18:05) Difficulty Breathing AND HIVES ROS unobtainable: due to endotracheal tube All Systems PM: A 10-system review of systems was performed and is negative for pertinent findings except as documented above in the HPI. - Constitutional Constitutional: as per HPI - EENT Eyes: as per HPI Ears: no ear discharge, no ear pain, no tinnitus Nose, mouth and throat: as per HPI - Breasts Breasts: as per HPI - Cardiovascular Cardiovascular ROS IM: as per HPI - Respiratory Respiratory: as per HPI - Constitutional Vitals: Temp Pulse Resp BP Pulse Ox 97.9 F 90 20 127/69 100 09/01/16 23:08 09/01/16 23:08 09/01/16 23:08 09/01/16 23:08 09/01/16 23:08 General appearance: Present: A&O X 3, no acute distress Exam: Head exam: atraumatic - Neck Neck exam: Present: normal inspection, full ROM, trachea midline - Chest Chest inspection: Present: normal inspection, symmetric chest wall rise - Respiratory Respiratory exam: Present: normal lung sounds bilaterally - Cardiovascular Cardiovascular exam: Present: regular rate, normal rhythm, normal heart sounds - Abdominal Exam Abdominal exam: Present: soft, reports diffuse tenderness, normal bowel sounds. Absent: distention, guarding, rebound, rigidity, Maki's sign, Rovsing's sign , tenderness at McBurney's Point - Extremities Exam Extremities exam: Present: normal inspection, full ROM, normal capillary refill. Absent: tenderness - Back Exam Back exam: Present: normal inspection - Neurological Exam Neurological exam: Present: alert, oriented X3, CN II-XII intact, normal gait - Skin Skin exam: Present: warm, dry, intact, normal color Internal Med - H&P Results - Labs CBC & Chem 7: 09/01/16 19:30 09/01/16 19:30
[2016-09-02] MEDS ORDERED: Naloxone 0.4 MG/ML INJ IVP PRN (00:57)
[2016-09-02] MEDS: *HR* Morphine 2 MG/ML SYRINGE IVP PRN ×7 (01:35→21:42)
[2016-09-02] MEDS: 0.9 % Sodium Chloride 1,000 ML IVC SCH ×3 (01:37→16:51)
[2016-09-02 05:39] LABS: Basophils % 0.4 %; Eosinophils # 0.1 K/mcL (0.0-0.6); Eosinophils % 1.2 %; Hematocrit 33.4 % (35.3-44.9); Hemoglobin 10.6 g/dL (11.5-15.4); Immature Granulocytes % 0.2 % (0-4); Lymphocytes # 1.9 K/mcL (0.6-4.6); Lymphocytes % 36.9 %; Mean Corpuscular HGB Conc 31.7 g/dL (31.6-35.5); Mean Corpuscular Hemoglobin 26.5 pg (28.0-33.3); Mean Corpuscular Volume 83.5 fL (83.0-100.0); Mean Platelet Volume 9.9 fL (9.4-12.4); Monocytes # 0.3 K/mcL (0.0-1.3); Monocytes % 5.7 %; Neutrophils # 2.8 K/mcL (1.6-8.9); Platelet Count 225 K/mcL (140-400); Red Cell Distribution Width 13.5 % (11.5-14.5); Segmented Neutrophils % 55.6 %
[2016-09-02] MEDS: *HR* HYDROcodone/Acet 5/325 mg TABLET PO PRN ×2 (05:42→11:31)
[2016-09-02 05:58] LABS: BUN/Creatinine Ratio 14 (6-26); Blood Urea Nitrogen 10 mg/dL (7-20); Carbon Dioxide 27 mEq/L (19-29); Chloride 107 mEq/L (98-109); Glucose 126 mg/dL (70-99); Osmolality,Calculated 291 (280-300); Potassium 4.3 mEq/L (3.5-4.5); Sodium 140 mEq/L (136-145); eGFR For African Americans > 60 (> 60); eGFR For Non-African Americans > 60 (> 60)
[2016-09-02] MEDS: *HR* Heparin 5,000 UNIT/ML VIAL SQ SCH ×2 (06:01→17:38)
[2016-09-02] MEDS: Venlafaxine XR (24 HR) 75 MG CAP.ER.24H PO SCH (07:42)
[2016-09-02] MEDS: amLODIPine 5 MG TABLET PO SCH (07:42)
[2016-09-02] MEDS: Gabapentin 300 MG CAPSULE PO SCH ×3 (07:42→21:42)
[2016-09-02] MEDS: Ondansetron 4 MG/2 ML VIAL IVP PRN (07:46)
[2016-09-02] MEDS ORDERED: *HR* Morphine 2 MG/ML SYRINGE IVP PRN (14:56)
[2016-09-02] MEDS ORDERED: *HR* Dextrose 50 % in Water (Syg) 50 ML SYRINGE IVP PRN (15:02)
[2016-09-02] MEDS ORDERED: Dextrose Gel 15 GM PO PRN ×2 (15:02)
[2016-09-02] MEDS ORDERED: D5% in Water 1,000 ML IVC PRN (15:02)
--- NOTE | 2016-09-02 15:02 | Internal Med Progress Note ---
Date of Encounter: 09/02/16 Time of Encounter: 15:00 - Assessment and plan (1) Acute on chronic pancreatitis Current Visit: No Status: Acute Assessment and plan: Acute on chronic pancreatitis Lisinopril was discontinued during last admission Continue morphine IV as needed Increase IV fluids During her last hospitalization her MRCP showed pancreas divisum, smaller cystic lesions likely related to chronic pancreatitis, postsurgical changes from cholecystectomy with mild intrahepatic biliary dilatation She was scheduled to follow up with [facility] to have dosis removed but apparently they shrunk and she prefers not to follow with them at the moment. She was also advised to quit smoking order for her to have a surgical procedure. (2) Diabetes mellitus Current Visit: No Status: Chronic Qualifiers: Diabetes mellitus type: type 2 Diabetes mellitus complication status: without complication Diabetes mellitus exterminator helper insulin use: without fdc use Qualified Code(s): E11.9 - Type 2 diabetes mellitus without complications (3) Essential hypertension Current Visit: No Status: Chronic Assessment and plan: Continue amlodipine Ordered hydralazine IV as needed (4) COPD (chronic obstructive pulmonary disease) Current Visit: No Status: Chronic Assessment and plan: Stable not exacerbation Qualifiers: COPD type: unspecified COPD Qualified Code(s): J44.9 - Chronic obstructive pulmonary disease, unspecified (5) Tobacco abuse Current Visit: No Status: Chronic Assessment and plan: Smoking cessation counseling Nicotine patch offered (6) Anxiety Current Visit: No Status: Chronic - Subjective Interval history: Was abdominal pain, epigastric tenderness, nausea no vomiting, denies any chest or shortness of breath - Constitutional Vitals: Temp Pulse Resp BP Pulse Ox 98.0 F 97 16 164/98 97 09/02/16 10:20 09/02/16 10:20 09/02/16 10:20 09/02/16 10:20 09/02/16 10:20 General appearance: Present: A&O X 3, no acute distress - Head Head exam: Present: atraumatic, normocephalic - Eye Eye exam: Present: PERRL, conjuntiva pink, sclera anicteric Pupils: Present: PERRL - Neck Neck exam general surgery: Present: supple, trachea midline. Absent: lymphadenopathy - Respiratory Respiratory exam: Present: CTAB. Absent: accessory muscle use, rales, rhonchi, wheezes - Cardiovascular Cardiovascular exam: Present: RRR, +S1, +S2. Absent: diastolic murmur, gallop, rubs, systolic murmur - GI/Abdominal GI/Abdominal exam: Present: normal bowel sounds, soft, tenderness (Epigastric tenderness), no peritoneal signs. Absent: distended - Extremities Exam Extremities exam: Present: warm, radial pulses palpable and symetrical. Absent : calf tenderness, cyanotic, pedal edema - Neurological Exam Neurological exam: Present: CN II-XII intact, oriented X3, no focal deficits. Absent: pronater drift, facial droop, speech deficit - Skin Skin exam: Present: dry, intact Internal Medicine: Result - Labs CBC & Chem 7: 09/02/16 04:58 09/02/16 04:58 Labs: Short CBC 09/02/16 Range/Units 04:58 WBC 5.1 (4.3-11.1) K/mcL Hgb 10.6 L (11.5-15.4) g/dL Hct 33.4 L (35.3-44.9) % Plt Count 225 (140-400) K/mcL Neutrophils # 2.8 (1.6-8.9) K/mcL BMP 09/02/16 04:58 Sodium 140 Potassium 4.3 Chloride 107 Carbon Dioxide 27 BUN 10 Creatinine 0.72 Glucose 126 H Calcium 9.0 Consult Discharge Plan - Plan Referrals: Rebecca Licea CNP [Primary Care Provider] -
[2016-09-02] MEDS: Nicotine 21 MG PATCH.TD24 TD SCH (17:36)
[2016-09-02] MEDS: Insulin LISPRO 300 UNITS/3 ML VIAL SQ SCH (17:42)
[2016-09-02] MEDS: traZODone 50 MG TABLET PO SCH (21:42)
[2016-09-03] MEDS: *HR* Morphine 2 MG/ML SYRINGE IVP PRN ×11 (01:08→22:25)
[2016-09-03] MEDS: 0.9 % Sodium Chloride 1,000 ML IVC SCH ×5 (01:09→23:45)
[2016-09-03] MEDS: *HR* Heparin 5,000 UNIT/ML VIAL SQ SCH ×2 (05:59→16:28)
[2016-09-03] MEDS: amLODIPine 5 MG TABLET PO SCH (08:06)
[2016-09-03] MEDS: Gabapentin 300 MG CAPSULE PO SCH ×3 (08:06→20:19)
[2016-09-03] MEDS: Nicotine 21 MG PATCH.TD24 TD SCH (08:06)
[2016-09-03] MEDS: Venlafaxine XR (24 HR) 75 MG CAP.ER.24H PO SCH (08:06)
[2016-09-03] MEDS: Insulin LISPRO 300 UNITS/3 ML VIAL SQ SCH ×3 (08:07→16:39)
[2016-09-03 10:53] LABS: Bilirubin,Urine Negative (Negative); Blood,Urine Negative (Negative); Clarity,Urine Clear (Clear); Color,Urine Yellow (Yellow); Glucose,Urine (UA) Normal (Normal); Ketones,Urine Negative (Negative); Leukocyte Esterase,Urine Negative (Negative); Nitrite,Urine Negative (Negative); PH,Urine 6.5 pH Units (5.0-8.0); Protein,Urine Negative (Neg-Trace); Specific Gravity,Urine 1.006 (1.010-1.025); Urobilinogen,Urine Normal (Normal)
--- NOTE | 2016-09-03 13:59 | Internal Med Progress Note ---
Date of Encounter: 09/03/16 Time of Encounter: 13:57 - Assessment and plan (1) Acute on chronic pancreatitis Current Visit: No Status: Acute Assessment and plan: Acute on chronic pancreatitis Lisinopril was discontinued during last admission Continue morphine IV as needed Continue IV fluids Continue clear liquids During her last hospitalization her MRCP showed pancreas divisum, smaller cystic lesions likely related to chronic pancreatitis, postsurgical changes from cholecystectomy with mild intrahepatic biliary dilatation She was scheduled to follow up with [facility] to have dosis removed but apparently they shrunk and she prefers not to follow with them at the moment. She was also advised to quit smoking order for her to have a surgical procedure. (2) Diabetes mellitus Current Visit: No Status: Chronic Assessment and plan: Insulin sliding scale Qualifiers: Diabetes mellitus type: type 2 Diabetes mellitus complication status: without complication Diabetes mellitus fpc insulin use: without fpc use Qualified Code(s): E11.9 - Type 2 diabetes mellitus without complications (3) Essential hypertension Current Visit: No Status: Chronic Assessment and plan: Accelerated hypertension Continue amlodipine Ordered hydralazine IV as needed (4) COPD (chronic obstructive pulmonary disease) Current Visit: No Status: Chronic Assessment and plan: Stable not exacerbation Qualifiers: COPD type: unspecified COPD Qualified Code(s): J44.9 - Chronic obstructive pulmonary disease, unspecified (5) Tobacco abuse Current Visit: No Status: Chronic Assessment and plan: Smoking cessation counseling Nicotine patch offered (6) Anxiety Current Visit: No Status: Chronic - Subjective Interval history: Abdominal pain has improved slightly since yesterday, complains of epigastric tenderness, nausea no vomiting, denies any chest or shortness of breath - Constitutional Vitals: Temp Pulse Resp BP Pulse Ox 98.7 F 84 17 162/89 97 09/03/16 10:40 09/03/16 10:40 09/03/16 10:40 09/03/16 10:40 09/03/16 10:40 General appearance: Present: A&O X 3, no acute distress - Head Head exam: Present: atraumatic, normocephalic - Eye Eye exam: Present: PERRL, conjuntiva pink, sclera anicteric Pupils: Present: PERRL - Neck Neck exam general surgery: Present: supple, trachea midline. Absent: lymphadenopathy - Respiratory Respiratory exam: Present: CTAB. Absent: accessory muscle use, rales, rhonchi, wheezes - Cardiovascular Cardiovascular exam: Present: RRR, +S1, +S2. Absent: diastolic murmur, gallop, rubs, systolic murmur - GI/Abdominal GI/Abdominal exam: Present: normal bowel sounds, soft, tenderness (Epigastric tenderness), no peritoneal signs. Absent: distended - Extremities Exam Extremities exam: Present: warm, radial pulses palpable and symetrical. Absent : calf tenderness, cyanotic, pedal edema - Neurological Exam Neurological exam: Present: CN II-XII intact, oriented X3, no focal deficits. Absent: pronater drift, facial droop, speech deficit - Skin Skin exam: Present: dry, intact Internal Medicine: Result - Labs CBC & Chem 7: 09/02/16 04:58 09/02/16 04:58 Labs: Urine 09/03/16 Range/Units 10:39 Urine Color Yellow (Yellow) Urine Clarity Clear (Clear) Urine pH 6.5 (5.0-8.0) pH Units Ur Specific [place] 1.006 L (1.010-1.025) Urine Protein Negative (Neg-Trace) mg/dL Urine Glucose (UA) Normal (Normal) mg/dL Consult Discharge Plan - Plan Referrals: Rebecca Licea CNP [Primary Care Provider] -
[2016-09-03] MEDS: hydrALAZINE 25 MG TABLET PO SCH ×2 (14:04→20:20)
[2016-09-03] MEDS: traZODone 50 MG TABLET PO SCH (20:19)
[2016-09-03] MEDS: Ondansetron 4 MG/2 ML VIAL IVP PRN (20:26)
[2016-09-04] MEDS: *HR* Morphine 2 MG/ML SYRINGE IVP PRN ×4 (02:26→09:04)
[2016-09-04] MEDS: 0.9 % Sodium Chloride 1,000 ML IVC SCH (04:45)
[2016-09-04] MEDS: *HR* Heparin 5,000 UNIT/ML VIAL SQ SCH (04:46)
[2016-09-04] MEDS: hydrALAZINE 25 MG TABLET PO SCH (04:46)
[2016-09-04] MEDS: Ondansetron 4 MG/2 ML VIAL IVP PRN (06:56)
[2016-09-04] MEDS: Nicotine 21 MG PATCH.TD24 TD SCH (08:05)
[2016-09-04] MEDS: Insulin LISPRO 300 UNITS/3 ML VIAL SQ SCH ×2 (08:05→11:44)
[2016-09-04] MEDS: amLODIPine 5 MG TABLET PO SCH (08:05)
[2016-09-04] MEDS: Venlafaxine XR (24 HR) 75 MG CAP.ER.24H PO SCH (08:05)
[2016-09-04] MEDS: Gabapentin 300 MG CAPSULE PO SCH (08:06)
--- NOTE | 2016-09-04 09:57 | Discharge Summary ---
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 Qualified Code(s): E11.9 - Type 2 diabetes mellitus without complications (3) Essential hypertension Priority: Secondary Status: Chronic (4) COPD (chronic obstructive pulmonary disease) Priority: Secondary Status: Chronic Qualifiers: COPD type: unspecified COPD Qualified Code(s): J44.9 - Chronic obstructive pulmonary disease, unspecified (5) Tobacco abuse Priority: Secondary Status: Chronic (6) Anxiety Priority: Secondary Status: Chronic - Discharge Medications Prescriptions: Oxycodone HCl 10 mg PO Q8H PRN #25 tab PRN Reason: pain Home Medications: Aclidinium [place] [Tudorza Pressair] 400 mcg IH BID PRN 04/15/16 [History] Gabapentin 600 mg PO TID 04/15/16 [History] Omeprazole [PriLOSEC] 20 mg PO DAILY 04/15/16 [History] metFORMIN [Glucophage] 1,000 mg PO BID 04/15/16 [History] Ondansetron ODT [Zofran ODT] 4 mg SL Q6H PRN 05/27/16 [History] Amlodipine Besylate 10 mg PO DAILY 09/01/16 [History] Trazodone HCl 100 mg PO HS 09/01/16 [History] Venlafaxine HCl [Effexor Xr] 75 mg PO DAILY 09/01/16 [History] Oxycodone HCl 10 mg PO Q8H PRN #25 tab 09/04/16 [Rx] Allergies/Adverse Reactions: Allergies Iodinated Contrast- Oral and IV Dye [Iodinated Contrast Media - Oral and] Allergy (Verified 09/01/16 18:05) Difficulty Breathing AND HIVES Date of admission: 09/01/16 23:08 Primary care physician: Rebecca Licea CNP - Patient Status Disposition: Home, Self-Care Condition: Good Overall status at discharge: patient is back to baseline - Discharge Instructions Follow Up With: Rebecca Licea CNP [Primary Care Provider] - Additional Instructions: Follow-up with primary care physician within the next 7 days. Follow-up with [facility] within the next week. Minimize the use of narcotics. - Diet and Activity Activity: increase activity as tolerated Diet: low fat, low cholesterol Hospital course: Ms. Wright is a 61 year old female with PMH of acute on chronic pancreatitis, COPD not oxygen dependent, diabetes type 2 not insulin-dependent, GERD, hypertension, hyperlipidemia, tobacco use, presented to the emergency room complaining of with abdominal pain. She reported feeling very weak and tired. She has known pancreatitis according to her and has been admitted multiple times due to acute on chronic pancreatitis and recurrent abdominal pain. She was advised to follow-up at [facility] for evaluation of possible surgical treatment however she has not done so. patient denies any fevers chills nausea vomiting diarrhea and chest pain shortness of breath headache or vision change. No other new symptoms at this time. She has not been able to eat anything today and came in for evaluation. Upon admission her lipase was 114. She was started on IV fluids and morphine IV as needed Lisinopril was discontinued during last admission as he was thought to be the cause of her chronic pancreatitis During her last hospitalization her MRCP showed pancreas divisum, smaller cystic lesions likely related to chronic pancreatitis, postsurgical changes from cholecystectomy with mild intrahepatic biliary dilatation She was scheduled to follow up with [facility] to have dosis removed but apparently they shrunk and she prefers not to follow with them at the moment. The patient is requesting to be discharged as she is feeling much better in order to follow up with [facility] and her primary care physician. She was also advised to quit smoking order for her to have a surgical procedure. Time spent discussing smoking cessation with patient: 3 to 10 minutes - Time Spent with Patient Total time spent providing and/or coordinating discharge services: Greater than 30 minutes (40 min) - Constitutional Vitals: Temp Pulse Resp BP Pulse Ox 98.1 F 89 12 132/76 95 09/04/16 08:54 09/04/16 08:54 09/04/16 08:54 09/04/16 08:54 09/04/16 08:54 General appearance: Present: A&O X 3, no acute distress - Head Head exam: Present: atraumatic, normocephalic - Eye Eye exam: Present: PERRL, conjuntiva pink, sclera anicteric Pupils: Present: PERRL - Neck Neck exam general surgery: Present: supple, trachea midline. Absent: lymphadenopathy - Respiratory Respiratory exam: Present: CTAB. Absent: accessory muscle use, rales, rhonchi, wheezes - Cardiovascular Cardiovascular exam: Present: RRR, +S1, +S2. Absent: diastolic murmur, gallop, rubs, systolic murmur - GI/Abdominal GI/Abdominal exam: Present: normal bowel sounds, soft, no peritoneal signs. Absent: distended, tenderness - Extremities Exam Extremities exam: Present: warm, radial pulses palpable and symetrical. Absent : calf tenderness, cyanotic, pedal edema - Neurological Exam Neurological exam: Present: CN II-XII intact, oriented X3, no focal deficits. Absent: pronater drift, facial droop, speech deficit - Skin Skin exam: Present: dry, intact
[2016-09-04 10:51] VITALS: BP 116/76
== END 2016-09-04 13:31 | disposition home or self-care (01) ==
LOC: EMEROO 17:20 → 3ANU 17:20
PROVIDERS: ADMIT Internal Medicine Endocrinology, Diabetes & Metabolism; ATTEND Internal Medicine

== ENCOUNTER 2016-09-13 12:52 | Inpatient (IN) ==
[2016-09-13] MEDS ORDERED: *HR* HYDROmorphone (PF) 1 MG/ML SYRINGE IVP ONE ×3 (13:17→15:46)
[2016-09-13] MEDS ORDERED: Ondansetron 4 MG/2 ML VIAL IVP ONE (13:17)
[2016-09-13] MEDS ORDERED: 0.9 % Sodium Chloride 1,000 ML IVC ONE (13:18)
--- NOTE | 2016-09-13 13:22 | Emergency Department Note ---
Disposition Clinical Impression: Acute on chronic pancreatitis, Intractable abdominal pain Disposition: Admitted As Inpatient Condition: Undetermined Time of Disposition: 15:16 Abdominal Pain HPI - General Chief Complaint: ED Abdominal Pain Stated Complaint: abd pain Time Seen by Provider: 09/13/16 13:13 Source: patient Mode of arrival: ambulatory Limitations: no limitations Nursing Notes Reviewed: Yes Vital Signs Reviewed: Yes - History of Present Illness HPI Narrative: 61-year-old female with history of idiopathic chronic pancreatitis. The patient has already had a cholecystectomy, an MRI of her abdomen which demonstrates pancreatic divisum. The patient states that roughly 3 days ago she began experiencing associated nausea. The patient states this is identical to her previous episodes of pancreatitis. The patient states that given the patient's pain and nausea she usually gets admitted to the hospital for this. The patient denies any other complaints at this time including fever, diarrhea, chest pain, difficulty breathing. Pt Subjective Complaint: abdominal pain Onset (ago): day(s) (3) Consistency: constant, Worsening Location: epigastric Pain Severity: severe Pain Scale: 8 Quality: stabbing Radiation: none Migration to: no migration Improves with: nothing Worsens with: nothing Context: history of similar episodes Associated symptoms: Reports: nausea, vomiting. Denies: diarrhea, fever, chills Treatments prior to arrival: none - Related Data Home Medications Medication Instructions Recorded Confirmed Aclidinium [place] [Tudorza 400 mcg IH BID PRN 04/15/16 09/13/16 Pressair] Gabapentin 600 mg PO TID 04/15/16 09/13/16 Omeprazole [PriLOSEC] 20 mg PO DAILY 04/15/16 09/13/16 metFORMIN [Glucophage] 1,000 mg PO BID 04/15/16 09/13/16 Ondansetron ODT [Zofran ODT] 4 mg SL Q6H PRN 05/27/16 09/13/16 Amlodipine Besylate 10 mg PO DAILY 09/01/16 09/13/16 Trazodone HCl 100 mg PO HS 09/01/16 09/13/16 Venlafaxine HCl [Effexor Xr] 150 mg PO DAILY 09/01/16 09/13/16 Previous Rx's Medication Instructions Recorded Oxycodone HCl 10 mg PO Q8H PRN #25 tab 09/04/16 Allergies Allergy/AdvReac Type Severity Reaction Status Date / Time Iodinated Contrast- Oral and Allergy Difficulty Verified 09/13/16 13:04 IV Dye Breathing [Iodinated Contrast Media - Oral and] All systems ED: reviewed and negative except as stated. Constitutional: Denies: fever, chills, weakness, weight change Eyes: Denies: eye pain, eye discharge, vision change Cardiovascular: Denies: chest pain, palpitations, dyspnea on exertion, edema, syncope Respiratory: Denies: cough, dyspnea, wheezes, hemoptysis, stridor Gastrointestinal: Reports: abdominal pain, nausea, vomiting. Denies: diarrhea, constipation, hematemesis, melena, hematochezia Genitourinary: Denies: dysuria, frequency, hematuria, discharge Musculoskeletal: Denies: back pain, neck pain, arthralgia, myalgia Integumentary: Denies: rash, abrasion, lesions Neurological: Denies: headache, weakness, numbness, paresthesias, confusion, abnormal gait, vertigo Abdominal Pain PMH - Past Medical History Medical history: Reports: COPD, diabetes, GERD, hyperlipidemia, hypertension, other (Pancreatitis) Reports: pancreatitis Female Surgical History: Reports: cholecystectomy, hysterectomy ENTERTAINER OR VARIETY ARTIST history: Reports: no ENTERTAINER OR VARIETY ARTIST history Psychiatric history: Reports: depression - Social History Smoking status: Current every day smoker Alcohol use: Reports: none Drug use: Reports: none Physical Exam - General Limitations: no limitations General appearance: alert, in no apparent distress - Neck Neck exam: Present: normal inspection, full ROM, trachea midline - Chest Chest inspection: Present: normal inspection, symmetric chest wall rise - Respiratory Respiratory exam: Present: normal lung sounds bilaterally - Cardiovascular Cardiovascular exam: Present: regular rate, normal rhythm, normal heart sounds - Abdominal Exam Abdominal exam: Present: soft, tenderness (Epigastric), scar. Absent: distention, guarding, rebound, rigidity, heel tap sign, Maki's sign, Rovsing' s sign, tenderness at McBurney's Point, pulsatile mass, hernia Abdominal tenderness: Present: epigastrium, moderate, severe - Extremities Exam Extremities exam: Present: normal inspection, full ROM. Absent: tenderness, pedal edema Course Vital Signs Temperature 98.9 F 09/13/16 13:00 Pulse Rate 110 09/13/16 13:00 Respiratory Rate 16 09/13/16 13:00 Blood Pressure 143/90 09/13/16 13:00 O2 Sat by Pulse Oximetry 97 09/13/16 13:00 Temperature 98.9 F 09/13/16 20:07 Pulse Rate 75 09/13/16 20:07 Respiratory Rate 16 09/13/16 20:07 Blood Pressure 155/84 09/13/16 20:07 O2 Sat by Pulse Oximetry 96 09/13/16 20:07 Oxygen Delivery Oxygen Delivery Room Air Abdominal Pain - MDM Narrative Medical decision making narrative: Patient received multiple doses of Dilaudid but still expressing pain. IV fluids were given. Given the patient's symptoms are chronic pancreatitis with a slightly elevated lipase we will admit the patient to the hospital for further pain control. Patient accepted by Dr. Hooper. CT scan demonstrates no acute findings. - Medical Records Medical records reviewed: Yes I reviewed the patient's medical records. - Lab Data Lab results reviewed: Yes I reviewed the patient's lab results. Result diagrams: 09/13/16 13:27 09/13/16 13:27 Lab Results 09/13/16 09/13/16 Range/Units 13:27 13:27 WBC 8.3 (4.3-11.1) K/mcL RBC 4.20 (3.82-4.97) M/mcL Hgb 11.3 L (11.5-15.4) g/dL Hct 34.6 L (35.3-44.9) % MCV 82.4 L (83.0-100.0) fL MCH 26.9 L (28.0-33.3) pg MCHC 32.7 (31.6-35.5) g/dL RDW 13.8 (11.5-14.5) % Plt Count 238 (140-400) K/mcL MPV 10.3 (9.4-12.4) fL Immature Gran % 0.2 (0-4) % Seg Neutrophils % 72.2 % Lymphocytes % 22.5 % Monocytes % 4.4 % Eosinophils % 0.2 % Basophils % 0.5 % Neutrophils # 6.0 (1.6-8.9) K/mcL Lymphocytes # 1.9 (0.6-4.6) K/mcL Monocytes # 0.4 (0.0-1.3) K/mcL Eosinophils # 0.0 (0.0-0.6) K/mcL Basophils # 0.0 (0.0-0.2) K/mcL Sodium 139 (136-145) mEq/L Potassium 4.3 (3.5-4.5) mEq/L Chloride 106 (98-109) mEq/L Carbon Dioxide 25 (19-29) mEq/L BUN 13 (7-20) mg/dL Creatinine 0.87 (0.57-1.11) mg/dL Est GFR ( Amer) > 60 (> 60) Est GFR (Non-Af Amer) > 60 (> 60) BUN/Creatinine Ratio 15 (6-26) Glucose 188 H (70-99) mg/dL Calculated Osmolality 293 (280-300) Calcium 9.8 (8.6-10.8) mg/dL Lipase 237 H (8-78) Units/L - Radiology Data Radiology results reviewed: Yes I reviewed the patient's radiology results. - EKG Data EKG attestation: Yes I reviewed and interpreted this EKG. EKG results narrative: Heart rate 93 bpm. AR interval 158 ms. QTC 4:15 millisecond. Normal axis. Normal sinus rhythm. No ST elevation or ST depression noted. EKG a difficult EKG from 06/05/2009. No acute changes noted. Attestation Statement - Attestation Attestation: I examined this patient and my medical decision-making was reviewed with the Resident Physician. I agree with the documented findings, disposition and treatment plan as described except to the extent set forth below. 61-year-old female was in CT because recurrent bowel pain. She has history of chronic abdominal pain with recurrent pancreatitis. She presents with a similar pain in the epigastrium. Pain is unrelenting. She had very poor oral intake. No diarrhea. No fevers. No chest pain or dyspnea. Pain is sharp and worsened by any oral intake. Patient appears uncomfortable but in no acute physiologic distress. Oropharynx is clear is membranes dry. Neck is supple. Trachea midline. Chest clear to auscultation bilaterally. Cardiac exam regular. Abdomen soft nondistended but with tenderness in the left upper quadrant epigastrium and periumbilical region. No distention. Bowel sounds normal. There is mild elevation of her lipase. Imaging is unremarkable for any acute process. Difficult to control her pain and she was admitted for pain control. She is kept nothing by mouth.
[2016-09-13 13:48] LABS: Basophils % 0.5 %; Eosinophils % 0.2 %; Hematocrit 34.6 % (35.3-44.9); Hemoglobin 11.3 g/dL (11.5-15.4); Immature Granulocytes % 0.2 % (0-4); Lymphocytes # 1.9 K/mcL (0.6-4.6); Lymphocytes % 22.5 %; Mean Corpuscular HGB Conc 32.7 g/dL (31.6-35.5); Mean Corpuscular Hemoglobin 26.9 pg (28.0-33.3); Mean Corpuscular Volume 82.4 fL (83.0-100.0); Mean Platelet Volume 10.3 fL (9.4-12.4); Monocytes # 0.4 K/mcL (0.0-1.3); Monocytes % 4.4 %; Platelet Count 238 K/mcL (140-400); Red Cell Distribution Width 13.8 % (11.5-14.5); Segmented Neutrophils % 72.2 %
[2016-09-13 14:03] LABS: BUN/Creatinine Ratio 15 (6-26); Blood Urea Nitrogen 13 mg/dL (7-20); Calcium 9.8 mg/dL (8.6-10.8); Carbon Dioxide 25 mEq/L (19-29); Chloride 106 mEq/L (98-109); Glucose 188 mg/dL (70-99); Lipase 237 Units/L (8-78); Osmolality,Calculated 293 (280-300); Potassium 4.3 mEq/L (3.5-4.5); Sodium 139 mEq/L (136-145); eGFR For African Americans > 60 (> 60); eGFR For Non-African Americans > 60 (> 60)
[2016-09-13] MEDS ORDERED: Naloxone 0.4 MG/ML INJ IVP PRN (16:17)
[2016-09-13] MEDS ORDERED: *HR* Promethazine 25 MG/ML VIAL IVP PRN (16:17)
[2016-09-13] MEDS ORDERED: (Aclidinium Bromide [Tudorza Pressair] 400 MCG) IH PRN (16:21)
[2016-09-13] MEDS ORDERED: Dextrose Gel 15 GM PO PRN ×2 (16:24)
[2016-09-13] MEDS ORDERED: D5% in Water 1,000 ML IVC PRN (16:24)
[2016-09-13] MEDS ORDERED: *HR* Dextrose 50 % in Water (Syg) 50 ML SYRINGE IVP PRN (16:24)
--- NOTE | 2016-09-13 16:29 | Internal Med History&Physical ---
<DunbarBrandi M - Last Filed: 09/13/16 19:13> Date of Encounter: 09/13/16 Time of Encounter: 16:26 Assessment and Plan (1) Acute on chronic pancreatitis Current visit: Yes Status: Acute Patient presents with abdominal pain, nausea, diarrhea, which are she reports consistent with previous symptoms of her acute on chronic pancreatitis. 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 Continue home dose of inhalers. Qualifiers: COPD type: unspecified COPD Qualified Code(s): J44.9 - Chronic obstructive pulmonary disease, unspecified (5) Tobacco abuse Current visit: Yes Status: Chronic smoking cessation education and nicotine patch ordered. (6) DVT prophylaxis Current visit: Yes Status: Acute anti-embolic stockings lovenox SQ daily. Internal Medicine - H&P: HPI Chief complaint: abdominal pain and nausea Admitted From: Emergency Dept Plans for Post Hospital Care: Home History of present illness: Ms. Wright is a 61 year old female with hypertension, hyperlipidemia, type 2 diabetes, COPD, and chronic pancreatitis who presents to the emergency department today with complaints of abdominal pain and nausea. Patient has recurrent hospitalizations with her acute on chronic pancreatitis, and was most recently discharged on September 04. She reports her symptoms are similar to previous. She reports her symptoms started yesterday with severe abdominal pain , nausea, and diarrhea, she was unable to sleep due to her symptoms last night. She reports occasional lightheadedness. She denies any chest pain, palpitations, shortness of breath, fever, chills. She does endorse sweats. Evaluation in the emergency department revealed elevated lipase of 237. CT of the abdomen and pelvis showed no acute findings, no evidence of acute pancreatitis. On exam, patient alert and oriented, in no acute distress. Heart has regular rate and rhythm, lungs are clear bilaterally to auscultation. Abdomen is soft with positive bowel sounds diffusely tender to palpation, more so on the left side. Past Med Surg Social Fam HX - Past Medical History Medical history: COPD, diabetes, GERD, hyperlipidemia, hypertension, other ( Pancreatitis) Psychiatric history: depression - Past Surgical History Surgical History: cholecystectomy, hysterectomy, other - Social History Smoking Status: Current every day smoker Smokeless Tobacco Status: No Alcohol use: none Drug use: none - Family History Mother Living Status: Hx Family Cardiac Disorders: Yes (Open heart surgery) Father Living Status: Hx Family Cardiac Disorders: Yes (MS) Hx Family Respiratory Disorders: No Hx Family Cancer: No Hx Family GI Disorders: Yes (Ulcers) Hx Family Endocrine Disorder: Yes (DM) Hx Family Neuromuscular Disorders: No Hx Family Neurologic Disorders: No Hx Family HEENT Disorders: No Hx Family Autoimmune Disorders: No Internal Medicine - H&P: Meds Aclidinium [place] [Tudorza Pressair] 400 mcg IH BID PRN 04/15/16 [History] Gabapentin 600 mg PO TID 04/15/16 [History] Omeprazole [PriLOSEC] 20 mg PO DAILY 04/15/16 [History] metFORMIN [Glucophage] 1,000 mg PO BID 04/15/16 [History] Ondansetron ODT [Zofran ODT] 4 mg SL Q6H PRN 05/27/16 [History] Amlodipine Besylate 10 mg PO DAILY 09/01/16 [History] Trazodone HCl 100 mg PO HS 09/01/16 [History] Venlafaxine HCl [Effexor Xr] 150 mg PO DAILY 09/01/16 [History] Oxycodone HCl 10 mg PO Q8H PRN #25 tab 09/04/16 [Rx] Allergies Iodinated Contrast- Oral and IV Dye [Iodinated Contrast Media - Oral and] Allergy (Verified 09/13/16 13:04) Difficulty Breathing AND HIVES All Systems PM: A 10-system review of systems was performed and is negative for pertinent findings except as documented above in the HPI. - Constitutional Constitutional: night sweats, no chills, no fever(s) - EENT Eyes: no change in vision, no discharge, no pain, no photophobia Ears: no ear discharge, no ear pain, no tinnitus Nose, mouth and throat: no dysphagia, no nasal discharge, no neck pain, no sore throat - Cardiovascular Cardiovascular ROS IM: no chest pain, no diaphoresis, no dyspnea, no lightheadedness, no palpitations, no syncope - Respiratory Respiratory: no cough, no dyspnea, no wheezing, no excessive phlegm production - Gastrointestinal Gastrointestinal: abdominal pain, diarrhea, nausea, no hematemesis, no hematochezia, no melena, no vomiting - Genitourinary Genitourinary: no change in urinary stream, no dysuria, no flank pain, no hematuria - Musculoskeletal Musculoskeletal ROS IM: no numbness, no tingling - Integumentary Integumentary IM: no rash, no unusual bruising - Neurological Neurological ROS: no confusion, no convulsions, no focal weakness, no numbness, no tingling, no tremor(s) - Hematologic/Lymphatic Hematologic/Lymphatic: no easy bruising - Constitutional Vitals: Temp Pulse Resp BP Pulse Ox 98.9 F 92 18 135/95 97 09/13/16 13:00 09/13/16 14:48 09/13/16 16:08 09/13/16 16:08 09/13/16 13:00 General appearance: Present: A&O X 3, pleasant, no acute distress - Head Head exam: Present: atraumatic, normocephalic - Eye Eye exam: Present: PERRL, conjuntiva pink, sclera anicteric Pupils: Present: PERRL - Neck Neck exam general surgery: Present: supple, trachea midline. Absent: lymphadenopathy - Respiratory Respiratory exam: Present: CTAB. Absent: accessory muscle use, rales, rhonchi, wheezes - Cardiovascular Cardiovascular exam: Present: RRR, +S1, +S2. Absent: diastolic murmur, gallop, rubs, systolic murmur - GI/Abdominal GI/Abdominal exam: Present: normal bowel sounds, soft, tenderness, no peritoneal signs. Absent: distended - Extremities Exam Extremities exam: Present: warm, radial pulses palpable and symetrical. Absent : calf tenderness, cyanotic, pedal edema - Neurological Exam Neurological exam: Present: CN II-XII intact, oriented X3, no focal deficits. Absent: facial droop, speech deficit - Skin Skin exam: Present: dry, intact Internal Med - H&P Results - Labs CBC & Chem 7: 09/13/16 13:27 09/13/16 13:27 Labs: All Lab Results (24 Hours) 09/13/16 09/13/16 Range/Units 13:27 13:27 WBC 8.3 (4.3-11.1) K/mcL RBC 4.20 (3.82-4.97) M/mcL Hgb 11.3 L (11.5-15.4) g/dL Hct 34.6 L (35.3-44.9) % MCV 82.4 L (83.0-100.0) fL MCH 26.9 L (28.0-33.3) pg MCHC 32.7 (31.6-35.5) g/dL RDW 13.8 (11.5-14.5) % Plt Count 238 (140-400) K/mcL MPV 10.3 (9.4-12.4) fL Immature Gran % 0.2 (0-4) % Seg Neutrophils % 72.2 % Lymphocytes % 22.5 % Monocytes % 4.4 % Eosinophils % 0.2 % Basophils % 0.5 % Neutrophils # 6.0 (1.6-8.9) K/mcL Lymphocytes # 1.9 (0.6-4.6) K/mcL Monocytes # 0.4 (0.0-1.3) K/mcL Eosinophils # 0.0 (0.0-0.6) K/mcL Basophils # 0.0 (0.0-0.2) K/mcL Sodium 139 (136-145) mEq/L Potassium 4.3 (3.5-4.5) mEq/L Chloride 106 (98-109) mEq/L Carbon Dioxide 25 (19-29) mEq/L BUN 13 (7-20) mg/dL Creatinine 0.87 (0.57-1.11) mg/dL Est GFR ( Amer) > 60 (> 60) Est GFR (Non-Af Amer) > 60 (> 60) BUN/Creatinine Ratio 15 (6-26) Glucose 188 H (70-99) mg/dL Calculated Osmolality 293 (280-300) Calcium 9.8 (8.6-10.8) mg/dL Lipase 237 H (8-78) Units/L - Diagnostic Studies CT scan - abdomen Additional comments: Abdomen/Pelvis CT 09/13/16 13:18 IMPRESSION: 1. Unremarkable unenhanced CT of the abdomen and pelvis. No acute findings to account for the patient's upper abdominal pain. 2. No evidence of acute pancreatitis. The previously described pseudocyst is no longer identified. 3. Atherosclerotic disease. 4. Colonic diverticulosis. D/ / 09/13/2016 14:50:17 Joe Clayton MD / may Interpreting Provider: Joe Clayton MD <Gerda Hooper - Last Filed: 09/13/16 19:27> Date of Encounter: 09/13/16 Internal Medicine - H&P: HPI History of present illness: Ms. Wright is a 61 year old female All Systems PM: A 10-system review of systems was performed and is negative for pertinent findings except as documented above in the HPI. - Constitutional Vitals: Temp Pulse Resp BP Pulse Ox 98.4 F 93 18 91/53 97 09/13/16 16:41 09/13/16 16:41 09/13/16 16:41 09/13/16 16:41 09/13/16 16:41 Internal Med - H&P Results - Labs CBC & Chem 7: 09/13/16 13:27 09/13/16 13:27 - Attending Attestation I have seen and examined pt. I discussed with HIGHWAY ENGINEERING TEACHER regarding the management plan. I agree with the documentation. Will cont NPO and IVF, pain med as needed.
[2016-09-13] MEDS ORDERED: Insulin LISPRO 300 UNITS/3 ML VIAL SQ SCH ×2 (16:30→21:00)
[2016-09-13] MEDS ORDERED: 0.9 % Sodium Chloride 1,000 ML IVC SCH (16:30)
[2016-09-13] MEDS: Pantoprazole 40 MG VIAL IVP SCH (17:41)
[2016-09-13] MEDS: Ondansetron 4 MG/2 ML VIAL IVP PRN (17:41)
[2016-09-13] MEDS: *HR* HYDROmorphone (PF) 1 MG/ML SYRINGE IVP PRN ×2 (17:41→21:11)
[2016-09-13] MEDS: Nicotine 14 MG PATCH.TD24 TD SCH (17:41)
[2016-09-13] MEDS: Gabapentin 300 MG CAPSULE PO SCH (21:11)
[2016-09-13] MEDS: traZODone 50 MG TABLET PO SCH (21:11)
[2016-09-13] MEDS: 0.9 % Sodium Chloride 1,000 ML IVC SCH (22:13)
[2016-09-13] MEDS: *HR* OxyCODONE Immed Rel 5 MG TABLET PO PRN (22:59)
[2016-09-14] MEDS: *HR* HYDROmorphone (PF) 1 MG/ML SYRINGE IVP PRN ×3 (00:24→06:27)
[2016-09-14] MEDS: Insulin LISPRO 300 UNITS/3 ML VIAL SQ SCH ×4 (00:54→18:34)
[2016-09-14] MEDS: Ondansetron 4 MG/2 ML VIAL IVP PRN ×3 (03:32→18:46)
[2016-09-14 05:37] LABS: Basophils # 0.1 K/mcL (0.0-0.2); Basophils % 0.8 %; Eosinophils # 0.1 K/mcL (0.0-0.6); Eosinophils % 1.7 %; Hematocrit 33.9 % (35.3-44.9); Hemoglobin 10.7 g/dL (11.5-15.4); Immature Granulocytes % 0.2 % (0-4); Lymphocytes # 2.7 K/mcL (0.6-4.6); Lymphocytes % 45.5 %; Mean Corpuscular HGB Conc 31.6 g/dL (31.6-35.5); Mean Corpuscular Hemoglobin 26.8 pg (28.0-33.3); Monocytes # 0.3 K/mcL (0.0-1.3); Monocytes % 4.9 %; Neutrophils # 2.8 K/mcL (1.6-8.9); Platelet Count 201 K/mcL (140-400); Red Blood Count 3.99 M/mcL (3.82-4.97); Red Cell Distribution Width 13.5 % (11.5-14.5); Segmented Neutrophils % 46.9 %
[2016-09-14 05:45] LABS: BUN/Creatinine Ratio 9 (6-26); Blood Urea Nitrogen 7 mg/dL (7-20); Calcium 8.9 mg/dL (8.6-10.8); Carbon Dioxide 26 mEq/L (19-29); Chloride 107 mEq/L (98-109); Glucose 121 mg/dL (70-99); Lipase 93 Units/L (8-78); Osmolality,Calculated 289 (280-300); Potassium 3.4 mEq/L (3.5-4.5); Sodium 140 mEq/L (136-145); eGFR For African Americans > 60 (> 60); eGFR For Non-African Americans > 60 (> 60)
[2016-09-14] MEDS: *HR* Enoxaparin 40 MG/0.4 ML SYRINGE SQ SCH ×2 (06:27→06:30)
--- NOTE | 2016-09-14 08:31 | Internal Med Progress Note ---
<Mariano Green - Last Filed: 09/14/16 16:01> Date of Encounter: 09/14/16 Time of Encounter: 08:30 - Assessment and plan (1) Acute on chronic pancreatitis Current Visit: Yes Status: Acute Assessment and plan: Patient with pancreatic divisum presents with abdominal pain, nausea, diarrhea, which are consistent with previous symptoms of her acute on chronic pancreatitis. Lipase decreased from [address] abdomen and pelvis shows no acute findings IV fluids 0.9 normal saline at 200 mL per hour Nothing by mouth except for ice chips and meds zofran and phenergan for nausea Oxycodone and dilaudid for abdominal pain Dilaudid dose increased to 1 mg q2 hours Recommended outpatient follow-up with surgery upon discharge (2) Hypomagnesemia Current Visit: Yes Status: Acute Assessment and plan: Supplemental magnesium. Monitor (3) Essential hypertension Current Visit: Yes Status: Chronic Assessment and plan: continue home dose of amlodipine (4) COPD (chronic obstructive pulmonary disease) Current Visit: Yes Status: Chronic Assessment and plan: Wheezing on exam. Patient denies any increased shortness of breath or coughing, not in exacerbation. Continue home dose of inhalers and duo nebs when necessary. Qualifiers: COPD type: unspecified COPD Qualified Code(s): J44.9 - Chronic obstructive pulmonary disease, unspecified (5) Tobacco abuse Current Visit: Yes Status: Chronic Assessment and plan: Continue nicotine patch. Tobacco cessation discussed (6) Anxiety Current Visit: No Status: Chronic Assessment and plan: Continue venlafaxine and trazodone (7) Type 2 diabetes mellitus Current Visit: No Status: Acute Assessment and plan: Continue insulin regimen Qualifiers: Diabetes mellitus complication status: without complication Diabetes mellitus senior care insulin use: without termite control technician use Qualified Code(s): E11.9 - Type 2 diabetes mellitus without complications (8) Hypokalemia Current Visit: No Status: Acute Assessment and plan: Supplement potassium. Monitor (9) DVT prophylaxis Current Visit: Yes Status: Acute Assessment and plan: Lovenox Patient seen and examined, plan discussed with and agreed upon with Dr. Motley - Subjective Interval history: Patient lying in bed. Patient reports severe abdominal pain which is not controlled with Dilaudid. Nursing reports patient is ambulating to nursing station to ask for next dose of pain medicine. Patient reports nausea but denies vomiting at this time - Constitutional Vitals: Temp Pulse Resp BP Pulse Ox 98.2 F 92 14 147/89 96 09/14/16 07:52 09/14/16 07:52 09/14/16 07:52 09/14/16 07:52 09/14/16 07:52 General appearance: Present: cooperative, disheveled, A&O X 3, pleasant, answers questions appropriately Exam: Tearful, moderate distress - Head Head exam: Present: atraumatic, normocephalic - Eye Eye exam: Present: PERRL, conjuntiva pink, sclera anicteric Pupils: Present: PERRL - ENT ENT exam: Present: mucous membranes moist, normal oropharynx - Neck Neck exam general surgery: Present: supple, trachea midline. Absent: lymphadenopathy - Respiratory Respiratory exam: Present: wheezes (With inspiration). Absent: accessory muscle use, rales, rhonchi - Cardiovascular Cardiovascular exam: Present: RRR, +S1, +S2. Absent: diastolic murmur, gallop, rubs, systolic murmur - GI/Abdominal GI/Abdominal exam: Present: guarding (Voluntary epigastric guarding), hypoactive bowel sounds, soft, tenderness, no peritoneal signs. Absent: distended, normal bowel sounds - Extremities Exam Extremities exam: Present: warm, radial pulses palpable and symetrical. Absent : calf tenderness, cyanotic, pedal edema - Neurological Exam Neurological exam: Present: CN II-XII intact, oriented X3, no focal deficits. Absent: pronater drift, facial droop, speech deficit - Psychiatric Psychiatric exam: Present: agitated, anxious Additional comments: Tearful - Skin Skin exam: Present: dry, intact, warm. Absent: rash Internal Medicine: Result - Labs CBC & Chem 7: 09/14/16 05:17 09/14/16 05:17 Labs: Short CBC 09/14/16 Range/Units 05:17 WBC 5.9 (4.3-11.1) K/mcL Hgb 10.7 L (11.5-15.4) g/dL Hct 33.9 L (35.3-44.9) % Plt Count 201 (140-400) K/mcL Neutrophils # 2.8 (1.6-8.9) K/mcL BMP 09/14/16 05:17 Sodium 140 Potassium 3.4 L Chloride 107 Carbon Dioxide 26 BUN 7 Creatinine 0.80 Glucose 121 H Calcium 8.9 - VTE Documentation of Mechanical Device: Graduated compression elastic hosiery Consult Discharge Plan - Plan Referrals: Rebecca Licea CNP [Primary Care Provider] - 09/22/16 1:30 pm <Willis Motley - Last Filed: 09/14/16 18:20> Date of Encounter: 09/14/16 - Constitutional Vitals: Temp Pulse Resp BP Pulse Ox 97.4 F L 79 13 144/82 95 09/14/16 16:36 09/14/16 16:36 09/14/16 16:36 09/14/16 16:36 09/14/16 16:36 Internal Medicine: Result - Labs CBC & Chem 7: 09/14/16 05:17 09/14/16 05:17 Labs: Short CBC 09/14/16 Range/Units 05:17 WBC 5.9 (4.3-11.1) K/mcL Hgb 10.7 L (11.5-15.4) g/dL Hct 33.9 L (35.3-44.9) % Plt Count 201 (140-400) K/mcL Neutrophils # 2.8 (1.6-8.9) K/mcL BMP 09/14/16 05:17 Sodium 140 Potassium 3.4 L Chloride 107 Carbon Dioxide 26 BUN 7 Creatinine 0.80 Glucose 121 H Calcium 8.9 - Attending Attestation I examined this patient and my medical decision-making was reviewed with the Resident Physician. I agree with the documented findings, disposition and treatment plan as described except to the extent set forth below.
[2016-09-14 09:01] LABS: Magnesium 1.3 mg/dL (1.6-2.6)
[2016-09-14] MEDS ORDERED: Magnesium Sulfate 2 GM in D5% in Water 100 ML IVPB ONE (09:30)
[2016-09-14] MEDS: Nicotine 14 MG PATCH.TD24 TD SCH (09:45)
[2016-09-14] MEDS: *HR* HYDROmorphone 2 MG/ML SYRINGE IVP PRN ×6 (09:46→22:49)
[2016-09-14] MEDS: Venlafaxine XR (24 HR) 75 MG CAP.ER.24H PO SCH (09:46)
[2016-09-14] MEDS: Pantoprazole 40 MG VIAL IVP SCH (09:46)
[2016-09-14] MEDS: amLODIPine 5 MG TABLET PO SCH (09:46)
[2016-09-14] MEDS: Gabapentin 300 MG CAPSULE PO SCH ×3 (09:46→20:46)
[2016-09-14] MEDS: 0.9 % Sodium Chloride 1,000 ML IVC SCH ×4 (09:46→23:20)
[2016-09-14] MEDS: *HR* OxyCODONE Immed Rel 5 MG TABLET PO PRN ×2 (12:36→20:46)
--- NOTE | 2016-09-14 15:04 | Electrocardiograph Report ---
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
[2016-09-14] MEDS ORDERED: Ipratropium/Albuterol Neb 3 ML IH PRN (16:07)
[2016-09-14] MEDS: traZODone 50 MG TABLET PO SCH (20:46)
[2016-09-15] MEDS: Insulin LISPRO 300 UNITS/3 ML VIAL SQ SCH ×4 (00:25→16:54)
[2016-09-15] MEDS: *HR* HYDROmorphone (PF) 1 MG/ML SYRINGE IVP PRN ×12 (01:00→23:56)
[2016-09-15] MEDS: 0.9 % Sodium Chloride 1,000 ML IVC SCH ×3 (01:32→11:12)
[2016-09-15] MEDS: Ondansetron 4 MG/2 ML VIAL IVP PRN ×3 (03:02→21:46)
[2016-09-15] MEDS: *HR* Enoxaparin 40 MG/0.4 ML SYRINGE SQ SCH (06:01)
[2016-09-15 06:15] LABS: Basophils % 0.4 %; Eosinophils # 0.1 K/mcL (0.0-0.6); Eosinophils % 1.7 %; Hematocrit 32.3 % (35.3-44.9); Hemoglobin 9.9 g/dL (11.5-15.4); Immature Granulocytes % 0.2 % (0-4); Lymphocytes # 2.3 K/mcL (0.6-4.6); Lymphocytes % 42.1 %; Mean Corpuscular HGB Conc 30.7 g/dL (31.6-35.5); Mean Corpuscular Hemoglobin 26.1 pg (28.0-33.3); Mean Corpuscular Volume 85.2 fL (83.0-100.0); Mean Platelet Volume 10.2 fL (9.4-12.4); Monocytes # 0.3 K/mcL (0.0-1.3); Monocytes % 6.4 %; Neutrophils # 2.6 K/mcL (1.6-8.9); Platelet Count 220 K/mcL (140-400); Red Blood Count 3.79 M/mcL (3.82-4.97); Red Cell Distribution Width 13.4 % (11.5-14.5); Segmented Neutrophils % 49.2 %
[2016-09-15 06:18] LABS: Alanine Aminotransferase 20 Units/L (0-55); Albumin 3.3 g/dL (3.5-5.0); Albumin/Globulin Ratio 1.1 (1.1-2.2); Alkaline Phosphatase 96 Units/L (38-126); Aspartate Amino Transferase 18 Units/L (5-34); BUN/Creatinine Ratio 9 (6-26); Bilirubin,Total 0.3 mg/dL (0.2-1.2); Blood Urea Nitrogen 7 mg/dL (7-20); Calcium 8.7 mg/dL (8.6-10.8); Carbon Dioxide 27 mEq/L (19-29); Chloride 110 mEq/L (98-109); Glucose 81 mg/dL (70-99); Magnesium 1.4 mg/dL (1.6-2.6); Osmolality,Calculated 291 (280-300); Phosphorous 4.1 mg/dL (2.3-4.7); Potassium 4.4 mEq/L (3.5-4.5); Sodium 142 mEq/L (136-145); Total Protein 6.3 g/dL (6.0-8.3); eGFR For African Americans > 60 (> 60); eGFR For Non-African Americans > 60 (> 60)
[2016-09-15] MEDS ORDERED: Magnesium Sulfate 2 GM in D5% in Water 100 ML IVPB ONE ×2 (07:08→23:23)
--- NOTE | 2016-09-15 08:25 | Internal Med Progress Note ---
<Mariano Green - Last Filed: 09/15/16 13:59> Date of Encounter: 09/15/16 Time of Encounter: 08:25 - Assessment and plan (1) Acute on chronic pancreatitis Current Visit: Yes Status: Acute Assessment and plan: Patient with pancreatic divisum presents with abdominal pain, nausea, diarrhea, which are consistent with previous symptoms of her acute on chronic pancreatitis. Lipase decreased from [address] abdomen and pelvis shows no acute findings Discharge IV fluids Start clear liquid diet zofran and phenergan for nausea Oxycodone and dilaudid for abdominal pain Dilaudid dose increased to 1 mg q2 hours Will obtain records from [facility] Recommended outpatient follow-up with surgery upon discharge (2) Hypomagnesemia Current Visit: Yes Status: Acute Assessment and plan: Supplemental magnesium. Monitor (3) Essential hypertension Current Visit: Yes Status: Chronic Assessment and plan: continue home dose of amlodipine (4) COPD (chronic obstructive pulmonary disease) Current Visit: Yes Status: Chronic Assessment and plan: Wheezing on exam. Patient denies any increased shortness of breath or coughing, not in exacerbation. Continue home dose of inhalers and duo nebs when necessary. Qualifiers: COPD type: unspecified COPD Qualified Code(s): J44.9 - Chronic obstructive pulmonary disease, unspecified (5) Tobacco abuse Current Visit: Yes Status: Chronic Assessment and plan: Continue nicotine patch. Tobacco cessation discussed (6) Anxiety Current Visit: No Status: Chronic Assessment and plan: Continue venlafaxine and trazodone (7) Type 2 diabetes mellitus Current Visit: No Status: Acute Assessment and plan: Continue insulin regimen Qualifiers: Diabetes mellitus complication status: without complication Diabetes mellitus termite treater insulin use: without longterm use Qualified Code(s): E11.9 - Type 2 diabetes mellitus without complications (8) Hypokalemia Current Visit: No Status: Resolved Assessment and plan: Monitor (9) DVT prophylaxis Current Visit: Yes Status: Acute Assessment and plan: Lovenox Patient seen and examined, plan discussed with and agreed upon with Dr. Motley - Subjective Interval history: Patient lying in bed. Patient reports 8 out of 10 abdominal pain with Dilaudid. Patient reports nausea but denies vomiting at this time and requested advancing to a clear liquid diet - Constitutional Vitals: Temp Pulse Resp BP Pulse Ox 97.3 F L 75 18 164/80 94 09/15/16 06:56 09/15/16 06:56 09/15/16 06:56 09/15/16 06:56 09/15/16 06:56 General appearance: Present: cooperative, disheveled, A&O X 3, pleasant, answers questions appropriately - Head Head exam: Present: atraumatic, normocephalic - Eye Eye exam: Present: PERRL, conjuntiva pink, sclera anicteric Pupils: Present: PERRL - ENT ENT exam: Present: mucous membranes moist, normal oropharynx - Neck Neck exam general surgery: Present: supple, trachea midline. Absent: lymphadenopathy - Respiratory Respiratory exam: Present: CTAB. Absent: accessory muscle use, rales, rhonchi, wheezes - Cardiovascular Cardiovascular exam: Present: RRR, +S1, +S2. Absent: diastolic murmur, gallop, rubs, systolic murmur - GI/Abdominal GI/Abdominal exam: Present: guarding, normal bowel sounds, soft, tenderness, no peritoneal signs. Absent: distended - Extremities Exam Extremities exam: Present: warm, radial pulses palpable and symetrical. Absent : calf tenderness, cyanotic, pedal edema - Neurological Exam Neurological exam: Present: CN II-XII intact, oriented X3, no focal deficits. Absent: pronater drift, facial droop, speech deficit - Skin Skin exam: Present: dry, intact Internal Medicine: Result - Labs CBC & Chem 7: 09/15/16 04:52 09/15/16 04:52 Labs: Short CBC 09/15/16 Range/Units 04:52 WBC 5.3 (4.3-11.1) K/mcL Hgb 9.9 L (11.5-15.4) g/dL Hct 32.3 L (35.3-44.9) % Plt Count 220 (140-400) K/mcL Neutrophils # 2.6 (1.6-8.9) K/mcL BMP 09/15/16 04:52 Sodium 142 Potassium 4.4 D Chloride 110 H Carbon Dioxide 27 BUN 7 Creatinine 0.77 Glucose 81 Calcium 8.7 Liver Function 09/15/16 Range/Units 04:52 Total Bilirubin 0.3 (0.2-1.2) mg/dL AST 18 (5-34) Units/L ALT 20 (0-55) Units/L Alkaline Phosphatase 96 (38-126) Units/L Albumin 3.3 L (3.5-5.0) g/dL - VTE Documentation of Mechanical Device: Graduated compression elastic hosiery Consult Discharge Plan - Plan Referrals: Rebecca Licea, OFFICE MACHINES TEACHER [Primary Care Provider] - 09/22/16 1:30 pm <Willis Motley - Last Filed: 09/15/16 17:19> Date of Encounter: 09/15/16 - Constitutional Vitals: Temp Pulse Resp BP Pulse Ox 98.2 F 71 16 94/57 92 09/15/16 14:32 09/15/16 14:32 09/15/16 14:32 09/15/16 14:32 09/15/16 14:32 Internal Medicine: Result - Labs CBC & Chem 7: 09/15/16 04:52 09/15/16 04:52 Labs: Short CBC 09/15/16 Range/Units 04:52 WBC 5.3 (4.3-11.1) K/mcL Hgb 9.9 L (11.5-15.4) g/dL Hct 32.3 L (35.3-44.9) % Plt Count 220 (140-400) K/mcL Neutrophils # 2.6 (1.6-8.9) K/mcL BMP 09/15/16 04:52 Sodium 142 Potassium 4.4 D Chloride 110 H Carbon Dioxide 27 BUN 7 Creatinine 0.77 Glucose 81 Calcium 8.7 Liver Function 09/15/16 Range/Units 04:52 Total Bilirubin 0.3 (0.2-1.2) mg/dL AST 18 (5-34) Units/L ALT 20 (0-55) Units/L Alkaline Phosphatase 96 (38-126) Units/L Albumin 3.3 L (3.5-5.0) g/dL - Attending Attestation I examined this patient and my medical decision-making was reviewed with the Resident Physician. I agree with the documented findings, disposition and treatment plan as described except to the extent set forth below. D/C IV fluids Home soon with pain meds Outpatient appointment with PCP and pain management.
[2016-09-15] MEDS: Gabapentin 300 MG CAPSULE PO SCH ×3 (09:06→21:42)
[2016-09-15] MEDS: Venlafaxine XR (24 HR) 75 MG CAP.ER.24H PO SCH (09:06)
[2016-09-15] MEDS: amLODIPine 5 MG TABLET PO SCH (09:06)
[2016-09-15] MEDS: Pantoprazole 40 MG VIAL IVP SCH (09:07)
[2016-09-15] MEDS: Nicotine 14 MG PATCH.TD24 TD SCH (09:07)
[2016-09-15] MEDS: *HR* OxyCODONE Immed Rel 5 MG TABLET PO PRN ×2 (12:16→20:18)
[2016-09-15] MEDS: traZODone 50 MG TABLET PO SCH (21:42)
[2016-09-16] MEDS: Insulin LISPRO 300 UNITS/3 ML VIAL SQ SCH ×4 (00:51→21:23)
[2016-09-16] MEDS: *HR* HYDROmorphone (PF) 1 MG/ML SYRINGE IVP PRN ×10 (03:55→23:34)
[2016-09-16] MEDS: Ondansetron 4 MG/2 ML VIAL IVP PRN ×2 (03:58→18:58)
[2016-09-16] MEDS: *HR* Enoxaparin 40 MG/0.4 ML SYRINGE SQ SCH (06:00)
[2016-09-16 06:51] LABS: Alanine Aminotransferase 23 Units/L (0-55); Albumin 3.2 g/dL (3.5-5.0); Albumin/Globulin Ratio 1.1 (1.1-2.2); Alkaline Phosphatase 97 Units/L (38-126); Aspartate Amino Transferase 23 Units/L (5-34); BUN/Creatinine Ratio 7 (6-26); Bilirubin,Total 0.2 mg/dL (0.2-1.2); Blood Urea Nitrogen 6 mg/dL (7-20); Calcium 8.7 mg/dL (8.6-10.8); Carbon Dioxide 33 mEq/L (19-29); Chloride 107 mEq/L (98-109); Globulin 2.9 g/dL (2.4-3.5); Glucose 111 mg/dL (70-99); Osmolality,Calculated 296 (280-300); Potassium 3.9 mEq/L (3.5-4.5); Sodium 144 mEq/L (136-145); Total Protein 6.1 g/dL (6.0-8.3); eGFR For African Americans > 60 (> 60); eGFR For Non-African Americans > 60 (> 60)
[2016-09-16 06:54] LABS: Basophils % 0.7 %; Eosinophils # 0.1 K/mcL (0.0-0.6); Eosinophils % 2.2 %; Hematocrit 29.9 % (35.3-44.9); Hemoglobin 9.6 g/dL (11.5-15.4); Immature Granulocytes % 0.2 % (0-4); Lymphocytes # 1.7 K/mcL (0.6-4.6); Lymphocytes % 41.9 %; Mean Corpuscular HGB Conc 32.1 g/dL (31.6-35.5); Mean Corpuscular Hemoglobin 26.9 pg (28.0-33.3); Mean Corpuscular Volume 83.8 fL (83.0-100.0); Mean Platelet Volume 10.5 fL (9.4-12.4); Monocytes # 0.3 K/mcL (0.0-1.3); Monocytes % 7.8 %; Neutrophils # 1.9 K/mcL (1.6-8.9); Platelet Count 184 K/mcL (140-400); Red Blood Count 3.57 M/mcL (3.82-4.97); Red Cell Distribution Width 13.3 % (11.5-14.5); Segmented Neutrophils % 47.2 %
[2016-09-16] MEDS ORDERED: Insulin LISPRO 300 UNITS/3 ML VIAL SQ SCH (08:00)
[2016-09-16] MEDS: Pantoprazole 40 MG VIAL IVP SCH (08:54)
[2016-09-16] MEDS: Nicotine 14 MG PATCH.TD24 TD SCH (09:01)
[2016-09-16] MEDS: Venlafaxine XR (24 HR) 75 MG CAP.ER.24H PO SCH (09:02)
[2016-09-16] MEDS: amLODIPine 5 MG TABLET PO SCH (09:02)
[2016-09-16] MEDS: Gabapentin 300 MG CAPSULE PO SCH ×3 (09:03→21:22)
[2016-09-16] MEDS ORDERED: Venlafaxine XR (24 HR) 75 MG CAP.ER.24H PO SCH (09:11)
[2016-09-16] MEDS: *HR* OxyCODONE Immed Rel 5 MG TABLET PO PRN ×2 (09:55→18:00)
--- NOTE | 2016-09-16 16:56 | Internal Med Progress Note ---
Date of Encounter: 09/16/16 Time of Encounter: 16:51 - Assessment and plan (1) Acute on chronic pancreatitis Current Visit: Yes Status: Acute Assessment and plan: Patient with pancreatic divisum presents with abdominal pain, nausea, diarrhea, which are consistent with previous symptoms of her acute on chronic pancreatitis. Lipase decreased from [address] abdomen and pelvis shows no acute findings Discharge IV fluids Start clear liquid diet zofran and phenergan for nausea Oxycodone and dilaudid for abdominal pain Dilaudid dose increased to 1 mg q2 hours Will obtain records from [facility] Recommended outpatient follow-up with surgery upon discharge 09/16/2016 Comfortably lying in the bed. Patient is demanding for pain medication. Patient claims that only intravenous pain medication makes her feel better. Patient denies abdominal pain. Plan: We will trend the labs. Possible home tomorrow. (2) Hypomagnesemia Current Visit: Yes Status: Acute Assessment and plan: Supplemental magnesium. Monitor 09/16/2016 will check mg tomorrow (3) HTN (hypertension) Current Visit: No Status: Acute Assessment and plan: stable HTn and will continue same treatment. Qualifiers: Hypertension type: essential hypertension Qualified Code(s): I10 - Essential (primary) hypertension (4) COPD (chronic obstructive pulmonary disease) Current Visit: Yes Status: Chronic Assessment and plan: Wheezing on exam. Patient denies any increased shortness of breath or coughing, not in exacerbation. Continue home dose of inhalers and duo nebs when necessary. 09/16/2016 no wheezing will continue home meds Qualifiers: COPD type: unspecified COPD Qualified Code(s): J44.9 - Chronic obstructive pulmonary disease, unspecified - Subjective Interval history: patient seen and examined. Patient is comfortably lying in the bed. Patient is demanding for pain medications. Patient is demanding for intravenous pain medication. Patient denies chest pain, shortness of breath, abdominal pain, nausea or vomiting. - Constitutional Vitals: Temp Pulse Resp BP Pulse Ox 98.2 F 87 14 100/63 93 09/16/16 14:55 09/16/16 14:55 09/16/16 14:55 09/16/16 14:55 09/16/16 14:55 General appearance: Present: cooperative, disheveled, A&O X 3, pleasant, answers questions appropriately - Head Head exam: Present: atraumatic, normocephalic - Eye Eye exam: Present: PERRL, conjuntiva pink, sclera anicteric Pupils: Present: PERRL - Neck Neck exam general surgery: Present: supple, trachea midline. Absent: lymphadenopathy - Respiratory Respiratory exam: Present: CTAB. Absent: accessory muscle use, rales, rhonchi, wheezes - Cardiovascular Cardiovascular exam: Present: RRR, +S1, +S2. Absent: diastolic murmur, gallop, rubs, systolic murmur - GI/Abdominal GI/Abdominal exam: Present: normal bowel sounds, soft, no peritoneal signs. Absent: distended, tenderness - Extremities Exam Extremities exam: Present: warm, radial pulses palpable and symetrical. Absent : calf tenderness, cyanotic, pedal edema - Neurological Exam Neurological exam: Present: CN II-XII intact, oriented X3, no focal deficits. Absent: pronater drift, facial droop, speech deficit - Skin Skin exam: Present: dry, intact Internal Medicine: Result - Labs CBC & Chem 7: 09/16/16 06:12 09/16/16 06:12 Labs: Short CBC 09/16/16 Range/Units 06:12 WBC 4.1 L (4.3-11.1) K/mcL Hgb 9.6 L (11.5-15.4) g/dL Hct 29.9 L (35.3-44.9) % Plt Count 184 (140-400) K/mcL Neutrophils # 1.9 (1.6-8.9) K/mcL BMP 09/16/16 06:12 Sodium 144 Potassium 3.9 Chloride 107 Carbon Dioxide 33 H BUN 6 L Creatinine 0.81 Glucose 111 H Calcium 8.7 Liver Function 09/16/16 Range/Units 06:12 Total Bilirubin 0.2 (0.2-1.2) mg/dL AST 23 (5-34) Units/L ALT 23 (0-55) Units/L Alkaline Phosphatase 97 (38-126) Units/L Albumin 3.2 L (3.5-5.0) g/dL - VTE Documentation of Mechanical Device: Graduated compression elastic hosiery Consult Discharge Plan - Plan Referrals: Rebecca Licea CNP [Primary Care Provider] - 09/22/16 1:30 pm
[2016-09-16] MEDS: traZODone 50 MG TABLET PO SCH (21:21)
[2016-09-17 03:49] LABS: Basophils % 0.3 %; Eosinophils # 0.1 K/mcL (0.0-0.6); Hematocrit 27.7 % (35.3-44.9); Hemoglobin 8.9 g/dL (11.5-15.4); Lymphocytes # 1.9 K/mcL (0.6-4.6); Lymphocytes % 47.7 %; Mean Corpuscular HGB Conc 32.1 g/dL (31.6-35.5); Mean Corpuscular Hemoglobin 26.9 pg (28.0-33.3); Mean Corpuscular Volume 83.7 fL (83.0-100.0); Mean Platelet Volume 10.4 fL (9.4-12.4); Monocytes # 0.3 K/mcL (0.0-1.3); Monocytes % 7.4 %; Neutrophils # 1.7 K/mcL (1.6-8.9); Platelet Count 151 K/mcL (140-400); Red Blood Count 3.31 M/mcL (3.82-4.97); Red Cell Distribution Width 13.1 % (11.5-14.5); Segmented Neutrophils % 42.6 %
[2016-09-17 04:08] LABS: Alanine Aminotransferase 32 Units/L (0-55); Alkaline Phosphatase 102 Units/L (38-126); Aspartate Amino Transferase 44 Units/L (5-34); BUN/Creatinine Ratio 9 (6-26); Bilirubin,Total 0.1 mg/dL (0.2-1.2); Blood Urea Nitrogen 7 mg/dL (7-20); Calcium 8.2 mg/dL (8.6-10.8); Carbon Dioxide 25 mEq/L (19-29); Chloride 103 mEq/L (98-109); Globulin 2.9 g/dL (2.4-3.5); Glucose 180 mg/dL (70-99); Magnesium 1.7 mg/dL (1.6-2.6); Osmolality,Calculated 287 (280-300); Potassium 3.6 mEq/L (3.5-4.5); Total Protein 5.9 g/dL (6.0-8.3); eGFR For African Americans > 60 (> 60); eGFR For Non-African Americans > 60 (> 60)
[2016-09-17 04:09] LABS: Sodium 137 mEq/L (136-145)
[2016-09-17] MEDS: *HR* Enoxaparin 40 MG/0.4 ML SYRINGE SQ SCH (06:31)
[2016-09-17] MEDS: *HR* HYDROmorphone (PF) 1 MG/ML SYRINGE IVP PRN ×8 (06:31→22:06)
[2016-09-17] MEDS: Ondansetron 4 MG/2 ML VIAL IVP PRN ×2 (06:34→19:45)
[2016-09-17] MEDS: Insulin LISPRO 300 UNITS/3 ML VIAL SQ SCH ×4 (07:32→22:06)
[2016-09-17] MEDS: *HR* OxyCODONE Immed Rel 5 MG TABLET PO PRN ×2 (07:32→16:13)
[2016-09-17] MEDS: Pantoprazole 40 MG VIAL IVP SCH (08:43)
[2016-09-17] MEDS: Nicotine 14 MG PATCH.TD24 TD SCH (08:47)
[2016-09-17] MEDS: Gabapentin 300 MG CAPSULE PO SCH ×3 (08:47→22:06)
[2016-09-17] MEDS: amLODIPine 5 MG TABLET PO SCH (08:47)
[2016-09-17] MEDS: Venlafaxine XR (24 HR) 75 MG CAP.ER.24H PO SCH (08:48)
--- NOTE | 2016-09-17 17:44 | Internal Med Progress Note ---
Date of Encounter: 09/17/16 Time of Encounter: 17:42 - Assessment and plan (1) Acute on chronic pancreatitis Current Visit: Yes Status: Acute Assessment and plan: Patient with pancreatic divisum presents with abdominal pain, nausea, diarrhea, which are consistent with previous symptoms of her acute on chronic pancreatitis. Lipase decreased from [address] abdomen and pelvis shows no acute findings Discharge IV fluids Start clear liquid diet zofran and phenergan for nausea Oxycodone and dilaudid for abdominal pain Dilaudid dose increased to 1 mg q2 hours Will obtain records from [facility] Recommended outpatient follow-up with surgery upon discharge 09/16/2016 Comfortably lying in the bed. Patient is demanding for pain medication. Patient claims that only intravenous pain medication makes her feel better. Patient denies abdominal pain. Plan: We will trend the labs. Possible home tomorrow. 09/17/2016 Noted that patient has a hemoglobin dropped to 8.9. Her hemoglobin trended back to 2016 and noted that this is the first time patient has a drop less than 9 g. Plan: We will repeat labs tomorrow morning. If hemoglobin is more than 9 she can go home (2) Hypomagnesemia Current Visit: Yes Status: Acute Assessment and plan: Supplemental magnesium. Monitor 09/16/2016 will check mg tomorrow (3) HTN (hypertension) Current Visit: No Status: Acute Assessment and plan: stable HTn and will continue same treatment. Qualifiers: Hypertension type: essential hypertension Qualified Code(s): I10 - Essential (primary) hypertension (4) COPD (chronic obstructive pulmonary disease) Current Visit: Yes Status: Chronic Assessment and plan: Wheezing on exam. Patient denies any increased shortness of breath or coughing, not in exacerbation. Continue home dose of inhalers and duo nebs when necessary. 09/16/2016 no wheezing will continue home meds Qualifiers: COPD type: unspecified COPD Qualified Code(s): J44.9 - Chronic obstructive pulmonary disease, unspecified - Subjective Interval history: patient seen and examined. Patient is comfortably lying in the bed. Patient is demanding for pain medications. Patient is demanding for intravenous pain medication. Patient denies chest pain, shortness of breath, abdominal pain, nausea or vomiting. 09/17/2016 Seen and examined. Chart reviewed. Patient is comfortably lying in bed. She complains of abdominal pain. Patient is asking for pain medication. - Constitutional Vitals: Temp Pulse Resp BP Pulse Ox 99.9 F H 98 16 113/64 92 09/17/16 15:02 09/17/16 15:02 09/17/16 15:02 09/17/16 15:02 09/17/16 15:02 General appearance: Present: cooperative, disheveled, A&O X 3, pleasant, answers questions appropriately - Head Head exam: Present: atraumatic, normocephalic - Eye Eye exam: Present: PERRL, conjuntiva pink, sclera anicteric Pupils: Present: PERRL - Neck Neck exam general surgery: Present: supple, trachea midline. Absent: lymphadenopathy - Respiratory Respiratory exam: Present: CTAB. Absent: accessory muscle use, rales, rhonchi, wheezes - Cardiovascular Cardiovascular exam: Present: RRR, +S1, +S2. Absent: diastolic murmur, gallop, rubs, systolic murmur - GI/Abdominal GI/Abdominal exam: Present: normal bowel sounds, soft, no peritoneal signs. Absent: distended, tenderness - Extremities Exam Extremities exam: Present: warm, radial pulses palpable and symetrical. Absent : calf tenderness, cyanotic, pedal edema - Neurological Exam Neurological exam: Present: CN II-XII intact, oriented X3, no focal deficits. Absent: pronater drift, facial droop, speech deficit - Skin Skin exam: Present: dry, intact Internal Medicine: Result - Labs CBC & Chem 7: 09/17/16 03:20 09/17/16 03:20 Labs: Short CBC 09/17/16 Range/Units 03:20 WBC 3.9 L (4.3-11.1) K/mcL Hgb 8.9 L (11.5-15.4) g/dL Hct 27.7 L (35.3-44.9) % Plt Count 151 (140-400) K/mcL Neutrophils # 1.7 (1.6-8.9) K/mcL BMP 09/17/16 03:20 Sodium 137 Potassium 3.6 Chloride 103 Carbon Dioxide 25 BUN 7 Creatinine 0.82 Glucose 180 H Calcium 8.2 L Liver Function 09/17/16 Range/Units 03:20 Total Bilirubin 0.1 L (0.2-1.2) mg/dL AST 44 H (5-34) Units/L ALT 32 (0-55) Units/L Alkaline Phosphatase 102 (38-126) Units/L Albumin 3.0 L (3.5-5.0) g/dL - VTE Documentation of Mechanical Device: Graduated compression elastic hosiery Consult Discharge Plan - Plan Referrals: Rebecca Licea CNP [Primary Care Provider] - 09/22/16 1:30 pm
[2016-09-17] MEDS: traZODone 50 MG TABLET PO SCH (22:06)
[2016-09-18] MEDS: *HR* HYDROmorphone (PF) 1 MG/ML SYRINGE IVP PRN ×6 (01:09→12:09)
[2016-09-18 03:43] LABS: Basophils % 0.4 %; Eosinophils # 0.1 K/mcL (0.0-0.6); Eosinophils % 1.1 %; Hematocrit 32.9 % (35.3-44.9); Hemoglobin 10.4 g/dL (11.5-15.4); Immature Granulocytes % 0.2 % (0-4); Immature Platelets 3.2 % (1.1-6.1); Lymphocytes # 1.6 K/mcL (0.6-4.6); Lymphocytes % 30.1 %; Mean Corpuscular HGB Conc 31.6 g/dL (31.6-35.5); Mean Corpuscular Hemoglobin 26.7 pg (28.0-33.3); Mean Corpuscular Volume 84.6 fL (83.0-100.0); Mean Platelet Volume 9.6 fL (9.4-12.4); Monocytes # 0.3 K/mcL (0.0-1.3); Monocytes % 6.5 %; Neutrophils # 3.2 K/mcL (1.6-8.9); Platelet Count 212 K/mcL (140-400); Red Blood Count 3.89 M/mcL (3.82-4.97); Red Cell Distribution Width 13.2 % (11.5-14.5); Segmented Neutrophils % 61.7 %
[2016-09-18] MEDS: *HR* Enoxaparin 40 MG/0.4 ML SYRINGE SQ SCH (05:52)
[2016-09-18] MEDS: Gabapentin 300 MG CAPSULE PO SCH (08:06)
[2016-09-18] MEDS: amLODIPine 5 MG TABLET PO SCH (08:06)
[2016-09-18] MEDS: Nicotine 14 MG PATCH.TD24 TD SCH (08:06)
[2016-09-18] MEDS: Venlafaxine XR (24 HR) 75 MG CAP.ER.24H PO SCH (08:07)
[2016-09-18] MEDS: Pantoprazole 40 MG VIAL IVP SCH (08:07)
[2016-09-18] MEDS: Insulin LISPRO 300 UNITS/3 ML VIAL SQ SCH ×2 (08:07→12:08)
[2016-09-18] MEDS: *HR* OxyCODONE Immed Rel 5 MG TABLET PO PRN (09:04)
--- NOTE | 2016-09-18 09:15 | Discharge Summary ---
<ShawnMariano meek - Last Filed: 09/19/16 17:49> Date of Encounter: 09/18/16 Time of Encounter: 09:15 - Discharge Diagnosis (1) Acute on chronic pancreatitis Priority: Primary Status: Acute (2) Hypomagnesemia Priority: Primary Status: Acute (3) Essential hypertension Priority: Primary Status: Chronic (4) COPD (chronic obstructive pulmonary disease) Priority: Secondary Status: Chronic Qualifiers: COPD type: unspecified COPD Qualified Code(s): J44.9 - Chronic obstructive pulmonary disease, unspecified (5) Tobacco abuse Priority: Primary Status: Chronic (6) Anxiety Priority: Primary Status: Chronic (7) Type 2 diabetes mellitus Priority: Primary Status: Acute Qualifiers: Diabetes mellitus complication status: without complication Diabetes mellitus shelter insulin use: without intermediate project manager use Qualified Code(s): E11.9 - Type 2 diabetes mellitus without complications (8) Hypokalemia Priority: Primary Status: Resolved (9) DVT prophylaxis Priority: Primary Status: Acute Comments: Patient seen and examined, plan discussed with antibiotic upon with Dr. Motley - Discharge Medications Prescriptions: Oxycodone HCl 10 mg PO BID #9 tab Home Medications: Aclidinium [place] [Tudorza Pressair] 400 mcg IH BID PRN 04/15/16 [History] Gabapentin 600 mg PO TID 04/15/16 [History] Omeprazole [PriLOSEC] 20 mg PO DAILY 04/15/16 [History] metFORMIN [Glucophage] 1,000 mg PO BID 04/15/16 [History] Ondansetron ODT [Zofran ODT] 4 mg SL Q6H PRN 05/27/16 [History] Amlodipine Besylate 10 mg PO DAILY 09/01/16 [History] Trazodone HCl 100 mg PO HS 09/01/16 [History] Venlafaxine HCl [Effexor Xr] 150 mg PO DAILY 09/01/16 [History] Oxycodone HCl 10 mg PO BID #9 tab 09/18/16 [Rx] Promethazine [Phenergan] 12.5 mg PO Q8HR #12 tablet 09/18/16 [Rx] Allergies/Adverse Reactions: Allergies Iodinated Contrast- Oral and IV Dye [Iodinated Contrast Media - Oral and] Allergy (Verified 09/18/16 17:33) Difficulty Breathing AND HIVES Date of admission: 09/14/16 18:20 Primary care physician: Rebecca Licea CNP Discharging clinician: Willis Motley Anticipated date of discharge: 09/18/16 - Patient Status Disposition: Home, Self-Care Condition: Good Functional capacity at discharge: independent ambulation Overall status at discharge: patient is back to baseline - Discharge Instructions Instructions: Pancreatitis (DC) Follow Up With: Rebecca Licea CNP [Primary Care Provider] - 09/22/16 1:30 pm (Patient will call [facility] to maker her appt. with surgery. Thank you ) Additional Instructions: Follow up with surgeon at [facility] in September 2016. Following obesity in 1-2 weeks. Continue regular diet as tolerated and pain medicine as needed. Stop smoking - Diet and Activity Activity: increase activity as tolerated Diet: advance to your usual diet Hospital course: Ms. Wright is a 61 year old female well known to this facility with pancreatic divisum, chronic pancreatitis, hypertension, hyperlipidemia, type 2 diabetes, COPD, and medical noncompliance who presented to the emergency department with complaints of abdominal pain and nausea. Patient has recurrent hospitalizations with her acute on chronic pancreatitis, and was most recently discharged on September 04. She reported her symptoms are similar to previous symptoms with severe abdominal pain, nausea, diarrhea, and anorexia. Evaluation in the emergency department revealed elevated lipase of 237. CT of the abdomen and pelvis showed no acute findings, no evidence of acute pancreatitis. On exam, patient alert and oriented, in no acute distress. Heart has regular rate and rhythm, lungs are clear bilaterally to auscultation. Abdomen is soft with positive bowel sounds diffusely tender to palpation, more so on the left side. She was treated with IV Dilaudid 2 mg every 2 hours and oxycodone for breakthrough pain. The fluid and Zofran were administered. Patient had uneventful hospital course other than slight drop in her hemoglobin likely secondary to copious IV hydration. Patient continued to improve during hospital course and tolerated regular diet prior to discharge. Patient has appointment scheduled for September 2016 with surgeon at [facility]. - Time Spent with Patient Total time spent providing and/or coordinating discharge services: Greater than 30 minutes Specific discharge activities: Extensive chart review. Counseled regarding follow up with surgery. Counseled on tobacco cessation. Counseled on opiate dependence. - Constitutional Vitals: Temp Pulse Resp BP Pulse Ox 98.6 F 95 17 110/73 92 09/18/16 07:18 09/18/16 07:18 09/18/16 07:18 09/18/16 07:18 09/18/16 07:18 General appearance: Present: cooperative, disheveled, A&O X 3, pleasant, answers questions appropriately - Head Head exam: Present: atraumatic, normocephalic - Eye Eye exam: Present: PERRL, conjuntiva pink, sclera anicteric Pupils: Present: PERRL - ENT ENT exam: Present: mucous membranes moist, normal oropharynx - Neck Neck exam general surgery: Present: supple, trachea midline. Absent: lymphadenopathy - Respiratory Respiratory exam: Present: CTAB. Absent: accessory muscle use, rales, rhonchi, wheezes - Cardiovascular Cardiovascular exam: Present: RRR, +S1, +S2. Absent: diastolic murmur, gallop, rubs, systolic murmur - GI/Abdominal GI/Abdominal exam: Present: normal bowel sounds, soft, no peritoneal signs. Absent: distended, tenderness - Extremities Exam Extremities exam: Present: warm, radial pulses palpable and symetrical. Absent : calf tenderness, cyanotic, pedal edema - Neurological Exam Neurological exam: Present: CN II-XII intact, oriented X3, no focal deficits. Absent: pronater drift, facial droop, speech deficit - Psychiatric Psychiatric exam: Present: normal affect, normal mood - Skin Skin exam: Present: dry, intact - VTE Documentation of Mechanical Device: Graduated compression elastic hosiery <Tiesha,Willis P - Last Filed: 09/21/16 18:53> Date of Encounter: 09/21/16 - Discharge Diagnosis (1) Acute on chronic pancreatitis Status: Acute (2) Hypomagnesemia Status: Acute (3) HTN (hypertension) Status: Acute Qualifiers: Hypertension type: essential hypertension Qualified Code(s): I10 - Essential (primary) hypertension (4) COPD (chronic obstructive pulmonary disease) Status: Chronic Qualifiers: COPD type: unspecified COPD Qualified Code(s): J44.9 - Chronic obstructive pulmonary disease, unspecified Date of admission: 09/14/16 18:20 Primary care physician: Rebecca Licea CNP Hospital course: Ms. Wright is a 61 year old female - Time Spent with Patient Total time spent providing and/or coordinating discharge services: - Constitutional Vitals: Temp Pulse Resp BP Pulse Ox 98.7 F 99 16 102/67 94 09/18/16 10:58 09/18/16 10:58 09/18/16 10:58 09/18/16 10:58 09/18/16 10:58 - Attending Attestation I examined this patient and my medical decision-making was reviewed with the Resident Physician. I agree with the documented findings, disposition and treatment plan as described except to the extent set forth below.
[2016-09-18 11:03] VITALS: BP 102/67
== END 2016-09-18 13:11 | disposition home or self-care (01) | DRG 392 ==
LOC: 3ANU 12:52 → EMEROO 12:52 → 3ANU 16:10
PROVIDERS: ADMIT Internal Medicine; ATTEND Internal Medicine

== ENCOUNTER 2018-11-22 13:52 | Observation (INO) ==
[2018-11-22] MEDS ORDERED: Ondansetron 4 MG/2 ML VIAL IVP PRN (18:33)
[2018-11-22] MEDS ORDERED: Naloxone 0.4 MG/ML INJ IVP PRN (18:33)
--- NOTE | 2018-11-22 19:32 | Internal Med History&Physical ---
Date of Encounter: 11/22/18 Time of Encounter: 18:35 Internal Medicine - H&P: HPI Admitted From: Hospital to Hospital Transfer Plans for Post Hospital Care: Home History of present illness: Ms. Wright is a 63 year old female With past medical history significant for diabetes, HTN, cervical spondylitis hypertension chronic pancreatitis who presented to D ED department at [facility] with complaints of left upper quadrant and epigastric pain. She stated that this pain was similar to prior multiple episodes of pancreatitis. Per report provided by the [facility] physician the patient refused CAT scan citing history of multiple CT scan of her abdomen and pelvis for recurrent pancreatitis as such she is worried about the amount of radiation she has received. The remaining continuity patient she also emphasized this site and she does not want any imaging study done. She stated that she is scheduled to see the cot assembler at [facility] sometime in January of this year to have stenting of her pancreatic duct. She denies any history of alcoholic use a lipid abnormality and could not confirm or refute prior diagnosis of autoimmune pancreatitis. Documents from [facility] has been reviewed, labs dated 11/22/2018 CBC 6.2 hemoglobin 14.4 hematocrit 14.5 platelets 207, BMP sodium 141 potassium 3.9 chloride 104 CO2 28 BUNs 22 creatinine 0.9 glucose 244. Lipase 664 with a bilirubin 0.2 direct bili less than 0.1, albumin 3.8, jesse phos 103, AST 18 ALT 30. UA revealed sg 1.01 negative for protein and positive for glucose, but negative for nitrates and leukocytes esterase. Past Med Surg Social Fam HX - Past Medical History Medical history: COPD, diabetes, GERD, hyperlipidemia, hypertension, other Additional medical history: pancreatitis Psychiatric history: depression - Past Surgical History Surgical History: cholecystectomy, hysterectomy, other Additional surgical history: hemmorhiod removal, cyst removal - Social History Smoking Status: Light tobacco smoker Smokeless Tobacco Status: No Alcohol use: none Drug use: none - Family History Mother Living Status: Hx Family Cardiac Disorders: Yes (Open heart surgery) Father Living Status: Hx Family Cardiac Disorders: Yes (GA) Hx Family Respiratory Disorders: No Hx Family Cancer: No Hx Family GI Disorders: Yes (Ulcers) Hx Family Endocrine Disorder: Yes (DM) Hx Family Neuromuscular Disorders: No Hx Family Neurologic Disorders: No Hx Family HEENT Disorders: No Hx Family Autoimmune Disorders: No Internal Medicine - H&P: Meds Gabapentin 600 mg PO TID 04/15/16 [History] Omeprazole [PriLOSEC] 20 mg PO DAILY 04/15/16 [History] metFORMIN [Glucophage] 1,000 mg PO BID 04/15/16 [History] Amlodipine Besylate 10 mg PO DAILY 09/01/16 [History] Trazodone HCl 100 mg PO HS 09/01/16 [History] OxyCODONE Immed Rel [Roxicodone 10 MG] 10 mg PO BID #9 tab 09/18/16 [Rx] Oxycodone HCl/Acetaminophen [Percocet 5-325 mg Tablet] 1 each PO Q6-8H PRN #10 tablet 09/22/16 [Rx] Naproxen [Naprosyn] 500 mg PO BID #20 tablet 09/28/16 [Rx] Venlafaxine HCl [Venlafaxine HCl ER] 75 mg PO DAILY 09/28/16 [History] Allergy/AdvReac Type Severity Reaction Status Date / Time Iodinated Contrast Media Allergy Difficulty Verified 10/02/16 17:10 [Iodinated Contrast Media - Breathing Oral and] All Systems PM: GENERAL: Denies fever, chills, reports generalized fatigue DERMATOLOGIC: Denies itch, rash or lesions HEENT: Denies headache, blurriness, diplopia or decreased visual acuity, ear pain, tinnitus, rhinorrhea, sinus tenderness or sore throat RESPIRATORY: Denies SOB, cough, hemoptysis or pleuritic chest pain CARDIOVASCULAR: Denies chest pain, LE edema, palpitation or syncope GASTRO INTESTINAL: Reports epigastric pain nausea vomiting but denies any melena hematochezia diarrhea or constipation MUSCULOSKELATAL: Denies muscle pain/weakness, joint tenderness/pain or swelling PSYCH: Denies worsening anxiety, or depression NEURO: Denies vertigo, dizziness, or ataxia GENITURINARY: Denies dysuria, nocturia or urinary incontinence - Constitutional Vitals: Temp Pulse Resp BP Pulse Ox 98.3 F 63 16 138/73 97 11/22/18 18:48 11/22/18 18:48 11/22/18 18:48 11/22/18 18:48 11/22/18 18:48 Exam: GENERAL: Mildly distressed female, A&O x3, pleasant and conversant but became tearful towards the end of the encounter SKIN: [place] warm dry No skin lesions or rashes, non-jaundiced EYES: EOMI, PERRLA, no sclera icterus HENT: Head atraumatic, no facial asymmetry, frontal and maxillary sinus non- tender, normal hearing, oropharynx and mucosa moist and without any exudates NECK: No cervical lymphadenopathy, trachea midline, thyroid is palpable does not appear enlarged LUNGS: vesicular breath sounds, clear to auscultation, no wheeze, rhonchi, rales or crackles. Non labored respirations HEART: Normal rate and rhythm, no murmurs or rubs ABDOMEN: Mild palpation of the epigastric and abdomen elicited pain patient deferred and the rest of the exam of the abdomen citing pain. non-distended, bowel sounds x 4 normoactive EXTRMITIES: No LE asymmetry, No LE edema, pedal pulses 1+ and radial pulses 2 + and equal bilaterally NEURO: Speech and comprehension appears intact. PSYCH: Cooperative, quite anxious, mood depressed and affect labile - Assessment and Plan (1) Acute on chronic pancreatitis Current Visit: Yes Status: Acute Assessment and plan: Patient with history of chronic pancreatitis being worked up at [facility] per subjective information provided by the patient she stated that she was told that she needs pancreatic ducts stented. She denies any history of alcoholism or elevated triglycerides. She could not confirm or refute from a diagnosis of autoimmune pancreatitis as such work up for autoimmune pancreatitis has been initiated IgG4 ordered this lab result my notes resolved prior to her discharge she will need to follow-up with her primary care physician to discuss the result. On the interim she will be placed nothing by mouth and a pain was managed with morphine patient claims she is not opiate naive. Lipase at [facility] was 664 although per conversation with the physician at [facility] this was her baseline. Patient continues to maintain that she does not want any CT imaging citing concerns for radiation exposure from prior frequent CT images she has had in the past. As such other intra abdominal pathology cannot be ruled out however she is afebrile and has no leukocytosis will clinically correlate (2) Diabetes mellitus Current Visit: Yes Status: Chronic Assessment and plan: Based on information from [facility] patient's blood glucose was only in the 200s she does have greater than 1000 glucose urine suspect poorly controlled diabetes as such gastroparesis could be on the differential for her abdominal pain and nausea and vomiting. We will often a beta hydroxy butyrate level to rule out DKA and also check A1c am to better delineate her diabetic control. Since she is nothing by mouth we will place on insulin sliding scale Accu-Cheks every 6 Qualifiers: Diabetes mellitus type: type 2 Diabetes mellitus fci insulin use: without termite technician use Diabetes mellitus complication status: without complication Qualified Code(s): E11.9 - Type 2 diabetes mellitus without complications (3) HTN (hypertension) Current Visit: Yes Status: Acute Assessment and plan: We will resume home meds once med rec is complete Qualifiers: Hypertension type: essential hypertension Qualified Code(s): I10 - Essential (primary) hypertension (4) Smoker Current Visit: Yes Status: Acute Assessment and plan: Encouraged tobacco cessation will order nicotine patches (5) COPD (chronic obstructive pulmonary disease) Current Visit: Yes Status: Chronic Assessment and plan: DuoNeb as needed Qualifiers: COPD type: unspecified COPD Qualified Code(s): J44.9 - Chronic obstructive pulmonary disease, unspecified (6) DVT prophylaxis Current Visit: Yes Status: Acute Assessment and plan: Heparin per protocol - Time Spent With Patient Total time spent is greater than 50% in coordination of care (as documented) at patient's floor/unit and/or counseling patient:
[2018-11-22] MEDS ORDERED: Dextrose Gel 15 GM/37.5 ML TUBE PO PRN ×2 (19:44)
[2018-11-22] MEDS ORDERED: *HR* Dextrose 50 % in Water (Syg) 50 ML SYRINGE IVP PRN (19:44)
[2018-11-22] MEDS ORDERED: D5% in Water 1,000 ML IVC PRN (19:44)
[2018-11-22] MEDS ORDERED: Ipratropium/Albuterol Neb 3 ML IH PRN (19:47)
[2018-11-22] MEDS: Morphine Sulfate 2 MG/ML SYRINGE IVP PRN (20:40)
[2018-11-22] MEDS: 0.9 % Sodium Chloride 1,000 ML IVC SCH (21:01)
[2018-11-22] MEDS: *HR* Heparin 5,000 UNIT/ML VIAL SQ SCH (21:09)
[2018-11-22] MEDS ORDERED: Nicotine 21 MG PATCH.TD24 TD SCH (22:28)
[2018-11-23] MEDS: Morphine Sulfate 2 MG/ML SYRINGE IVP PRN ×2 (01:19→05:43)
[2018-11-23] MEDS: Insulin LISPRO 300 UNITS/3 ML VIAL SQ SCH ×3 (01:57→12:23)
[2018-11-23 05:18] LABS: Basophils % 0.7 %; Eosinophils # 0.1 K/mcL (0.0-0.6); Eosinophils % 1.5 %; Hematocrit 39.3 % (35.3-44.9); Hemoglobin 13.3 g/dL (11.5-15.4); Immature Granulocytes % 0.2 % (0-4); Lymphocytes % 43.3 %; Mean Corpuscular HGB Conc 33.8 g/dL (31.6-35.5); Mean Corpuscular Hemoglobin 31.7 pg (28.0-33.3); Mean Corpuscular Volume 93.8 fL (83.0-100.0); Mean Platelet Volume 10.3 fL (9.4-12.4); Monocytes # 0.3 K/mcL (0.0-1.3); Monocytes % 6.2 %; Neutrophils # 2.2 K/mcL (1.6-8.9); Platelet Count 182 K/mcL (140-400); Red Blood Count 4.19 M/mcL (3.82-4.97); Red Cell Distribution Width 11.9 % (11.5-14.5); Segmented Neutrophils % 48.1 %; White Blood Count 4.5 K/mcL (4.3-11.1)
[2018-11-23 05:46] LABS: BUN/Creatinine Ratio 11 (6-26); Blood Urea Nitrogen 8 mg/dL (8-23); Calcium 8.5 mg/dL (8.6-10.3); Carbon Dioxide 27 mEq/L (23-29); Chloride 112 mEq/L (98-107); Cholesterol 160 mg/dL (< 200); Glucose 101 mg/dL (70-105); HDL Cholesterol 23 mg/dL (40-59); LDL Cholesterol,Calculated 72 mg/dL (0-99); Lipase 98 Units/L (11-82); Magnesium 1.5 mg/dL (1.6-2.6); Osmolality,Calculated 294 (280-300); Potassium 3.6 mEq/L (3.5-5.1); Sodium 143 mEq/L (136-145); Triglycerides 326 mg/dL (< 150); eGFR For African Americans > 60 (> 60); eGFR For Non-African Americans > 60 (> 60)
[2018-11-23] MEDS: *HR* Heparin 5,000 UNIT/ML VIAL SQ SCH (05:48)
[2018-11-23] MEDS: 0.9 % Sodium Chloride 1,000 ML IVC SCH (07:44)
[2018-11-23] MEDS ORDERED: Nicotine 21 MG PATCH.TD24 TD SCH (09:00)
[2018-11-23 10:04] LABS: Estimated Average Glucose 166 mg/dl
[2018-11-23] MEDS ORDERED: Ketorolac 15 MG/ML VIAL IVP PRN (10:27)
[2018-11-23] MEDS ORDERED: Ondansetron ODT 4 MG TAB.RAPDIS SL PRN (10:28)
[2018-11-23 11:42] VITALS: BP 161/93
--- NOTE | 2018-11-23 11:53 | Discharge Summary ---
Orders not resulted at time of discharge: Pending orders 11/23/18 04:46 IgG Subclasses 1,2,3,4 AM 0400 Date of Encounter: 11/23/18 Time of Encounter: 11:46 - Discharge Diagnosis (1) Acute on chronic pancreatitis Priority: Primary Status: Acute (2) Diabetes mellitus Priority: Secondary Status: Chronic Qualifiers: Diabetes mellitus type: type 2 Diabetes mellitus intermediate accountant insulin use: without senior care use Diabetes mellitus complication status: without complication Qualified Code(s): E11.9 - Type 2 diabetes mellitus without complications (3) HTN (hypertension) Priority: Secondary Status: Acute Qualifiers: Hypertension type: essential hypertension Qualified Code(s): I10 - Essential (primary) hypertension (4) Smoker Priority: Secondary Status: Acute (5) COPD (chronic obstructive pulmonary disease) Priority: Secondary Status: Chronic Qualifiers: COPD type: unspecified COPD Qualified Code(s): J44.9 - Chronic obstructive pulmonary disease, unspecified Hospital course: Ms. Wright is a 63 year old female with chronic idiopathic pancreatitis with multiple previous admissions for pain control presented with acute on chronic pancreatitis pain in the setting of lipase that was at her baseline and no other laboratory abnormalities. Patient was treated with pain control during hospital stay. This provider stressed the importance of close primary care and GI follow-up for outpatient management for pain control to decrease the admissions for this. Patient will follow-up as scheduled with [facility] gastroenterology next month. Reportedly investigating autoimmune causes of pancreatitis. IgG4 drawn this admission will need to be followed up on by primary care provider. Discharge discussed with: patient - Time Spent with Patient Total time spent providing and/or coordinating discharge services: 25 minutes Time spent: Less than 30 minutes, Greater than 30 minutes - Discharge Medications Prescriptions: New Oxycodone HCl 10 mg PO Q8H PRN 7 Days #10 tablet PRN Reason: Pain Ondansetron ODT [Zofran ODT] 4 mg PO Q8H PRN #15 tab.rapdis PRN Reason: Nausea Continued metFORMIN [Glucophage] 1,000 mg PO BID Gabapentin 600 mg PO TID Omeprazole [PriLOSEC] 20 mg PO DAILY Amlodipine Besylate 10 mg PO DAILY Trazodone HCl 100 mg PO HS OxyCODONE Immed Rel [Roxicodone 10 MG] 10 mg PO BID #9 tab Oxycodone HCl/Acetaminophen [Percocet 5-325 mg Tablet] 1 each PO Q6-8H PRN #10 tablet PRN Reason: Pain Naproxen [Naprosyn] 500 mg PO BID #20 tablet Venlafaxine HCl [Venlafaxine HCl ER] 75 mg PO DAILY Home Medications: Gabapentin 600 mg PO TID 04/15/16 [History] Omeprazole [PriLOSEC] 20 mg PO DAILY 04/15/16 [History] metFORMIN [Glucophage] 1,000 mg PO BID 04/15/16 [History] Amlodipine Besylate 10 mg PO DAILY 09/01/16 [History] Trazodone HCl 100 mg PO HS 09/01/16 [History] OxyCODONE Immed Rel [Roxicodone 10 MG] 10 mg PO BID #9 tab 09/18/16 [Rx] Oxycodone HCl/Acetaminophen [Percocet 5-325 mg Tablet] 1 each PO Q6-8H PRN #10 tablet 09/22/16 [Rx] Naproxen [Naprosyn] 500 mg PO BID #20 tablet 09/28/16 [Rx] Venlafaxine HCl [Venlafaxine HCl ER] 75 mg PO DAILY 09/28/16 [History] Ondansetron ODT [Zofran ODT] 4 mg PO Q8H PRN #15 tab.rapdis 11/23/18 [Rx] Oxycodone HCl 10 mg PO Q8H PRN 7 Days #10 tablet 11/23/18 [Rx] Allergies/Adverse Reactions: Allergy/AdvReac Type Severity Reaction Status Date / Time Iodinated Contrast Media Allergy Difficulty Verified 10/02/16 17:10 [Iodinated Contrast Media - Breathing Oral and] Date of admission: 11/22/18 17:58 Primary care physician: PCP NONE - Constitutional Vitals: Temp Pulse Resp BP Pulse Ox 98.4 F 84 19 161/93 98 11/23/18 11:40 11/23/18 11:40 11/23/18 11:40 11/23/18 11:40 11/23/18 11:40 Exam: General: Ill-appearing and in no acute distress HEENT: No erythema of posterior pharynx. No exudates. Lymphatics: No mandibular or cervical lymphadenopathy Cardiovascular: RRR. No murmurs. No chest wall tenderness. Lungs: Clear to auscelltation bilaterally. Regular chest rise. Abdomen: Mild epigastric tenderness. No rebound or gaurding. Nl bowel sounds. Extremities: No edema. 2+ pulses radial and pedal pulses Skin: No rahses, abrasions, or contusions. Nl cap refill. Psych: Nl attention. A&Ox3 Neuro: clergy member II-XII intact. 5/5 strength. Sensation to light touch and pinprick intact. - Patient Status Disposition: Home, Self-Care Condition: Good Functional capacity at discharge: independent ambulation Overall status at discharge: patient is progressing back to baseline - Discharge Instructions Follow Up With: NONE,PCP [Primary Care Provider] - - Diet and Activity Activity: increase activity as tolerated Diet: advance to your usual diet
[2018-11-26 11:39] LABS: Immunoglobulin G Subclass 1 287 mg/dL (240-1118); Immunoglobulin G Subclass 2 134 mg/dL (124-549); Immunoglobulin G Subclass 3 52 mg/dL (21-134); Immunoglobulin G Subclass 4 3 mg/dL (1-123)
== END 2018-11-23 13:33 | disposition home or self-care (01) ==
LOC: 3BNU
PROVIDERS: ADMIT Pharmacist; ATTEND Pharmacist